=== PATIENT | male | born 1945 | race Caucasian/White ===

== ENCOUNTER 2021-02-07 11:26 | Outpatient (REF) | payer MEDICARE, OTHER, SELFPAY ==
--- NOTE | ~2021-02-07 | XR_ITS ---
EXAMINATION: XR HUMERUS, RIGHT CLINICAL INFORMATION: Pain COMPARISON: None TECHNIQUE: AP and lateral views of the right humerus. FINDINGS: No fracture or dislocation is seen. There is mild arthritis at the acromioclavicular joint. The glenohumeral joint is normal. There is arthritis at the elbow joint. Soft tissues are unremarkable. 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
== END 2021-02-07 11:27 | disposition home or self-care (01) ==
LOC: HO.HMGCX 11:26
PROVIDERS: Visit Provider Nurse Practitioner Family
DX: Z13.89 Encounter for screening for other disorder (principal)
CPT/HCPCS: 73060

== ENCOUNTER 2021-02-07 16:07 | Outpatient (REF) | payer MEDICARE, OTHER, SELFPAY ==
--- NOTE | ~2021-02-07 | US_ITS ---
EXAMINATION: US VENOUS WITH DOPPLER UPPER EXTREMITY, RIGHT CLINICAL INFORMATION: Pain localized tenderness over biceps COMPARISON: None TECHNIQUE: Ultrasound of the upper extremity is performed using compression sonography and color and pulse Doppler flow with assessment of augmentation of flow. There is also imaging and Doppler assessment of the jugular and subclavian veins. Spectral analysis with color-flow imaging is performed. FINDINGS: Respiratory variation, normal compression, and augmented flow are noted throughout the upper extremity including the axillary, brachial, cubital, and radial and ulnar veins. There is normal flow in the internal jugular and subclavian veins. There is no visible deep or superficial thrombophlebitis. If the patient's symptoms progress, a followup ultrasound in 5 -7 days might be of value to exclude proximal propagation from a nonvisualized distal arm vein. In the area of concern there does appear to be a small fluid collection possibly representing fluid within the bicipital groove. I cannot exclude a proximal tear the biceps tendon on this study but this is not well assessed on ultrasound. Consider MRI of the shoulder to more completely evaluate this area. US/US venous duplex UE RT IMPRESSION: No DVT demonstrated in the right upper extremity. In the area of concern along the region of the biceps tendon there is a elongated fluid collection possibly representing fluid-filled bicipital groove. It does appear to be possible discontinuity of the biceps tendon in this location but the examination is suboptimal for evaluating this. Consider dedicated targeted MRI if further evaluation is needed.
== END 2021-02-07 16:08 | disposition home or self-care (01) ==
LOC: HO.US 16:07
PROVIDERS: PCP Internal Medicine; Visit Provider Nurse Practitioner Family
DX: M79.621 Pain in right upper arm (principal)
CPT/HCPCS: 93971

== ENCOUNTER → 2021-02-17 10:46 | Outpatient (BNVA) | payer MEDICARE, OTHER, SELFPAY | PROVIDERS: PCP Internal Medicine; Visit Provider Physician Assistant | DX: M75.101 Unspecified rotator cuff tear or rupture of right shoulder, not specified as traumatic (principal) | CPT/HCPCS: 99202 ==

== ENCOUNTER 2021-03-17 09:00 | Outpatient (RCR) | payer MEDICARE, OTHER, SELFPAY ==
--- NOTE | 2021-03-02 11:58 | MHC.PT.EP ---
[facility] [place] [facility] [place] Office [place] Office [address] Mik Chang [address] [phone] F: [phone] F: [phone] F: [phone] F: [phone] Physical Therapy Plan of Care Date of Evaluation: Date of Surgery: N/A Diagnosis: rotator cuff tear or rupture of right shoulder Assessment: pt's signs and symptoms consistent w/ overuse of deltoid muscle. He has pain and tenderness localized to distal lateral portion of deltoid. pt also weak w/ long-lever abduction and has some atrophy localized to the supraspinatus. pt presents to physical therapy with pain, decreased range of motion, decreased strength, impaired functional mobility, and impaired postural awareness. pt is a good candidate for skilled PT due to age, potential remediation of impairments, typical disease/condition progression and prognosis, comorbidities, and motivation. pt would benefit from tailored strengthening and stretching exercise program, functional training, postural re-training, neuromuscular re-education, modalities as needed for pain, equipment safety demonstration. Frequency and Duration: The patient will be seen 2x/wk for 4 wks Short Term Goals: pt will be I w/ HEP to promote self-management of condition. 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 pt will report a statistically significant improvement in self-reported outcome measure, SPADI, to promote return to PLOF. Treatment Plan: Modalities to reduce pain, spasms and effusion. Manual therapy to restore motion and function. Therapeutic exercise to improve strength and flexibility. Neuromuscular re-education for posture and balance. Therapeutic activities to return to functional activities of daily living. Electronically signed by: Mariaa Deras PT, DPT Please sign and return to therapist. Thank you for your referral.
--- NOTE | 2021-03-17 17:44 | MHC.PT.DC ---
[facility] [place] Office [place] Office [place] Office [address] 140 [facility] [phone] F: [phone] F: [phone] F: [phone] F: [phone] Physical Therapy Discharge Report Diagnosis: rotator cuff tear or rupture of right shoulder Date of Surgery: N/A Date of Evaluation: 03/02/21 Date of Discharge: 03/17/21 Treatments to Date: 6 Cancellations to Date: 0 No Shows to Date: 0 Discharge Status: Improved Function Independent with HEP Patient Elected to Stop Discharge Summary: The patient has been consistently reporting little to no pain of the right shoulder. He is independent with his home exercise program and pain management techniques including using moist heat in the morning to manage stiffness. He requested to be discharged today as his pain has reduced and he is independent with pain management. He is discharged from this physical therapy plan of care per his request. Electronically signed by: Mariaa Deras PT, DPT Please sign and return to therapist. Thank you for your referral.
== END 2021-03-17 17:44 | disposition home or self-care (01) ==
LOC: HO.PT 09:00
PROVIDERS: PCP Internal Medicine; Visit Provider Physician Assistant
DX: M75.101 Unspecified rotator cuff tear or rupture of right shoulder, not specified as traumatic (principal)
CPT/HCPCS: 97110; 97161; 97530

== ENCOUNTER 2021-11-10 06:02 | Outpatient (REF) | payer MEDICARE, OTHER, SELFPAY ==
[2021-11-10 06:17] LABS: MANUAL DIFF FLAG NO
[2021-11-10 07:23] LABS: Basophils Percent Auto 0.6 % (0-2); Eosinophils Absolute Auto 0.1 X10*3/uL (0.0-0.4); Eosinophils Percent Auto 2.8 % (0-4); Hematocrit 42.6 % (42.0-52.0); Hemoglobin 14.4 g/dl (14.0-18.0); Imm Gran Abs Auto 0.02 X10*3/uL (0.00-0.03); Imm Gran Pct Auto 0.4 % (0.0-0.4); Lymphocytes Absolute Auto 1.4 X10*3/uL (1.2-4.9); Lymphocytes Percent Auto 27.5 % (20-40); Mean Corpuscular HGB Conc 33.8 g/dl (31.0-36.0); Mean Corpuscular Hemoglobin 31.6 pg (27.0-33.0); Mean Corpuscular Volume 93.4 fL (80.0-98.0); Mean Platelet Volume 9.4 fL (9.4-12.4); Monocytes Absolute Auto 0.5 X10*3/uL (0.1-1.2); Monocytes Percent Auto 9.6 % (2-11); Neutrophils Percent Auto 59.1 % (45-73); Platelet Count 198 X10*3/uL (160-400); Red Blood Count 4.56 X10*6/uL (4.60-5.80); Red Cell Distribution Width 12.4 % (11.0-16.0)
[2021-11-10 07:46] LABS: Alanine Aminotransferase 14 U/L (0-40); Albumin Level 4.6 g/dL (3.5-5.0); Alkaline Phosphatase 113 U/L (39-117); Anion Gap 12 (12-20); Aspartate Amino Transferase 21 U/L (5-37); Bilirubin Total 0.9 mg/dL (0.0-1.0); Blood Urea Nitrogen 12 mg/dL (9-16); Calcium 9.4 mg/dL (8.4-10.2); Carbon Dioxide 26 mmol/L (22-29); Chloride 106 mmol/L (96-108); Cholesterol 132 mg/dL; Estimated Glomerular Filt Rate > 60; Glucose Random 97 mg/dL (60-115); HDL Cholesterol 52 mg/dL; LDL Cholesterol Calculated 63 mg/dl; Sodium 140 mmol/L (135-145); Total Protein 7.5 g/dL (6.5-8.0); Triglycerides 88 mg/dL
[2021-11-10 08:10] LABS: Free T4 (Free Thyroxine) 0.92 ng/dL (0.71-1.85); Prostate Specific Antigen Scr < 0.05 ng/mL (<0.05-4.0); Thyroid Stimulating Hormone 2.91 uIU/mL (0.32-4.0)
[2021-11-10 08:23] LABS: Folate 16.4 ng/mL (> or = 4.0); Vitamin B12 356 pg/mL (200-900)
== END 2021-11-10 06:03 | disposition home or self-care (01) ==
LOC: HO.LAB 06:02
PROVIDERS: PCP Internal Medicine; Visit Provider Internal Medicine
DX: Z12.5 Encounter for screening for malignant neoplasm of prostate (principal); K21.9 Gastro-esophageal reflux disease without esophagitis; E78.00 Pure hypercholesterolemia, unspecified
CPT/HCPCS: 36415; 80053; 80061; 82607; 82746; 84153; 84439; 84443; 85025

== ENCOUNTER 2022-01-25 08:19 | Outpatient (REF) | payer MEDICARE, OTHER, SELFPAY ==
[2022-01-25 08:46] LABS: Hematocrit 40.9 % (42.0-52.0); Mean Corpuscular HGB Conc 34.2 g/dl (31.0-36.0); Mean Corpuscular Hemoglobin 31.5 pg (27.0-33.0); Mean Corpuscular Volume 91.9 fL (80.0-98.0); Mean Platelet Volume 8.9 fL (9.4-12.4); Platelet Count 184 X10*3/uL (160-400); Red Blood Count 4.45 X10*6/uL (4.60-5.80); Red Cell Distribution Width 12.5 % (11.0-16.0); White Blood Count 5.2 X10*3/uL (4.8-10.8)
[2022-01-25 09:07] LABS: Anion Gap 14 (12-20); Blood Urea Nitrogen 15 mg/dL (9-16); Calcium 9.2 mg/dL (8.4-10.2); Carbon Dioxide 26 mmol/L (22-29); Chloride 106 mmol/L (96-108); Estimated Glomerular Filt Rate > 60; Glucose Random 167 mg/dL (60-115); Potassium 4.5 mmol/L (3.3-5.1); Sodium 141 mmol/L (135-145)
[2022-01-25 09:39] LABS: Appearance Urine CLEAR; Color Urine YELLOW; Glucose Urine UA NEG (NEG); Leukocyte Esterase Urine NEG (NEG); Nitrite Urine NEG (NEG); PH 5.5 (5.0-8.0); Specific Gravity - Urine >= 1.030 (1.005-1.025); Urine Blood TRACE (NEG); Urine Ketones 5 MG/DL (NEG); Urine Protein NEG (NEG-TRACE)
[2022-01-25 09:52] LABS: Squamous Epithelial Cell Urine TRACE /LPF
[2022-01-25 09:53] LABS: RBC Urine 0-2 /HPF (0); WBC Urine 0-2 /HPF (0-4)
== END 2022-01-25 08:20 | disposition home or self-care (01) ==
LOC: HO.LAB 08:19
PROVIDERS: PCP Internal Medicine; Visit Provider Urology
DX: N39.0 Urinary tract infection, site not specified (principal)
CPT/HCPCS: 36415; 80048; 81001; 85027; 87086

== ENCOUNTER → 2022-09-08 13:55 | Outpatient (REF) | payer MEDICARE, OTHER, SELFPAY ==
--- NOTE | 2022-09-08 13:59 | ECG_ITS ---
Test Reason : CARD. ARRHYTHMIA Blood Pressure : / mmHG Vent. Rate : 088 BPM Atrial Rate : 088 BPM P-R Int : 162 ms QRS Dur : 076 ms QT Int : 360 ms P-R-T Axes : 061 -11 064 degrees QTc Int : 435 ms Normal sinus rhythm Normal ECG When compared with ECG of 24-APR-2010 13:04, No significant change was found Referred By: Oscar Arias Electronically Signed By:REINALDO WHITAKER
== END ==
LOC: HO.CARD 13:55
PROVIDERS: PCP Internal Medicine; Visit Provider Internal Medicine
DX: I49.9 Cardiac arrhythmia, unspecified (principal)
CPT/HCPCS: 93005

== ENCOUNTER 2022-11-27 07:04 | Day surgery (SDC) | payer MEDICARE, OTHER, SELFPAY ==
[2022-11-27 07:31] VITALS: BMI 25.1
[2022-11-27 07:42] VITALS: BP 168/84; PULSE 83; RESP 16; TEMP 36.3; O2SAT 98
--- NOTE | 2022-11-27 07:56 | HO.ANESPROP2 ---
FORMERLY [facility], [facility] Active Problems Active Problems: All Active Problems (Updated 10/12/22 @ 10:59 by Paula Johnson MD) Bloating (Acute) Burping (Acute) Postnasal drip (Acute) Sinus congestion (Acute) Hypertension (Acute) Arrhythmia (Acute) Excessive tearing (Acute) Dermatosis of scalp (Acute) BPH (benign prostatic hyperplasia) (Acute) History of prostate cancer (Acute) Adult general medical exam (Acute) Colon cancer screening (Acute) Visual changes (Acute) Generalized anxiety disorder (Acute) Constipation (Acute) GERD (gastroesophageal reflux disease) (Acute) Painful arc syndrome of right shoulder (Acute) Past Medical History Medical History Blood pressure elevated without history of HTN BPH (benign prostatic hyperplasia) GERD (gastroesophageal reflux disease) History of prostate cancer History of renal calculi Family History Family history of problems with anesthesia: No Surgical History Surgical History H/O prostatectomy History of adenoidectomy History of colonoscopy History of suburethral sling procedure S/P left inguinal herniorrhaphy History of Problems with Anesthesia: No Social History Social History Housing: House Alcohol intake: current Alcohol intake frequency: a few times a week Patient Tobacco Use Status: Former Tobacco user Tobacco use type: Cigarette Years Smoked: quit 30 years old e-Cigarette/Vaping Use: Never Used Second Hand Smoke Exposure: No Use of substances other than those prescribed or required for medical reasons: No Are you DNR?: No Advance Directives: No Advance Directives Information Provided: Yes Nutrition Risks: No Nutritional Risk Current occupational status: unemployed and retired Current occupation: left hand Cognitive needs: No Hearing needs: No Vision needs: Yes Meds Allergies Allergy/AdvReac Type Severity Reaction Status Date / Time Iodinated Contrast Media Allergy Unknown NAUSEA & Verified 10/27/22 09:23 [IV DYE, IODINE CONTAINING] VOMITING Penicillins [PENICILLINS] Allergy Unknown UNKNOWN Verified 10/27/22 09:23 losartan AdvReac Intermediate Nausea Verified 11/22/22 20:04 Metoprolol AdvReac Nausea and Uncoded 10/27/22 09:23 Vomiting Active Medications: Current Medications Sodium Biphosphate/Sodium Phosphate (Sodium Phosphate,Lea-Dibasic 133 Ml Enema) 133 ml LA ONCE PRN PRN Reason: Poor Colonoscopy Prep Results Home Medications Medication Instructions Recorded Confirmed Last Taken Type lisinopril 5 mg tablet 5 mg PO DAILY 11/24/22 11/24/22 Unknown History Exam Exam Date and Time: November 27, 2022 0756 Height,Weight and Vital Signs: Height 5 ft 10 in Weight 79.379 kg Airway Mallampati Class: II TM Dist: >3cm Neck ROM: Full Loose/Missing/Broken Teeth: Yes (few missing lower left) Heart: rr Lungs: cta Assessment and Plan Assessment Anesthesia Assessment: Anesthesia Plan Discussed and Chart Reviewed Final Anesthetic Review Family History of Problems with Anesthesia: No History of Problems with Anesthesia: No NPO: Yes ASA Class: II Final Preanesthetic Review: No Changes in Pt Med Stat, Meds/Allgs Chart Reviewed, Consent Obtained/Reviewed and Anes Risks/Benef Reviewed Patient Risk: Low Procedure Risk: Low Anesthetic Plan Anesthetic Plan: MAC: Disposition: Standard PACU
[2022-11-27] MEDS: Lactated Ringers 500 ML 20 ML IVCONT (08:05)
[2022-11-27 08:59] VITALS: BP 88/43; PULSE 69; RESP 16; TEMP 36.6; O2SAT 96
--- NOTE | 2022-11-27 09:00 | PM.OP ---
Brief Operative Note Date of Service: 11/27/22 Pre-op diagnosis: Screening Post-op diagnosis: other (Diverticulosis) Procedure: Colonoscopy to the cecum and TI Surgeon: Jayesh Sweet Anesthesia: MAC Was an Component Assembler used for this Procedure?: No Estimated blood loss (mL): 0 Pathology: none sent Condition: stable Disposition: PACU
[2022-11-27 09:17] VITALS: BP 102/57; PULSE 56; RESP 16; TEMP 36.6; O2SAT 97
[2022-11-27 09:32] VITALS: BP 129/68; PULSE 67; RESP 18; TEMP 36.6; O2SAT 100
--- NOTE | 2022-11-27 09:49 | OP_ITS ---
DATE OF SERVICE: 11/27/2022 SURGEON: Jayesh Sweet MD INDICATIONS: The patient presents for evaluation of colorectal cancer screening and personal history of tubular adenoma of the colon. Full consent has been obtained from him for this, including risks of bleeding and perforation. PREOPERATIVE DIAGNOSIS: POSTOPERATIVE DIAGNOSIS: PROCEDURE PERFORMED: Colonoscopy to cecum and terminal ileum. ESTIMATED BLOOD LOSS: COMPLICATIONS: ANESTHESIA: Monitored anesthesia care. ASSISTANTS: SPECIMENS: PREOPERATIVE DIAGNOSES: Colorectal cancer screening and personal history of tubular adenoma of the colon. POSTOPERATIVE DIAGNOSES: Colorectal cancer screening and personal history of tubular adenoma of the colon, diverticulosis and internal hemorrhoids. DESCRIPTION OF PROCEDURE: The patient was placed in the left lateral decubitus position. The digital rectal exam revealed no abnormalities. The Olympus video pediatric colonoscope was entered into the rectum and advanced easily to the cecum. Once in the cecum, I did identify normal-appearing cecal pouch with appendiceal orifice and a normal-appearing ileocecal valve. The terminal ileum was cannulated and appeared normal. The scope was withdrawn back in the colon. The entire cecum and ileocecal valve appeared normal. The scope was slowly withdrawn assessing all mucosal surfaces carefully. Preparation was excellent. I did not visualize any sign of polyps, colitis, nor angiodysplasia. There was a mild amount of sigmoid diverticulosis. In the rectum, scope was retroflexed visualizing internal hemorrhoids, but no other pathology. The rectal mucosa appeared normal. The scope was straightened and withdrawn from the patient. He tolerated the procedure well and was returned to the recovery area in stable condition. IMPRESSION: 1. Diverticulosis. 2. Internal hemorrhoids. PLAN: Given today's negative exam and his age, I do not think he would need any further screening colonoscopies in the future. He will otherwise see me on a p.r.n. basis. MD MENDEZ Mantilla/STEPHEN / [id number] ROBERTO CARLOS
== END 2022-11-27 10:05 | disposition home or self-care (01) ==
PROVIDERS: PCP Internal Medicine; Visit Provider Internal Medicine
PROC: 0DJD8ZZ Inspection of Lower Intestinal Tract, Via Natural or Artificial Opening Endoscopic (ICD-10-PCS; CPT 45378; principal; 2022-11-27 08:20)
DX: Z12.11 Encounter for screening for malignant neoplasm of colon (principal); Z86.010 Personal history of colon polyps; Z80.0 Family history of malignant neoplasm of digestive organs; K57.30 Diverticulosis of large intestine without perforation or abscess without bleeding; K64.8 Other hemorrhoids; I10 Essential (primary) hypertension; Z79.899 Other long term (current) drug therapy; Z88.0 Allergy status to penicillin; Z91.041 Radiographic dye allergy status; Z85.46 Personal history of malignant neoplasm of prostate; Z90.79 Acquired absence of other genital organ(s); Z87.891 Personal history of nicotine dependence
CPT/HCPCS: G0105

== ENCOUNTER 2023-02-02 08:05 | Outpatient (AMB) | payer MEDICARE, OTHER, SELFPAY ==
--- NOTE | 2023-02-02 08:13 | MHC.OFFWIV ---
Intake Vital Signs 02/02/23 08:15 BP 120/70 Blood Pressure Location Rt brachial Position Sitting Pulse 86 Pulse Source Pulse Oximeter Pulse Oximetry (%) 98 Oxygen Delivery Method Room Air Intake Visit Reasons: EP cyst on lt shoulder (lobby) Intake Note: Patient here for cyst on left shoulder that has been present for some time now, he states it came to a head and most of the discharge came out but now he is concerned it could be infected. Patient Tobacco Use Status: Former Tobacco user Allergies Iodinated Contrast Media [IV DYE, IODINE CONTAINING] Allergy (Unknown, Verified 02/02/23 08:15) NAUSEA & VOMITING Penicillins [PENICILLINS] Allergy (Unknown, Verified 02/02/23 08:15) UNKNOWN losartan Adverse Reaction (Intermediate, Verified 02/02/23 08:15) Nausea Metoprolol Adverse Reaction (Uncoded 02/02/23 08:15) Nausea and Vomiting Do you need a note to return to daycare/school/sports/work: No HPI HPI Comments History of Present Illness Details This is a 77-year-old male presented to the office today for a sick visit. Patient states he noticed an abscess on his left chest wall. Patient states the abscess ?came to a head? and had some white thick drainage. Patient states he started to develop erythema around the area, which has persisted and slightly worsened. He denies any fevers or chills. He otherwise feels well. FORMERLY [facility] Medical History Blood pressure elevated without history of HTN BPH (benign prostatic hyperplasia) Colon cancer screening GERD (gastroesophageal reflux disease) History of prostate cancer History of renal calculi Surgical History H/O prostatectomy History of adenoidectomy History of colonoscopy History of suburethral sling procedure S/P left inguinal herniorrhaphy Social History Housing: House Alcohol intake: current Alcohol intake frequency: a few times a week Patient Tobacco Use Status: Former Tobacco user Tobacco use type: Cigarette Years Smoked: quit 30 years old e-Cigarette/Vaping Use: Never Used Second Hand Smoke Exposure: No Current occupational status: unemployed and retired Current occupation: left hand Cognitive needs: No Hearing needs: No Vision needs: Yes Physical Exam Vital Signs: Last Vital Signs Pulse 86 02/02/23 08:15 BP 120/70 02/02/23 08:15 Pulse Ox 98 02/02/23 08:15 Oxygen Delivery Method Room Air 02/02/23 08:15 Const General: cooperative, healthy appearing and no acute distress Orientation/consciousness: patient oriented x3 HEENT Head: Yes normal to inspection Ears: hearing grossly normal bilaterally General nose exam: Normal external nose present Face and sinus: Yes normal facial exam Resp Effort & Inspection: normal respiratory effort Auscultation: clear to auscultation bilaterally Cardio Rate: regular rate Heart sounds: no gallops, no murmurs and no rubs Skin Other: Abscess noted to the left chest wall with an opening, thick white drainage noted. There is surrounding erythema. Lesions: lesion noted cyst left anterior chest Neuro General: patient oriented x3 Cranial nerves: Yes CN's II-XII intact bilaterally Office Procedures Incision and Drainage Incision and drainage performed by: Sunita Seymour Informed consent given: Yes Time out checklist: patient, procedure, site marked/identified, positioning of patient, supplies available, allergies confirmed and team agrees on procedure Anesthesia: none Incision with: other (cyst already had opening, no incision needed) Drainage quality: purulent (thick white drainage) Probed cavity: Yes Culture taken: No Lesion: erythema Cavity management: packing Dressing: other (bandage) Patient tolerated procedure: well Complications: No Assessment & Plan Assessment & Plan (1) Abscess: Code(s): L02.91 - Cutaneous abscess, unspecified Plan Patient is presenting with signs and symptoms consistent with an infected sebaceous cyst/abscess to the left anterior chest wall. The abscess already had an opening, so incision was not necessary but the abscess was drained with thick/white drainage. Packing was placed. Patient instructed to remove the packing in 48 hours or to follow-up here in 72 hours for packing removal and wound check. The patient started on p.o. doxycycline 100 mg twice daily x 10 days. Patient was instructed to follow-up here or to the emergency room if he develops worsening erythema, discharge, or fever/chills. Medications: New doxycycline hyclate 100 mg PO BID 20 caps 0RF Coding Level of Care Code Est Pt Level 3 (31974) Diagnoses Abscess L02.91
[2023-02-02 08:15] VITALS: BP 120/70; PULSE 86; O2SAT 98
== END 2023-02-02 09:00 | disposition home or self-care (01) ==
PROVIDERS: PCP Internal Medicine; Visit Provider Physician Assistant Medical
DX: L02.91 Cutaneous abscess, unspecified (principal)
CPT/HCPCS: 99213

== ENCOUNTER 2023-03-08 09:35 | Outpatient (AMB) | payer MEDICARE, OTHER, SELFPAY ==
--- NOTE | 2023-03-08 11:02 | MHC.OFFWIV ---
Intake Vital Signs 03/08/23 12:10 Height 5 ft 10 in Weight 171 lb 4 oz BMI 24.6 BP 130/64 Blood Pressure Location Rt brachial Position Sitting Pulse 98 Pulse Source Pulse Oximeter Temp 97.4 F Temp Source Oral Pulse Oximetry (%) 99 Oxygen Delivery Method Room Air Intake Visit Reasons: EP ?Indigestion/bloating Intake Note: Pt is here c/o having bloating in his stomach since yesterday. Pt states yesterday on 03/07/23 he had chest pain but no SOB. Patient Tobacco Use Status: Former Tobacco user Allergies Iodinated Contrast Media [IV DYE, IODINE CONTAINING] Allergy (Unknown, Verified 03/08/23 11:02) NAUSEA & VOMITING Penicillins [PENICILLINS] Allergy (Unknown, Verified 03/08/23 11:02) UNKNOWN losartan Adverse Reaction (Intermediate, Verified 03/08/23 11:02) Nausea Metoprolol Adverse Reaction (Uncoded 03/08/23 11:02) Nausea and Vomiting Medication List - Last Reconciled 03/08/23 by Mariaa Toussaint PA-C cetirizine 10 mg PO DAILY PRN flaxseed oil 1,000 mg PO DAILY Do you need a note to return to daycare/school/sports/work: No HPI HPI Comments History of Present Illness Details This is a 77-year-old male with a past medical history of hypertension, prostatectomy with subsequent bladder sling presenting from home for evaluation of abdominal bloating and upper abdominal pain that started yesterday at approximately 11:00 a.m.. Patient denies any associated chest pain, shortness of breath, cough, fevers or chills however he reports increased burping throughout the day yesterday. At this time the patient reports mild abdominal bloating only. Patient states his symptoms do not worsen with the intake of food. He denies any diarrhea, constipation, dark or bloody stools. Patient called his primary care physician who encouraged him to come to the walk-in to rule out any cardiac etiology of his discomfort. Patient's last meal was at approximately 8:00 a.m. today. Patient reports having episodes of heartburn for which he will occasionally take a Tums [id number]. [facility] Medical History (Updated 03/08/23 @ 12:41 by Mariaa Toussaint PA-C) Blood pressure elevated without history of HTN BPH (benign prostatic hyperplasia) Burping Colon cancer screening GERD (gastroesophageal reflux disease) History of prostate cancer History of renal calculi Surgical History H/O prostatectomy History of adenoidectomy History of colonoscopy History of suburethral sling procedure S/P left inguinal herniorrhaphy Social History Housing: House Alcohol intake: current Alcohol intake frequency: a few times a week Patient Tobacco Use Status: Former Tobacco user Tobacco use type: Cigarette Years Smoked: quit 30 years old e-Cigarette/Vaping Use: Never Used Second Hand Smoke Exposure: No Current occupational status: unemployed and retired Current occupation: left hand Cognitive needs: No Hearing needs: No Vision needs: Yes Review of Systems Const All systems reviewed & are unremarkable except as noted in HPI and below Denies anorexia, Denies body aches, Denies chills and Denies fever(s) Card Denies chest pain, Denies chest pain at rest, Denies chest pain with activity, Denies diaphoresis, Denies rapid heart rate, Denies irregular heart rhythm, Denies dyspnea and Denies dyspnea on exertion Resp Reports no additional complaints, Denies dyspnea and Denies dyspnea on exertion GI Reports abdominal pain, Reports belching, Denies melena, Reports bloating, Denies hematochezia, Denies change in bowel habits, Denies change in stool character, Denies constipation, Denies GI cramping, Denies excessive flatus, Denies dyspepsia, Reports heartburn, Denies nausea and Denies vomiting Reports no additional complaints Neuro Reports no additional complaints Psych Reports no additional complaints Physical Exam Vital Signs: Vital signs reviewed. Const General: cooperative, healthy appearing, no acute distress and well developed; No diaphoretic, ill appearing or lethargic Nutritional Appearance: average body habitus Orientation/consciousness: patient oriented x3 and No lethargic Limitations: no limitations Chest Chest palpation & inspection: normal palpation of entire chest wall Resp Effort & Inspection: normal respiratory effort Auscultation: clear to auscultation bilaterally Cardio Rate: regular rate Rhythm: regular rhythm Heart sounds: no murmurs GI Inspection: Yes normal to inspection Palpation (GI): Tenderness to palpation present (GI) in the epigastrum, no guarding, not rigid, no hepatosplenomegaly, no pulsatile masses and No Rebound tenderness present Auscultation: normal bowel sounds Neuro General: patient oriented x3 Psych Appearance: grossly normal Mental Status: mental status grossly normal Speech and movement: Normal speech and movement present Thought process: Normal thought process present Insight: Good insight present (Psych) Judgement: Good judgement present (Psych) Office Procedures EKG Details: 56 bpm; NSR [id number], Complete Results Reviewed Results Reviewed: EKG reviewed; 56bpm with sinus rhythm, bradycardic Assessment & Plan Assessment & Plan (1) Epigastric pain determined by examination: Code(s): R10.13 - Epigastric pain Plan Patient seen and evaluated. His medical surgical history is reviewed. EKG reveals bradycardia at a rate of 56 beats per minute. Patient is in no acute distress and has minimal epigastric pain on examination without rebound tenderness or guarding. Patient will be discharged and instructed to take omeprazole 20 mg daily for the next 2 weeks and follow up with his primary care provider within 7-10 days. Orders: Orders AMB EKG-In Office Today R07.9 - Chest pain, unspecified Coding Level of Care Code Established Pt Est Pt Level 4 (81016) Patient Type Established History Problem Focused Exam Expanded Problem Focused Medical Decision Making Moderate Complexity Diagnoses Epigastric pain determined by examination R10.13 CPT Codes EKG - CPT: [id number], Complete ([id number]) Time Spent (min) 30
[2023-03-08 12:10] VITALS: BP 130/64; PULSE 98; TEMP 36.3; O2SAT 99; BMI 24.6
== END 2023-03-08 12:44 | disposition home or self-care (01) ==
PROVIDERS: PCP Internal Medicine; Visit Provider Physician Assistant
DX: R00.1 Bradycardia, unspecified (principal)
CPT/HCPCS: 93000; 99214

== ENCOUNTER 2023-03-22 12:46 | Outpatient (AMB) | payer MEDICARE, OTHER, SELFPAY ==
--- NOTE | 2023-03-22 13:03 | AM.OFFWIN_ITS ---
Intake Vital Signs 03/22/23 13:07 Weight 172 lb BP 120/80 Blood Pressure Location Rt brachial Position Sitting Pulse 74 Pulse Source Pulse Oximeter Pulse Oximetry (%) 97 Oxygen Delivery Method Room Air Intake Visit Reasons: EST/digestive problems Intake Note: Patient here for ongoing indegestion problems, bloating, stomach cramps, GERD and nausea. when he burbs he states its one right after the other more then usual. Patient Tobacco Use Status: Former Tobacco user Allergies Iodinated Contrast Media [IV DYE, IODINE CONTAINING] Allergy (Unknown, Verified 03/22/23 13:07) NAUSEA & VOMITING Penicillins [PENICILLINS] Allergy (Unknown, Verified 03/22/23 13:07) UNKNOWN losartan Adverse Reaction (Intermediate, Verified 03/22/23 13:07) Nausea Metoprolol Adverse Reaction (Uncoded 03/22/23 13:07) Nausea and Vomiting Do you need a note to return to daycare/school/sports/work: No HPI HPI Comments History of Present Illness Details 77-year-old male with history of GERD that presents for epigastric bloating and discomfort. Patient has been dealing with a excessive bloating and discomfort as well as excessive belching and gas for some time now. He he was seen in the walk-in clinic per month ago and started on omeprazole once a day. Since then he had some minor relief foot is still been experiencing symptoms. He denies chest pain or shortness of breath fevers or chills. He does still endorse eating not the best diet to include fast food in some greasy food. Endorses some nausea but denies any vomiting. [facility] Medical History (Updated 03/08/23 @ 12:41 by Mariaa Toussaint PA-C) [place] Blood pressure elevated without history of HTN Colon cancer screening History of renal calculi History of prostate cancer GERD (gastroesophageal reflux disease) BPH (benign prostatic hyperplasia) Surgical History History of suburethral sling procedure History of colonoscopy History of adenoidectomy S/P left inguinal herniorrhaphy H/O prostatectomy Social History Housing: House Alcohol intake: current Alcohol intake frequency: a few times a week Patient Tobacco Use Status: Former Tobacco user Tobacco use type: Cigarette Years Smoked: quit 30 years old e-Cigarette/Vaping Use: Never Used Second Hand Smoke Exposure: No Current occupational status: unemployed and retired Current occupation: left hand Cognitive needs: No Hearing needs: No Vision needs: Yes Review of Systems Const All systems reviewed & are unremarkable except as noted in HPI and below GI Reports abdominal pain, Reports belching and Reports excessive flatus Physical Exam Vital Signs: Last Vital Signs Pulse 74 03/22/23 13:07 BP 120/80 03/22/23 13:07 Pulse Ox 97 03/22/23 13:07 Oxygen Delivery Method Room Air 03/22/23 13:07 Const General: cooperative, no acute distress and alert Orientation/consciousness: patient oriented x3 Limitations: no limitations HEENT Head: Yes normal to inspection Ears: hearing grossly normal bilaterally and external ears normal General nose exam: Normal external nose present Eyes General: appearance normal, both eyes and all related structures Neck Neck: Yes normal visual inspection Chest Chest palpation & inspection: normal inspection of the chest Resp Effort & Inspection: normal respiratory effort, able to speak in complete sentences and no audible wheezes Auscultation: clear to auscultation bilaterally Cardio Rate: regular rate Rhythm: regular rhythm GI Inspection: Yes normal to inspection Palpation (GI): Soft to palpation and nontender Skin General skin exam: no rashes or lesions noted Neuro General: patient oriented x3 Psych Appearance: grossly normal Mental Status: mental status grossly normal Speech and movement: Normal speech and movement present Affect: normal affect Attitude: cooperative Thought process: Normal thought process present Thought content: Normal thought content present Assessment & Plan Assessment & Plan (1) Epigastric pain determined by examination: Code(s): R10.13 - Epigastric pain Plan VSS on exam patient presents alert oriented no acute distress. Exam was largely unremarkable. No epigastric tenderness to palpation was minor bloating on exam bili otherwise benign. Still with component of reflux is at play. Also considerations hiatal hernia. given no significant improvement on omeprazole do believe the patient could benefit from GI evaluation. Will increase omeprazole 20 mg b.i.d. recommend dietary changes and sent message to patient's PCP regarding GI consultation. Discharge instructions, follow up and treatment are discussed with patient in my usual fashion. Alternatives in treatment are also discussed. The patient will return for worsening symptoms or as needed. Advised that any labs/imaging ordered will be followed up on and contact made if further treatment needed. Counseled that patient's condition may require further evaluation and/or treatment. Symptoms of concern for worsening disorder discussed in detail in my customary manner. Patient does verbalize understanding of the plan, there are no apparent barriers to communication. The patient is given the opportunity to ask questions and have them answered to his/her satisfaction Coding Level of Care Code Est Pt Level 3 (97257) Diagnoses Epigastric pain determined by examination R10.13
[2023-03-22 13:07] VITALS: BP 120/80; PULSE 74; O2SAT 97
== END 2023-03-22 13:49 | disposition home or self-care (01) ==
PROVIDERS: PCP Internal Medicine; Visit Provider Physician Assistant
DX: R10.13 Epigastric pain (principal)
CPT/HCPCS: 99213

== ENCOUNTER 2023-04-09 09:57 | Outpatient (AMB) | payer MEDICARE, OTHER, SELFPAY ==
[2023-04-09 09:58] VITALS: BP 142/78; PULSE 73; O2SAT 98; BMI 24.8
--- NOTE | 2023-04-09 09:58 | A.OFFPC_ITS ---
Vital Signs 04/09/23 09:58 Height 5 ft 10 in Weight 173 lb BMI 24.8 BP 142/78 H Blood Pressure Location Lt brachial Position Sitting Pulse 73 Pulse Source Pulse Oximeter Temp Source Skin Pulse Oximetry (%) 98 Oxygen Delivery Method Room Air Intake Visit Reasons: Hypertension Caregivers Non Medical Required: No Allergies Iodinated Contrast Media [IV DYE, IODINE CONTAINING] Allergy (Unknown, Verified 04/09/23 09:59) NAUSEA & VOMITING Penicillins [PENICILLINS] Allergy (Unknown, Verified 04/09/23 09:59) UNKNOWN amlodipine Adverse Reaction (Intermediate, Unverified 04/09/23 10:35) Nausea losartan Adverse Reaction (Intermediate, Verified 04/09/23 09:59) Nausea Metoprolol Adverse Reaction (Uncoded 04/09/23 09:59) Nausea and Vomiting Tobacco use date assessed: 04/09/23 Fall risk assessment: No Falls in past year Last assessed Fall Risk: 04/09/23 Dental Screening Dental Screen Date: 04/09/23 Did you have a dental visit in the last 12 months?: Yes Did you have a dental problem in the last 6 months where you did not have access to dental care?: No Was dental information given to patient?: Patient has dentist HPI Hypertension HPI Details 78-year-old male with GERD generalized a nxiety disorder history of prostate cancer and hypertension last seen in December 2022. Patient is here for follow-up. Patient was seen in the Urgent Center 2 weeks ago epigastric with bloating started on omeprazole. Patient was seen in the Urgent Center also for a cyst on the left shoulder and diagnosis of abscess treated with doxycycline. Patient follows up with Nephrology diagnosis of hypertension patient was advised to get the ambulatory blood pressure monitor. ABPM done negative. problem of snoring- will be seeing nephrology in 04/2023 = placed on amlodipine but did not feels well and so stopped . [facility] Medical History (Updated 03/08/23 @ 12:41 by Mariaa Toussaint PA-C) [place] Blood pressure elevated without history of HTN Colon cancer screening History of renal calculi History of prostate cancer GERD (gastroesophageal reflux disease) BPH (benign prostatic hyperplasia) Surgical History History of suburethral sling procedure History of colonoscopy History of adenoidectomy S/P left inguinal herniorrhaphy H/O prostatectomy Social History Housing: House Alcohol intake: current Alcohol intake frequency: a few times a week Patient Tobacco Use Status: Former Tobacco user Tobacco use type: Cigarette Years Smoked: quit 30 years old e-Cigarette/Vaping Use: Never Used Second Hand Smoke Exposure: No Current occupational status: unemployed and retired Current occupation: left hand Cognitive needs: No Hearing needs: No Vision needs: Yes Questionnaire Thrive Questionnaire Date Thrive assessed: 09/08/22 AUDIT C Alcohol Use Questionnaire (AUDIT-C) 1. How often do you have a drink containing alcohol?: Never 3. How often do you have six or more drinks on one occasion?: Never Total Score: 0 PATIENCE-7 AMB Questionnaire PATIENCE-7 Date PATIENCE - 7 assessed: 04/09/23 Feeling nervous, anxious, or on edge: 0 = Not at all Not being able to stop or control worryin = Not at all Worrying too much about different things: 0 = Not at all Trouble relaxin = Not at all Being so restless that it is hard to sit still: 0 = Not at all Becoming easily annoyed or irritable: 0 = Not at all Feeling afraid as if something awful might happen: 0 = Not at all Total PATIENCE-7 score (0-4 normal; 5-9 mild; 10-14 moderate; 15-21 severe): 0 Source: Developed by Drs. Jayesh Mcginnis, Petra Campos, Miguel Zarate and colleagues, with an educational agustin from [employer]. Physical exam (Primary Care) Vital Signs: Last Vital Signs Pulse 73 04/09/23 09:58 BP 142/78 H 04/09/23 09:58 Pulse Ox 98 04/09/23 09:58 Oxygen Delivery Method Room Air 04/09/23 09:58 BMI result Body Mass Index 24.8 Tobacco/Smoking Status: Tobacco use Status Tobacco use date assessed 04/09/23 04/09/23 09:59 Patient Tobacco Use Status Former Tobacco user 04/09/23 09:59 Tobacco use type Cigarette 04/09/23 09:59 e-Cigarette/Vaping Use Never Used 04/09/23 09:59 Thrive Assessment: Date of Thrive Assessment Date Thrive assessed 09/08/22 04/09/23 09:59 Const General: alert; No acute distress Eyes Conjunctivae: conjunctivae normal Resp Auscultation: clear to auscultation bilaterally Cardio Rate: regular rate Rhythm: regular rhythm GI Inspection: Yes normal to inspection Extrem General: Yes normal to inspection and No edema Assessment and Plan Assessment & Plan (1) GERD (gastroesophageal reflux disease): Code(s): K21.9 - Gastro-esophageal reflux disease without esophagitis Plan: Avoid the foods that causes that usually spicy foods, tomato products, juices, coffee, soda and foods that your sensitive to. After eating do not lie down, allow 3-4 hours before in lie down. And keep the head of bed above 30 degrees to avoid the acid from going up. (2) History of prostate cancer: Comment: 2017 Code(s): Z85.46 - Personal history of malignant neoplasm of prostate (3) BPH (benign prostatic hyperplasia): Code(s): N40.0 - Benign prostatic hyperplasia without lower urinary tract symptoms Plan: Continue to monitor (4) Hypertension: Code(s): I10 - Essential (primary) hypertension Plan: Continue with blood pressure medication. Decrease salt intake and exercise patient was sent to nephrology and planned ambulatory blood pressure monitor. this was done and ff up with nephrology 04/2023 Orders: Orders Complete Blood Count Auto Diff Today I10 - Essential (primary) hypertension [place] upper GI series Today K21.9 - Gastro-esophageal reflux disease without esophagitis, R13.10 - Dysphagia, unspecified Comprehensive Met. Panel Today I10 - Essential (primary) hypertension Free T4 (Free Thyroxine) Today I10 - Essential (primary) hypertension Thyroid Stimulating Hormone Today I10 - Essential (primary) hypertension Vitamin B12 and Folate Today I10 - Essential (primary) hypertension Lipid Panel Today E78.00 - Pure hypercholesterolemia, unspecified, I10 - Essential (primary) hypertension Prostate Specific Antigen Scr Today Z85.46 - Personal history of malignant neoplasm of prostate Coding Level of Care Code Est Pt Level 4 (87142) Diagnoses GERD (gastroesophageal reflux disease) K21.9 History of prostate cancer Z85.46 BPH (benign prostatic hyperplasia) N40.0 Hypertension I10
== END 2023-04-09 10:41 | disposition home or self-care (01) ==
PROVIDERS: PCP Internal Medicine; Visit Provider Internal Medicine
DX: K21.9 Gastro-esophageal reflux disease without esophagitis (principal); Z85.46 Personal history of malignant neoplasm of prostate; N40.0 Benign prostatic hyperplasia without lower urinary tract symptoms; I10 Essential (primary) hypertension
CPT/HCPCS: 99214

== ENCOUNTER 2023-04-10 06:48 | Outpatient (REF) | payer MEDICARE, OTHER, SELFPAY ==
[2023-04-10 07:08] LABS: MANUAL DIFF FLAG NO
[2023-04-10 07:39] LABS: Basophils Absolute Auto 0.1 X10*3/uL (0.0-0.2); Basophils Percent Auto 0.8 % (0-2); Eosinophils Absolute Auto 0.2 X10*3/uL (0.0-0.4); Eosinophils Percent Auto 2.9 % (0-4); Hematocrit 41.5 % (42.0-52.0); Hemoglobin 14.1 g/dl (14.0-18.0); Imm Gran Abs Auto 0.03 X10*3/uL (0.00-0.03); Imm Gran Pct Auto 0.5 % (0.0-0.4); Lymphocytes Absolute Auto 1.6 X10*3/uL (1.2-4.9); Lymphocytes Percent Auto 26.2 % (20-40); Mean Corpuscular Hemoglobin 31.2 pg (27.0-33.0); Mean Corpuscular Volume 91.8 fL (80.0-98.0); Mean Platelet Volume 9.3 fL (9.4-12.4); Monocytes Absolute Auto 0.5 X10*3/uL (0.1-1.2); Monocytes Percent Auto 8.2 % (2-11); Neutrophils Absolute Auto 3.7 x10*3/uL (2.0-8.3); Neutrophils Percent Auto 61.4 % (45-73); Platelet Count 190 X10*3/uL (160-400); Red Blood Count 4.52 X10*6/uL (4.60-5.80); Red Cell Distribution Width 12.7 % (11.0-16.0)
[2023-04-10 08:10] LABS: Alanine Aminotransferase 20 U/L (0-40); Albumin Level 4.6 g/dL (3.5-5.0); Alkaline Phosphatase 105 U/L (39-117); Anion Gap 13 (12-20); Aspartate Amino Transferase 22 U/L (5-37); Bilirubin Total 0.7 mg/dL (0.0-1.0); Blood Urea Nitrogen 11 mg/dL (9-16); Calcium 9.6 mg/dL (8.4-10.2); Carbon Dioxide 24 mmol/L (22-29); Chloride 108 mmol/L (96-108); Cholesterol 131 mg/dL (<200); Estimated Glomerular Filt Rate > 60; Glucose Random 98 mg/dL (60-115); HDL Cholesterol 46 mg/dL (>40); LDL Cholesterol Calculated 65 mg/dL (<100); Sodium 141 mmol/L (135-145); Total Protein 7.6 g/dL (6.5-8.0); Triglycerides 103 mg/dL (<150)
[2023-04-10 08:29] LABS: Free T4 (Free Thyroxine) 0.79 ng/dL (0.71-1.85); Thyroid Stimulating Hormone 2.53 uIU/mL (0.32-4.0)
[2023-04-10 08:35] LABS: Folate 14.7 ng/mL (> or = 4.0); Prostate Specific Antigen Scr < 0.10 ng/mL (<0.05-4.0); Vitamin B12 518 pg/mL (200-900)
== END 2023-04-10 06:49 | disposition home or self-care (01) ==
LOC: HO.LAB 06:48
PROVIDERS: PCP Internal Medicine; Visit Provider Internal Medicine
DX: Z12.5 Encounter for screening for malignant neoplasm of prostate (principal); I10 Essential (primary) hypertension; E78.00 Pure hypercholesterolemia, unspecified; Z85.46 Personal history of malignant neoplasm of prostate
CPT/HCPCS: 36415; 80053; 80061; 82607; 82746; 84153; 84439; 84443; 85025

== ENCOUNTER 2023-05-17 13:51 | Outpatient (AMB) | payer MEDICARE, OTHER, SELFPAY ==
--- NOTE | 2023-05-17 13:58 | AM.OFFWIN_ITS ---
Intake Vital Signs 05/17/23 14:05 Height 5 ft 10 in Weight 79.379 kg BMI 25.1 BP 152/90 H Blood Pressure Location Rt brachial Position Sitting Pulse 93 Pulse Source Pulse Oximeter Temp 97.4 F Temp Source Temporal Artery Scan Pulse Oximetry (%) 98 Oxygen Delivery Method Room Air Intake Visit Reasons: EP, High BP 179/90, nausea Intake Note: Pt is here c/o high bp reading since yesterday. Pt states he has also developed redness in his right eye since then. Patient Tobacco Use Status: Former Tobacco user Allergies Iodinated Contrast Media [IV DYE, IODINE CONTAINING] Allergy (Unknown, Verified 05/17/23 13:59) NAUSEA & VOMITING Penicillins [PENICILLINS] Allergy (Unknown, Verified 05/17/23 13:59) UNKNOWN amlodipine Adverse Reaction (Intermediate, Unverified 05/17/23 13:59) Nausea losartan Adverse Reaction (Intermediate, Verified 05/17/23 13:59) Nausea Metoprolol Adverse Reaction (Uncoded 05/17/23 13:59) Nausea and Vomiting Do you need a note to return to daycare/school/sports/work: No HPI HPI Comments History of Present Illness Details 1412 78-year-old male presents for multiple c omplaints complaining of symptomatic hypertension, reports systolic pressure at home 170 diastolic nearly 100, patient also reports that his eye appeared bloody this morning, he is feeling lightheaded and out of it, also reporting a large amount of bright red blood per rectum since this morning. No chest pain or shortness of breath at this time Physical exam w/ R sided subconjuntival hemorrhage to the right eye. This is likely hypertensive urgency versus emergency. Also concern for lower GI bleed. This would be inappropriate to care for out of an urgent care, patient should be seen in the emergency department. Expect called in to [facility] YUMIKO Mathew [facility] Medical History [place] Blood pressure elevated without history of HTN Colon cancer screening History of renal calculi History of prostate cancer GERD (gastroesophageal reflux disease) BPH (benign prostatic hyperplasia) Surgical History History of suburethral sling procedure History of colonoscopy History of adenoidectomy S/P left inguinal herniorrhaphy H/O prostatectomy Social History Housing: House Alcohol intake: current Alcohol intake frequency: a few times a week Patient Tobacco Use Status: Former Tobacco user Tobacco use type: Cigarette Years Smoked: quit 30 years old e-Cigarette/Vaping Use: Never Used Second Hand Smoke Exposure: No Current occupational status: unemployed and retired Current occupation: left hand Cognitive needs: No Hearing needs: No Vision needs: Yes Review of Systems Const Details: Constitutional : No Weight loss, No Fever, No Chills, No Fatigue, No Malaise ENT/Mouth : No sore throat, No Rhinorrhea, + R sided subconjuntival hemorrhage to the right eye. Eyes: No Eye Pain, No Swelling, No Redness Cardiovascular : No Chest Pain, No SOB, No Dyspnea on Exertion, No Orthopnea, No Edema, No Palpitations Respiratory : No Cough, No Sputum, No Wheezing Gastrointestinal : No Nausea, No Vomiting, No Diarrhea, No Constipation, No abdominal Pain, No Hematochezia, No Melena Genitourinary : No Dysuria, No Urinary Frequency, No Hematuria, Musculoskeletal : No joint pain, No Myalgias, No Joint Swelling Skin : No Skin Lesions, No rash Neuro : No Weakness, No Numbness, No Dizziness, No Headache Psych : No Anxiety/Panic, No Depression All other systems reviewed and are negative All systems reviewed & are unremarkable except as noted in HPI and below Physical Exam Vital Signs: Last Vital Signs Temp 97.4 F 05/17/23 14:05 Pulse 93 05/17/23 14:05 BP 152/90 H 05/17/23 14:05 Pulse Ox 98 05/17/23 14:05 Oxygen Delivery Method Room Air 05/17/23 14:05 BMI result Body Mass Index 25.1 vss Appearance: Alert.? Oriented X3.? No acute distress.? Head: Normocephalic, atraumatic, no step-offs or deformities Eyes: Pupils equal, round and reactive to light.? R sided subconjuntival hemorrhage to the right eye. Neck: Normal inspection.? Neck supple.? CVS: Normal heart rate and rhythm.? Pulses normal.? Respiratory: No respiratory distress.? Breath sounds normal.? Abdomen: Soft and nontender.? Skin: Skin warm and dry.? Normal skin color.? Normal skin turgor.? Extremities: No lower extremity edema.? No calf ttp. 5/5 strength to bilateral upper and lower extremities Back: No midline tenderness, no C-spine tenderness, full range of motion, no CVA tenderness bilaterally Neuro: Oriented X 3.? No motor deficit.? No sensory deficit. CN 2-12 intact Assessment & Plan Assessment & Plan (1) Hypertension: Code(s): I10 - Essential (primary) hypertension (2) Lightheaded: Code(s): R42 - Dizziness and giddiness (3) Rectal bleeding: Code(s): K62.5 - Hemorrhage of anus and rectum Plan Patient to go to the emergency department for further evaluation treatment. Orders: Orders AMB EKG-In Office Today I10 - Essential (primary) hypertension Coding Level of Care Code Est Pt Level 3 (96796) Diagnoses Hypertension I10 Lightheaded R42 Rectal bleeding K62.5
[2023-05-17 14:05] VITALS: BP 152/90; PULSE 93; TEMP 36.3; O2SAT 98; BMI 25.1
== END 2023-05-17 15:22 | disposition home or self-care (01) ==
PROVIDERS: PCP Internal Medicine; Visit Provider Physician Assistant
DX: I10 Essential (primary) hypertension (principal); R42 Dizziness and giddiness; K62.5 Hemorrhage of anus and rectum
CPT/HCPCS: 99213

== ENCOUNTER 2023-05-17 14:34 | Inpatient (IN) | payer MEDICARE, OTHER, SELFPAY ==
--- NOTE | ~2023-05-17 | XR_ITS ---
EXAMINATION: XR CHEST CLINICAL INFORMATION: A. Fib COMPARISON: 04/24/2010 TECHNIQUE: 2 views of the chest were obtained. FINDINGS: There is no failure. The cardiac silhouette is felt to be comparable to previous. The hilar structures do not appear pathologically enlarged. There are some densities in the right mid to upper lung zone and also in the left lateral lung zone of uncertain etiology. These could possibly be pleural. Lung nodules cannot be excluded. There is no effusion. Degenerative change in the thoracic spine but no compression injury. The hilar regions do not appear pathologically enlarged. Mildly tortuous versus ectatic arch and descending aorta. XR/XR chest 2V IMPRESSION: No evidence of failure. The cardiac silhouette is within normal limits. No effusion. Upper lung densities as described. CT would be recommended to fully evaluate This may be done on an outpatient basis.
[2023-05-17 14:55] VITALS: BP 177/100; PULSE 150; RESP 20; TEMP 37.2; O2SAT 99; BMI 25.2
--- NOTE | 2023-05-17 14:57 | ED.GENADULT ---
HPI - General Adult General Chief complaint: General Medical Stated complaint: high Bp Time Seen by Provider: 05/17/23 15:09 Source: patient Mode of arrival: ambulatory Limitations: no limitations History of Present Illness HPI narrative: 78 year old male PMH: HTN, Arrythmia, BPH, prostate cancer, anxietyGerd, shoulder pain, presents to the ER concerned about his blood pressure. Had been to urgent care and sent here. Found to be in atrial fibrillation on arrival Related Data Home Medications Medication Instructions Recorded Confirmed flaxseed oil 1,000 mg capsule 1,000 mg PO DAILY 12/29/22 12/29/22 omeprazole 20 mg capsule,delayed 20 mg PO BID 04/09/23 release Previous Rx's Medication Instructions Recorded cetirizine 10 mg tablet 10 mg PO DAILY PRN allergy 01/11/23 symptoms #30 tabs Allergies Allergy/AdvReac Type Severity Reaction Status Date / Time Iodinated Contrast Media Allergy Unknown NAUSEA & Verified 05/17/23 13:59 [IV DYE, IODINE CONTAINING] VOMITING Penicillins [PENICILLINS] Allergy Unknown UNKNOWN Verified 05/17/23 13:59 amlodipine AdvReac Intermediate Nausea Unverified 05/17/23 13:59 losartan AdvReac Intermediate Nausea Verified 05/17/23 13:59 Metoprolol AdvReac Nausea and Uncoded 05/17/23 13:59 Vomiting PMFSH Past Medical History Medical History Burping Blood pressure elevated without history of HTN Colon cancer screening History of renal calculi History of prostate cancer GERD (gastroesophageal reflux disease) BPH (benign prostatic hyperplasia) Surgical History History of suburethral sling procedure History of colonoscopy History of adenoidectomy S/P left inguinal herniorrhaphy H/O prostatectomy Social History Social History Housing: House Alcohol intake: current Alcohol intake frequency: a few times a week Patient Tobacco Use Status: Former Tobacco user Tobacco use type: Cigarette Years Smoked: quit 30 years old e-Cigarette/Vaping Use: Never Used Second Hand Smoke Exposure: No Current occupational status: unemployed and retired Current occupation: left hand Cognitive needs: No Hearing needs: No Vision needs: Yes Physical Exam ED Vital Signs: Vital Signs - 24 hr 05/17/23 14:55 05/17/23 15:16 05/17/23 15:42 Temperature 99.0 F Pulse Rate 150 H 145 H 98 Respiratory Rate 20 18 18 Blood Pressure 177/100 H 167/93 H 135/61 Pulse Oximetry 99 97 98 Oxygen Delivery Method Room Air Room Air Room Air BMI result Body Mass Index 25.2 Course Course Course Narrative: Patient complains of head pressure and nausea, he was seen in urgent care worse blood pressure was noted to be high and was advised to go to the ER for further evaluation In ER his pulse was 155, systolic blood pressure 179/100 EKG is ordered for his tachycardia of 155 In triage patient was comfortable alert ambulates easily This is rapid medical exam in triage is pending full evaluation by ER provider with review of all results, any further evaluation and disposition Medications Administered Generic Name Dose Route Start Last Admin Trade Name Freq PRN Reason Stop Dose Admin Sodium Chloride 1,000 mls @ 999 mls/hr 05/17/23 15:30 05/17/23 15:36 Ns IV 05/17/23 16:30 999 mls/hr .Q1H1M CECY Administration Discontinued Medications Generic Name Dose Route Start Last Admin Trade Name Freq PRN Reason Stop Dose Admin Apixaban 5 mg 05/17/23 15:26 05/17/23 15:37 Apixaban 5 Mg Tablet PO 05/17/23 15:27 Not Given ONCE ONE Diltiazem HCl 19.95 mg 05/17/23 15:26 05/17/23 15:36 Diltiazem Hcl 50 Mg/10 Ml Vial 0.25 mg/kg (19.95 mg) 05/17/23 15:27 19.95 mg IVPUSH Administration ONCE ONE Diltiazem HCl 90 mg 05/17/23 15:26 05/17/23 15:42 Diltiazem Hcl Sr 90 Mg Cap.Er.12h PO 05/17/23 15:27 90 mg ONCE ONE Administration Protocol Medical Decision Making Medical Decision Making MDM Narrative: I will check the patient's compatibility with and and control his rate. His HASBLED score is 1-2 His CHADVASC score is 3 for age, HTN I think the patient would benefit from anticoagulation but I am concerned about the rectal bleeding I will consult cardiology. Patient did undergo a colonoscopy in November of this year which was normal. I did spend 15 minutes going over with atrial fibrillation is with the patient his risk of bleeding as well as his sensitivities other medications I do think the patient benefit from going on this Differential Diagnosis Differential Diagnoses: The differential diagnosis associated with the presentation includes New onset atrial fibrillation ACS weakness dehydration electrolyte abnormality anemia resume other issues with the heart. Admission/Observation Consideration of admission/observation: Escalation of care including admission/observation considered Consult Healthcare Provider Management of the patient was discussed with: Hospitalist and Group Therapist Dr. Dozier Lab Data MDM Lab Attestation statement: I reviewed the patient's lab results. 05/17/23 15:15 05/17/23 15:15 Labs: Lab Results 05/17/23 05/17/23 05/17/23 Range/Units 15:15 15:32 Unknown WBC 7.7 (4.8-10.8) X10*3/uL RBC 4.51 L (4.60-5.80) X10*6/uL Hgb 14.4 (14.0-18.0) g/dl Hct 41.5 L (42.0-52.0) % MCV 92.0 (80.0-98.0) fL MCH 31.9 (27.0-33.0) pg MCHC 34.7 (31.0-36.0) g/dl RDW 12.8 (11.0-16.0) % Plt Count 205 (160-400) X10*3/uL MPV 9.4 (9.4-12.4) fL Immature Gran % (Auto) 0.3 (0.0-0.4) % Neut % (Auto) 73.0 (45-73) % Lymph % (Auto) 17.6 L (20-40) % [place] % (Auto) 8.1 (2-11) % Eos % (Auto) 0.5 (0-4) % Baso % (Auto) 0.5 (0-2) % Lymph # (Auto) 1.4 (1.2-4.9) X10*3/uL [place] # (Auto) 0.6 (0.1-1.2) X10*3/uL Eos # (Auto) 0.0 (0.0-0.4) X10*3/uL Baso # (Auto) 0.0 (0.0-0.2) X10*3/uL Abs Immat Gran (auto) 0.02 (0.00-0.03) X10*3/uL Absolute Neuts (auto) 5.6 (2.0-8.3) x10*3/uL Absolute Nucleated RBC 0.000 (0.0-0.012) X10*3/uL Nucleated RBC % (auto) 0.0 (0.0-0.2) /100WBC Hold Purple Top SEE NOTE PT 11.9 (11.1-13.3) SEC INR 1.0 (0.9-1.1) APTT 26.3 (26.0-36.4) SEC Hold Blue Top SEE NOTE Sodium 143 (135-145) mmol/L Potassium 3.5 (3.3-5.1) mmol/L Chloride 109 H (96-108) mmol/L Carbon Dioxide 24 (22-29) mmol/L Anion Gap 14 (12-20) BUN 12 (9-16) mg/dL Creatinine 0.96 (0.5-1.4) mg/dL Estim Creat Clear Calc 66.5 Estimated GFR > 60 Random Glucose 129 H (60-115) mg/dL Calcium 10.1 (8.4-10.2) mg/dL Total Bilirubin 0.5 (0.0-1.0) mg/dL Direct Bilirubin 0.2 (0.0-0.5) mg/dL AST 24 (5-37) U/L ALT 18 (0-40) U/L Alkaline Phosphatase 116 (39-117) U/L Troponin I High Sens 3.3 (<3.5-35.0) ng/L Total Protein 8.1 H (6.5-8.0) g/dL Albumin 4.9 (3.5-5.0) g/dL Independent Interpretation I performed an independent interpretation of an: EKG Interpretation: Rate 134 atrial fibrillation with rapid ventricular response no previous for comparison he was in normal sinus back in August of this year. Critical Care Time Critical Care Time Total Critical Care Time: 37 Attestation: He 37 minutes critical care time patient had to be in AFib with RVR required rate control I did have discussed case with catalyst recovery operator the patient has had some rectal bleeding we agreed to hold off anticoagulation admit the patient to monitor for continued bleeding. Discharge Plan Discharge Clinical Impression: Generalized anxiety disorder, Atrial fibrillation, new onset, Atrial fibrillation with rapid ventricular response Patient Disposition: Admitted As Inpatient Prescriptions: No Action omeprazole 20 mg capsule,delayed release(DR/EC) 20 mg PO BID flaxseed oil 1,000 mg capsule 1,000 mg PO DAILY Rx Instructions: administer with a meal cetirizine 10 mg tablet 10 mg PO DAILY PRN (Reason: allergy symptoms) Qty: 30 3RF
--- NOTE | 2023-05-17 14:59 | ECG_ITS ---
Test Reason : tacardya Blood Pressure : / mmHG Vent. Rate : 134 BPM Atrial Rate : 000 BPM P-R Int : 000 ms QRS Dur : 084 ms QT Int : 322 ms P-R-T Axes : 000 -18 070 degrees QTc Int : 480 ms Atrial fibrillation with rapid ventricular response Nonspecific ST and T wave abnormality Abnormal ECG When compared with ECG of 08-SEP-2022 14:02, Atrial fibrillation has replaced Sinus rhythm Vent. rate has increased BY [address] more depressed Anterior leads Referred By: Clarence Walker Electronically Signed By:YOVANNY DEE MD
[2023-05-17 15:16] VITALS: BP 167/93; PULSE 145; RESP 18; O2SAT 97
[2023-05-17 15:21] LABS: MANUAL DIFF FLAG NO
[2023-05-17 15:34] LABS: Basophils Percent Auto 0.5 % (0-2); Eosinophils Percent Auto 0.5 % (0-4); Hematocrit 41.5 % (42.0-52.0); Hemoglobin 14.4 g/dl (14.0-18.0); Imm Gran Abs Auto 0.02 X10*3/uL (0.00-0.03); Imm Gran Pct Auto 0.3 % (0.0-0.4); Lymphocytes Absolute Auto 1.4 X10*3/uL (1.2-4.9); Lymphocytes Percent Auto 17.6 % (20-40); Mean Corpuscular HGB Conc 34.7 g/dl (31.0-36.0); Mean Corpuscular Hemoglobin 31.9 pg (27.0-33.0); Mean Platelet Volume 9.4 fL (9.4-12.4); Monocytes Absolute Auto 0.6 X10*3/uL (0.1-1.2); Monocytes Percent Auto 8.1 % (2-11); Neutrophils Absolute Auto 5.6 x10*3/uL (2.0-8.3); Platelet Count 205 X10*3/uL (160-400); Red Blood Count 4.51 X10*6/uL (4.60-5.80); Red Cell Distribution Width 12.8 % (11.0-16.0); White Blood Count 7.7 X10*3/uL (4.8-10.8)
[2023-05-17] MEDS: 0.9 % Sodium Chloride 1,000 ML 999 ML IV (15:36)
[2023-05-17] MEDS: dilTIAZem HCL 50 MG/10 ML VIAL 19.95 MG IVPUSH (15:36)
[2023-05-17 15:37] LABS: Alanine Aminotransferase 18 U/L (0-40); Albumin Level 4.9 g/dL (3.5-5.0); Alkaline Phosphatase 116 U/L (39-117); Anion Gap 14 (12-20); Aspartate Amino Transferase 24 U/L (5-37); Bilirubin Direct 0.2 mg/dL (0.0-0.5); Bilirubin Total 0.5 mg/dL (0.0-1.0); Blood Urea Nitrogen 12 mg/dL (9-16); Calcium 10.1 mg/dL (8.4-10.2); Carbon Dioxide 24 mmol/L (22-29); Chloride 109 mmol/L (96-108); Creatinine Clr Calc Pharmacy 66.5; Estimated Glomerular Filt Rate > 60; Glucose Random 129 mg/dL (60-115); Potassium 3.5 mmol/L (3.3-5.1); Sodium 143 mmol/L (135-145); Total Protein 8.1 g/dL (6.5-8.0)
[2023-05-17 15:42] VITALS: BP 135/61; PULSE 98; RESP 18; O2SAT 98
[2023-05-17 15:42] LABS: Prothrombin Time 11.9 SEC (11.1-13.3)
[2023-05-17] MEDS: dilTIAZem HCL SR 90 MG CAP.ER.12H PO (15:42)
[2023-05-17 15:44] LABS: Troponin-I High Sensitivity 3.3 ng/L (<3.5-35.0)
[2023-05-17 15:44] LABS: Partial Thromboplastin Time 26.3 SEC (26.0-36.4)
--- NOTE | 2023-05-17 15:52 | PC.NURSE ---
PT arrived from Urgent care, HR 150-160, denies CP/sob/n/v/d. He is a/ox4. Denies hx of afib, thinners not given per MD per cardiology d/t concerns of GI bleed? IVP Dilt given with good effect. Awaiting chest xray at this time
--- NOTE | 2023-05-17 16:40 | P.HPHOSP_ITS ---
History of Present Illness Date of Service: 05/17/23 Chief Complaint: NEw onset Afib A 78 years old male with PMH of GERD, HTN, hemorroids among others who presents with weakness and multiple readings of elevated Blood pressure. The patient reports that he hasnt been feeling well for the last 2 dayts with overall weakness and losing interest. he noticed elevated BP readings at home on multiple pccasions and blood in his right eye so he went for evaluation at [facility] who asked him to go to ED as he was found in Afib w RvR. Upon arrival the patient denies any chest pain, palpitations, SOB, nausea, vomiting, diarrhea or urinary symptoms. Admitted for further evaluation and treatment Review of Systems 2 Review of Systems: No fever, chills or weakness No chest pain, palpitation No shortness of breath or coughing No abdominal pain, nausea or vomiting No urinary symptoms No any rash or wounds PMFSH Medical History Burping Blood pressure elevated without history of HTN Colon cancer screening History of renal calculi History of prostate cancer GERD (gastroesophageal reflux disease) BPH (benign prostatic hyperplasia) Surgical History History of suburethral sling procedure History of colonoscopy History of adenoidectomy S/P left inguinal herniorrhaphy H/O prostatectomy Social History Housing: House Alcohol intake: current Alcohol intake frequency: a few times a week Patient Tobacco Use Status: Former Tobacco user Tobacco use type: Cigarette Years Smoked: quit 30 years old e-Cigarette/Vaping Use: Never Used Second Hand Smoke Exposure: No Advance Directives: No Advance Directives Information Provided: No Current occupational status: unemployed and retired Current occupation: left hand Cognitive needs: No Hearing needs: No Vision needs: Yes Meds Allergies Allergy/AdvReac Type Severity Reaction Status Date / Time Iodinated Contrast Media Allergy Unknown NAUSEA & Verified 05/17/23 13:59 [IV DYE, IODINE CONTAINING] VOMITING Penicillins [PENICILLINS] Allergy Unknown UNKNOWN Verified 05/17/23 13:59 amlodipine AdvReac Intermediate Nausea Unverified 05/17/23 13:59 losartan AdvReac Intermediate Nausea Verified 05/17/23 13:59 Metoprolol AdvReac Nausea and Uncoded 05/17/23 13:59 Vomiting Active Medications: Current Medications Diltiazem HCl (Diltiazem Hcl 30 Mg Tablet) 30 mg PO QID CECY; Protocol Home Medications Medication Instructions Recorded Confirmed Last Taken Type omeprazole 20 mg capsule,delayed 20 mg PO BID 04/09/23 05/17/23 Unknown History release clonidine 0.1 mg/24 hr weekly 1 patch topical MO 05/17/23 05/17/23 05/14/23 History transdermal patch Physical Exam 2 Vital Signs and Narrative: Vital Signs: Last Vital Signs Temp 99.0 F 05/17/23 14:55 Pulse 98 05/17/23 15:42 Resp 18 05/17/23 15:42 BP 135/61 05/17/23 15:42 Pulse Ox 98 05/17/23 15:42 O2 Del Method Room Air 05/17/23 15:42 BMI result Body Mass Index 25.2 Const: Other: Constitutional : Awake, interactive, not in distress Neck : Normal inspection, Supple Cardiovascular : irregular irregular, no JVP, no lower extremity edema, tachycardia Respiratory : good bilateral air entry, no crackles, wheezes or rhonchi Gastrointestinal: soft, lax, Normal bowel sounds, Non tender Skin : Warm, Dry Neurological : Alert & oriented x3, No focal deficit Results Labs 05/17/23 15:15 05/17/23 15:15 Labs: Laboratory Results - last 24 hr 05/17/23 05/17/23 05/17/23 15:15 15:32 Unknown MCV 92.0 MCH 31.9 MCHC 34.7 RDW 12.8 Plt Count 205 MPV 9.4 Immature Gran % (Auto) 0.3 Neut % (Auto) 73.0 Lymph % (Auto) 17.6 L [place] % (Auto) 8.1 Eos % (Auto) 0.5 Baso % (Auto) 0.5 Lymph # (Auto) 1.4 [place] # (Auto) 0.6 Eos # (Auto) 0.0 Baso # (Auto) 0.0 Abs Immat Gran (auto) 0.02 Absolute Neuts (auto) 5.6 Absolute Nucleated RBC 0.000 Nucleated RBC % (auto) 0.0 Hold Purple Top SEE NOTE PT 11.9 INR 1.0 APTT 26.3 Hold Blue Top SEE NOTE Anion Gap 14 Estim Creat Clear Calc 66.5 Estimated GFR > 60 Random Glucose 129 H Calcium 10.1 Total Bilirubin 0.5 Direct Bilirubin 0.2 AST 24 ALT 18 Alkaline Phosphatase 116 Total Protein 8.1 H Albumin 4.9 Imaging Radiologist's Impressions: Impressions Chest X-Ray 05/17/23 15:57 IMPRESSION: No evidence of failure. The cardiac silhouette is within normal limits. No effusion. Upper lung densities as described. CT would be recommended to fully evaluate This may be done on an outpatient basis. Assessment and Plan (1) Atrial fibrillation with rapid ventricular response: Status: Acute Plan A 78 years old male with PMH of GERD, HTN, hemorroids among others who presents with weakness and multiple readings of elevated Blood pressure. New onset atrial fibrillation w RvR IV cardizem start PO Cardizem TSh normal Cardiology consult Echo Telemetry Hold on blood thinners as the patient has actively bleeding hemorroids. HTN Hold home meds GERD Omeprazole DVT PPx SCDs The patient will likely need 2 overnight hospital stay for heart rate control pending cardiology eval. Quality Stroke Does the patient have a stroke diagnosis?: No VTE Prior VTE?: No VTE Risk Level:: Medical - moderate - high VTE Device Contraindication: N/A - Device Ordered VTE Drug Contraindication: Treatment Not Indicated
--- NOTE | 2023-05-17 16:52 | PHA.MEDREC ---
Pharmacy Consult ? Medication Reconciliation Pharmacy has completed the medication reconciliation. Patient reported medications. Radha Bryan, MakaylaD
[2023-05-17 16:54] LABS: Thyroid Stimulating Hormone 3.01 uIU/mL (0.32-4.0)
[2023-05-17 17:52] VITALS: BP 146/74; PULSE 112; RESP 20; O2SAT 98
[2023-05-17] MEDS: dilTIAZem HCL 30 MG TABLET PO ×2 (17:52→21:29)
[2023-05-17 18:24] VITALS: BMI 24.6
[2023-05-17 20:00] VITALS: BP 146/67; PULSE 78; RESP 18; TEMP 36.4; O2SAT 98
[2023-05-17] MEDS: Calcium Carbonate 750 MG TAB.CHEW PO (21:29)
[2023-05-17] MEDS: 0.9 % Sodium Chloride Flush 3 ML SYRINGE IVFLUSH (21:29)
[2023-05-17 23:24] VITALS: BP 117/56; PULSE 67; RESP 18; TEMP 36.4; O2SAT 97
--- NOTE | 2023-05-17 23:37 | PM.EVENT ---
Event Note Date of Service: 05/17/23 Event Note: 3 sec pause and heart rate in 40s, will hold cardizem Time Spent With Patient Time: Total time managing care of this patient today ____ minutes.
[2023-05-18 03:36] VITALS: BP 112/63; PULSE 75; RESP 18; TEMP 36.3; O2SAT 97
[2023-05-18] MEDS: Omeprazole 20 MG CAPSULE.DR PO ×2 (05:00→17:33)
[2023-05-18] MEDS: ondansetron HCL 4 MG/2 ML VIAL IVPUSH (05:03)
--- NOTE | 2023-05-18 07:00 | CA_ITS ---
Transthoracic Echocardiogram Patient (Last, First, Middle): Maximino Bellamy E Gender: Male Date of : 1945 Age: 78 Procedure Date: 05/18/2023 Procedure Type: Transthoracic Echocardiogram Location: [facility] [place] Height: 177.8 cm Weight: 79.38 kg BSA: 1.97 m2 Heart Rate: 91 bpm BP: 135 / 61 mmHg Welder Plasma Arc: JIMBO Dave MD: Gaurav Villatoro MD Symptoms: new onset Afib Study Quality: Fair ECG Rhythm: Atrial Fibrillation Conclusions: - Normal left ventricular size and systolic function. There is mildly increased left ventricular wall thickness. The visually estimated ejection fraction is between 60-65%. - Normal right ventricular cavity size and systolic function. - There is trace (trivial) aortic valve regurgitation. - There is mild dilatation of the ascending aorta measuring 3.80 cm. Findings Left Ventricle Normal left ventricular size and systolic function. There is mildly increased left ventricular wall thickness. The visually estimated ejection fraction is between 60-65%. There is no evidence of regional wall motion abnormalities. Diastolic function is indeterminate on the basis of available data. Right Ventricle Normal right ventricular cavity size and systolic function. Atria The left atrium is normal in size. The right atrium is normal in size. Aortic Valve There is a normal trileaflet aortic valve. There is mild thickening of the aortic valve. There is no aortic valve stenosis. There is trace (trivial) aortic valve regurgitation. Mitral Valve Normal mitral valve structure and function. There is no mitral valve regurgitation. There is no mitral valve stenosis. Pulmonic Valve The pulmonic valve is likely normal. Tricuspid Valve Normal tricuspid valve structure. There is no tricuspid valve regurgitation. Tricuspid regurgitation envelope is inadequate for calculation of right ventricular systolic pressure. Normal right atrial pressure. Great Vessels There is mild dilatation of the ascending aorta measuring 3.80 cm. The visualized portions of the pulmonary artery and branches are normal. Venous The inferior vena cava is normal in size and collapses greater than 50% with inspiration. Pericardium/Pleural There is no evidence of pericardial effusion. Prior Study Comparison No prior study available for comparison. Measurements 2D Linear Measurements IVSd: 1.20 0.6-0.9/0.6-1.0 cm LVIDd: 3.60 3.9-5.3/4.2-5.9 cm LVIDd Index: 1.83 2.4-3.2/2.2-3.1 cm/m2 LVIDs: 1.90 2.0-3.6 cm LVPWd: 1.00 0.7-1.1 cm LA Diam: 3.80 2.7-3.8/3.0-4.0 cm LAIDs Index: 1.93 1.5-2.3 cm/m2 LV Mass: 154.39 67-162/88-224 g LV Mass Index: 78.37 43-95/49-115 g/m2 LVOT Diam: 2.10 3.0+(-)1.3 cm 2D Systolic Function EF 4C: 64.90 >55% EF 2C: 53.40 >55% EF BiP: 60.10 >55% Mitral Valve MV Pk E: 1.00 MV Decel Time: 210.00 E'Lateral: 12.30 E'Medial: 9.90 E/E' Med: 10.10 E/E' Lat: 8.10 PHT: 61.00 MVA PHT: 3.61 Decel [place]: 4.79 Aortic Valve AoV Pk Trino: 1.10 AoV Mn Trino: 0.86 AoV VTI: 0.20 AoV Pk Grad: 5.00 Aov Mn Grad: 3.00 VÍCTOR Cont.VTI: 2.82 LVOT LVOT Pk Trino: 0.96 LVOT Mn Trino: 0.69 LVOT VTI: 0.17 LVOT Pk Grad: 4.00 LVOT Mn Grad: 2.00 LVOT Diam: 2.10 LVOT Area: 3.46 Diastolic Function MV Pk E: 1.00 E'Medial: 9.90 E/E' Med: 10.10 E' Laterial: 12.30 E/E' Lat: 8.10 Right Ventricle TAPSE (mm): 17.90 TVS' Trino: 13.30 Tricuspid Valve RA Press: 3.00 Great Vessels Aorta Sinus of Valsalva: 3.70 2.0-3.5 cm Ao Asc: 3.80 2.1-3.4 cm Pulmonary Valve DC Pk Trino: 1.57 Updated in Other Vendor System with Status of Final Jeramy Dozier MD electronically signed on 05/18/2023 11:42:50 AM with status of Final
[2023-05-18 07:07] LABS: Anion Gap 15 (12-20); Blood Urea Nitrogen 12 mg/dL (9-16); Calcium 9.8 mg/dL (8.4-10.2); Carbon Dioxide 22 mmol/L (22-29); Chloride 110 mmol/L (96-108); Creatinine Clr Calc Pharmacy 73.4; Estimated Glomerular Filt Rate > 60; Glucose Random 120 mg/dL (60-115); Potassium 3.6 mmol/L (3.3-5.1); Sodium 143 mmol/L (135-145)
[2023-05-18 07:43] VITALS: BP 143/77; PULSE 83; RESP 20; TEMP 36.4; O2SAT 99
--- NOTE | 2023-05-18 08:30 | MHC.CM.PN ---
CM met with Patient at bedside and addressed IMM with him, providing Patient with the original and placing a copy on the chart. Patient lives alone in a house and he required no services nor DME .NET ARCHITECT. Home/self care is the goal and CM has initiated and will follow for dc planning. Patient's 2 Daughters (Saranya & Adriana) are the HCP; Patient explains that his copy is on his Frig. PCP is Dr. Oscar Arias.
[2023-05-18] MEDS: 0.9 % Sodium Chloride Flush 3 ML SYRINGE IVFLUSH ×3 (08:45→20:31)
--- NOTE | 2023-05-18 10:48 | P.CONCA_ITS ---
History of Present Illness History of Present Illness Date of Service: 05/18/23 Requesting physician: Gaurav Villatoro Chief complaint: New onset atrial fibrillation Narrative: 78-year-old gentleman who presented to emergency department because he notices blood pressure to be elevated at home. He was noticed to be in new onset atrial fibrillation. He is not complaining of significant symptoms and rarely feels any palpitations. He is currently denying any palpitations. He has background of hypertension and uses clonidine patch. He has chronic indigestion for many years and could not tolerate medications previously including amlodipine and losartan. He is currently using clonidine patch. Heart rates are well controlled in 80s to 90s at this point. He is complaining of some bright red blood per rectum he has known history of hemorrhoids. He is known to GI Dr. Sweet. [facility] Past Medical History Medical History Burping Blood pressure elevated without history of HTN Colon cancer screening History of renal calculi History of prostate cancer GERD (gastroesophageal reflux disease) BPH (benign prostatic hyperplasia) Surgical History Surgical History History of suburethral sling procedure History of colonoscopy History of adenoidectomy S/P left inguinal herniorrhaphy H/O prostatectomy Social History Social History (Updated 05/17/23 @ 22:38 by Ann Bryant RN) Household Members: None Caregiver staying overnight: No Housing: House Are you a primary professional healthcare representative 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 other at home: Yes Do you presently have visiting nurse or other home services: No 75 years or older and lives alone: Yes Alcohol intake: current Alcohol intake frequency: a few times a week Patient Tobacco Use Status: Former Tobacco user Tobacco use type: Cigarette Years Smoked: quit 30 years old e-Cigarette/Vaping Use: Never Used Second Hand Smoke Exposure: No service: Yes Current occupational status: unemployed and retired Current occupation: left hand Cognitive needs: No Hearing needs: No Vision needs: Yes Meds Allergies Allergy/AdvReac Type Severity Reaction Status Date / Time Iodinated Contrast Media Allergy Unknown NAUSEA & Verified 05/17/23 13:59 [IV DYE, IODINE CONTAINING] VOMITING Penicillins [PENICILLINS] Allergy Unknown UNKNOWN Verified 05/17/23 22:28 amlodipine AdvReac Intermediate Nausea Verified 05/17/23 22:30 losartan AdvReac Intermediate Nausea Verified 05/17/23 13:59 Metoprolol AdvReac Unknown Nausea and Uncoded 05/17/23 22:30 Vomiting Active Medications: Current Medications Acetaminophen (Acetaminophen 325 Mg Tablet) 650 mg PO Q6H PRN PRN Reason: Pain, Mild (Pain Scale 1-3) Calcium Carbonate (Calcium Carbonate 750 Mg Tab.Chew) 750 mg PO Q6H PRN PRN Reason: heartburn Last Admin: 05/17/23 21:29 Dose: 750 mg Diltiazem HCl (Diltiazem Hcl 30 Mg Tablet) 30 mg PO QID [facility]; Protocol Last Admin: 05/17/23 21:29 Dose: 30 mg Omeprazole (Omeprazole 20 Mg Capsule.Dr) 20 mg PO BID@0630,1630 [facility] Last Admin: 05/18/23 05:00 Dose: 20 mg Ondansetron HCl (Ondansetron Hcl 4 Mg/2 Ml Vial) 4 mg IVPUSH Q8H PRN PRN Reason: Nausea and Vomiting Last Admin: 05/18/23 05:03 Dose: 4 mg Sodium Chloride (0.9 % Sodium Chloride Flush 3 Ml Syringe) 3 ml IVFLUSH QSHIFT [facility] Last Admin: 05/18/23 08:45 Dose: 3 ml Home Medications Medication Instructions Recorded Confirmed Last Taken Type omeprazole 20 mg capsule,delayed 20 mg PO BID 04/09/23 05/17/23 Unknown History release clonidine 0.1 mg/24 hr weekly 1 patch topical MO 05/17/23 05/17/23 05/14/23 History transdermal patch Physical Exam 2 Vital Signs: Vital Signs: Last Vital Signs Temp 97.5 F 05/18/23 07:43 Pulse 83 05/18/23 07:43 Resp 20 05/18/23 07:43 BP 143/77 H 05/18/23 07:43 Pulse Ox 99 05/18/23 07:43 O2 Del Method Room Air 05/18/23 07:43 BMI result Body Mass Index 24.6 GENERAL APPEARANCE: in no acute distress, pleasant. NECK: no carotid bruit, no jugular venous distention. SKIN: no suspicious lesions, warm and dry. HEART: no murmurs, irregular rate and rhythm. LUNGS: clear to auscultation bilaterally. ABDOMEN: soft, nontender. EXTREMITIES: no edema. PERIPHERAL PULSES: equal. NEUROLOGIC: No gross deficits, AAO X 3 Objective Labs and Meds 05/17/23 15:15 05/18/23 06:12 Lab results: Laboratory Results - last 24 hr 05/17/23 05/17/23 05/17/23 15:15 15:32 Unknown WBC 7.7 RBC 4.51 L Hgb 14.4 Hct 41.5 L MCV 92.0 MCH 31.9 MCHC 34.7 RDW 12.8 Plt Count 205 MPV 9.4 Immature Gran % (Auto) 0.3 Neut % (Auto) 73.0 Lymph % (Auto) 17.6 L Beckham % (Auto) 8.1 Eos % (Auto) 0.5 Baso % (Auto) 0.5 Lymph # (Auto) 1.4 Beckham # (Auto) 0.6 Eos # (Auto) 0.0 Baso # (Auto) 0.0 Abs Immat Gran (auto) 0.02 Absolute Neuts (auto) 5.6 Absolute Nucleated RBC 0.000 Nucleated RBC % (auto) 0.0 Hold Purple Top SEE NOTE PT 11.9 INR 1.0 APTT 26.3 Hold Blue Top SEE NOTE Sodium 143 Potassium 3.5 Chloride 109 H Carbon Dioxide 24 Anion Gap 14 BUN 12 Creatinine 0.96 Estim Creat Clear Calc 66.5 Estimated GFR > 60 Random Glucose 129 H Calcium 10.1 Total Bilirubin 0.5 Direct Bilirubin 0.2 AST 24 ALT 18 Alkaline Phosphatase 116 Troponin I High Sens 3.3 Total Protein 8.1 H Albumin 4.9 TSH 3.01 05/18/23 05/18/23 06:12 06:45 WBC RBC Hgb Hct MCV MCH MCHC RDW Plt Count MPV Immature Gran % (Auto) Neut % (Auto) Lymph % (Auto) Beckham % (Auto) Eos % (Auto) Baso % (Auto) Lymph # (Auto) Beckham # (Auto) Eos # (Auto) Baso # (Auto) Abs Immat Gran (auto) Absolute Neuts (auto) Absolute Nucleated RBC Nucleated RBC % (auto) Hold Purple Top SEE NOTE PT INR APTT Hold Blue Top Sodium 143 Potassium 3.6 Chloride 110 H Carbon Dioxide 22 Anion Gap 15 BUN 12 Creatinine 0.87 Estim Creat Clear Calc 73.4 Estimated GFR > 60 Random Glucose 120 H Calcium 9.8 Total Bilirubin Direct Bilirubin AST ALT Alkaline Phosphatase Troponin I High Sens Total Protein Albumin TSH Imaging Radiologist's impression: Impressions Chest X-Ray 05/17/23 15:57 IMPRESSION: No evidence of failure. The cardiac silhouette is within normal limits. No effusion. Upper lung densities as described. CT would be recommended to fully evaluate This may be done on an outpatient basis. Assessment and Plan (1) Atrial fibrillation with rapid ventricular response: Status: Acute Plan 78-year-old gentleman presented to ER with elevated blood pressures and AFib with RVR. Heart rates are well controlled currently. He is on clonidine patch. Adding carvedilol 3.125 mg twice a day. We will titrated based on blood pressure and heart rate. Given his age and history of hypertension he should be anticoagulated but he had some bright red blood per rectum. He has known history of hemorrhoids. Please discuss with GI about starting Eliquis. Currently plan will be rate control strategy and discharged back home. Thank you for allowing me to participate in the care of your patient. Please feel free to contact me if you have any questions. Procedures Date of Service Date of Service: 05/18/23
[2023-05-18 11:03] VITALS: BP 133/74; PULSE 98; RESP 20; TEMP 36.5; O2SAT 98
[2023-05-18] MEDS: Metoclopramide HCl 10 MG/2 ML VIAL 5 MG IVPUSH (11:07)
[2023-05-18] MEDS: carvediloL 6.25 MG TABLET PO ×2 (11:55→20:31)
--- NOTE | 2023-05-18 13:50 | P.CONGS_ITS ---
History of Present Illness Consult details Consult date: 05/18/23 Requesting physician: Gaurav Villatoro Narrative: 78-year-old male patient recently admitted with new onset atrial fibrillation found to have hemorrhoidal bleeding. He has a long history of hemorrhoids and occasionally will have bleeding or clear discharge especially after bowel movement. He underwent a colonoscopy on 11/27/[address] Sweet which did identify internal hemorrhoids. He is now being anticoagulated and developed a large bleed yesterday after a bowel movement. He denies a previous history of bleeding to this degree. He denies difficulty passing his bowels and denies pain with a bowel movement. He denies a previous history of hemorrhoidal surgery and is not currently using any [id number] or prescription medications for his hemorrhoids. Review of Systems 2 Review of Systems: Yes all other systems are reviewed and are negative PMFSH Past Medical History Medical History Burping Blood pressure elevated without history of HTN Colon cancer screening History of renal calculi History of prostate cancer GERD (gastroesophageal reflux disease) BPH (benign prostatic hyperplasia) Surgical History Surgical History History of suburethral sling procedure History of colonoscopy History of adenoidectomy S/P left inguinal herniorrhaphy H/O prostatectomy Social History Social History Household Members: None Caregiver staying overnight: No Housing: House Are you a primary wound care specialist 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 other at home: Yes Do you presently have visiting nurse or other home services: No 75 years or older and lives alone: Yes Alcohol intake: current Alcohol intake frequency: a few times a week Patient Tobacco Use Status: Former Tobacco user Tobacco use type: Cigarette Years Smoked: quit 30 years old e-Cigarette/Vaping Use: Never Used Second Hand Smoke Exposure: No service: Yes Current occupational status: unemployed and retired Current occupation: left hand Cognitive needs: No Hearing needs: No Vision needs: Yes Meds Allergies Allergy/AdvReac Type Severity Reaction Status Date / Time Iodinated Contrast Media Allergy Unknown NAUSEA & Verified 05/17/23 13:59 [IV DYE, IODINE CONTAINING] VOMITING Penicillins [PENICILLINS] Allergy Unknown UNKNOWN Verified 05/17/23 22:28 amlodipine AdvReac Intermediate Nausea Verified 05/17/23 22:30 losartan AdvReac Intermediate Nausea Verified 05/17/23 13:59 Metoprolol AdvReac Unknown Nausea and Uncoded 05/17/23 22:30 Vomiting Active Medications: Current Medications Acetaminophen (Acetaminophen 325 Mg Tablet) 650 mg PO Q6H PRN PRN Reason: Pain, Mild (Pain Scale 1-3) Calcium Carbonate (Calcium Carbonate 750 Mg Tab.Chew) 750 mg PO Q6H PRN PRN Reason: heartburn Last Admin: 05/17/23 21:29 Dose: 750 mg Carvedilol (Carvedilol 6.25 Mg Tablet) 6.25 mg PO BID [facility]; Protocol Last Admin: 05/18/23 11:55 Dose: 6.25 mg Diltiazem HCl (Diltiazem Hcl 30 Mg Tablet) 30 mg PO QID [facility]; Protocol Last Admin: 05/17/23 21:29 Dose: 30 mg Omeprazole (Omeprazole 20 Mg Capsule.Dr) 20 mg PO BID@0630,1630 [facility] Last Admin: 05/18/23 05:00 Dose: 20 mg Ondansetron HCl (Ondansetron Hcl 4 Mg/2 Ml Vial) 4 mg IVPUSH Q8H PRN PRN Reason: Nausea and Vomiting Last Admin: 05/18/23 05:03 Dose: 4 mg Sodium Chloride (0.9 % Sodium Chloride Flush 3 Ml Syringe) 3 ml IVFLUSH QSHIFT [facility] Last Admin: 05/18/23 08:45 Dose: 3 ml Home Medications Medication Instructions Recorded Confirmed Last Taken Type omeprazole 20 mg capsule,delayed 20 mg PO BID 04/09/23 05/17/23 Unknown History release clonidine 0.1 mg/24 hr weekly 1 patch topical MO 05/17/23 05/17/23 05/14/23 History transdermal patch Physical Exam 2 Vital Signs: Vital Signs: Last Vital Signs Temp 97.7 F 05/18/23 11:03 Pulse 98 05/18/23 11:03 Resp 20 05/18/23 11:03 BP 133/74 05/18/23 11:03 Pulse Ox 98 05/18/23 11:03 O2 Del Method Room Air 05/18/23 11:03 BMI result Body Mass Index 24.6 Const: General: comfortable and no acute distress Nutritional Appearance: w ell nourished Orientation/consciousness: patient oriented x3 Limitations: no limitations HEENT: Head: Yes normocephalic and Yes atraumatic Eyes: Sclerae: scleral abnormal ( Right scleral hemorrhage) GI: Other: rectal examination: External examination no tenderness, abscess, or fistula identified. Digital examination no tenderness in the anal canal. Normal anal sphincter tone. No active bleeding appreciated. Internal hemorrhoids palpable but not prolapsing. Inspection: Yes normal to inspection Palpation (GI): Soft to palpation, nontender, no guarding and not rigid Skin: Other: Warm, dry, no rash Neuro: General: patient oriented x3 Extrem: General: Yes no clubbing, cyanosis or edema Results Labs 05/17/23 15:15 05/18/23 06:12 Labs: Abnormal lab results 05/17/23 05/18/23 Range/Units 15:15 06:12 RBC 4.51 L (4.60-5.80) X10*6/uL Hct 41.5 L (42.0-52.0) % Lymph % (Auto) 17.6 L (20-40) % Chloride 109 H 110 H (96-108) mmol/L Random Glucose 129 H 120 H (60-115) mg/dL Total Protein 8.1 H (6.5-8.0) g/dL Short CBC 05/17/23 Range/Units 15:15 WBC 7.7 (4.8-10.8) X10*3/uL Hgb 14.4 (14.0-18.0) g/dl Hct 41.5 L (42.0-52.0) % Plt Count 205 (160-400) X10*3/uL [facility] 05/17/23 05/18/23 15:15 06:12 Sodium 143 143 Potassium 3.5 3.6 Chloride 109 H 110 H Carbon Dioxide 24 22 BUN 12 12 Creatinine 0.96 0.87 Calcium 10.1 9.8 Liver Function 05/17/23 Range/Units 15:15 Total Bilirubin 0.5 (0.0-1.0) mg/dL Direct Bilirubin 0.2 (0.0-0.5) mg/dL AST 24 (5-37) U/L ALT 18 (0-40) U/L Alkaline Phosphatase 116 (39-117) U/L Albumin 4.9 (3.5-5.0) g/dL All other labs normal. Assessment and Plan (1) Bleeding grade II hemorrhoids: Status: Acute Plan 78-year-old male patient presenting with new onset AFib found to have bleeding hemorrhoids. Patient will require anticoagulation for the atrial fibrillation. Examination does reveal grade 2 internal hemorrhoids with no active bleeding at this time. I recommended applying a hydrocortisone cream for the next 2 weeks. Warm soaks with the Sitz bath after each bowel movement is also recommended. I will monitor him during his hospitalization. Procedures Date of Service Date of Service: 05/18/23
--- NOTE | 2023-05-18 14:39 | HO.PM.IMPN ---
Subjective Subjective Date of Service: 05/18/23 Interval History: Feels comfortable Denies fever or chills or chest pain had episodes of bradycardia overnight and pauses Review of Systems No fever, chills or weakness No chest pain, palpitation No shortness of breath or coughing No abdominal pain, nausea or vomiting No urinary symptoms No any rash or wounds Physical Exam Vital Signs: Vital Signs: Last Vital Signs Temp 97.7 F 05/18/23 11:03 Pulse 98 05/18/23 11:03 Resp 20 05/18/23 11:03 BP 133/74 05/18/23 11:03 Pulse Ox 98 05/18/23 11:03 O2 Del Method Room Air 05/18/23 11:03 BMI result Body Mass Index 24.6 Const: Other: Constitutional : Awake, interactive, not in distress Neck : Normal inspection, Supple Cardiovascular : irregular irregular, no JVP, no lower extremity edema Respiratory : good bilateral air entry, no crackles, wheezes or rhonchi Gastrointestinal: soft, lax, Normal bowel sounds, Non tender Skin : Warm, Dry Neurological : Alert & oriented x3, No focal deficit Objective Data Active Medications Acetaminophen (Acetaminophen 325 Mg Tablet) 650 mg PO Q6H PRN PRN Reason: Pain, Mild (Pain Scale 1-3) Calcium Carbonate (Calcium Carbonate 750 Mg Tab.Chew) 750 mg PO Q6H PRN PRN Reason: heartburn Last Admin: 05/17/23 21:29 Dose: 750 mg Documented By: HA Carvedilol (Carvedilol 6.25 Mg Tablet) 6.25 mg PO BID [facility]; Protocol Last Admin: 05/18/23 11:55 Dose: 6.25 mg Documented By: MALIK Diltiazem HCl (Diltiazem Hcl 30 Mg Tablet) 30 mg PO QID [facility]; Protocol Last Admin: 05/17/23 21:29 Dose: 30 mg Documented By: HA Hydrocortisone (Hydrocortisone 2.5 % Rectal Cr 30 Gm Tube) 1 appl [place] BID [facility] Omeprazole (Omeprazole 20 Mg Capsule.) 20 mg PO BID@0630,1630 [facility] Last Admin: 05/18/23 05:00 Dose: 20 mg Documented By: HA Ondansetron HCl (Ondansetron Hcl 4 Mg/2 Ml Vial) 4 mg IVPUSH Q8H PRN PRN Reason: Nausea and Vomiting Last Admin: 05/18/23 05:03 Dose: 4 mg Documented By: HA Sodium Chloride (0.9 % Sodium Chloride Flush 3 Ml Syringe) 3 ml IVFLUSH QSHIFT [facility] Last Admin: 05/18/23 08:45 Dose: 3 ml Documented By: MALIK Labs 05/17/23 15:15 05/18/23 06:12 Labs: Laboratory Results - last 24 hr 05/17/23 05/17/23 05/17/23 15:15 15:32 Unknown MCV 92.0 MCH 31.9 MCHC 34.7 RDW 12.8 Plt Count 205 MPV 9.4 Immature Gran % (Auto) 0.3 Neut % (Auto) 73.0 Lymph % (Auto) 17.6 L Lipscomb % (Auto) 8.1 Eos % (Auto) 0.5 Baso % (Auto) 0.5 Lymph # (Auto) 1.4 Lipscomb # (Auto) 0.6 Eos # (Auto) 0.0 Baso # (Auto) 0.0 Abs Immat Gran (auto) 0.02 Absolute Neuts (auto) 5.6 Absolute Nucleated RBC 0.000 Nucleated RBC % (auto) 0.0 Hold Purple Top SEE NOTE PT 11.9 INR 1.0 APTT 26.3 Hold Blue Top SEE NOTE Anion Gap 14 Estim Creat Clear Calc 66.5 Estimated GFR > 60 Random Glucose 129 H Calcium 10.1 Total Bilirubin 0.5 Direct Bilirubin 0.2 AST 24 ALT 18 Alkaline Phosphatase 116 Total Protein 8.1 H Albumin 4.9 TSH 3.01 05/18/23 05/18/23 06:12 06:45 MCV MCH MCHC RDW Plt Count MPV Immature Gran % (Auto) Neut % (Auto) Lymph % (Auto) Lipscomb % (Auto) Eos % (Auto) Baso % (Auto) Lymph # (Auto) Lipscomb # (Auto) Eos # (Auto) Baso # (Auto) Abs Immat Gran (auto) Absolute Neuts (auto) Absolute Nucleated RBC Nucleated RBC % (auto) Hold Purple Top SEE NOTE PT INR APTT Hold Blue Top Anion Gap 15 Estim Creat Clear Calc 73.4 Estimated GFR > 60 Random Glucose 120 H Calcium 9.8 Total Bilirubin Direct Bilirubin AST ALT Alkaline Phosphatase Total Protein Albumin TSH Assessment and Plan (1) Bleeding grade II hemorrhoids: Status: Acute (2) Atrial fibrillation with rapid ventricular response: Status: Acute (3) Atrial fibrillation, new onset: Status: Acute Plan A 78 years old male with PMH of GERD, HTN, hemorroids among others who presents with weakness and multiple readings of elevated Blood pressure. New onset atrial fibrillation w RvR rate better controlled DC PO Cardizem start Carvedilol Cardiology input appreciated, pending Echo Telemetry He should be on blood thinners but has actively bleeding hemorroids. surgical consult to apply hydrocortisone cream and Sitz bath. HTN Hold home meds GERD Omeprazole DVT PPx SCDs The patient will likely need overnight hospital stay for heart rate control pending cardiology eval. Quality Stroke Does the patient have a stroke diagnosis?: No VTE Prior VTE?: No VTE Risk Level:: Medical - moderate - high VTE Device Contraindication: N/A - Device Ordered VTE Drug Contraindication: Treatment Not Indicated
--- NOTE | 2023-05-18 15:11 | ECG_ITS ---
Test Reason : converted to nsr Blood Pressure : / mmHG Vent. Rate : 059 BPM Atrial Rate : 059 BPM P-R Int : 176 ms QRS Dur : 084 ms QT Int : 444 ms P-R-T Axes : 063 -18 045 degrees QTc Int : 439 ms Sinus bradycardia Otherwise normal ECG When compared with ECG of 17-MAY-2023 15:02, Sinus rhythm has replaced Atrial fibrillation Vent. rate has decreased BY [address] no longer depressed in Anterior leads Nonspecific T wave abnormality no longer evident in Inferior leads Referred By: Gaurav Villatoro Electronically Signed By:YOVANNY DEE MD
[2023-05-18 15:26] VITALS: BP 108/61; PULSE 60; RESP 18; TEMP 36.8; O2SAT 96
[2023-05-18] MEDS: Hydrocortisone 2.5 % Rectal Cr 30 GM TUBE 1 APPL PR ×2 (15:55→20:34)
[2023-05-18 18:57] VITALS: BP 125/65; PULSE 91; RESP 18; TEMP 37.1; O2SAT 96
[2023-05-18] MEDS: Apixaban 5 MG TABLET PO (20:31)
[2023-05-18 23:16] VITALS: BP 117/58; PULSE 78; RESP 20; TEMP 36.3; O2SAT 97
[2023-05-19 03:07] VITALS: BP 133/66; PULSE 68; RESP 18; TEMP 36.9; O2SAT 95
[2023-05-19] MEDS: Omeprazole 20 MG CAPSULE.DR PO (05:26)
[2023-05-19 06:41] LABS: Hematocrit 34.5 % (42.0-52.0); Hemoglobin 12.2 g/dl (14.0-18.0); Mean Corpuscular HGB Conc 35.4 g/dl (31.0-36.0); Mean Corpuscular Hemoglobin 32.4 pg (27.0-33.0); Mean Corpuscular Volume 91.8 fL (80.0-98.0); Mean Platelet Volume 9.3 fL (9.4-12.4); Platelet Count 178 X10*3/uL (160-400); Red Blood Count 3.76 X10*6/uL (4.60-5.80); White Blood Count 7.4 X10*3/uL (4.8-10.8)
[2023-05-19 06:59] LABS: Anion Gap 12 (12-20); Blood Urea Nitrogen 14 mg/dL (9-16); Calcium 9.1 mg/dL (8.4-10.2); Carbon Dioxide 24 mmol/L (22-29); Chloride 107 mmol/L (96-108); Creatinine Clr Calc Pharmacy 63.8; Estimated Glomerular Filt Rate > 60; Glucose Random 103 mg/dL (60-115); Potassium 3.8 mmol/L (3.3-5.1); Sodium 139 mmol/L (135-145)
[2023-05-19 07:27] VITALS: BP 129/64; PULSE 70; RESP 18; TEMP 36.7; O2SAT 97
[2023-05-19] MEDS: polyethylene glycoL 3350 17 GM POWD.PACK PO (07:58)
[2023-05-19] MEDS: Hydrocortisone 2.5 % Rectal Cr 30 GM TUBE 1 APPL PR (07:58)
[2023-05-19] MEDS: Apixaban 5 MG TABLET PO (07:59)
[2023-05-19] MEDS: carvediloL 6.25 MG TABLET PO (07:59)
[2023-05-19] MEDS: 0.9 % Sodium Chloride Flush 3 ML SYRINGE IVFLUSH (07:59)
--- NOTE | 2023-05-19 10:52 | PM.PNCARD ---
Subjective Subjective Date of Service: 05/19/23 Interval history: Seen examined at bedside. He is in sinus rhythm at this point. He has been seen by surgery for hemorrhoids. Physical Exam Vital Signs: Last Vital Signs Temp 98.0 F 05/19/23 07:27 Pulse 70 05/19/23 07:27 Resp 18 05/19/23 07:27 BP 129/64 05/19/23 07:27 Pulse Ox 97 05/19/23 07:27 O2 Del Method Room Air 05/19/23 07:27 BMI result Body Mass Index 24.6 GENERAL APPEARANCE: in no acute distress, pleasant. NECK: no carotid bruit, no jugular venous distention. SKIN: no suspicious lesions, warm and dry. HEART: no murmurs, regular rate and rhythm. LUNGS: clear to auscultation bilaterally. ABDOMEN: soft, nontender. EXTREMITIES: no edema. PERIPHERAL PULSES: equal. NEUROLOGIC: No gross deficits, AAO X 3 Objective Labs and Meds 05/19/23 06:04 05/19/23 06:04 Lab results: Laboratory Results - last 24 hr 05/19/23 06:04 WBC 7.4 RBC 3.76 L Hgb 12.2 L Hct 34.5 L MCV 91.8 MCH 32.4 MCHC 35.4 RDW 13.0 Plt Count 178 MPV 9.3 L Absolute Nucleated RBC 0.000 Nucleated RBC % (auto) 0.0 Sodium 139 Potassium 3.8 Chloride 107 Carbon Dioxide 24 Anion Gap 12 BUN 14 Creatinine 1.00 Estim Creat Clear Calc 63.8 Estimated GFR > 60 Random Glucose 103 Calcium 9.1 D Progress Note: A&P Assessment and plan (1) PAF (paroxysmal atrial fibrillation): Status: Acute Plan 78-year-old gentleman who is presenting with elevated blood pressures and was noticed to be in atrial fibrillation. He was complaining of bright red blood per rectum and anticoagulation initially was not started. He has been seen by General surgery for hemorrhoids and has been started on anticoagulation at this stage. He was taking clonidine before and is currently taking carvedilol 6.25 mg twice a day. Blood pressure looks good his heart rates are well controlled. He is back in sinus rhythm. Can be discharged home. He can see us as outpatient for further management. Thank you for allowing me to participate in the care of your patient. Please feel free to contact me if you have any questions. Time Spent With Patient Time: Total time managing care of this patient today ____ minutes. Progress Note: Quality Stroke Does the patient have a stroke diagnosis?: No Procedures Date of Service Date of Service: 05/19/23
[2023-05-19 11:10] VITALS: BP 132/64; PULSE 71; RESP 18; TEMP 37.1; O2SAT 97
--- NOTE | 2023-05-19 11:10 | P.PNGS_ITS ---
Subjective Subjective Date of Service: 05/19/23 Interval history: No BM or bleeding since yesterday. Physical Exam 2 Vital Signs: Vital Signs: Last Vital Signs Temp 98.0 F 05/19/23 07:27 Pulse 70 05/19/23 07:27 Resp 18 05/19/23 07:27 BP 129/64 05/19/23 07:27 Pulse Ox 97 05/19/23 07:27 O2 Del Method Room Air 05/19/23 07:27 BMI result Body Mass Index 24.6 Const: General: comfortable and no acute distress Nutritional Appearance: w ell nourished Orientation/consciousness: patient oriented x3 Resp: Effort & Inspection: normal respiratory effort GI: Inspection: Yes normal to inspection Palpation (GI): Soft to palpation and Tenderness to palpation present (GI) Neuro: General: patient oriented x3 Objective Data Active Medications Acetaminophen (Acetaminophen 325 Mg Tablet) 650 mg PO Q6H PRN PRN Reason: Pain, Mild (Pain Scale 1-3) Apixaban (Apixaban 5 Mg Tablet) 5 mg PO BID [facility] Last Admin: 05/19/23 07:59 Dose: 5 mg Documented By: JENSEN Calcium Carbonate (Calcium Carbonate 750 Mg Tab.Chew) 750 mg PO Q6H PRN PRN Reason: heartburn Last Admin: 05/17/23 21:29 Dose: 750 mg Documented By: HA Carvedilol (Carvedilol 6.25 Mg Tablet) 6.25 mg PO BID [facility]; Protocol Last Admin: 05/19/23 07:59 Dose: 6.25 mg Documented By: MAYDAMORP Hydrocortisone (Hydrocortisone 2.5 % Rectal Cr 30 Gm Tube) 1 appl [place] BID [facility] Last Admin: 05/19/23 07:58 Dose: 1 appl Documented By: JENSEN Omeprazole (Omeprazole 20 Mg Capsule.) 20 mg PO BID@0630,1630 [facility] Last Admin: 05/19/23 05:26 Dose: 20 mg Documented By: HA Ondansetron HCl (Ondansetron Hcl 4 Mg/2 Ml Vial) 4 mg IVPUSH Q8H PRN PRN Reason: Nausea and Vomiting Last Admin: 05/18/23 05:03 Dose: 4 mg Documented By: HA Polyethylene Glycol (Polyethylene Glycol 3350 17 Gm Powd.Pack) 17 gm PO DAILY [facility] Last Admin: 05/19/23 07:58 Dose: 17 gm Documented By: PODMORP Sodium Chloride (0.9 % Sodium Chloride Flush 3 Ml Syringe) 3 ml IVFLUSH QSHIFT [facility] Last Admin: 05/19/23 07:59 Dose: 3 ml Documented By: PODMORP Labs 05/19/23 06:04 05/19/23 06:04 Labs: Laboratory Results - last 24 hr 05/19/23 06:04 MCV 91.8 MCH 32.4 MCHC 35.4 RDW 13.0 Plt Count 178 MPV 9.3 L Absolute Nucleated RBC 0.000 Nucleated RBC % (auto) 0.0 Anion Gap 12 Estim Creat Clear Calc 63.8 Estimated GFR > 60 Random Glucose 103 Calcium 9.1 D Procedures Date of Service Date of Service: 05/19/23 Progress Note: A&P Assessment and plan (1) Bleeding grade II hemorrhoids: Status: Acute Plan Continue hydrocortisone hemorrhoid cream. Eliquis started, monitor for bleeding. Surgicel at bedside should bleeding occur. Time Spent With Patient Time: Total time managing care of this patient today ____ minutes. Quality Stroke Does the patient have a stroke diagnosis?: No VTE Prior VTE?: No VTE Risk Level:: Medical - moderate - high VTE Device Contraindication: N/A - Device Ordered VTE Drug Contraindication: Treatment Not Indicated
--- NOTE | 2023-05-19 12:23 | PM.DS ---
DS: Providers Provider Date of Service: 05/19/23 Date of admission: 05/17/23 16:36 Primary care physician: Oscar Arias MD Consults: 05/17/23 16:36 Consult to Cardiology Routine Consulting Provider: [facility] [place] [facility] Reason for consultation: new onset Afib w RvR 05/18/23 12:48 Consult to General Surgery Routine Consulting Provider: [facility] [place] [facility] Reason for consultation: New Afib needs Anticoagulation, ongoing hemorroidal bleeding. DS: Diagnosis Discharge Diagnosis (1) Bleeding grade II hemorrhoids: Status: Acute (2) Atrial fibrillation, new onset: Status: Acute (3) Atrial fibrillation with rapid ventricular response: Status: Acute DS: Summary Hospital Course Hospital Course: Admission note HPI A 78 years old male with PMH of GERD, HTN, hemorroids among others who presents with weakness and multiple readings of elevated Blood pressure. The patient reports that he hasnt been feeling well for the last 2 dayts with overall weakness and losing interest. he noticed elevated BP readings at home on multiple pccasions and blood in his right eye so [facility] who asked him to go to ED as he was found in Afib w RvR. Upon arrival the patient denies any chest pain, palpitations, SOB, nausea, vomiting, diarrhea or urinary symptoms. Admitted for further evaluation and treatment. Hospital course Treated for New onset atrial fibrillation w RvR. Started on Cardizem PO which caused bradycardia and pauses so was discontined. evaluated by metal fabrication supervisor as Echo showed 60-65% EF. started on Carvedilol with good response as he converted back to sinus rhythm. Started on blood thinner of Eliquis with no reported bleeding overnight as he has history of grade II hemorroids evaluated by surgical team who recommended to apply hydrocortisone cream and Sitz bath while on Eliquis and to follow as outpatient. Start Carvedilol as prescribed Eliquis as blood thinner Use Hemorroidal cream twice daily. Sitz bath after each bowel movement Take Miralax to keep soft bowel movement Follow with cardiology and surgery as outpatient Time Attestation Discharge coordination time: Greater than 30 minutes Quality: Safe Use of Opioids Does Pt have an Active Cancer Diagnosis on the Problem List?: No Quality: Stroke Does the patient have a stroke diagnosis?: No Physical Exam Vital Signs: Vital Signs: Last Vital Signs Temp 98.7 F 05/19/23 11:10 Pulse 71 05/19/23 11:10 Resp 18 05/19/23 11:10 BP 132/64 05/19/23 11:10 Pulse Ox 97 05/19/23 11:10 O2 Del Method Room Air 05/19/23 11:10 BMI result Body Mass Index 24.6 Const: Other: Constitutional : Awake, interactive, not in distress Neck : Normal inspection, Supple Cardiovascular : irregular irregular, no JVP, no lower extremity edema Respiratory : good bilateral air entry, no crackles, wheezes or rhonchi Gastrointestinal: soft, lax, Normal bowel sounds, Non tender Skin : Warm, Dry Neurological : Alert & oriented x3, No focal deficit DS: Data Data Completed and Pending Labs on day of discharge: Laboratory Results - last 24 hr 05/19/23 06:04 WBC 7.4 RBC 3.76 L Hgb 12.2 L Hct 34.5 L MCV 91.8 MCH 32.4 MCHC 35.4 RDW 13.0 Plt Count 178 MPV 9.3 L Absolute Nucleated RBC 0.000 Nucleated RBC % (auto) 0.0 Sodium 139 Potassium 3.8 Chloride 107 Carbon Dioxide 24 Anion Gap 12 BUN 14 Creatinine 1.00 Estim Creat Clear Calc 63.8 Estimated GFR > 60 Random Glucose 103 Calcium 9.1 D Imaging Chest x-ray: Radiologist's impression: ITS Impressions Chest X-Ray 05/17/23 15:57 IMPRESSION: No evidence of failure. The cardiac silhouette is within normal limits. No effusion. Upper lung densities as described. CT would be recommended to fully evaluate This may be done on an outpatient basis. Discharge Plan Discharge Anticipated Discharge Date/Time: 05/19/23 12:01 Patient Disposition: Home, Self-Care Discharge Diagnosis: New onset atrial fibrillation Hemorroids Referrals: Po,Oscar Bradley MD [Primary Care Provider] - 1 Week Discharge Medications: New Eliquis 5 mg Tablet 5 mg PO BID Qty: 60 0RF carvedilol 6.25 mg Tablet 6.25 mg PO BID Qty: 60 0RF Protocol: Hold for SBP/HR < HOLD for SBP < : 90 HOLD for HR < : 60 polyethylene glycol 3350 17 gram Powder In Packet 17 g PO DAILY Qty: 100 0RF hydrocortisone [Proctozone-HC] 2.5 % Cream With Perineal Applicator 1 appl OR BID Qty: 30 2RF Continued clonidine 0.1 mg/24 hr patch weekly 1 patch topical MO omeprazole 20 mg capsule,delayed release(DR/EC) 20 mg PO BID Discharge Orders: Discharge Order (Routine); Ordered 05/19/23 Ordered By: Gaurav Villatoro Diet: Advance to usual diet Activity on Discharge: As tolerated Stand Alone Forms: Patient Portal Discharge page Care Plan Goals: Read below Health Concerns: Read below Plan of Treatment: Read below Assessment: You were diagnosed with irregular heart rhythm called atrial fibrillation. evaluated by metal fabrication supervisor and controlled with Carvedilol. reported history of hemorroidal bleed. seen by surgeon who recommended medical management for now. Start Carvedilol as prescribed Eliquis as blood thinner Use Hemorroidal cream twice daily. Sitz bath after each bowel movement Take Miralax to keep soft bowel movement Follow with cardiology and surgery as outpatient
--- NOTE | 2023-05-19 13:05 | MHC.CM.PN ---
PT MEDICALLY CLEARED HOME SELF CARE AND PT WILL SELF TRNASPORT HIS CAR IS IN [facility].
== END 2023-05-19 13:29 | disposition home or self-care (01) | DRG 309 ==
LOC: HO.ED 16:19 → HO.EDOVER 16:53 → HO.IMC 17:22
PROVIDERS: Physician Assistant Medical; Admitting Provider Student in an Organized Health Care Education/Training Program; Emergency Provider Student in an Organized Health Care Education/Training Program; PCP Internal Medicine; Visit Provider Student in an Organized Health Care Education/Training Program
DX: I48.0 Paroxysmal atrial fibrillation (principal); K62.5 Hemorrhage of anus and rectum; R00.1 Bradycardia, unspecified; K64.1 Second degree hemorrhoids; K21.9 Gastro-esophageal reflux disease without esophagitis; T46.1X5A Adverse effect of calcium-channel blockers, initial encounter; I10 Essential (primary) hypertension; Z91.041 Radiographic dye allergy status; Z87.891 Personal history of nicotine dependence; Z79.899 Other long term (current) drug therapy
CPT/HCPCS: 36415; 71046; 80048; 80076; 84443; 84484; 85025; 85027; 85610; 85730; 93005; 93306; 99285; J2405; J2765; Q9957

== ENCOUNTER 2023-05-17 16:36 | Outpatient (BNV) | payer MEDICARE, OTHER, SELFPAY | END 2023-05-18 07:00 | PROVIDERS: Admitting Provider Student in an Organized Health Care Education/Training Program; Emergency Provider Student in an Organized Health Care Education/Training Program; PCP Internal Medicine; Visit Provider Internal Medicine Cardiovascular Disease | DX: I48.91 Unspecified atrial fibrillation (principal) | CPT/HCPCS: 93306 ==

== ENCOUNTER → 2023-05-17 16:36 | Outpatient (BNV) | payer MEDICARE, OTHER, SELFPAY | PROVIDERS: Admitting Provider Student in an Organized Health Care Education/Training Program; Emergency Provider Student in an Organized Health Care Education/Training Program; PCP Internal Medicine; Visit Provider Internal Medicine Cardiovascular Disease | DX: I48.0 Paroxysmal atrial fibrillation (principal) | CPT/HCPCS: 99222; 99232 ==

== ENCOUNTER → 2023-05-17 16:36 | Outpatient (BNV) | payer MEDICARE, OTHER, SELFPAY | PROVIDERS: Admitting Provider Student in an Organized Health Care Education/Training Program; Emergency Provider Student in an Organized Health Care Education/Training Program; PCP Internal Medicine; Visit Provider Student in an Organized Health Care Education/Training Program | DX: K64.1 Second degree hemorrhoids (principal); I48.91 Unspecified atrial fibrillation | CPT/HCPCS: 99222; 99232; 99239; 99499 ==

== ENCOUNTER → 2023-05-17 16:36 | Outpatient (BNV) | payer MEDICARE, OTHER, SELFPAY | PROVIDERS: Admitting Provider Student in an Organized Health Care Education/Training Program; Emergency Provider Student in an Organized Health Care Education/Training Program; PCP Internal Medicine; Visit Provider Surgery | DX: K64.1 Second degree hemorrhoids (principal) | CPT/HCPCS: 99222; 99232 ==

== ENCOUNTER 2023-05-24 16:35 | Outpatient (AMB) | payer MEDICARE, OTHER, SELFPAY ==
--- NOTE | 2023-05-24 16:39 | A.OFFPC_ITS ---
Vital Signs 05/24/23 16:40 Height 5 ft 10 in Weight 172 lb BMI 24.7 BP 152/98 H Blood Pressure Location Lt brachial Position Sitting Pulse 67 Pulse Source Pulse Oximeter Pulse Oximetry (%) 98 Oxygen Delivery Method Room Air Intake Visit Re[place] [facility] [place] Condemnation Engineer Required: No Back End Web Developer: Not Required per policy Accompanied by: Self / Same As Patient Allergies Iodinated Contrast Media [IV DYE, IODINE CONTAINING] Allergy (Unknown, Verified 05/24/23 16:40) NAUSEA & VOMITING Penicillins [PENICILLINS] Allergy (Unknown, Verified 05/24/23 16:40) UNKNOWN amlodipine Adverse Reaction (Intermediate, Verified 05/24/23 16:40) Nausea losartan Adverse Reaction (Intermediate, Verified 05/24/23 16:40) Nausea Metoprolol Adverse Reaction (Unknown, Uncoded 05/24/23 16:40) Nausea and Vomiting Medication List - Last Reconciled 05/24/23 by Oscar Arias MD apixaban (Eliquis) 5 mg PO BID carvedilol 6.25 mg See Protocol PO BID clonidine 1 patch topical MO hydrocortisone 2.5% (Proctozone-HC) 1 appl NE BID omeprazole 20 mg PO BID polyethylene glycol 3350 17 grams PO DAILY Tobacco use date assessed: 04/09/23 Fall risk assessment: No Falls in past year Last assessed Fall Risk: 05/24/23 Dental Screening Dental Screen Date: 05/24/23 Did you have a dental visit in the last 12 months?: Yes Did you have a dental problem in the last 6 months where you did not have access to dental care?: No Was dental information given to patient?: Patient has dentist H[place] [facility] [place] HPI Details 78-year-old male with GERD history of pr ostate cancer hypertension last seen in March 2023. Patient is here for follow-up. Review of the notes was in the hospital in 11/02/2022 presented with weakness and was found to have atrial fibrillation with rapid ventricular rate patient was started on carvedilol and this has converted back to sinus rhythm started on Eliquis before that patient has gone to the Urgent Center noted to have an elevated blood pressure and right eye redness. Patient also was seen by the Nephrology in 04/26/2023 for the hypertension 24 our ambulatory blood pressure med monitor showed stage I hypertension with white coat effect patient was placed on clonidine patch every 7 days advised to limit alcohol intake echocardiogram done May 2023Normal left ventricular size and systolic function. There is mildly increased left ventricular wall thickness. The visually estimated ejection fraction is between 60-65%. - Normal right ventricular cavity size a nd systolic function. - There is trace (trivial) aortic valve regurgitation. - There is mild dilatation of the ascend ing aorta measuring 3.80 cm. [facility] Medical History (Updated 05/24/23 @ 17:27 by Oscar Arias MD) Atrial fibrillation with rapid ventricular response Atrial fibrillation, new onset Epigastric pain determined by examination Chest pain Acute sinusitis Bloating Postnasal drip Sinus congestion Arrhythmia Burping Blood pressure elevated without history of HTN Colon cancer screening History of renal calculi History of prostate cancer GERD (gastroesophageal reflux disease) BPH (benign prostatic hyperplasia) Surgical History History of suburethral sling procedure History of colonoscopy History of adenoidectomy S/P left inguinal herniorrhaphy H/O prostatectomy Social History Household Members: None Caregiver staying overnight: No Housing: House Are you a primary respite care provider 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 other at home: Yes Do you presently have visiting nurse or other home services: No 75 years or older and lives alone: Yes Alcohol intake: current Alcohol intake frequency: a few times a week Patient Tobacco Use Status: Former Tobacco user Tobacco use type: Cigarette Years Smoked: quit 30 years old e-Cigarette/Vaping Use: Never Used Second Hand Smoke Exposure: No service: Yes Current occupational status: unemployed and retired Current occupation: left hand Cognitive needs: No Hearing needs: No Vision needs: Yes Questionnaire PHQ-9 Over the last 2 weeks, how often have you been bothered by any of the following problems? 1. Little interest or pleasure in doing things: several days 2. Feeling down, depressed, or hopeless: several days 3. Trouble falling or staying asleep, or sleeping too much: not at all 4. Feeling tired or having little energy: not at all 5. Poor appetite or overeating: not at all 6. Feeling bad about yourself - or that you are a failure or have let yourself or your family down: not at all 7. Trouble concentrating on things, such as reading the newspaper or watching television: not at all 8. Moving or speaking so slowly that other people could have noticed. Or the opposite - being so fidgety or restless that you have been moving around a lot more than usual: not at all 9. Thoughts that you would be better off or of hurting yourself in some way: not at all Total score: 2 Depression Screening Interpretation: Positive Depression Screening Done: Yes Source: Developed by Drs. Jayesh Mcginnis, Miguel Ortega and colleagues, with an educational agustin from [employer]. Thrive Questionnaire Date Thrive assessed: 05/18/23 AUDIT C Alcohol Use Questionnaire (AUDIT-C) 1. How often do you have a drink containing alcohol?: Never 3. How often do you have six or more drinks on one occasion?: Never Total Score: 0 PATIENCE-7 AMB Questionnaire PATIENCE-7 Date PATIENCE - 7 assessed: 04/09/23 Source: Developed by Drs. Jayesh Mcginnis, Petra Campos, Miguel Zarate and colleagues, with an educational agustin from [employer]. Physical exam (Primary Care) Vital Signs: Last Vital Signs Pulse 67 05/24/23 16:40 BP 152/98 H 05/24/23 16:40 Pulse Ox 98 05/24/23 16:40 Oxygen Delivery Method Room Air 05/24/23 16:40 BMI result Body Mass Index 24.7 Tobacco/Smoking Status: Tobacco use Status Tobacco use date assessed 04/09/23 05/24/23 16:45 Patient Tobacco Use Status Former Tobacco user 05/24/23 16:45 Tobacco use type Cigarette 05/24/23 16:45 e-Cigarette/Vaping Use Never Used 05/24/23 16:45 PHQ-9: PHQ-9 Score PHQ-9: Total score 2 05/24/23 16:45 Depression Screening Interpretation: Positive Thrive Assessment: Date of Thrive Assessment Date Thrive assessed 05/18/23 05/24/23 16:45 Const General: alert; No acute distress Eyes Conjunctivae: conjunctivae normal Resp Auscultation: clear to auscultation bilaterally Cardio Rate: regular rate Rhythm: regular rhythm GI Inspection: Yes normal to inspection Extrem General: Yes normal to inspection and No edema Assessment and Plan Assessment & Plan (1) PAF (paroxysmal atrial fibrillation): Comment: May 2023 new onset Code(s): I48.0 - Paroxysmal atrial fibrillation Plan: Patient has been started on anticoagulation with Eliquis continue with Coreg. (2) Bleeding grade II hemorrhoids: Code(s): K64.1 - Second degree hemorrhoids Plan: Continue to monitor on Proctozone avoiding constipation, hot sitz bath (3) Hypertension: Code(s): I10 - Essential (primary) hypertension Plan: Continue with blood pressure medication. Decrease salt intake and exercise patient has been started on carvedilol 6.25 mg twice a day and clonidine patch (4) History of prostate cancer: Comment: 2017 Code(s): Z85.46 - Personal history of malignant neoplasm of prostate Plan: Stable continue to monitor (5) Generalized anxiety disorder: Code(s): F41.1 - Generalized anxiety disorder Plan: Stable (6) GERD (gastroesophageal reflux disease): Code(s): K21.9 - Gastro-esophageal reflux disease without esophagitis Plan: Avoid the foods that causes that usually spicy foods, tomato products, juices, coffee, soda and foods that your sensitive to. After eating do not lie down, allow 3-4 hours before in lie down. And keep the head of bed above 30 degrees to avoid the acid from going up. (7) Ascending aorta dilatation: Comment: 05/2023 3.8 cm Code(s): I77.810 - Thoracic aortic ectasia Plan: will continue with monitoring Orders: Orders Reticulocyte Count Today K64.1 - Second degree hemorrhoids Vitamin B12 and Folate Today K64.1 - Second degree hemorrhoids Complete Blood Count Auto Diff Today K64.1 - Second degree hemorrhoids IRON PROFILE Today K64.1 - Second degree hemorrhoids Ferritin Today K64.1 - Second degree hemorrhoids Comprehensive Met. Panel Today K64.1 - Second degree hemorrhoids Referrals Cardiology Referral I48.0 - Paroxysmal atrial fibrillation Coding Level of Care Code Est Pt Level 4 (16727) Diagnoses PAF (paroxysmal atrial fibrillation) I48.0 Bleeding grade II hemorrhoids K64.1 Hypertension I10 History of prostate cancer Z85.46 Generalized anxiety disorder F41.1 GERD (gastroesophageal reflux disease) K21.9 Ascending aorta dilatation I77.810 Additional Codes PHQ-9 - 44752 - PHQ-9 Billing: ([id number])
[2023-05-24 16:40] VITALS: BP 152/98; PULSE 67; O2SAT 98; BMI 24.7
== END 2023-05-24 17:42 | disposition home or self-care (01) ==
PROVIDERS: PCP Internal Medicine; Visit Provider Internal Medicine
DX: I48.0 Paroxysmal atrial fibrillation (principal); I77.810 Thoracic aortic ectasia; K64.1 Second degree hemorrhoids; I10 Essential (primary) hypertension; Z85.46 Personal history of malignant neoplasm of prostate; F41.1 Generalized anxiety disorder; K21.9 Gastro-esophageal reflux disease without esophagitis
CPT/HCPCS: 99214

== ENCOUNTER 2023-05-28 13:16 | Outpatient (AMB) | payer MEDICARE, OTHER, SELFPAY ==
[2023-05-28 13:50] VITALS: BP 142/76; PULSE 71; O2SAT 97; BMI 24.7
--- NOTE | 2023-05-28 13:50 | MHC.OFFVIS ---
Intake Vital Signs 05/28/23 13:50 Height 5 ft 10 in Weight 171 lb 15.369 oz BMI 24.7 BP 142/76 H Blood Pressure Location Lt brachial Position Sitting Pulse 71 Pulse Source Pulse Oximeter Pulse Oximetry (%) 97 Oxygen Delivery Method Room Air Intake Visit Reasons: [facility] afib Intake Note: Pt presents to the office today for a discharge follow up for Afib. Pt states he has a lot of indigestion daily but denies any SOB, chest pains or nay other cardiac concerns at this time. Allergies Iodinated Contrast Media [IV DYE, IODINE CONTAINING] Allergy (Unknown, Verified 05/28/23 13:50) NAUSEA & VOMITING Penicillins [PENICILLINS] Allergy (Unknown, Verified 05/28/23 13:50) UNKNOWN amlodipine Adverse Reaction (Intermediate, Verified 05/28/23 13:50) Nausea losartan Adverse Reaction (Intermediate, Verified 05/28/23 13:50) Nausea Metoprolol Adverse Reaction (Unknown, Uncoded 05/28/23 13:50) Nausea and Vomiting Medication List - Last Reconciled 05/28/23 by Jeramy Dozier MD apixaban (Eliquis) 5 mg PO BID carvedilol 6.25 mg See Protocol PO BID clonidine 1 patch topical MO hydrocortisone 2.5% (Proctozone-HC) 1 appl IA BID omeprazole 20 mg PO BID polyethylene glycol 3350 17 grams PO DAILY HPI HPI Comments History of Present Illness Details Pleasant 78-year-old gentleman who is here for follow-up. He was seen in the hospital recently when he presented with paroxysmal atrial fibrillation. He complained of bright blood per rectum and was seen by surgery and was given started on steroid cream as well as Sitz baths for hemorrhoids. He has done well since then. He was started on anticoagulation at discharge and has been tolerating anticoagulation well. 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 He reverted to sinus rhythm before discharge and it appears he continues to be in sinus rhythm. Denying any chest discomfort or significant shortness of breath. He does have chronic reflux ongoing for years. He said he was due to get endoscopy before he got admitted to the hospital and is asking whether he can go ahead with that. [facility] Medical History (Updated 05/28/23 @ 14:19 by Jeramy Dozier MD) PAF (paroxysmal atrial fibrillation) Bleeding grade II hemorrhoids Generalized anxiety disorder Atrial fibrillation with rapid ventricular response Atrial fibrillation, new onset Epigastric pain determined by examination Chest pain Acute sinusitis Bloating Postnasal drip Sinus congestion Arrhythmia Burping Blood pressure elevated without history of HTN Colon cancer screening History of renal calculi History of prostate cancer GERD (gastroesophageal reflux disease) BPH (benign prostatic hyperplasia) Surgical History History of suburethral sling procedure History of colonoscopy History of adenoidectomy S/P left inguinal herniorrhaphy H/O prostatectomy Social History Household Members: None Caregiver staying overnight: No Housing: House Are you a primary small animal caretaker 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 other at home: Yes Do you presently have visiting nurse or other home services: No 75 years or older and lives alone: Yes Alcohol intake: current Alcohol intake frequency: a few times a week Patient Tobacco Use Status: Former Tobacco user Tobacco use type: Cigarette Years Smoked: quit 30 years old e-Cigarette/Vaping Use: Never Used Second Hand Smoke Exposure: No service: Yes Current occupational status: unemployed and retired Current occupation: left hand Cognitive needs: No Hearing needs: No Vision needs: Yes Physical Exam Vital Signs: Last Vital Signs Pulse 71 05/28/23 13:50 BP 142/76 H 05/28/23 13:50 Pulse Ox 97 05/28/23 13:50 Oxygen Delivery Method Room Air 05/28/23 13:50 BMI result Body Mass Index 24.7 GENERAL APPEARANCE: in no acute distress, pleasant. NECK: no carotid bruit, no jugular venous distention. SKIN: no suspicious lesions, warm and dry. HEART: no murmurs, regular rate and rhythm. LUNGS: clear to auscultation bilaterally. ABDOMEN: soft, nontender. EXTREMITIES: no edema. PERIPHERAL PULSES: equal. NEUROLOGIC: No gross deficits, AAO X 3 Assessment & Plan Assessment & Plan (1) PAF (paroxysmal atrial fibrillation): Comment: May 2023 new onset Code(s): I48.0 - Paroxysmal atrial fibrillation (2) Hypertension: Code(s): I10 - Essential (primary) hypertension Plan Pleasant 78-year-old gentleman who is here for follow-up. He has history of paroxysmal atrial fibrillation. He was recently diagnosed with atrial fibrillation when he presented to hospital with elevated blood pressure. He was fairly asymptomatic from AFib point of view and reverted to sinus rhythm on his own. He is taking carvedilol and clonidine currently. Blood pressure control is reasonable. He is on apixaban 5 mg twice a day. He is asking about Watchman. His chads Vasc score is 3. We discussed about Watchman device and he is very interested in that. I am referring him to Dr. Goldman at [facility] for further assessment. He is intermediate risk for perioperative cardiovascular complications. He should proceed with EGD given that he has significant reflux symptoms. He can hold is apixaban for 2-3 days before the procedure as required. Thank you for allowing me to participate in the care of your patient. Please feel free to contact me if you have any questions. Orders: Referrals Cardiology Referral I48.0 - Paroxysmal atrial fibrillation Coding Level of Care Code Est Pt Level 4 (55489) Diagnoses PAF (paroxysmal atrial fibrillation) I48.0 Hypertension I10
== END 2023-05-28 14:22 | disposition home or self-care (01) ==
PROVIDERS: PCP Internal Medicine; Visit Provider Internal Medicine Cardiovascular Disease
DX: I48.0 Paroxysmal atrial fibrillation (principal); I10 Essential (primary) hypertension
CPT/HCPCS: 99214

== ENCOUNTER → 2023-05-28 13:16 | Outpatient (BNVA) | payer MEDICARE, OTHER, SELFPAY | PROVIDERS: PCP Internal Medicine; Visit Provider Internal Medicine Cardiovascular Disease | DX: I48.0 Paroxysmal atrial fibrillation (principal); I10 Essential (primary) hypertension | CPT/HCPCS: 99212 ==

== ENCOUNTER 2023-05-29 09:26 | Outpatient (AMB) | payer MEDICARE, OTHER, SELFPAY ==
[2023-05-29 10:12] VITALS: BP 124/62; PULSE 69; TEMP 36.3; O2SAT 98; BMI 24.4
--- NOTE | 2023-05-29 10:12 | AM.OFFWIN_ITS ---
Intake Vital Signs 05/29/23 10:12 Height 5 ft 10 in Weight 170 lb BMI 24.4 BP 124/62 Blood Pressure Location Rt brachial Pulse 69 Pulse Source Pulse Oximeter Temp 97.3 F Temp Source Temporal Artery Scan Pulse Oximetry (%) 98 Oxygen Delivery Method Room Air Intake Visit Reasons: EP allergic reaction to RSV shot Intake Note: Pt is here c/o allergic reaction to RSV immunization. Pt states he has a rash on his chest, neck and left arm. Patient Tobacco Use Status: Former Tobacco user Allergies Iodinated Contrast Media [IV DYE, IODINE CONTAINING] Allergy (Unknown, Verified 06/07/23 12:32) NAUSEA & VOMITING Penicillins [PENICILLINS] Allergy (Unknown, Verified 06/07/23 12:32) UNKNOWN amlodipine Adverse Reaction (Intermediate, Verified 06/07/23 12:32) Nausea losartan Adverse Reaction (Intermediate, Verified 06/07/23 12:32) Nausea Metoprolol Adverse Reaction (Unknown, Uncoded 06/07/23 12:32) Nausea and Vomiting Do you need a note to return to daycare/school/sports/work: No HPI EP allergic reaction to RSV shot HPI Details Pt had an RSV shot and has now gotten a rash in the arm, PFSH Medical History PAF (paroxysmal atrial fibrillation) Bleeding grade II hemorrhoids Generalized anxiety disorder Atrial fibrillation with rapid ventricular response Atrial fibrillation, new onset Epigastric pain determined by examination Chest pain Acute sinusitis Bloating Postnasal drip Sinus congestion Arrhythmia Burping Blood pressure elevated without history of HTN Colon cancer screening History of renal calculi History of prostate cancer GERD (gastroesophageal reflux disease) BPH (benign prostatic hyperplasia) Surgical History History of suburethral sling procedure History of colonoscopy History of adenoidectomy S/P left inguinal herniorrhaphy H/O prostatectomy Social History Household Members: None Housing: House Are you a primary point of care specialist 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 other at home: Yes Do you presently have visiting nurse or other home services: No Alcohol intake: current Alcohol intake frequency: holidays/special occasions only Patient Tobacco Use Status: Former Tobacco user Tobacco use type: Cigarette Years Smoked: quit 30 years old e-Cigarette/Vaping Use: Never Used Second Hand Smoke Exposure: No Advance Directives Date on File: 06/02/22 service: Yes Current occupational status: unemployed and retired Current occupation: left hand Cognitive needs: No Hearing needs: No Vision needs: Yes Physical Exam Vital Signs: Last Vital Signs Temp 97.3 F 05/29/23 10:12 Pulse 69 05/29/23 10:12 BP 124/62 05/29/23 10:12 Pulse Ox 98 05/29/23 10:12 Oxygen Delivery Method Room Air 05/29/23 10:12 BMI result Body Mass Index 24.4 Skin Other: Erythematous rash at the site of the injection, Indurated area Assessment & Plan Assessment & Plan (1) Rash: Code(s): R21 - Rash and other nonspecific skin eruption Plan: Prednisone prescribed. If sx do not improve to follow up here. Medications: New prednisone 20 mg PO DAILY 3 tabs 0RF Coding Level of Care Code Est Pt Level 3 (43329) Diagnoses Rash R21
== END 2023-05-29 10:56 | disposition home or self-care (01) ==
PROVIDERS: PCP Internal Medicine; Visit Provider Internal Medicine
DX: R21 Rash and other nonspecific skin eruption (principal)
CPT/HCPCS: 99213

== ENCOUNTER 2023-06-07 12:16 | Emergency (ER) | payer MEDICARE, OTHER, SELFPAY ==
--- NOTE | ~2023-06-07 | XR_ITS ---
EXAMINATION: XR CHEST CLINICAL INFORMATION: Chest pain COMPARISON: Chest exam 05/17/2023. TECHNIQUE: 2 views of the chest were obtained. FINDINGS: No significant abnormality is noted involving the heart, lungs, mediastinum, bony thorax or soft tissues. XR/XR chest 2V IMPRESSION: Unremarkable chest examination.
--- NOTE | 2023-06-07 12:17 | ECG_ITS ---
Test Reason : AFIB Blood Pressure : / mmHG Vent. Rate : 078 BPM Atrial Rate : 078 BPM P-R Int : 168 ms QRS Dur : 080 ms QT Int : 380 ms P-R-T Axes : 053 -15 068 degrees QTc Int : 433 ms Normal sinus rhythm Left axis deviation RSR' or QR pattern in V1 suggests right ventricular conduction delay Abnormal ECG When compared with ECG of 18-MAY-2023 15:17, No significant change was found Referred By: Generic ED Physician Electronically Signed By:YOVANNY DEE MD
[2023-06-07 12:27] VITALS: BP 150/87; PULSE 83; RESP 16; TEMP 37.1; O2SAT 99; BMI 24.6
--- NOTE | 2023-06-07 12:27 | ED_ITS ---
HPI - General Adult General Chief complaint: Arrhythmia/Palpitations Stated complaint: HBP/Indigestion hx of afib Time Seen by Provider: 06/07/23 13:02 Source: patient Mode of arrival: ambulatory Limitations: no limitations History of Present Illness HPI narrative: Is room complaining of palpitations since last night. Patient states that he woke up every hour to check his blood pressure throughout the night, it was between 22091 systolic. No chest pain or shortness of breath. Patient states that he also has a little bit of burning sensation in the epigastric area. Patient known to have GERD, takes Protonix and is scheduled with a escalator installer in the near future. Of note, patient was discharged recently from the hospital on May 19 for new onset atrial fibrillation with RVR. Patient complaining of nausea and burning sensation in the epigastric area, no chest pain, no palpitations at this time. Related Data Home Medications Medication Instructions Recorded Confirmed omeprazole 20 mg capsule,delayed 20 mg PO BID 04/09/23 05/28/23 release clonidine 0.1 mg/24 hr weekly 1 patch topical MO 05/17/23 05/28/23 transdermal patch Previous Rx's Medication Instructions Recorded apixaban 5 mg tablet (Eliquis) 5 mg PO BID #60 tabs 05/19/23 carvedilol 6.25 mg tablet 6.25 mg PO BID #60 tabs 05/19/23 hydrocortisone 2.5 % topical cream 1 appl W[place] BID #30 grams 05/19/23 with perineal applicator (Proctozone-HC) polyethylene glycol 3350 17 gram 17 g PO DAILY #100 ea 05/19/23 oral powder packet prednisone 20 mg tablet 20 mg PO DAILY #3 tabs 05/29/23 Allergies Allergy/AdvReac Type Severity Reaction Status Date / Time Iodinated Contrast Media Allergy Unknown NAUSEA & Verified 06/07/23 12:32 [IV DYE, IODINE CONTAINING] VOMITING Penicillins [PENICILLINS] Allergy Unknown UNKNOWN Verified 06/07/23 12:32 amlodipine AdvReac Intermediate Nausea Verified 06/07/23 12:32 losartan AdvReac Intermediate Nausea Verified 06/07/23 12:32 Metoprolol AdvReac Unknown Nausea and Uncoded 06/07/23 12:32 Vomiting Review of Systems 2 Review of Systems: Constitutional : No Weight loss, No Fever, No Chills, No Night Sweats, No Fatigue, No Malaise ENT/Mouth : No Hearing loss, No Ear Pain, No Nasal Congestion, No Sinus Pain, No Hoarseness, No sore throat, No Rhinorrhea, No Swallowing Difficulty Eyes: No Eye Pain, No Swelling, No Redness, No Foreign Body, No Discharge, No Vision Changes Cardiovascular : No Chest Pain, No SOB, No Dyspnea on Exertion, No Orthopnea, No Edema, complaining of Palpitations high blood pressure Respiratory : No Cough, No Sputum, No Wheezing, No Smoke Exposure, No Dyspnea Gastrointestinal : Complaining of epigastric burning sensation, No Nausea, No Vomiting, No Diarrhea, No Constipation, No abdominal Pain, No Hematochezia, No Melena Genitourinary : no irregular bleeding, No Dysuria, No Urinary Frequency, No Hematuria, No Urinary Incontinence, No Urgency, No Flank Pain, No Urinary Flow Changes, No Hesitancy Musculoskeletal : No joint pain, No Myalgias, No Joint Swelling Skin : No Skin Lesions, No rash Neuro : No Weakness, No Numbness, No Paresthesias, No Loss of Consciousness, No Dizziness, No Headache Psych : No Anxiety/Panic, No Depression, No SI/HI/AH/VH, No Social Issues, Heme/Lymph: No Bruising, No Bleeding,No Lymphadenopathy Endocrine : No Polyuria, No Polydipsia, No Temperature Intolerance [facility] Past Medical History Medical History PAF (paroxysmal atrial fibrillation) Bleeding grade II hemorrhoids Generalized anxiety disorder Atrial fibrillation with rapid ventricular response Atrial fibrillation, new onset Epigastric pain determined by examination Chest pain Acute sinusitis Bloating Postnasal drip Sinus congestion Arrhythmia Burping Blood pressure elevated without history of HTN Colon cancer screening History of renal calculi History of prostate cancer GERD (gastroesophageal reflux disease) BPH (benign prostatic hyperplasia) Surgical History History of suburethral sling procedure History of colonoscopy History of adenoidectomy S/P left inguinal herniorrhaphy H/O prostatectomy Social History Household Members: None Housing: House Are you a primary medical care manager 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 other at home: Yes Do you presently have visiting nurse or other home services: No Alcohol intake: current Alcohol intake frequency: holidays/special occasions only Patient Tobacco Use Status: Former Tobacco user Tobacco use type: Cigarette Years Smoked: quit 30 years old Smoked in Last 30 Days: Yes e-Cigarette/Vaping Use: Never Used Second Hand Smoke Exposure: No Use of substances other than those prescribed or required for medical reasons: No Advance Directives: Yes Advance Directives on File: Yes Advance Directives Date on File: 06/02/22 service: Yes Current occupational status: unemployed and retired Current occupation: left hand Cognitive needs: No Hearing needs: No Vision needs: Yes Physical Exam ED Vital Signs: Vital Signs - 24 hr 06/07/23 12:27 06/07/23 13:33 Temperature 98.7 F Pulse Rate 83 76 Respiratory Rate 16 15 Blood Pressure 150/87 H 139/81 Pulse Oximetry 99 99 Oxygen Delivery Method Room Air Room Air BMI result Body Mass Index 24.6 Const Other: Appearance: Alert. Oriented X3. No acute distress. Eyes: Pupils equal, round and reactive to light. ENT: Pharynx normal. Neck: Normal inspection. Neck supple. No lymph nodes noted. No crepitus CVS: Normal heart rate and rhythm. Pulses normal. Normal S1 and S2 Respiratory: No respiratory distress. Breath sounds normal. No Wheezing. No rales Abdomen: Soft and nontender. No rigidity. No distention. Skin: Skin warm and dry. Normal skin color. Normal skin turgor. Extremities: No lower extremity edema. No Lacerations. No Rash Neuro: Oriented X 3. No motor deficit. No sensory deficit. Moving all extremities. No slurred speech. CN 2 through 12 grossly intact Psych: calm, cooperative, normal affect Course Course Course Narrative: This is a rapid medical exam: Additional HPI, ROS, PE not included below will be deferred to primary provider. Patient is a 78-year-old male presenting to the emergency department with complaint of palpitations last night which interfered with his sleep. He got up every hour to check his BP, states some were elevated. Also reports nausea and heartburn as well as left arm discomfort. Denies any shortness of breath. Highest reading at home was around 150/90. Reports dry mouth, frequent urination, bloating and frequent belching. Plan: EKG, labs Medications Administered Discontinued Medications Generic Name Dose Route Start Last Admin Trade Name Freq PRN Reason Stop Dose Admin Al Hydroxide/Mg Hydroxide 30 ml 06/07/23 13:13 06/07/23 13:30 Magnesium Hydrox/Alum Hydrox 30 Ml Oral.Susp PO 06/07/23 13:14 30 ml ONCE ONE Administration Lidocaine HCl 15 ml 06/07/23 13:13 06/07/23 13:30 Lidocaine Hcl Viscous 2 % 15 Ml Solution MUCOUS MEM 06/07/23 13:14 15 ml ONCE ONE Administration Ondansetron HCl 4 mg 06/07/23 13:28 06/07/23 13:32 Ondansetron Hcl 4 Mg/2 Ml Vial IVPUSH 06/07/23 13:29 Not Given ONCE ONE Ondansetron HCl 4 mg 06/07/23 13:33 06/07/23 13:34 Ondansetron Odt 4 Mg Tab.Rapdis TRANSLINGU 06/07/23 13:34 4 mg ONCE ONE Administration Medical Decision Making Medical Decision Making [facility] Narrative: -my interpretation of EKG: Normal sinus rhythm, 178, no seizing depression elevation, no T-wave inversion, QTC 433 -all of patient's labs are at baseline including hematology and chemistry, troponin. BNP is a bit bumped at 246. No previous BNPs for comparison. Patient has no lower extremity edema, no pulmonary edema, no signs of CHF. -I discussed with the patient that his current blood pressure is 139/81, no further management at this time. Also, discussed with the patient that the palpitations that he was feeling at night, it was likely because he went into atrial fibrillation and then self resolved. Discussed with the patient's signs and symptoms of when to return to the emergency room. Differential Diagnosis Differential Diagnoses: The differential diagnosis associated with the presentation includes (Atrial fibrillation with RVR, anxiety, hypertension) Admission/Observation Consideration of admission/observation: Escalation of care including admission/observation considered (Given patient's initial set of complaints and history, patient was considered) Lab Data [facility] Lab Attestation statement: I reviewed the patient's lab results. 06/07/23 12:50 06/07/23 12:50 Labs: Lab Results 06/07/23 06/07/23 Range/Units 12:50 13:37 WBC 9.6 (4.8-10.8) X10*3/uL RBC 4.61 D (4.60-5.80) X10*6/uL Hgb 14.6 (14.0-18.0) g/dl Hct 41.7 L D (42.0-52.0) % MCV 90.5 (80.0-98.0) fL MCH 31.7 (27.0-33.0) pg MCHC 35.0 (31.0-36.0) g/dl RDW 12.5 (11.0-16.0) % Plt Count 196 (160-400) X10*3/uL MPV 9.3 L (9.4-12.4) fL Immature Gran % (Auto) 0.5 H (0.0-0.4) % Neut % (Auto) 75.1 H (45-73) % Lymph % (Auto) 14.1 L (20-40) % [place] % (Auto) 8.6 (2-11) % Eos % (Auto) 1.4 (0-4) % Baso % (Auto) 0.3 (0-2) % Lymph # (Auto) 1.4 (1.2-4.9) X10*3/uL [place] # (Auto) 0.8 (0.1-1.2) X10*3/uL Eos # (Auto) 0.1 (0.0-0.4) X10*3/uL Baso # (Auto) 0.0 (0.0-0.2) X10*3/uL Abs Immat Gran (auto) 0.05 H (0.00-0.03) X10*3/uL Absolute Neuts (auto) 7.2 (2.0-8.3) x10*3/uL Absolute Nucleated RBC 0.000 (0.0-0.012) X10*3/uL Nucleated RBC % (auto) 0.0 (0.0-0.2) /100WBC PT 16.5 H D (11.1-13.3) SEC INR 1.4 H (0.9-1.1) Sodium 140 (135-145) mmol/L Potassium 4.1 (3.3-5.1) mmol/L Chloride 107 (96-108) mmol/L Carbon Dioxide 22 (22-29) mmol/L Anion Gap 15 (12-20) BUN 12 (9-16) mg/dL Creatinine 0.97 (0.5-1.4) mg/dL Estim Creat Clear Calc 65.8 Estimated GFR > 60 Random Glucose 145 H (60-115) mg/dL Calcium 9.4 (8.4-10.2) mg/dL Total Bilirubin 0.8 (0.0-1.0) mg/dL AST 18 (5-37) U/L ALT 15 (0-40) U/L Alkaline Phosphatase 101 (39-117) U/L Troponin I High Sens 7.2 D (<3.5-35.0) ng/L B-Natriuretic Peptide 246 H (<100) pg/mL Total Protein 7.4 (6.5-8.0) g/dL Albumin 4.4 (3.5-5.0) g/dL Urine Color Yellow Urine Appearance Clear Urine pH 5.5 (5.0-9.0) Ur Specific [place] <= 1.005 (1.005-1.025) Urine Protein Negative (Neg-Trace) mg/dL Urine Glucose (UA) Negative (Negative) mg/dL Urine Ketones Negative (Negative) mg/dL Urine Blood Large (3+) H (Negative) Urine Nitrite Negative (Negative) Ur Leukocyte Esterase Negative (Negative) Independent Interpretation I performed an independent interpretation of an: Plain X-Ray Radiology Impression Discussion of test interpretation with radiology: I have reviewed the radiologist's reading. Radiologist Impression: No significant abnormality is noted involving the heart, lungs, mediastinum, bony thorax or soft tissues. XR/XR chest 2V IMPRESSION: Unremarkable chest examination. Critical Care Time Critical Care Time Critical Care Time: Yes Total Critical Care Time: 45 Attestation: I have personally provided critical care time. Time includes review of lab data, radiology results, discussion with consultants, and monitoring for potential decompensation. Intervention performed as documented. Discharge Plan Discharge Clinical Impression: Palpitations Patient Disposition: Home, Self-Care Instructions: Heart Palpitations (ED) Additional Instructions: Please follow-up with your primary care physician tomorrow. If you have any worsening or new symptoms, please return to the emergency room or call 911 Prescriptions: No Action clonidine 0.1 mg/24 hr patch weekly 1 patch topical MO Eliquis 5 mg Tablet 5 mg PO BID Qty: 60 0RF carvedilol 6.25 mg Tablet 6.25 mg PO BID Qty: 60 0RF Protocol: Hold for SBP/HR < HOLD for SBP < : 90 HOLD for HR < : 60 polyethylene glycol 3350 17 gram Powder In Packet 17 g PO DAILY Qty: 100 0RF hydrocortisone [Proctozone-HC] 2.5 % Cream With Perineal Applicator 1 appl WV BID Qty: 30 2RF omeprazole 20 mg capsule,delayed release(DR/EC) 20 mg PO BID prednisone 20 mg tablet 20 mg PO DAILY Qty: 3 0RF
[2023-06-07 12:56] LABS: MANUAL DIFF FLAG NO
[2023-06-07 12:57] LABS: Basophils Percent Auto 0.3 % (0-2); Eosinophils Absolute Auto 0.1 X10*3/uL (0.0-0.4); Eosinophils Percent Auto 1.4 % (0-4); Hematocrit 41.7 % (42.0-52.0); Hemoglobin 14.6 g/dl (14.0-18.0); Imm Gran Abs Auto 0.05 X10*3/uL (0.00-0.03); Imm Gran Pct Auto 0.5 % (0.0-0.4); Lymphocytes Absolute Auto 1.4 X10*3/uL (1.2-4.9); Lymphocytes Percent Auto 14.1 % (20-40); Mean Corpuscular Hemoglobin 31.7 pg (27.0-33.0); Mean Corpuscular Volume 90.5 fL (80.0-98.0); Mean Platelet Volume 9.3 fL (9.4-12.4); Monocytes Absolute Auto 0.8 X10*3/uL (0.1-1.2); Monocytes Percent Auto 8.6 % (2-11); Neutrophils Absolute Auto 7.2 x10*3/uL (2.0-8.3); Neutrophils Percent Auto 75.1 % (45-73); Platelet Count 196 X10*3/uL (160-400); Red Blood Count 4.61 X10*6/uL (4.60-5.80); Red Cell Distribution Width 12.5 % (11.0-16.0); White Blood Count 9.6 X10*3/uL (4.8-10.8)
[2023-06-07 13:13] LABS: INTERNATIONAL NORM RATIO 1.4 (0.9-1.1); Prothrombin Time 16.5 SEC (11.1-13.3)
[2023-06-07 13:15] LABS: Alanine Aminotransferase 15 U/L (0-40); Albumin Level 4.4 g/dL (3.5-5.0); Alkaline Phosphatase 101 U/L (39-117); Anion Gap 15 (12-20); Aspartate Amino Transferase 18 U/L (5-37); Bilirubin Total 0.8 mg/dL (0.0-1.0); Blood Urea Nitrogen 12 mg/dL (9-16); Calcium 9.4 mg/dL (8.4-10.2); Carbon Dioxide 22 mmol/L (22-29); Chloride 107 mmol/L (96-108); Creatinine Clr Calc Pharmacy 65.8; Estimated Glomerular Filt Rate > 60; Glucose Random 145 mg/dL (60-115); Potassium 4.1 mmol/L (3.3-5.1); Sodium 140 mmol/L (135-145); Total Protein 7.4 g/dL (6.5-8.0)
[2023-06-07 13:22] LABS: Troponin-I High Sensitivity 7.2 ng/L (<3.5-35.0)
[2023-06-07] MEDS: Magnesium Hydrox/Alum Hydrox 30 ML ORAL.SUSP PO (13:30)
[2023-06-07] MEDS: Lidocaine HCl Viscous 2 % 15 ML SOLUTION MUCOUS MEM (13:30)
[2023-06-07 13:33] VITALS: BP 139/81; PULSE 76; RESP 15; O2SAT 99
[2023-06-07] MEDS: Ondansetron ODT 4 MG TAB.RAPDIS TRANSLINGU (13:34)
[2023-06-07 13:43] LABS: B Type Natriuretic Peptide 246 pg/mL (<100)
[2023-06-07 13:45] LABS: Appearance Urine Clear; Color Urine Yellow; Glucose Urine UA Negative (Negative); Leukocyte Esterase Urine Negative (Negative); Nitrite Urine Negative (Negative); PH 5.5 (5.0-9.0); Specific Gravity - Urine <= 1.005 (1.005-1.025); UMIC TRIGGER UACC YES; Urine Blood Large (3+) (Negative); Urine Ketones Negative (Negative); Urine Protein Negative (Neg-Trace)
[2023-06-07 13:50] LABS: Bacteria Urine None Seen (None Seen); Hyaline Casts Urine 0-2 /LPF (0-2); Squamous Epithelial Cell Urine 0-2 /HPF (0-2); WBC Urine 0-5 /HPF (0-5)
--- NOTE | 2023-06-07 13:51 | PC.NURSE ---
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
== END 2023-06-07 14:06 | disposition home or self-care (01) ==
PROVIDERS: Registered Nurse Emergency; Emergency Provider Emergency Medicine; PCP Internal Medicine
DX: R00.2 Palpitations (principal); I10 Essential (primary) hypertension; I48.0 Paroxysmal atrial fibrillation; K21.9 Gastro-esophageal reflux disease without esophagitis; I77.810 Thoracic aortic ectasia; Z85.46 Personal history of malignant neoplasm of prostate; Z87.891 Personal history of nicotine dependence; Z79.899 Other long term (current) drug therapy
CPT/HCPCS: 36415; 71046; 80053; 81001; 83880; 84484; 85025; 85610; 93005; 99283; 99285

== ENCOUNTER 2023-06-19 08:52 | Outpatient (REF) | payer MEDICARE, OTHER, SELFPAY ==
[2023-06-19 09:22] LABS: MANUAL DIFF FLAG NO
[2023-06-19 09:36] LABS: Basophils Percent Auto 0.6 % (0-2); Eosinophils Absolute Auto 0.2 X10*3/uL (0.0-0.4); Eosinophils Percent Auto 2.8 % (0-4); Hematocrit 36.8 % (42.0-52.0); Hemoglobin 12.4 g/dl (14.0-18.0); Imm Gran Abs Auto 0.01 X10*3/uL (0.00-0.03); Imm Gran Pct Auto 0.2 % (0.0-0.4); Immature Retic Fraction 8.1 % (2.3-13.4); Lymphocytes Absolute Auto 1.1 X10*3/uL (1.2-4.9); Lymphocytes Percent Auto 20.6 % (20-40); Mean Corpuscular HGB Conc 33.7 g/dl (31.0-36.0); Mean Corpuscular Hemoglobin 31.4 pg (27.0-33.0); Mean Corpuscular Volume 93.2 fL (80.0-98.0); Mean Platelet Volume 9.3 fL (9.4-12.4); Monocytes Absolute Auto 0.4 X10*3/uL (0.1-1.2); Monocytes Percent Auto 8.1 % (2-11); Neutrophils Absolute Auto 3.6 x10*3/uL (2.0-8.3); Neutrophils Percent Auto 67.7 % (45-73); Platelet Count 155 X10*3/uL (160-400); Red Blood Count 3.95 X10*6/uL (4.60-5.80); Red Cell Distribution Width 12.3 % (11.0-16.0); Retic HGB Equivalent 36.6 pg (30.0-35.0); Reticulocyte Percent 1.6 % (0.5-1.8); Reticulocytes Absolute 0.064 X10*6/uL (0.026-0.095); White Blood Count 5.3 X10*3/uL (4.8-10.8)
[2023-06-19 10:19] LABS: Alanine Aminotransferase 11 U/L (0-40); Albumin Level 4.2 g/dL (3.5-5.0); Alkaline Phosphatase 93 U/L (39-117); Anion Gap 13 (12-20); Aspartate Amino Transferase 16 U/L (5-37); Bilirubin Total 0.8 mg/dL (0.0-1.0); Blood Urea Nitrogen 14 mg/dL (9-16); Calcium 9.4 mg/dL (8.4-10.2); Carbon Dioxide 24 mmol/L (22-29); Chloride 106 mmol/L (96-108); Estimated Glomerular Filt Rate > 60; Glucose Random 153 mg/dL (60-115); Iron 89 mcg/dL (45-160); Percent Iron Saturation 36 % (15-50); Potassium 4.1 mmol/L (3.3-5.1); Sodium 139 mmol/L (135-145); Total Iron Binding Capacity 249 mcg/dL (228-428); Unsaturated Iron Binding 160 ug/dL
[2023-06-19 10:40] LABS: Ferritin 99 ng/mL (20-250)
[2023-06-19 10:46] LABS: Folate 12.8 ng/mL (> or = 4.0); Vitamin B12 413 pg/mL (200-900)
== END 2023-06-19 08:53 | disposition home or self-care (01) ==
LOC: HO.LAB 08:52
PROVIDERS: PCP Internal Medicine; Visit Provider Internal Medicine
DX: K64.1 Second degree hemorrhoids (principal); D64.9 Anemia, unspecified
CPT/HCPCS: 36415; 80053; 82607; 82728; 82746; 83540; 85025; 85045

== ENCOUNTER 2023-08-07 09:12 | Outpatient (AMB) | payer MEDICARE, OTHER, SELFPAY ==
[2023-08-07 09:13] VITALS: BP 142/78; PULSE 61; O2SAT 98; BMI 24.7
--- NOTE | 2023-08-07 09:14 | MHC.PC.OV ---
Vital Signs 08/07/23 09:13 08/07/23 09:45 Height 5 ft 10 in Weight 172 lb BMI 24.7 BP 142/78 H 140/70 H Blood Pressure Location Lt brachial Lt brachial Position Sitting Sitting Pulse 61 Pulse Source Pulse Oximeter Pulse Oximetry (%) 98 Oxygen Delivery Method Room Air Intake Visit Reasons: Hypertension Dry Dip Worker Required: No Allergies Iodinated Contrast Media [IV DYE, IODINE CONTAINING] Allergy (Unknown, Verified 08/07/23 09:13) NAUSEA & VOMITING Penicillins [PENICILLINS] Allergy (Unknown, Verified 08/07/23 09:13) UNKNOWN amlodipine Adverse Reaction (Intermediate, Verified 08/07/23 09:13) Nausea losartan Adverse Reaction (Intermediate, Verified 08/07/23 09:13) Nausea Respiratory syncytial virus vaccine Adverse Reaction (Intermediate, Uncoded 08/07/23 09:22) Rash Metoprolol Adverse Reaction (Unknown, Uncoded 08/07/23 09:13) Nausea and Vomiting Medication List - Last Reconciled 08/07/23 by Oscar Arias MD apixaban (Eliquis) 5 mg PO BID carvedilol 6.25 mg See Protocol PO BID clonidine 1 patch topical QWEEK hydrocortisone 2.5% (Proctozone-HC) 1 appl RI BID omeprazole 20 mg PO BID polyethylene glycol 3350 17 grams PO DAILY Tobacco use date assessed: 08/07/23 Fall risk assessment: No Falls in past year Last assessed Fall Risk: 08/07/23 Dental Screening Dental Screen Date: 08/07/23 HPI Hypertension HPI Details 78-year-old male with atrial fibrillation hypertension history of prostate cancer generalized anxiety disorder GERD and history of ascending aorta dilatation coming in for follow-up. Last seen May 2023. Review of the notes ER visit May with palpitations. EKG was normal sinus rhythm of note urgent care visit due to a rash question of RSV shot. For the atrial fibrillation patient follows up with Cardiology. Patient continues to be on anticoagulation patient did ask Cardiology about the watchman's device and was referred to Dr. Mcnulty- scheduled to see 08/23/2023. - advsied elimiated caffeine. Seen Dr. Trevino and did not recommend EGD but - an US. abdomen. tomorrow PFSH Medical History PAF (paroxysmal atrial fibrillation) Bleeding grade II hemorrhoids Generalized anxiety disorder Atrial fibrillation with rapid ventricular response Atrial fibrillation, new onset Epigastric pain determined by examination Chest pain Acute sinusitis Bloating Postnasal drip Sinus congestion Arrhythmia Burping Blood pressure elevated without history of HTN Colon cancer screening History of renal calculi History of prostate cancer GERD (gastroesophageal reflux disease) BPH (benign prostatic hyperplasia) Surgical History History of suburethral sling procedure History of colonoscopy History of adenoidectomy S/P left inguinal herniorrhaphy H/O prostatectomy Social History Household Members: None Caregiver staying overnight: No Housing: House Are you a primary rn intensive care unit 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 other at home: Yes Do you presently have visiting nurse or other home services: No 75 years or older and lives alone: Yes Alcohol intake: current Alcohol intake frequency: holidays/special occasions only Patient Tobacco Use Status: Former Tobacco user Tobacco use type: Cigarette Years Smoked: quit 30 years old e-Cigarette/Vaping Use: Never Used Second Hand Smoke Exposure: No Advance Directives Date on File: 06/02/22 service: Yes Current occupational status: unemployed and retired Current occupation: left hand Cognitive needs: No Hearing needs: No Vision needs: Yes Questionnaire PHQ-9 Over the last 2 weeks, how often have you been bothered by any of the following problems? 1. Little interest or pleasure in doing things: several days 2. Feeling down, depressed, or hopeless: several days 3. Trouble falling or staying asleep, or sleeping too much: not at all 4. Feeling tired or having little energy: not at all 5. Poor appetite or overeating: not at all 6. Feeling bad about yourself - or that you are a failure or have let yourself or your family down: not at all 7. Trouble concentrating on things, such as reading the newspaper or watching television: not at all 8. Moving or speaking so slowly that other people could have noticed. Or the opposite - being so fidgety or restless that you have been moving around a lot more than usual: not at all 9. Thoughts that you would be better off or of hurting yourself in some way: not at all Total score: 2 Depression Screening Interpretation: Positive Depression Screening Done: Yes Source: Developed by Drs. Jayesh Mcginnis, Petra Campos, Miguel Zarate and colleagues, with an educational agustin from [employer]. Thrive Questionnaire Date Thrive assessed: 08/07/23 AUDIT C Alcohol Use Questionnaire (AUDIT-C) 1. How often do you have a drink containing alcohol?: Never 3. How often do you have six or more drinks on one occasion?: Never Total Score: 0 PATIENCE-7 AMB Questionnaire PATIENCE-7 Date PATIENCE - 7 assessed: 08/07/23 Source: Developed by Drs. Jayesh Mcginnis, Petra Campos, Miguel Zarate and colleagues, with an educational agustin from [employer]. Physical exam (Primary Care) Vital Signs: Last Vital Signs Pulse 61 08/07/23 09:13 BP 142/78 H 08/07/23 09:13 Pulse Ox 98 08/07/23 09:13 Oxygen Delivery Method Room Air 08/07/23 09:13 BMI result Body Mass Index 24.7 Tobacco/Smoking Status: Tobacco use Status Tobacco use date assessed 08/07/23 08/07/23 09:14 Patient Tobacco Use Status Former Tobacco user 08/07/23 09:14 Tobacco use type Cigarette 08/07/23 09:14 e-Cigarette/Vaping Use Never Used 08/07/23 09:14 PHQ-9: PHQ-9 Score PHQ-9: Total score 2 08/07/23 09:22 Depression Screening Interpretation: Positive Thrive Assessment: Date of Thrive Assessment Date Thrive assessed 08/07/23 08/07/23 09:14 Const General: alert; No acute distress Eyes Conjunctivae: conjunctivae normal Resp Auscultation: clear to auscultation bilaterally Cardio Rate: regular rate Rhythm: regular rhythm GI Inspection: Yes normal to inspection Extrem General: Yes normal to inspection and No edema Assessment and Plan Assessment & Plan (1) PAF (paroxysmal atrial fibrillation): Comment: May 2023 new onset Code(s): I48.0 - Paroxysmal atrial fibrillation Plan: Could you with anticoagulation. Patient has been referred to a different Cardiology for possible watchman's device (2) Ascending aorta dilatation: Comment: 05/2023 3.8 cm Code(s): I77.810 - Thoracic aortic ectasia Plan: Continue monitoring blood pressure and control. (3) Hypertension: Code(s): I10 - Essential (primary) hypertension Plan: Continue with blood pressure medication. Decrease salt intake and exercise patient on carvedilol 6.25 mg twice a day clonidine patch (4) History of prostate cancer: Comment: 2017 Code(s): Z85.46 - Personal history of malignant neoplasm of prostate Plan: Continue to be monitored by Urology. (5) GERD (gastroesophageal reflux disease): Code(s): K21.9 - Gastro-esophageal reflux disease without esophagitis Plan: Avoid the foods that causes that usually spicy foods, tomato products, juices, coffee, soda and foods that your sensitive to. After eating do not lie down, allow 3-4 hours before in lie down. And keep the head of bed above 30 degrees to avoid the acid from going up. Presently on omeprazole 20 mg twice a day (6) Lipoma: Comment: l knee Code(s): D17.9 - Benign lipomatous neoplasm, unspecified (7) Impacted cerumen of both ears: Code(s): H61.23 - Impacted cerumen, bilateral Plan: will schedule for ear irrigation Orders: Referrals General Surgery Referral D17.9 - Benign lipomatous neoplasm, unspecified Medications: New clonidine 1 patch topical QWEEK 4 ea 2RF I10 - Essential (primary) hypertension Refilled apixaban (Eliquis) 5 mg PO BID 60 tabs 2RF I48.0 - Paroxysmal atrial fibrillation Coding Level of Care Code Est Pt Level 4 (52282) Diagnoses PAF (paroxysmal atrial fibrillation) I48.0 Ascending aorta dilatation I77.810 Hypertension I10 History of prostate cancer Z85.46 GERD (gastroesophageal reflux disease) K21.9 Lipoma D17.9 Impacted cerumen of both ears H61.23 Additional Codes PHQ-9 - 70708 - PHQ-9 Billing: ([id number])
[2023-08-07 09:45] VITALS: BP 140/70
== END 2023-08-07 09:54 | disposition home or self-care (01) ==
PROVIDERS: PCP Internal Medicine; Visit Provider Internal Medicine
DX: I48.0 Paroxysmal atrial fibrillation (principal); I77.810 Thoracic aortic ectasia; I10 Essential (primary) hypertension; Z85.46 Personal history of malignant neoplasm of prostate; K21.9 Gastro-esophageal reflux disease without esophagitis; D17.9 Benign lipomatous neoplasm, unspecified; H61.23 Impacted cerumen, bilateral
CPT/HCPCS: 99214

== ENCOUNTER 2023-08-08 07:58 | Outpatient (REF) | payer MEDICARE, OTHER, SELFPAY ==
--- NOTE | ~2023-08-08 | US_ITS ---
EXAMINATION: US ABDOMEN COMPLETE CLINICAL INFORMATION: Abdominal pain. COMPARISON: None available. TECHNIQUE: Real-time imaging of the abdominal viscera. FINDINGS: PANCREAS: Normal. ABDOMINAL AORTA: The proximal, mid, and distal segments are normal in caliber. INFERIOR VENA CAVA: Visualized portions are normal. LIVER: Normal. The liver is normal in size. The liver contour is normal. Increased parenchymal echogenicity. No focal hepatic lesion. There is no intrahepatic biliary duct dilatation seen. GALLBLADDER: Normal. The gallbladder is physiologically distended without evidence of stones, sludge, polyps, wall thickening or pericholecystic fluid. COMMON BILE DUCT: Normal in caliber measuring 0.5 cm in diameter. RIGHT KIDNEY: Nonobstructive 1.3 cm calculus in the interpolar region. No hydronephrosis or focal parenchymal lesions. The kidney measures 12 cm in maximum dimension. LEFT KIDNEY: Simple appearing parapelvic cyst in the lower pole measuring 1.6 cm for which no imaging follow-up is recommended. No hydronephrosis or renal calculi. The kidney measures 13 cm in maximum dimension. SPLEEN: Normal. The spleen measures 12.7 cm in maximum dimension. FREE FLUID: None. US/US abdomen complete IMPRESSION: 1. Nonobstructive 1.3 cm calculus in the interpolar region of the right kidney. 2. Increased hepatic parenchymal echogenicity is nonspecific but most commonly on the basis of diffuse hepatocellular disease such as hepatic steatosis. 3. The spleen is within the upper limits of normal measuring 12.7 cm in length.
== END 2023-08-08 07:59 | disposition home or self-care (01) ==
LOC: HO.US 07:58
PROVIDERS: PCP Internal Medicine; Visit Provider Internal Medicine
DX: R10.84 Generalized abdominal pain (principal)
CPT/HCPCS: 76700

== ENCOUNTER 2023-08-09 08:33 | Outpatient (AMB) | payer MEDICARE, OTHER, SELFPAY ==
--- NOTE | 2023-08-09 08:33 | MHC.OFFWIV ---
Intake Vital Signs 08/09/23 08:34 Height 5 ft 10 in Weight 174 lb BMI 25.0 BP 126/70 Blood Pressure Location Lt brachial Position Sitting Pulse 66 Pulse Source Pulse Oximeter Temp 97.1 F Temp Source Temporal Artery Scan Pulse Oximetry (%) 95 Oxygen Delivery Method Room Air Intake Visit Reasons: EP wax Removal Intake Note: pt is here today for wax removal Patient Tobacco Use Status: Former Tobacco user Allergies Iodinated Contrast Media [IV DYE, IODINE CONTAINING] Allergy (Unknown, Verified 08/09/23 08:34) NAUSEA & VOMITING Penicillins [PENICILLINS] Allergy (Unknown, Verified 08/09/23 08:34) UNKNOWN amlodipine Adverse Reaction (Intermediate, Verified 08/09/23 08:34) Nausea losartan Adverse Reaction (Intermediate, Verified 08/09/23 08:34) Nausea Respiratory syncytial virus vaccine Adverse Reaction (Intermediate, Uncoded 08/07/23 09:22) Rash Metoprolol Adverse Reaction (Unknown, Uncoded 08/07/23 09:13) Nausea and Vomiting Do you need a note to return to daycare/school/sports/work: No HPI EP wax Removal HPI Details This is a 78 year old male patient who presents today with earwax buildup. He states he saw his PCP earlier this week and was told her has a large amount of wax in both ears, however they were not able to perform an ear irrigation at that time. He denies any ear pain. Reports hearing has worsened. [facility] Medical History PAF (paroxysmal atrial fibrillation) Bleeding grade II hemorrhoids Generalized anxiety disorder Atrial fibrillation with rapid ventricular response Atrial fibrillation, new onset Epigastric pain determined by examination Chest pain Acute sinusitis Bloating Postnasal drip Sinus congestion Arrhythmia Burping Blood pressure elevated without history of HTN Colon cancer screening History of renal calculi History of prostate cancer GERD (gastroesophageal reflux disease) BPH (benign prostatic hyperplasia) Surgical History History of suburethral sling procedure History of colonoscopy History of adenoidectomy S/P left inguinal herniorrhaphy H/O prostatectomy Social History Household Members: None Caregiver staying overnight: No Housing: House Are you a primary respiratory care assistant 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 other at home: Yes Do you presently have visiting nurse or other home services: No 75 years or older and lives alone: Yes Alcohol intake: current Alcohol intake frequency: holidays/special occasions only Patient Tobacco Use Status: Former Tobacco user Tobacco use type: Cigarette Years Smoked: quit 30 years old e-Cigarette/Vaping Use: Never Used Second Hand Smoke Exposure: No Advance Directives Date on File: 06/02/22 service: Yes Current occupational status: unemployed and retired Current occupation: left hand Cognitive needs: No Hearing needs: No Vision needs: Yes Review of Systems Const All systems reviewed & are unremarkable except as noted in HPI and below Physical Exam Vital Signs: Last Vital Signs Temp 97.1 F 08/09/23 08:34 Pulse 66 08/09/23 08:34 BP 126/70 08/09/23 08:34 Pulse Ox 95 08/09/23 08:34 Oxygen Delivery Method Room Air 08/09/23 08:34 BMI result Body Mass Index 25.0 Const General: cooperative and no acute distress HEENT Head: Yes normal to inspection Ears: external ears normal, Abnormal EAC present excessive cerumen bilateral and unable to visualize TM (cerumen b/l) General nose exam: Normal external nose present Resp Effort & Inspection: normal respiratory effort Skin General skin exam: no rashes or lesions noted Extrem General: Yes no clubbing, cyanosis or edema Psych Appearance: grossly normal Mental Status: mental status grossly normal Speech and movement: Normal speech and movement present Office Procedures Cerumen Removal From which ear canal was the cerumen removed: bilateral Removal: irrigation and cerumen loop/spoon Notes: patient tolerated procedure well, no complications and ear canal clear [id number] Irrigation/Lavage Assessment & Plan Assessment & Plan (1) Impacted cerumen of both ears: Code(s): H61.23 - Impacted cerumen, bilateral Plan: Irrigation of bilateral ears done in the office with good effect. Large amount of cerumen removed and patient tolerated this well. TMs normal. Advised he continue to utilize Debrox drops as needed, and return to the clinic as needed for any recurrence of cerumen impaction. He is still having some hearing deficits of the left. I advised he f/u with PCP and audiology for evaluation. He verbalizes understanding and agrees to plan. Coding Level of Care Code Est Pt Level 3 (84485) Diagnoses Impacted cerumen of both ears H61.23 CPT Codes Office Procedure - CPT: 00024-Sbi Irrigation/Lavage ([id number])
[2023-08-09 08:34] VITALS: BP 126/70; PULSE 66; TEMP 36.2; O2SAT 95; BMI 25.0
== END 2023-08-09 09:07 | disposition home or self-care (01) ==
PROVIDERS: PCP Internal Medicine; Visit Provider Nurse Practitioner Family
DX: H61.23 Impacted cerumen, bilateral (principal)
CPT/HCPCS: 69210; 99213

== ENCOUNTER 2023-08-27 13:21 | Outpatient (AMB) | payer MEDICARE, OTHER, SELFPAY ==
[2023-08-27 13:37] VITALS: BP 162/80; PULSE 64; BMI 25.0
--- NOTE | 2023-08-27 13:37 | MHC.OFFVIS ---
Intake Vital Signs 08/27/23 13:37 Height 5 ft 10 in Weight 174 lb BMI 25.0 BP 162/80 H Blood Pressure Location Rt brachial Position Sitting Pulse 64 Intake Visit Reasons: Lipoma~ Lt ant knee Intake Note: Patient referred by PCP Dr. 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 Present for decades. Patient c/o: enlarging, uncomfortable with pressure. Slice Plug Cutter Operator Required: No Accompanied by: Self / Same As Patient Allergies Iodinated Contrast Media [IV DYE, IODINE CONTAINING] Allergy (Unknown, Verified 08/27/23 13:42) NAUSEA & VOMITING Penicillins [PENICILLINS] Allergy (Unknown, Verified 08/27/23 13:42) UNKNOWN amlodipine Adverse Reaction (Intermediate, Verified 08/27/23 13:42) Nausea losartan Adverse Reaction (Intermediate, Verified 08/27/23 13:42) Nausea Respiratory syncytial virus vaccine Adverse Reaction (Intermediate, Uncoded 08/27/23 13:42) Rash Metoprolol Adverse Reaction (Unknown, Uncoded 08/27/23 13:42) Nausea and Vomiting HPI HPI Comments History of Present Illness Details Patient presents with A longstanding history of a soft tissue mass involving left lower extremity just lateral to the knee. He has had this as noted above for many years time but it is increasing in size and becoming more symptomatic. He wished to have removed. He has no such lesions elsewhere. Chart was reviewed and patient evaluated. He is among other medications on Eliquis. Allergy to penicillin. [facility] Medical History PAF (paroxysmal atrial fibrillation) Bleeding grade II hemorrhoids Generalized anxiety disorder Atrial fibrillation with rapid ventricular response Atrial fibrillation, new onset Epigastric pain determined by examination Chest pain Acute sinusitis Bloating Postnasal drip Sinus congestion Arrhythmia Burping Blood pressure elevated without history of HTN Colon cancer screening History of renal calculi History of prostate cancer GERD (gastroesophageal reflux disease) BPH (benign prostatic hyperplasia) Surgical History History of suburethral sling procedure History of colonoscopy History of adenoidectomy S/P left inguinal herniorrhaphy H/O prostatectomy Social History (Updated 08/27/23 @ 13:44 by PAULETTE Wilson) Household Members: None Caregiver staying overnight: No Housing: House Are you a primary medical care administrator 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 other at home: Yes Do you presently have visiting nurse or other home services: No 75 years or older and lives alone: Yes Alcohol intake: current Alcohol intake frequency: holidays/special occasions only Patient Tobacco Use Status: Former Tobacco user Tobacco use type: Cigarette Years Smoked: quit 30 years old e-Cigarette/Vaping Use: Never Used Second Hand Smoke Exposure: No Advance Directives Date on File: 06/02/22 service: Yes Current occupational status: unemployed and retired Current occupation: left hand Cognitive needs: No Hearing needs: No Vision needs: Yes Physical Exam Vital Signs: Last Vital Signs Pulse 64 08/27/23 13:37 BP 162/80 H 08/27/23 13:37 BMI result Body Mass Index 25.0 Chest Other: Chest breath sounds bilaterally, HS 1 in 2, AFib GI Other: Abdomen soft, benign Extrem Other: Patient has approximately 5 x 4 cm lateral to left knee soft tissue mass consistent with either large lipoma or sebaceous cyst Assessment & Plan Assessment & Plan (1) Lipoma: Comment: l knee Code(s): D17.9 - Benign lipomatous neoplasm, unspecified Plan Risks, benefits, alternatives of excision of this lower left extremity soft tissue mass were reviewed with the patient and included but not limited to bleeding, infection, recurrence, numbness, pain, scarring and the patient wishes to proceed. All questions answered. Arrangements were made for this. Patient is on Eliquis and his postdoctoral research associate of medical doctor will be contacted regarding holding this and or bridging if necessary per their recommendation. Coding Level of Care Code New Pt Level 5 (20687) Diagnoses Lipoma D17.9
== END 2023-08-27 14:12 | disposition home or self-care (01) ==
PROVIDERS: PCP Internal Medicine; Referring Provider Internal Medicine; Visit Provider Surgery
DX: D17.9 Benign lipomatous neoplasm, unspecified (principal)
CPT/HCPCS: 99204

== ENCOUNTER → 2023-08-27 13:21 | Outpatient (BNVA) | payer MEDICARE, OTHER, SELFPAY | PROVIDERS: PCP Internal Medicine; Referring Provider Internal Medicine; Visit Provider Surgery | DX: D17.9 Benign lipomatous neoplasm, unspecified (principal) | CPT/HCPCS: 99202 ==

== ENCOUNTER 2023-09-07 08:26 | Outpatient (AMB) | payer MEDICARE, OTHER, SELFPAY ==
--- NOTE | 2023-09-07 08:32 | MHC.OFFWIV ---
Intake Vital Signs 09/07/23 08:33 Height 5 ft 10 in Weight 172 lb BMI 24.7 BP 130/80 Blood Pressure Location Lt brachial Position Sitting Pulse 72 Pulse Source Pulse Oximeter Temp 97.8 F Temp Source Temporal Artery Scan Pulse Oximetry (%) 97 Oxygen Delivery Method Room Air Intake Visit Reasons: EP LFT ear pain Intake Note: pt is here today for lft ear pain started 2 days ago Patient Tobacco Use Status: Former Tobacco user Allergies Iodinated Contrast Media [IV DYE, IODINE CONTAINING] Allergy (Unknown, Verified 09/07/23 08:33) NAUSEA & VOMITING Penicillins [PENICILLINS] Allergy (Unknown, Verified 09/07/23 08:33) UNKNOWN amlodipine Adverse Reaction (Intermediate, Verified 09/07/23 08:33) Nausea losartan Adverse Reaction (Intermediate, Verified 09/07/23 08:33) Nausea Respiratory syncytial virus vaccine Adverse Reaction (Intermediate, Uncoded 08/27/23 13:42) Rash Metoprolol Adverse Reaction (Unknown, Uncoded 08/27/23 13:42) Nausea and Vomiting Do you need a note to return to daycare/school/sports/work: No HPI EP LFT ear pain HPI Details Patient is a 78-year-old male with history of recent bilateral cerumen impaction removal, and he stated that since then his ears have not felt right . He started to develop left-sided ear pressure that radiates down below his ear. He does not complain of hearing loss, discharge from the ears, and denies fever or chills, nausea vomiting or diarrhea, sore throat or cough, myalgias or malaise, or other significant associated symptoms. [facility] Medical History PAF (paroxysmal atrial fibrillation) Bleeding grade II hemorrhoids Generalized anxiety disorder Atrial fibrillation with rapid ventricular response Atrial fibrillation, new onset Epigastric pain determined by examination Chest pain Acute sinusitis Bloating Postnasal drip Sinus congestion Arrhythmia Burping Blood pressure elevated without history of HTN Colon cancer screening History of renal calculi History of prostate cancer GERD (gastroesophageal reflux disease) BPH (benign prostatic hyperplasia) Surgical History History of suburethral sling procedure History of colonoscopy History of adenoidectomy S/P left inguinal herniorrhaphy H/O prostatectomy Social History Household Members: None Caregiver staying overnight: No Housing: House Are you a primary hospice home care coordinator 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 other at home: Yes Do you presently have visiting nurse or other home services: No 75 years or older and lives alone: Yes Alcohol intake: current Alcohol intake frequency: holidays/special occasions only Patient Tobacco Use Status: Former Tobacco user Tobacco use type: Cigarette Years Smoked: quit 30 years old e-Cigarette/Vaping Use: Never Used Second Hand Smoke Exposure: No Advance Directives Date on File: 06/02/22 service: Yes Current occupational status: unemployed and retired Current occupation: left hand Cognitive needs: No Hearing needs: No Vision needs: Yes Review of Systems Const All systems reviewed & are unremarkable except as noted in HPI and below Physical Exam Vital Signs: Last Vital Signs Temp 97.8 F 09/07/23 08:33 Pulse 72 09/07/23 08:33 BP 130/80 09/07/23 08:33 Pulse Ox 97 09/07/23 08:33 Oxygen Delivery Method Room Air 09/07/23 08:33 BMI result Body Mass Index 24.7 Const General: cooperative, healthy appearing, comfortable, no acute distress, alert, awake, Physically active and well groomed; No anxious, diaphoretic, ill appearing, intoxicated appearing, poor hygiene or tired appearing Nutritional Appearance: average body habitus Limitations: no limitations HEENT Head: Yes normal to inspection, Yes normocephalic and Yes atraumatic Ears: hearing grossly normal bilaterally, external ears normal, EAC's normal and TM abnormal bulging, wth effusion and with fluid behind the TM; not erythematous General nose exam: Normal external nose present, Normal nares present, Normal septum present and No nasal discharge present Face and sinus: Yes normal facial exam, Yes sinuses nontender and Yes face symmetric Mouth: Normal oral and palatal mucosa present, lip normal and tongue normal Throat: Yes posterior oropharynx normal, No peritonsillar mass, No postnasal drainage, No uvular edema and No cobblestoning Eyes General: appearance normal, both eyes and all related structures Resp Effort & Inspection: normal respiratory effort Psych Appearance: grossly normal Mental Status: mental status grossly normal Speech and movement: Normal speech and movement present Affect: normal affect Attitude: cooperative Thought process: Normal thought process present Insight: Good insight present (Psych) Judgement: Good judgement present (Psych) Assessment & Plan Assessment & Plan (1) Serous otitis media: Code(s): H65.90 - Unspecified nonsuppurative otitis media, unspecified ear Qualifiers: Chronicity: acute Laterality: bilateral Recurrence: non-recurrent Qualified Code(s): H65.03 - Acute serous otitis media, bilateral Plan: 8-year-old male with apparent serous otitis media bilaterally, which is causing him discomfort mostly on the left side as of the last few days. He declines viral testing. We discussed pain management with OTC medication, heating. He states he does have a history of sinusitis due to allergies, which cleared with azithromycin, and requests this. I started him on a course, and he will follow up if symptoms persist or worsen. Medications: New azithromycin take 500 mg today (day 1), then 250 mg for 4 days (days 2-5) PO 6 tabs 0RF Coding Level of Care Code Est Pt Level 4 (02865) Diagnoses Non-recurrent acute serous otitis media of both ears H65.03 Chronicity: acute Laterality: bilateral Recurrence: non-recurrent
[2023-09-07 08:33] VITALS: BP 130/80; PULSE 72; TEMP 36.6; O2SAT 97; BMI 24.7
== END 2023-09-07 09:12 | disposition home or self-care (01) ==
PROVIDERS: PCP Internal Medicine; Visit Provider Physician Assistant Medical
DX: H65.03 Acute serous otitis media, bilateral (principal)
CPT/HCPCS: 99214

== ENCOUNTER 2023-09-10 09:22 | Outpatient (AMB) | payer MEDICARE, OTHER, SELFPAY ==
[2023-09-10 10:06] VITALS: BP 110/62; PULSE 61; BMI 24.5
--- NOTE | 2023-09-10 10:06 | MHC.OFFVIS ---
Intake Vital Signs 09/10/23 10:06 Height 5 ft 10 in Weight 171 lb 1.259 oz BMI 24.5 BP 110/62 Blood Pressure Location Lt brachial Position Sitting Pulse 61 Pulse Source Pulse Oximeter Intake Visit Reasons: 3 mth f/up watchman ref lotfi Intake Note: pt its here for a 3 mnth f/up pt states that he its feeling fine. Commercial Lending Assistant Required: No Accompanied by: Self / Same As Patient Allergies Iodinated Contrast Media [IV DYE, IODINE CONTAINING] Allergy (Unknown, Verified 09/07/23 08:33) NAUSEA & VOMITING Penicillins [PENICILLINS] Allergy (Unknown, Verified 09/07/23 08:33) UNKNOWN amlodipine Adverse Reaction (Intermediate, Verified 09/07/23 08:33) Nausea losartan Adverse Reaction (Intermediate, Verified 09/07/23 08:33) Nausea Respiratory syncytial virus vaccine Adverse Reaction (Intermediate, Uncoded 08/27/23 13:42) Rash Metoprolol Adverse Reaction (Unknown, Uncoded 08/27/23 13:42) Nausea and Vomiting Medication List - Last Reconciled 09/10/23 by Jeramy Dozier MD apixaban (Eliquis) 5 mg PO BID azithromycin take 500 mg today (day 1), then 250 mg for 4 days (days 2-5) PO carvedilol 6.25 mg See Protocol PO BID clonidine 1 patch topical QWEEK fluticasone propionate 50 mcg/actuation (Flonase Allergy Relief) 1 spray intranasal DAILY hydrocortisone 2.5% (Proctozone-HC) 1 appl [place] BID omeprazole 20 mg PO BID HPI HPI Comments History of Present Illness Details Pleasant 78-year-old gentleman who is here for follow-up. He was seen in the hospital recently when he presented with paroxysmal atrial fibrillation. He complained of bright blood per rectum and was seen by surgery and was given started on steroid cream as well as Sitz baths for hemorrhoids. He has done well since then. He was started on anticoagulation at discharge and has been tolerating anticoagulation well. 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 He reverted to sinus rhythm before discharge and it appears he continues to be in sinus rhythm. Denying any chest discomfort or significant shortness of breath. He does have chronic reflux ongoing for years. He said he was due to get endoscopy before he got admitted to the hospital and is asking whether he can go ahead with that. 09/10/23: Returns for follow-up. He is saying he has not had any further palpitations. He was referred to [facility] for Watchman device and after discussion he has decided to go ahead with this. He is scheduled for September 2023 to undergo Watchman. He is taking anticoagulation regularly. He has hemorrhoids and off and on he has noticed some bleeding but nothing significant. Taking medications regularly otherwise. Blood pressure is well controlled. [facility] Medical History PAF (paroxysmal atrial fibrillation) Bleeding grade II hemorrhoids Generalized anxiety disorder Atrial fibrillation with rapid ventricular response Atrial fibrillation, new onset Epigastric pain determined by examination Chest pain Acute sinusitis Bloating Postnasal drip Sinus congestion Arrhythmia Burping Blood pressure elevated without history of HTN Colon cancer screening History of renal calculi History of prostate cancer GERD (gastroesophageal reflux disease) BPH (benign prostatic hyperplasia) Surgical History History of suburethral sling procedure History of colonoscopy History of adenoidectomy S/P left inguinal herniorrhaphy H/O prostatectomy Social History Household Members: None Caregiver staying overnight: No Housing: House Are you a primary care transition manager 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 other at home: Yes Do you presently have visiting nurse or other home services: No 75 years or older and lives alone: Yes Alcohol intake: current Alcohol intake frequency: holidays/special occasions only Patient Tobacco Use Status: Former Tobacco user Tobacco use type: Cigarette Years Smoked: quit 30 years old e-Cigarette/Vaping Use: Never Used Second Hand Smoke Exposure: No Advance Directives Date on File: 06/02/22 service: Yes Current occupational status: unemployed and retired Current occupation: left hand Cognitive needs: No Hearing needs: No Vision needs: Yes Review of Systems Const Denies chills, Denies fatigue, Denies fever(s), Denies frequent falls, Denies weakness, Denies weight gain and Denies weight loss ENT Denies dizziness Card Denies chest pain, Denies leg edema, Denies lightheadedness, Denies palpitations, Denies dyspnea and Denies dyspnea on exertion Resp Denies cough, Denies dyspnea and Denies dyspnea on exertion GI Denies hematochezia Musc Denies abnormal gait, Denies muscle weakness, Denies numbness, Denies radiating pain into limb and Denies tingling Neuro Denies abnormal gait, Denies dizziness, Denies frequent falls, Denies numbness, Denies tingling and Denies weakness Endo Denies fatigue and Denies palpitations Physical Exam Vital Signs: Last Vital Signs Pulse 61 09/10/23 10:06 BP 110/62 09/10/23 10:06 BMI result Body Mass Index 24.5 GENERAL APPEARANCE: in no acute distress, pleasant. NECK: no carotid bruit, no jugular venous distention. SKIN: no suspicious lesions, warm and dry. HEART: no murmurs, regular rate and rhythm. LUNGS: clear to auscultation bilaterally. ABDOMEN: soft, nontender. EXTREMITIES: no edema. PERIPHERAL PULSES: equal. NEUROLOGIC: No gross deficits, AAO X 3 Assessment & Plan Assessment & Plan (1) PAF (paroxysmal atrial fibrillation): Comment: May 2023 new onset Code(s): I48.0 - Paroxysmal atrial fibrillation (2) Ascending aorta dilatation: Comment: 05/2023 3.8 cm Code(s): I77.810 - Thoracic aortic ectasia (3) Hypertension: Code(s): I10 - Essential (primary) hypertension Plan Pleasant 78-year-old gentleman who is here for follow-up. He has history of paroxysmal atrial fibrillation. He is currently on Eliquis. He was referred for Watchman device because he did not wish to take anticoagulation long-term and had some hemorrhoid related bleeding too. He was seen by Dr. Goldman and will be undergoing Watchman next month. Blood pressure is well controlled. He has mild dilation of ascending aorta which will be monitored closely. I have explained to him that he will stay on anticoagulation for at least 45 days post procedure daily gets the transesophageal echocardiogram to look for Ankit device leak. After that apixaban will be substituted for Plavix for at least 6 months. He will see us back in 4 months. Thank you for allowing me to participate in the care of your patient. Please feel free to contact me if you have any questions. Coding Level of Care Code Est Pt Level 4 (53519) Diagnoses PAF (paroxysmal atrial fibrillation) I48.0 Ascending aorta dilatation I77.810 Hypertension I10
== END 2023-09-10 10:32 | disposition home or self-care (01) ==
PROVIDERS: PCP Internal Medicine; Visit Provider Internal Medicine Cardiovascular Disease
DX: I48.0 Paroxysmal atrial fibrillation (principal); I77.810 Thoracic aortic ectasia; I10 Essential (primary) hypertension
CPT/HCPCS: 99214

== ENCOUNTER → 2023-09-10 09:22 | Outpatient (BNVA) | payer MEDICARE, OTHER, SELFPAY | PROVIDERS: PCP Internal Medicine; Visit Provider Internal Medicine Cardiovascular Disease | DX: I48.0 Paroxysmal atrial fibrillation (principal); I77.810 Thoracic aortic ectasia; I10 Essential (primary) hypertension | CPT/HCPCS: 99212 ==

== ENCOUNTER 2023-09-28 09:32 | Day surgery (SDC) | payer MEDICARE, OTHER, SELFPAY ==
--- NOTE | 2023-09-27 13:35 | MHC.SHP ---
Pre-Procedural Eval Section A - 24 Hr Update-Section A only Date of Service: 09/27/23 The patient is an INPATIENT: No Changes since office visit: No Cold of Flu in the past 2 weeks, No New Medical Problems, No Changes in Medication and No Patient answered all questions Section B - Complete if H&P > 30 days Chief Complaint: Benign lipomatous neoplasm, unspecified Allergies: Allergies Allergy/AdvReac Type Severity Reaction Status Date / Time Iodinated Contrast Media Allergy Unknown NAUSEA & Verified 09/07/23 08:33 [IV DYE, IODINE CONTAINING] VOMITING Penicillins [PENICILLINS] Allergy Unknown UNKNOWN Verified 09/07/23 08:33 amlodipine AdvReac Intermediate Nausea Verified 09/07/23 08:33 losartan AdvReac Intermediate Nausea Verified 09/07/23 08:33 Respiratory syncytial virus AdvReac Intermediate Rash Uncoded 08/27/23 13:42 vaccine Metoprolol AdvReac Unknown Nausea and Uncoded 08/27/23 13:42 Vomiting Plan I have reviewed the history and physical and performed a pertinent physical examination on my patient. No changes have occurred unless specified. Time Spent With Patient Time: Total time managing care of this patient today ____ minutes.
[2023-09-28 09:57] VITALS: BP 145/93; PULSE 63; RESP 16; TEMP 36.3; O2SAT 98; BMI 24.9
--- NOTE | 2023-09-28 10:02 | P.CONAN_ITS ---
HPI - Anesthesia Eval Consult details Narrative: 78 yo M presenting for left lower extremity mass excision. Hx of afib - will get LAAO device next week with Dr. Goldman at [facility]. [facility] Active Problems Active Problems: All Active Problems (Updated 08/07/23 @ 09:51 by Oscar Arias MD) Impacted cerumen of both ears (Acute) Lipoma (Acute) PAF (paroxysmal atrial fibrillation) (Acute) Ascending aorta dilatation (Acute) Hypertension (Acute) Excessive tearing (Acute) Dermatosis of scalp (Acute) BPH (benign prostatic hyperplasia) (Acute) History of prostate cancer (Acute) Adult general medical exam (Acute) Visual changes (Acute) Constipation (Acute) GERD (gastroesophageal reflux disease) (Acute) Painful arc syndrome of right shoulder (Acute) Past Medical History Medical History PAF (paroxysmal atrial fibrillation) Bleeding grade II hemorrhoids Generalized anxiety disorder Atrial fibrillation with rapid ventricular response Atrial fibrillation, new onset Epigastric pain determined by examination Chest pain Acute sinusitis Bloating Postnasal drip Sinus congestion Arrhythmia Burping Blood pressure elevated without history of HTN Colon cancer screening History of renal calculi History of prostate cancer GERD (gastroesophageal reflux disease) BPH (benign prostatic hyperplasia) Family History Family history of problems with anesthesia: No Surgical History Surgical History History of suburethral sling procedure History of colonoscopy History of adenoidectomy S/P left inguinal herniorrhaphy H/O prostatectomy History of Problems with Anesthesia: No Social History Social History Household Members: None Housing: House Are you a primary intensive care unit registered nurse 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 other at home: Yes Do you presently have visiting nurse or other home services: No Alcohol intake: current Alcohol intake frequency: holidays/special occasions only Patient Tobacco Use Status: Former Tobacco user Tobacco use type: Cigarette Years Smoked: quit 30 years old e-Cigarette/Vaping Use: Never Used Second Hand Smoke Exposure: No Advance Directives: No Advance Directives Information Provided: Yes Advance Directives Date on File: 06/02/22 service: Yes Current occupational status: unemployed and retired Current occupation: left hand Cognitive needs: No Hearing needs: No Vision needs: Yes Meds Allergies Allergy/AdvReac Type Severity Reaction Status Date / Time Iodinated Contrast Media Allergy Intermediate NAUSEA & Verified 09/28/23 09:39 [IV DYE, IODINE CONTAINING] VOMITING Penicillins [PENICILLINS] Allergy Unknown cramping Verified 09/28/23 09:39 amlodipine AdvReac Intermediate Nausea Verified 09/28/23 09:39 losartan AdvReac Intermediate Nausea Verified 09/28/23 09:39 Metoprolol AdvReac Intermediate Nausea and Uncoded 09/28/23 09:39 Vomiting Respiratory syncytial virus AdvReac Intermediate Rash Uncoded 09/28/23 09:39 vaccine Home Medications Medication Instructions Recorded Confirmed Last Taken Type omeprazole 20 mg capsule,delayed 20 mg PO BID 04/09/23 09/28/23 Unknown History release fluticasone propionate 50 1 spray intranasal DAILY 08/27/23 09/28/23 Unknown History mcg/actuation nasal spray,suspension (Flonase Allergy Relief) Exam Exam Date and Time: September 28, 2023 1000 Height,Weight and Vital Signs: Height 5 ft 10 in Weight 78.744 kg Vital Signs Temperature 97.4 F 09/28/23 09:57 Pulse Rate 63 09/28/23 09:57 Respiratory Rate 16 09/28/23 09:57 Blood Pressure 145/93 H 09/28/23 09:57 Pulse Oximetry 98 09/28/23 09:57 Oxygen Delivery Method Room Air 09/28/23 09:57 Temperature 97.4 F 09/28/23 09:57 Pulse Rate 63 09/28/23 09:57 Respiratory Rate 16 09/28/23 09:57 Blood Pressure 145/93 H 09/28/23 09:57 Pulse Oximetry 98 09/28/23 09:57 Oxygen Delivery Method Room Air 09/28/23 09:57 Airway Mallampati Class: III TM Dist: >3cm Neck ROM: Full Loose/Missing/Broken Teeth: No (patient denies any loose or chipped teeth) Heart: S1S2 Lungs: CTAB Assessment and Plan Assessment Anesthesia Assessment: Anesthesia Plan Discussed and Chart Reviewed Final Anesthetic Review Family History of Problems with Anesthesia: No History of Problems with Anesthesia: No NPO: Yes ASA Class: III Final Preanesthetic Review: No Changes in Pt Med Stat, Meds/Allgs Chart Reviewed, Consent Obtained/Reviewed and Anes Risks/Benef Reviewed Patient Risk: Intermediate Procedure Risk: Low Anesthetic Plan Anesthetic Plan: MAC: and Agree w/ Assess. and Plan Disposition: Standard PACU
[2023-09-28] MEDS: Lactated Ringers 1,000 ML 50 ML IVCONT (10:22)
[2023-09-28 11:40] VITALS: BP 107/57; PULSE 62; RESP 12; TEMP 36.6; O2SAT 97
--- NOTE | 2023-09-28 11:43 | W.PM.OPN ---
Operative Note Operative Note Date of Service: 09/28/23 Narrative: Preoperative diagnosis: [] Infragenicular soft tissue mass left lower extremity Postop diagnosis: [] Same Procedure [] wide local excision mass left lower extremity Surgeon: [] Serg Linux Unix System Administrator: [] Nandini Type of Anesthesia: [] MAC Indication for surgery: [] Approximately 5 x 3 cm mass which was excised was entered and was consistent with the large sebaceous cyst. Findings: [] Patient brought to the operating room, placed on operative table in supine position, after adequate level of MAC anesthesia was induced, the left lower extremity was prepped and draped in usual sterile fashion. Using a transverse incision in orientation of the long axis of this mass and the infrageniculate area, this carried down through skin, subcutaneous tissue, were superior and inferior skin flaps were developed and uneventful excision in total of a large sebaceous cyst was performed. As noted, during session cyst was entered and serum retrieved. Wound was irrigated, secured hemostasis, and closed using interrupted inverted dermal 3-0 Vicryl sutures followed by Steri-Strips and sterile dressings. Sponge, needle, and instrument counts were reported correct. Patient tolerated procedure well and emerged from anesthesia in stable condition. EBL minimal
[2023-09-28 12:00] VITALS: BP 156/85; PULSE 64; RESP 16; TEMP 36.3; O2SAT 98
== END 2023-09-28 13:00 | disposition home or self-care (01) ==
PROVIDERS: PCP Internal Medicine; Visit Provider Surgery
PROC: (CPT 11406; principal; 2023-09-28 12:10)
DX: L72.0 Epidermal cyst (principal); I48.0 Paroxysmal atrial fibrillation; R03.0 Elevated blood-pressure reading, without diagnosis of hypertension; Z79.01 Long term (current) use of anticoagulants; Z91.041 Radiographic dye allergy status; Z88.0 Allergy status to penicillin; Z88.8 Allergy status to other drugs, medicaments and biological substances; F41.0 Panic disorder [episodic paroxysmal anxiety]; Z85.46 Personal history of malignant neoplasm of prostate; Z87.891 Personal history of nicotine dependence; Z98.890 Other specified postprocedural states
CPT/HCPCS: 11406; 88304; J0736; J2704; J2795; J3010

== ENCOUNTER → 2023-09-28 09:32 | Outpatient (BNV) | payer MEDICARE, OTHER, SELFPAY | PROVIDERS: PCP Internal Medicine; Visit Provider Surgery | DX: L72.0 Epidermal cyst (principal) | CPT/HCPCS: 11402 ==

== ENCOUNTER 2023-10-09 08:38 | Outpatient (AMB) | payer MEDICARE, OTHER, SELFPAY ==
[2023-10-09 08:41] VITALS: BMI 24.8
--- NOTE | 2023-10-09 08:41 | A.OFFVIS_ITS ---
Intake Vital Signs 10/09/23 08:41 Height 5 ft 10 in Weight 173 lb BMI 24.8 Intake Visit Reasons: S/p WLE left lower extremity mass Intake Note: Patient here s/p WLE on lt lower leg. Reports incision healing well. Patient c/o:reports no complaints at this time pertaining to procedure. SX: 09-28-23 Plant Equipment Engineer Required: No Accompanied by: Self / Same As Patient Allergies Iodinated Contrast Media [IV DYE, IODINE CONTAINING] Allergy (Intermediate, Verified 10/09/23 08:42) NAUSEA & VOMITING Penicillins [PENICILLINS] Allergy (Unknown, Verified 10/09/23 08:42) cramping amlodipine Adverse Reaction (Intermediate, Verified 10/09/23 08:42) Nausea losartan Adverse Reaction (Intermediate, Verified 10/09/23 08:42) Nausea Metoprolol Adverse Reaction (Intermediate, Uncoded 10/09/23 08:42) Nausea and Vomiting Respiratory syncytial virus vaccine Adverse Reaction (Intermediate, Uncoded 10/09/23 08:42) Rash HPI HPI Comments History of Present Illness Details Patient presents for follow-up. He has no [facility] Medical History PAF (paroxysmal atrial fibrillation) Bleeding grade II hemorrhoids Generalized anxiety disorder Atrial fibrillation with rapid ventricular response Atrial fibrillation, new onset Epigastric pain determined by examination Chest pain Acute sinusitis Bloating Postnasal drip Sinus congestion Arrhythmia Burping Blood pressure elevated without history of HTN Colon cancer screening History of renal calculi History of prostate cancer GERD (gastroesophageal reflux disease) BPH (benign prostatic hyperplasia) Surgical History Hx of surgical procedure (09/28/23) History of suburethral sling procedure History of colonoscopy History of adenoidectomy S/P left inguinal herniorrhaphy H/O prostatectomy Social History Household Members: None Caregiver staying overnight: No Housing: House Are you a primary director of career resources 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 other at home: Yes Do you presently have visiting nurse or other home services: No 75 years or older and lives alone: Yes Alcohol intake: current Alcohol intake frequency: does not drink Patient Tobacco Use Status: Former Tobacco user Quit Date: 1975 Tobacco use type: Cigarette Years Smoked: 13 e-Cigarette/Vaping Use: Never Used Second Hand Smoke Exposure: No Advance Directives Date on File: 06/02/22 service: Yes Current occupational status: unemployed and retired Current occupation: left hand Cognitive needs: No Hearing needs: No Vision needs: Yes Physical Exam Vital Signs: BMI result Body Mass Index 24.8 Extrem Other: Left infraclavicular incision is clean dry and intact healing well Assessment & Plan Assessment & Plan (1) Postop check: Code(s): Z09 - Encounter for follow-up examination after completed treatment for conditions other than malignant neoplasm Plan Patient has been given local instructions, avoiding strenuous activities for next few weeks time, and will otherwise follow-up p.r.n.. All questions answered. Coding Level of Care Code Global (70593) Diagnoses Postop check Z09
== END 2023-10-09 09:10 | disposition home or self-care (01) ==
PROVIDERS: PCP Internal Medicine; Visit Provider Surgery
DX: Z09 Encounter for follow-up examination after completed treatment for conditions other than malignant neoplasm (principal)
CPT/HCPCS: 99024

== ENCOUNTER → 2023-10-09 08:38 | Outpatient (BNVA) | payer MEDICARE, OTHER, SELFPAY | PROVIDERS: PCP Internal Medicine; Visit Provider Surgery | DX: Z09 Encounter for follow-up examination after completed treatment for conditions other than malignant neoplasm (principal); Z87.2 Personal history of diseases of the skin and subcutaneous tissue; Z98.890 Other specified postprocedural states | CPT/HCPCS: 99212 ==

== ENCOUNTER 2023-12-18 14:22 | Outpatient (AMB) | payer MEDICARE, OTHER, SELFPAY ==
[2023-12-18 14:27] VITALS: BP 156/85; PULSE 80; BMI 24.5
--- NOTE | 2023-12-18 14:27 | MHC.OFFVIS ---
Vital Signs 12/18/23 14:27 Height 5 ft 10 in Weight 171 lb BMI 24.5 BP 156/85 H Blood Pressure Location Rt brachial Position Sitting Pulse 80 Intake Visit Reasons: Fluid build up Lt knee Intake Note: Patient here c/o fluid build up on Lt knee. Of note: Hx of cyst exc on Lt lower extremity on 09-28-23. Entry Level Account Executive Required: No Accompanied by: Self / Same As Patient Allergies Iodinated Contrast Media [IV DYE, IODINE CONTAINING] Allergy (Intermediate, Verified 12/18/23 14:29) NAUSEA & VOMITING Penicillins [PENICILLINS] Allergy (Unknown, Verified 12/18/23 14:29) cramping amlodipine Adverse Reaction (Intermediate, Verified 12/18/23 14:29) Nausea losartan Adverse Reaction (Intermediate, Verified 12/18/23 14:29) Nausea Metoprolol Adverse Reaction (Intermediate, Uncoded 12/18/23 14:29) Nausea and Vomiting Respiratory syncytial virus vaccine Adverse Reaction (Intermediate, Uncoded 12/18/23 14:29) Rash HPI Comments Details: Patient presents for evaluation of a left calf swelling. He incidentally is on anticoagulation in the form of Plavix and aspirin for a recent cardiac procedure. He has never had any history of DVTs in the past. He has no respiratory issues or complaints. Patient has sebaceous cyst taken off the left prepatellar area but I think his current symptoms are unrelated to this. [facility]END[facility] S[facility] TO [facility] Medical History PAF (paroxysmal atrial fibrillation) Bleeding grade II hemorrhoids Generalized anxiety disorder Atrial fibrillation with rapid ventricular response Atrial fibrillation, new onset Epigastric pain determined by examination Chest pain Acute sinusitis Bloating Postnasal drip Sinus congestion Arrhythmia Burping Blood pressure elevated without history of HTN Colon cancer screening History of renal calculi History of prostate cancer GERD (gastroesophageal reflux disease) BPH (benign prostatic hyperplasia) Surgical History Hx of surgical procedure (09/28/23) History of suburethral sling procedure History of colonoscopy History of adenoidectomy S/P left inguinal herniorrhaphy H/O prostatectomy Social History Household Members: None Caregiver staying overnight: No Housing: House Are you a primary memory care director 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 other at home: Yes Do you presently have visiting nurse or other home services: No 75 years or older and lives alone: Yes Alcohol intake: current Alcohol intake frequency: does not drink Patient Tobacco Use Status: Former Tobacco user Tobacco use type: Cigarette Years Smoked: 13 e-Cigarette/Vaping Use: Never Used Second Hand Smoke Exposure: No Advance Directives Date on File: 06/02/22 service: Yes Current occupational status: unemployed and retired Current occupation: left hand Cognitive needs: No Hearing needs: No Vision needs: Yes Physical Exam Vital Signs: Last Vital Signs Pulse 80 12/18/23 14:27 BP 156/85 H 12/18/23 14:27 BMI result Body Mass Index 24.5 Extrem Other: Left prepatellar incision clean dry and intact. Patient has very modest left calf swelling. The extremities grossly neurovascularly intact. Assessment & Plan Assessment & Plan (1) Left leg swelling: Code(s): M79.89 - Other specified soft tissue disorders Category: Surgical Plan: Current plan is to arrange for a Doppler ultrasound of left lower extremity to rule out DVT. Further interventions and studies will be directed by the results of the above-mentioned procedure. This is all explained to the patient and all questions answered. Orders: Orders US venous duplex LE LT Today M79.89 - Other specified soft tissue disorders Coding Level of Care Code Est Pt Level 3 (05260) Global (17178) Diagnoses Left leg swelling M79.89
== END 2023-12-18 14:54 | disposition home or self-care (01) ==
PROVIDERS: PCP Internal Medicine; Visit Provider Surgery
DX: M79.89 Other specified soft tissue disorders (principal)
CPT/HCPCS: 99213

== ENCOUNTER → 2023-12-18 14:22 | Outpatient (BNVA) | payer MEDICARE, OTHER, SELFPAY | PROVIDERS: PCP Internal Medicine; Visit Provider Surgery ==

== ENCOUNTER 2023-12-18 14:51 | Outpatient (REF) | payer MEDICARE, OTHER, SELFPAY ==
--- NOTE | ~2023-12-18 | US_ITS ---
EXAMINATION: US VENOUS ULTRASOUND WITH DOPPLER LOWER EXTREMITY, LEFT CLINICAL INFORMATION: Other specified soft tissue disorders Left lower extremity/calf swelling COMPARISON: None available. TECHNIQUE: Ultrasound of the deep veins is performed from the hip to the calf with compression sonography and color and pulse Doppler assessment. Spectral analysis with color-flow imaging is performed. FINDINGS: There is normal venous compression and respiratory variation and augmented flow. The visualized common femoral vein, superficial femoral vein, profunda femoral vein, popliteal vein, and the posterior tibial and peroneal veins show no evidence of deep venous thrombosis. The contralateral common femoral vein demonstrates normal respiratory variation. 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 US/US venous duplex LE IMPRESSION: No DVT demonstrated in the left lower extremity.
== END 2023-12-18 14:52 | disposition home or self-care (01) ==
LOC: HO.US 14:51
PROVIDERS: PCP Internal Medicine; Visit Provider Surgery
DX: M79.89 Other specified soft tissue disorders (principal); Z79.01 Long term (current) use of anticoagulants; Z79.82 Long term (current) use of aspirin
CPT/HCPCS: 93971; 99212

== ENCOUNTER 2024-01-09 08:37 | Outpatient (AMB) | payer MEDICARE, OTHER, SELFPAY ==
[2024-01-09 09:15] VITALS: BP 140/72; PULSE 64; BMI 24.6
--- NOTE | 2024-01-09 09:15 | A.OFFVIS_ITS ---
Vital Signs 01/09/24 09:15 Height 5 ft 10 in Weight 171 lb 8.314 oz BMI 24.6 BP 140/72 H Blood Pressure Location Lt brachial Position Sitting Pulse 64 Pulse Source Pulse Oximeter Intake Visit Reasons: 4 mth f/up Operations Expert Required: No Accompanied by: Self / Same As Patient Allergies Iodinated Contrast Media [IV DYE, IODINE CONTAINING] Allergy (Intermediate, Verified 12/18/23 14:29) NAUSEA & VOMITING Penicillins [PENICILLINS] Allergy (Unknown, Verified 12/18/23 14:29) cramping amlodipine Adverse Reaction (Intermediate, Verified 12/18/23 14:29) Nausea losartan Adverse Reaction (Intermediate, Verified 12/18/23 14:29) Nausea Metoprolol Adverse Reaction (Intermediate, Uncoded 12/18/23 14:29) Nausea and Vomiting Respiratory syncytial virus vaccine Adverse Reaction (Intermediate, Uncoded 12/18/23 14:29) Rash Medication List - Last Reconciled 01/09/24 by Jeramy Dozier MD carvedilol 6.25 mg See Protocol PO BID clonidine 1 patch topical QWEEK clopidogrel 75 mg PO DAILY hydrocortisone 2.5% (Proctozone-HC) 1 appl MI BID omeprazole 20 mg PO BID HPI Comments Details: Pleasant 78-year-old gentleman who is here for follow-up. He was seen in the hospital recently when he presented with paroxysmal atrial fibrillation. He complained of bright blood per rectum and was seen by surgery and was given started on steroid cream as well as Sitz baths for hemorrhoids. He has done well since then. He was started on anticoagulation at discharge and has been tolerating anticoagulation well. 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 He reverted to sinus rhythm before discharge and it appears he continues to be in sinus rhythm. Denying any chest discomfort or significant shortness of breath. He does have chronic reflux ongoing for years. He said he was due to get endoscopy before he got admitted to the hospital and is asking whether he can go ahead with that. 09/10/23: Returns for follow-up. He is saying he has not had any further palpitations. He was referred to [facility] for Watchman device and after discussion he has decided to go ahead with this. He is scheduled for September 2023 to undergo Watchman. He is taking anticoagulation regularly. He has hemorrhoids and off and on he has noticed some bleeding but nothing significant. Taking medications regularly otherwise. Blood pressure is well controlled. 01/09/2024: He is here for follow-up. He underwent Watchman flex 24 mm in 10/03/2023. He is taking Plavix currently and has been off Eliquis. Blood pressure is elevated in his currently on carvedilol 6.25 mg twice a day and clonidine patch. Denying any symptoms. [facility] Medical History PAF (paroxysmal atrial fibrillation) Bleeding grade II hemorrhoids Generalized anxiety disorder Atrial fibrillation with rapid ventricular response Atrial fibrillation, new onset Epigastric pain determined by examination Chest pain Acute sinusitis Bloating Postnasal drip Sinus congestion Arrhythmia Burping Blood pressure elevated without history of HTN Colon cancer screening History of renal calculi History of prostate cancer GERD (gastroesophageal reflux disease) BPH (benign prostatic hyperplasia) Surgical History Hx of surgical procedure (09/28/23) History of suburethral sling procedure History of colonoscopy History of adenoidectomy S/P left inguinal herniorrhaphy H/O prostatectomy Social History Household Members: None Caregiver staying overnight: No Housing: House Are you a primary child care leader 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 other at home: Yes Do you presently have visiting nurse or other home services: No 75 years or older and lives alone: Yes Alcohol intake: current Alcohol intake frequency: does not drink Patient Tobacco Use Status: Former Tobacco user Tobacco use type: Cigarette Years Smoked: 13 e-Cigarette/Vaping Use: Never Used Second Hand Smoke Exposure: No Advance Directives Date on File: 06/02/22 service: Yes Current occupational status: unemployed and retired Current occupation: left hand Cognitive needs: No Hearing needs: No Vision needs: Yes Review of Systems Const Denies chills, Denies fatigue, Denies fever(s), Denies frequent falls, Denies weakness, Denies weight gain and Denies weight loss ENT Denies dizziness Card Denies chest pain, Denies leg edema, Denies lightheadedness, Denies palpitations, Denies dyspnea and Denies dyspnea on exertion Resp Denies cough, Denies dyspnea and Denies dyspnea on exertion GI Denies hematochezia Musc Denies abnormal gait, Denies muscle weakness, Denies numbness, Denies radiating pain into limb and Denies tingling Neuro Denies abnormal gait, Denies dizziness, Denies frequent falls, Denies numbness, Denies tingling and Denies weakness Endo Denies fatigue and Denies palpitations Physical Exam Vital Signs: BMI result Body Mass Index 24.6 GENERAL APPEARANCE: in no acute distress, pleasant. NECK: no carotid bruit, no jugular venous distention. SKIN: no suspicious lesions, warm and dry. HEART: no murmurs, regular rate and rhythm. LUNGS: clear to auscultation bilaterally. ABDOMEN: soft, nontender. EXTREMITIES: no edema. PERIPHERAL PULSES: equal. NEUROLOGIC: No gross deficits, AAO X 3 Assessment & Plan Assessment & Plan (1) PAF (paroxysmal atrial fibrillation): Comment: May 2023 new onset Code(s): I48.0 - Paroxysmal atrial fibrillation Category: Medical (2) Hypertension: Code(s): I10 - Essential (primary) hypertension Category: Medical Plan Pleasant 78 year gentleman who is here for follow-up. He has background history of paroxysmal atrial fibrillation. He had hemorrhoids and some bleeding concerns and after discussion he was referred for Watchman device which she underwent in 10/03/2023. He has since has been taken off the Eliquis and is currently taking Plavix 75 mg daily. Blood pressure is elevated. He is on a clonidine patch which he has been changing every Sunday. He is on carvedilol 6.25 mg twice a day. He has a lot of medication intolerance is before. I have advised him to increase the carvedilol to 12.5 mg twice a day. He will monitor his blood pressure at home and will call us if his blood pressure readings continue to be high. He will see us back in 3 months. Thank you for allowing me to participate in the care of your patient. Please feel free to contact me if you have any questions. Medications: New carvedilol must administer with a meal/food 12.5 mg PO BID 120 tabs 3RF Discontinued carvedilol Discontinued Reason: None 6.25 mg See Protocol PO BID 60 tabs 3RF Coding Level of Care Code Est Pt Level 4 (60667) Diagnoses PAF (paroxysmal atrial fibrillation) I48.0 Hypertension I10
== END 2024-01-09 09:39 | disposition home or self-care (01) ==
PROVIDERS: PCP Internal Medicine; Visit Provider Internal Medicine Cardiovascular Disease
DX: I48.0 Paroxysmal atrial fibrillation (principal); I10 Essential (primary) hypertension
CPT/HCPCS: 99214

== ENCOUNTER → 2024-01-09 08:37 | Outpatient (BNVA) | payer MEDICARE, OTHER, SELFPAY | PROVIDERS: PCP Internal Medicine; Visit Provider Internal Medicine Cardiovascular Disease | DX: I48.0 Paroxysmal atrial fibrillation (principal); I10 Essential (primary) hypertension | CPT/HCPCS: 99212 ==

== ENCOUNTER 2024-03-03 14:47 | Outpatient (AMB) | payer MEDICARE, OTHER, SELFPAY ==
--- NOTE | 2024-03-03 14:47 | MHC.PC.OV ---
Intake Visit Reasons: COVID Pos Allergies Iodinated Contrast Media [IV DYE, IODINE CONTAINING] Allergy (Intermediate, Verified 03/03/24 14:48) NAUSEA & VOMITING Penicillins [PENICILLINS] Allergy (Unknown, Verified 03/03/24 14:48) cramping amlodipine Adverse Reaction (Intermediate, Verified 03/03/24 14:48) Nausea losartan Adverse Reaction (Intermediate, Verified 03/03/24 14:48) Nausea Metoprolol Adverse Reaction (Intermediate, Uncoded 03/03/24 14:48) Nausea and Vomiting Respiratory syncytial virus vaccine Adverse Reaction (Intermediate, Uncoded 03/03/24 14:48) Rash Tobacco use date assessed: 08/07/23 Fall risk assessment: No Falls in past year Last assessed Fall Risk: 03/03/24 Dental Screening Dental Screen Date: 08/07/23 HPI COVID Pos HPI Details 78-year-old male with a history of atrial fibrillation, ascending aorta dilatation hypertension history of prostate cancer GERD coming in for follow-up. Last seen in 08/04/2023. Patient is following up through Telehealth. Review of the notes has seen Cardiology in referred to [facility] for watchman's device patient did undergo a watchman's device in 10/03/2023. On Plavix of Eliquis. Patient was advised to increase carvedilol 12.5 mg twice a day. Echocardiogram done 11/23/2023 showing normal left ventricular size ejection fraction 55-65% watchman left atrial occlusion device noted in the left atrial appendage. No thrombus. Receive note from urology 11/03/2023 for nephrolithiasis history of prostate cancer 2017 recent ultrasound with 4 x 7 mm right renal calculi kidney stone advised to have a CT scan and continuing to monitor PSA. Patient also follows up with Nephrology diagnosis of hypertension stage I hypertension status post AV p.m. with white coat effect on clonidine patch and Coreg 6.25 mg twice a day. Patient has a low-grade fever keep on sneezing but no sore throat in no shortness a breath. With the interaction with Plavix would hold off from antiviral as this will interact with this. If it does get worse let me know and may send to hospital for remdesivir. [facility], [facility] Medical History (Updated 03/03/24 @ 15:40 by Oscar Arias MD) COVID-19 virus infection PAF (paroxysmal atrial fibrillation) Bleeding grade II hemorrhoids Generalized anxiety disorder Atrial fibrillation with rapid ventricular response Atrial fibrillation, new onset Epigastric pain determined by examination Chest pain Acute sinusitis Bloating Postnasal drip Sinus congestion Arrhythmia Burping Blood pressure elevated without history of HTN Colon cancer screening History of renal calculi History of prostate cancer GERD (gastroesophageal reflux disease) BPH (benign prostatic hyperplasia) Surgical History Hx of surgical procedure (09/28/23) History of suburethral sling procedure History of colonoscopy History of adenoidectomy S/P left inguinal herniorrhaphy H/O prostatectomy Social History Household Members: None Caregiver staying overnight: No Housing: House Are you a primary laboratory animal caretaker 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 other at home: Yes Do you presently have visiting nurse or other home services: No 75 years or older and lives alone: Yes Alcohol intake: current Alcohol intake frequency: does not drink Patient Tobacco Use Status: Former Tobacco user Tobacco use type: Cigarette Years Smoked: 13 e-Cigarette/Vaping Use: Never Used Second Hand Smoke Exposure: No Advance Directives Date on File: 06/02/22 service: Yes Current occupational status: unemployed and retired Current occupation: left hand Cognitive needs: No Hearing needs: No Vision needs: Yes Questionnaire PHQ-9 Over the last 2 weeks, how often have you been bothered by any of the following problems? 1. Little interest or pleasure in doing things: several days 2. Feeling down, depressed, or hopeless: several days 3. Trouble falling or staying asleep, or sleeping too much: not at all 4. Feeling tired or having little energy: not at all 5. Poor appetite or overeating: not at all 6. Feeling bad about yourself - or that you are a failure or have let yourself or your family down: not at all 7. Trouble concentrating on things, such as reading the newspaper or watching television: not at all 8. Moving or speaking so slowly that other people could have noticed. Or the opposite - being so fidgety or restless that you have been moving around a lot more than usual: not at all 9. Thoughts that you would be better off or of hurting yourself in some way: not at all Total score: 2 Depression Screening Interpretation: Positive Depression Screening Done: Yes Source: Developed by Drs. Jayesh Mcginnis, Miguel Ortega and colleagues, with an educational agustin from [employer]. Thrive Questionnaire Date Thrive assessed: 08/07/23 AUDIT C Alcohol Use Questionnaire (AUDIT-C) 1. How often do you have a drink containing alcohol?: Never 3. How often do you have six or more drinks on one occasion?: Never Total Score: 0 PATIENCE-7 AMB Questionnaire PATIENCE-7 Date PATIENCE - 7 assessed: 08/07/23 Source: Developed by Petra Hernandez Kurt Kroenke and colleagues, with an educational agustin from [employer]. Physical exam (Primary Care) Tobacco/Smoking Status: Tobacco use Status Tobacco use date assessed 08/07/23 03/03/24 14:48 Patient Tobacco Use Status Former Tobacco user 03/03/24 14:48 Tobacco use type Cigarette 03/03/24 14:48 e-Cigarette/Vaping Use Never Used 03/03/24 14:48 PHQ-9: PHQ-9 Score PHQ-9: Total score 2 03/03/24 14:49 Depression Screening Interpretation: Positive Thrive Assessment: Date of Thrive Assessment Date Thrive assessed 08/07/23 03/03/24 14:48 Telehealth Telehealth Telehealth Platform: Telephone Location of provider rendering services: practice address Location of patient: address on file Patient Identification confirmed using: Name, : Yes Telehealth method: voice only Patient verbally consented to treatment: Yes Patient verbally consented to billing insurance company: Yes Patient informed of any privacy concerns related to visit: Yes Minutes spent on Phone/Video with Pt.: 25 Assessment and Plan Assessment & Plan (1) Right renal stone: Comment: 7 mm October 2023 Code(s): N20.0 - Calculus of kidney Plan: Increase oral fluids. Patient being followed up by Urology and CT scan requested. Caution as the patient is on blood thinners. Increase oral fluids. (2) Presence of Watchman left atrial appendage closure device: Comment: 10/10/2023 Dr. Mcnulty Code(s): Z95.818 - Presence of other cardiac implants and grafts Plan: Patient presently on clopidogrel follows up with Cardiology. On Plavix was told up to 03/2024 (3) PAF (paroxysmal atrial fibrillation): Comment: May 2023 new onset Code(s): I48.0 - Paroxysmal atrial fibrillation Plan: Watchman's device placed november 2023 (4) Ascending aorta dilatation: Comment: 05/2023 3.8 cm Code(s): I77.810 - Thoracic aortic ectasia Plan: Continuing to monitor (5) Hypertension: Code(s): I10 - Essential (primary) hypertension Plan: Continue with blood pressure medication. Decrease salt intake and exercise carvedilol 12.5 mg twice a day and clonidine patch (6) History of prostate cancer: Code(s): Z85.46 - Personal history of malignant neoplasm of prostate Plan: Continue to monitor and follows up with urology (7) GERD (gastroesophageal reflux disease): Code(s): K21.9 - Gastro-esophageal reflux disease without esophagitis Plan: Avoid the foods that causes that usually spicy foods, tomato products, juices, coffee, soda and foods that your sensitive to. After eating do not lie down, allow 3-4 hours before in lie down. And keep the head of bed above 30 degrees to avoid the acid from going up. (8) COVID-19 virus infection: Comment: February Code(s): U07.1 - COVID-19 Plan: For the sore throat can take Cepacol lozenges, discussed about Delsym to help with dry cough so she can rest and advised to increase oral fluids. Patient also can take Tylenol for chills and fever. due to interaction with plavix, would hold off paxlovid. stop the clopidogrel April 11, 2024 Coding Level of Care Code Tele Est Pt Level 4 (52558) Diagnoses Right renal stone N20.0 Presence of Watchman left atrial appendage closure device Z95.818 PAF (paroxysmal atrial fibrillation) I48.0 Ascending aorta dilatation I77.810 Hypertension I10 History of prostate cancer Z85.46 GERD (gastroesophageal reflux disease) K21.9 COVID-19 virus infection U07.1 Additional Codes PHQ-9 - 01651 - PHQ-9 Billing: ([id number])
== END 2024-03-03 17:05 | disposition home or self-care (01) ==
LOC: HO.HMGH 14:47
PROVIDERS: PCP Internal Medicine; Visit Provider Internal Medicine
DX: N20.0 Calculus of kidney (principal); I77.810 Thoracic aortic ectasia; I48.0 Paroxysmal atrial fibrillation; U07.1 COVID-19; Z95.818 Presence of other cardiac implants and grafts; I10 Essential (primary) hypertension; Z85.46 Personal history of malignant neoplasm of prostate; K21.9 Gastro-esophageal reflux disease without esophagitis
CPT/HCPCS: 99443

== ENCOUNTER 2024-03-25 13:14 | Outpatient (AMB) | payer MEDICARE, OTHER, SELFPAY ==
[2024-03-25 13:21] VITALS: BP 136/84; PULSE 57; O2SAT 97; BMI 24.0
--- NOTE | 2024-03-25 13:21 | MHC.PC.OV ---
Vital Signs 03/25/24 13:21 Height 5 ft 10 in Weight 167 lb BMI 24.0 BP 136/84 Blood Pressure Location Lt brachial Position Sitting Pulse 57 Pulse Source Pulse Oximeter Pulse Oximetry (%) 97 Oxygen Delivery Method Room Air Intake Visit Reasons: impacted cerumen, A fib Senior Asp Net Developer Required: No Allergies Iodinated Contrast Media [IV DYE, IODINE CONTAINING] Allergy (Intermediate, Verified 03/25/24 13:21) NAUSEA & VOMITING Penicillins [PENICILLINS] Allergy (Unknown, Verified 03/25/24 13:21) cramping amlodipine Adverse Reaction (Intermediate, Verified 03/25/24 13:21) Nausea losartan Adverse Reaction (Intermediate, Verified 03/25/24 13:21) Nausea Metoprolol Adverse Reaction (Intermediate, Uncoded 03/25/24 13:21) Nausea and Vomiting Respiratory syncytial virus vaccine Adverse Reaction (Intermediate, Uncoded 03/25/24 13:21) Rash Tobacco use date assessed: 08/07/23 Fall risk assessment: No Falls in past year Last assessed Fall Risk: 03/25/24 Dental Screening Dental Screen Date: 08/07/23 HPI impacted cerumen, A fib HPI Details 78-year-old male with right nephrolithiasis watchman's device atrial fibrillation ascending aorta dilatation hypertension history of prostate cancer GERD coming in for an acute problem. Last seen in February 2024. Echocardiogram done in November 2023 showing normal left ventricular size EF of 55-65% stable watchman's. No thrombus. for the renal stone ff up with [facility] urology and will be seeing 09/2024 US to be done. Dr. Li clonidine0.1 mg . L knee prolem better right now PFSH Medical History (Updated 03/25/24 @ 14:16 by Oscar Arias MD) COVID-19 virus infection PAF (paroxysmal atrial fibrillation) Bleeding grade II hemorrhoids Generalized anxiety disorder Atrial fibrillation with rapid ventricular response Atrial fibrillation, new onset Epigastric pain determined by examination Chest pain Acute sinusitis Bloating Postnasal drip Sinus congestion Arrhythmia Burping Blood pressure elevated without history of HTN Colon cancer screening History of renal calculi History of prostate cancer GERD (gastroesophageal reflux disease) BPH (benign prostatic hyperplasia) Surgical History Hx of surgical procedure (09/28/23) History of suburethral sling procedure History of colonoscopy History of adenoidectomy S/P left inguinal herniorrhaphy H/O prostatectomy Social History Household Members: None Caregiver staying overnight: No Housing: House Are you a primary acute care nurse practitioner 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 other at home: Yes Do you presently have visiting nurse or other home services: No 75 years or older and lives alone: Yes Alcohol intake: current Alcohol intake frequency: does not drink Patient Tobacco Use Status: Former Tobacco user Tobacco use type: Cigarette Years Smoked: 13 e-Cigarette/Vaping Use: Never Used Second Hand Smoke Exposure: No Advance Directives Date on File: 06/02/22 service: Yes Current occupational status: unemployed and retired Current occupation: left hand Cognitive needs: No Hearing needs: No Vision needs: Yes Questionnaire Thrive Questionnaire Date Thrive assessed: 08/07/23 AUDIT C Alcohol Use Questionnaire (AUDIT-C) 1. How often do you have a drink containing alcohol?: Never 3. How often do you have six or more drinks on one occasion?: Never Total Score: 0 PATIENCE-7 AMB Questionnaire PATIENCE-7 Date PATIENCE - 7 assessed: 08/07/23 Source: Developed by Drs. Jayesh Mcginnis, Petra Campos, Miguel Zarate and colleagues, with an educational agustin from [employer]. Physical exam (Primary Care) Vital Signs: Last Vital Signs Pulse 57 03/25/24 13:21 BP 136/84 03/25/24 13:21 Pulse Ox 97 03/25/24 13:21 Oxygen Delivery Method Room Air 03/25/24 13:21 BMI result Body Mass Index 24.0 Tobacco/Smoking Status: Tobacco use Status Tobacco use date assessed 08/07/23 03/25/24 13:22 Patient Tobacco Use Status Former Tobacco user 03/25/24 13:22 Tobacco use type Cigarette 03/25/24 13:22 e-Cigarette/Vaping Use Never Used 03/25/24 13:22 Thrive Assessment: Date of Thrive Assessment Date Thrive assessed 08/07/23 03/25/24 13:22 Const General: alert; No acute distress Eyes Conjunctivae: conjunctivae normal Resp Auscultation: clear to auscultation bilaterally Cardio Rate: regular rate Rhythm: regular rhythm GI Inspection: Yes normal to inspection Extrem General: Yes normal to inspection and No edema Assessment and Plan Assessment & Plan (1) Presence of Watchman left atrial appendage closure device: Comment: 10/10/2023 Dr. Mcnulty Code(s): Z95.818 - Presence of other cardiac implants and grafts Plan: Continue to follow up with Cardiology. Echocardiogram done in November (2) PAF (paroxysmal atrial fibrillation): Comment: May 2023 new onset Code(s): I48.0 - Paroxysmal atrial fibrillation Plan: Watchman's device in continue with clopidogrel and carvedilol. (3) Hypertension: Code(s): I10 - Essential (primary) hypertension Plan: Continue with blood pressure medication. Decrease salt intake and exercise on carvedilol 12.5 mg twice a day (4) History of prostate cancer: Code(s): Z85.46 - Personal history of malignant neoplasm of prostate Plan: Stable check PSA (5) GERD (gastroesophageal reflux disease): Code(s): K21.9 - Gastro-esophageal reflux disease without esophagitis Plan: Avoid the foods that causes that usually spicy foods, tomato products, juices, coffee, soda and foods that your sensitive to. After eating do not lie down, allow 3-4 hours before in lie down. And keep the head of bed above 30 degrees to avoid the acid from going up. (6) Facial dermatitis: Comment: L cheek papule Code(s): L30.9 - Dermatitis, unspecified Orders: Orders Complete Blood Count Auto Diff Today I10 - Essential (primary) hypertension Comprehensive Met. Panel Today I10 - Essential (primary) hypertension Vitamin B12 and Folate Today I10 - Essential (primary) hypertension Magnesium Today I10 - Essential (primary) hypertension PSA,Total (Free>4and<10) Today Z85.46 - Personal history of malignant neoplasm of prostate Free T4 (Free Thyroxine) Today I10 - Essential (primary) hypertension Thyroid Stimulating Hormone Today I10 - Essential (primary) hypertension Lipid Panel Today E78.00 - Pure hypercholesterolemia, unspecified, I10 - Essential (primary) hypertension Referrals Dermatology Referral L30.9 - Dermatitis, unspecified Medications: Refilled clonidine 1 patch topical QWEEK 12 ea 3RF I10 - Essential (primary) hypertension Coding Level of Care Code Est Pt Level 4 (23796) Diagnoses Presence of Watchman left atrial appendage closure device Z95.818 PAF (paroxysmal atrial fibrillation) I48.0 Hypertension I10 History of prostate cancer Z85.46 GERD (gastroesophageal reflux disease) K21.9 Facial dermatitis L30.9
== END 2024-03-25 14:22 | disposition home or self-care (01) ==
PROVIDERS: PCP Internal Medicine; Visit Provider Internal Medicine
DX: Z95.818 Presence of other cardiac implants and grafts (principal); I48.0 Paroxysmal atrial fibrillation; I10 Essential (primary) hypertension; Z85.46 Personal history of malignant neoplasm of prostate; K21.9 Gastro-esophageal reflux disease without esophagitis; L30.9 Dermatitis, unspecified
CPT/HCPCS: 99214

== ENCOUNTER 2024-03-26 06:24 | Outpatient (REF) | payer MEDICARE, OTHER, SELFPAY ==
[2024-03-26 06:39] LABS: MANUAL DIFF FLAG NO
[2024-03-26 07:14] LABS: Basophils Percent Auto 0.2 % (0-2); Eosinophils Absolute Auto 0.1 X10*3/uL (0.0-0.4); Eosinophils Percent Auto 2.3 % (0-4); Hematocrit 39.2 % (42.0-52.0); Hemoglobin 13.6 g/dl (14.0-18.0); Imm Gran Abs Auto 0.02 X10*3/uL (0.00-0.03); Imm Gran Pct Auto 0.4 % (0.0-0.4); Lymphocytes Absolute Auto 1.4 X10*3/uL (1.2-4.9); Mean Corpuscular HGB Conc 34.7 g/dl (31.0-36.0); Mean Corpuscular Hemoglobin 31.7 pg (27.0-33.0); Mean Corpuscular Volume 91.4 fL (80.0-98.0); Mean Platelet Volume 9.1 fL (9.4-12.4); Monocytes Absolute Auto 0.5 X10*3/uL (0.1-1.2); Monocytes Percent Auto 9.4 % (2-11); Neutrophils Absolute Auto 3.5 x10*3/uL (2.0-8.3); Neutrophils Percent Auto 62.7 % (45-73); Platelet Count 185 X10*3/uL (160-400); Red Blood Count 4.29 X10*6/uL (4.60-5.80); Red Cell Distribution Width 13.1 % (11.0-16.0); White Blood Count 5.6 X10*3/uL (4.8-10.8)
[2024-03-26 07:37] LABS: Alanine Aminotransferase 15 U/L (0-40); Albumin Level 4.4 g/dL (3.5-5.0); Alkaline Phosphatase 108 U/L (39-117); Anion Gap 14 (12-20); Aspartate Amino Transferase 21 U/L (5-37); Bilirubin Total 0.7 mg/dL (0.0-1.0); Blood Urea Nitrogen 13 mg/dL (9-16); Calcium 9.6 mg/dL (8.4-10.2); Carbon Dioxide 26 mmol/L (22-29); Chloride 107 mmol/L (96-108); Cholesterol 136 mg/dL (<200); Estimated Glomerular Filt Rate > 60; Glucose Random 98 mg/dL (60-115); HDL Cholesterol 47 mg/dL (>40); LDL Cholesterol Calculated 63 mg/dL (<100); Magnesium 2.2 mg/dL (1.6-2.6); Potassium 4.3 mmol/L (3.3-5.1); Sodium 143 mmol/L (135-145); Total Protein 7.4 g/dL (6.5-8.0); Triglycerides 131 mg/dL (<150)
[2024-03-26 07:49] LABS: PSA,Total (Free>4and<10) < 0.10 ng/mL (0.00-4.00)
[2024-03-26 07:53] LABS: Free T4 (Free Thyroxine) 0.81 ng/dL (0.71-1.85); Thyroid Stimulating Hormone 2.98 uIU/mL (0.32-4.0)
[2024-03-26 07:59] LABS: Folate 13.7 ng/mL (> or = 4.0); Vitamin B12 526 pg/mL (200-900)
== END 2024-03-26 06:25 | disposition home or self-care (01) ==
LOC: HO.LAB 06:24
PROVIDERS: PCP Internal Medicine; Visit Provider Internal Medicine
DX: I10 Essential (primary) hypertension (principal); E78.00 Pure hypercholesterolemia, unspecified; Z85.46 Personal history of malignant neoplasm of prostate; Z12.5 Encounter for screening for malignant neoplasm of prostate
CPT/HCPCS: 36415; 80053; 80061; 82607; 82746; 83735; 84153; 84439; 84443; 85025

== ENCOUNTER 2024-04-02 08:56 | Outpatient (AMB) | payer MEDICARE, OTHER, SELFPAY ==
--- NOTE | 2024-04-02 09:13 | A.OFFVIS_ITS ---
Vital Signs 04/02/24 09:14 Height 5 ft 10 in Weight 169 lb 12.095 oz BMI 24.4 BP 140/70 H Blood Pressure Location Lt brachial Position Sitting Pulse 60 Pulse Source Monitor Intake Visit Reasons: 3 mth f/up Intake Note: 3 mth f/up Named Account Executive Required: No Accompanied by: Self / Same As Patient Allergies Iodinated Contrast Media [IV DYE, IODINE CONTAINING] Allergy (Intermediate, Verified 03/25/24 13:21) NAUSEA & VOMITING Penicillins [PENICILLINS] Allergy (Unknown, Verified 03/25/24 13:21) cramping amlodipine Adverse Reaction (Intermediate, Verified 03/25/24 13:21) Nausea losartan Adverse Reaction (Intermediate, Verified 03/25/24 13:21) Nausea Metoprolol Adverse Reaction (Intermediate, Uncoded 03/25/24 13:21) Nausea and Vomiting Respiratory syncytial virus vaccine Adverse Reaction (Intermediate, Uncoded 03/25/24 13:21) Rash Medication List - Last Reconciled 04/02/24 by Jeramy Dozier MD aspirin (Adult Low Dose Aspirin) 81 mg PO DAILY carvedilol 12.5 mg PO BID clonidine 1 patch topical QWEEK clopidogrel 75 mg PO DAILY hydrocortisone 2.5% (Proctozone-HC) 1 appl IN BID omeprazole 20 mg PO BID HPI Comments Details: Pleasant 78-year-old gentleman who is here for follow-up. He was seen in the hospital recently when he presented with paroxysmal atrial fibrillation. He complained of bright blood per rectum and was seen by surgery and was given started on steroid cream as well as Sitz baths for hemorrhoids. He has done well since then. He was started on anticoagulation at discharge and has been tolerating anticoagulation well. 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 He reverted to sinus rhythm before discharge and it appears he continues to be in sinus rhythm. Denying any chest discomfort or significant shortness of breath. He does have chronic reflux ongoing for years. He said he was due to get endoscopy before he got admitted to the hospital and is asking whether he can go ahead with that. 09/10/23: Returns for follow-up. He is saying he has not had any further palpitations. He was referred to [facility] for Watchman device and after discussion he has decided to go ahead with this. He is scheduled for September 2023 to undergo Watchman. He is taking anticoagulation regularly. He has hemorrhoids and off and on he has noticed some bleeding but nothing significant. Taking medications regularly otherwise. Blood pressure is well controlled. 01/09/2024: He is here for follow-up. He underwent Watchman flex 24 mm in 10/03/2023. He is taking Plavix currently and has been off Eliquis. Blood pressure is elevated in his currently on carvedilol 6.25 mg twice a day and clonidine patch. Denying any symptoms. 04/02/2024: He is here for follow-up. He has been doing well. He is status post Watchman flex 24 mm in 10/03/2023. He is currently on aspirin and Plavix but we will be stopping the Plavix toward end of March because he will be completing 6 months post Watchman. No bleeding issues. Blood pressure control is reasonable currently. At home his readings have been in 130s. [facility] Medical History (Updated 03/25/24 @ 14:16 by Oscar Arias MD) COVID-19 virus infection PAF (paroxysmal atrial fibrillation) Bleeding grade II hemorrhoids Generalized anxiety disorder Atrial fibrillation with rapid ventricular response Atrial fibrillation, new onset Epigastric pain determined by examination Chest pain Acute sinusitis Bloating Postnasal drip Sinus congestion Arrhythmia Burping Blood pressure elevated without history of HTN Colon cancer screening History of renal calculi History of prostate cancer GERD (gastroesophageal reflux disease) BPH (benign prostatic hyperplasia) Surgical History Hx of surgical procedure (09/28/23) History of suburethral sling procedure History of colonoscopy History of adenoidectomy S/P left inguinal herniorrhaphy H/O prostatectomy Social History Household Members: None Caregiver staying overnight: No Housing: House Are you a primary patient care coordinator 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 other at home: Yes Do you presently have visiting nurse or other home services: No 75 years or older and lives alone: Yes Alcohol intake: current Alcohol intake frequency: does not drink Patient Tobacco Use Status: Former Tobacco user Tobacco use type: Cigarette Years Smoked: 13 e-Cigarette/Vaping Use: Never Used Second Hand Smoke Exposure: No Advance Directives Date on File: 06/02/22 service: Yes Current occupational status: unemployed and retired Current occupation: left hand Cognitive needs: No Hearing needs: No Vision needs: Yes Review of Systems Const Denies chills, Denies fatigue, Denies fever(s), Denies frequent falls, Denies weakness, Denies weight gain and Denies weight loss ENT Denies dizziness Card Denies chest pain, Denies leg edema, Denies lightheadedness, Denies palpitations, Denies dyspnea and Denies dyspnea on exertion Resp Denies cough, Denies dyspnea and Denies dyspnea on exertion GI Denies hematochezia Musc Denies abnormal gait, Denies muscle weakness, Denies numbness, Denies radiating pain into limb and Denies tingling Neuro Denies abnormal gait, Denies dizziness, Denies frequent falls, Denies numbness, Denies tingling and Denies weakness Endo Denies fatigue and Denies palpitations Physical Exam Vital Signs: Last Vital Signs Pulse 60 04/02/24 09:14 BP 140/70 H 04/02/24 09:14 BMI result Body Mass Index 24.4 GENERAL APPEARANCE: in no acute distress, pleasant. NECK: no carotid bruit, no jugular venous distention. SKIN: no suspicious lesions, warm and dry. HEART: no murmurs, regular rate and rhythm. LUNGS: clear to auscultation bilaterally. ABDOMEN: soft, nontender. EXTREMITIES: no edema. PERIPHERAL PULSES: equal. NEUROLOGIC: No gross deficits, AAO X 3 Office Procedures EKG Details: Sinus rhythm 60 beats per minute, normal axis, QTC 410 milliseconds. [id number], Complete Assessment & Plan Assessment & Plan (1) PAF (paroxysmal atrial fibrillation): Comment: May 2023 new onset Code(s): I48.0 - Paroxysmal atrial fibrillation Category: Medical (2) Hypertension: Code(s): I10 - Essential (primary) hypertension Category: Medical Plan Pleasant 78 year gentleman who is here for follow-up. He has background history of paroxysmal atrial fibrillation. He had hemorrhoids and some bleeding concerns and after discussion he was referred for Watchman device which he underwent in 10/03/2023. He has since has been taken off the Eliquis and is currently taking Plavix 75 mg daily along with aspirin. He is completing 6 months towards the end of March and will be stopping Plavix and will continue aspirin monotherapy.. Blood pressure control is reasonable. At home his readings are in 130s. Slightly elevated today. No changes in medications currently. He can monitor and if there is blood pressure is 140s to 150s then we can titrate medications further. He has been using a clonidine patch and changing it every Sunday. He will see us back in 1 year. Thank you for allowing me to participate in the care of your patient. Please feel free to contact me if you have any questions. Coding Level of Care Code Est Pt Level 4 (84602) Diagnoses PAF (paroxysmal atrial fibrillation) I48.0 Hypertension I10 CPT Codes EKG - CPT: 92990-[id number], Complete ([id number])
[2024-04-02 09:14] VITALS: BP 140/70; PULSE 60; BMI 24.4
== END 2024-04-02 09:38 | disposition home or self-care (01) ==
PROVIDERS: PCP Internal Medicine; Visit Provider Internal Medicine Cardiovascular Disease
DX: I48.0 Paroxysmal atrial fibrillation (principal); I10 Essential (primary) hypertension
CPT/HCPCS: 93010; 99214

== ENCOUNTER → 2024-04-02 08:56 | Outpatient (BNVA) | payer MEDICARE, OTHER, SELFPAY | PROVIDERS: PCP Internal Medicine; Visit Provider Internal Medicine Cardiovascular Disease | DX: I48.0 Paroxysmal atrial fibrillation (principal); I10 Essential (primary) hypertension | CPT/HCPCS: 93005; 99212 ==

== ENCOUNTER 2024-06-04 08:45 | Outpatient (AMB) | payer MEDICARE, OTHER, SELFPAY ==
--- NOTE | 2024-06-04 09:12 | AM.OFFWIN_ITS ---
Intake Vital Signs 06/04/24 09:13 Weight 172 lb BP 140/90 H Blood Pressure Location Rt brachial Position Sitting Pulse 68 Pulse Source Pulse Oximeter Pulse Oximetry (%) 98 Oxygen Delivery Method Room Air Intake Visit Reasons: EP splinter in finger Intake Note: Patient here for splinter on right hand by nail. Patient Tobacco Use Status: Former Tobacco user Allergies Iodinated Contrast Media [IV DYE, IODINE CONTAINING] Allergy (Intermediate, Verified 06/04/24 09:13) NAUSEA & VOMITING Penicillins [PENICILLINS] Allergy (Unknown, Verified 06/04/24 09:13) cramping amlodipine Adverse Reaction (Intermediate, Verified 06/04/24 09:13) Nausea losartan Adverse Reaction (Intermediate, Verified 06/04/24 09:13) Nausea Metoprolol Adverse Reaction (Intermediate, Uncoded 06/04/24 09:13) Nausea and Vomiting Respiratory syncytial virus vaccine Adverse Reaction (Intermediate, Uncoded 06/04/24 09:13) Rash Do you need a note to return to daycare/school/sports/work: No HPI HPI Comments History of Present Illness Details Patient is a 79-year-old male with a splinter in the some of his right hand. He states he was working with a wheal of would and as it was spinning, his hand got to close and a piece of the wood chip doff into his skin. He says he would consider the wheel dirty and he is not sure when his last tetanus was. [facility] Medical History (Updated 06/04/24 @ 09:29 by Suni Fitch PA-C) COVID-19 virus infection PAF (paroxysmal atrial fibrillation) Bleeding grade II hemorrhoids Generalized anxiety disorder Atrial fibrillation with rapid ventricular response Atrial fibrillation, new onset Epigastric pain determined by examination Chest pain Acute sinusitis Bloating Postnasal drip Sinus congestion Arrhythmia Burping Blood pressure elevated without history of HTN Colon cancer screening History of renal calculi History of prostate cancer GERD (gastroesophageal reflux disease) BPH (benign prostatic hyperplasia) Surgical History Hx of surgical procedure (09/28/23) History of suburethral sling procedure History of colonoscopy History of adenoidectomy S/P left inguinal herniorrhaphy H/O prostatectomy Social History Household Members: None Caregiver staying overnight: No Housing: House Are you a primary daycare manager 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 other at home: Yes Do you presently have visiting nurse or other home services: No 75 years or older and lives alone: Yes Alcohol intake: current Alcohol intake frequency: does not drink Patient Tobacco Use Status: Former Tobacco user Tobacco use type: Cigarette Years Smoked: 13 e-Cigarette/Vaping Use: Never Used Second Hand Smoke Exposure: No Advance Directives Date on File: 06/02/22 service: Yes Current occupational status: unemployed and retired Current occupation: left hand Cognitive needs: No Hearing needs: No Vision needs: Yes Review of Systems Const All systems reviewed & are unremarkable except as noted in HPI and below Physical Exam Vital Signs: Last Vital Signs Pulse 68 06/04/24 09:13 BP 140/90 H 06/04/24 09:13 Pulse Ox 98 06/04/24 09:13 Oxygen Delivery Method Room Air 06/04/24 09:13 Const General: cooperative, healthy appearing, comfortable, no acute distress and well developed Orientation/consciousness: patient oriented x3 Limitations: no limitations HEENT Head: Yes normal to inspection Neck Neck: Yes normal visual inspection and Yes supple Skin Other: Right hand, tip of thumb has a pinpoint splinter, no surrounding erythema, no drainage, no warmth or other signs of infection noted. Neuro General: patient oriented x3 Assessment & Plan Assessment & Plan (1) Splinter in skin: Code(s): T14.8XXA - Other injury of unspecified body region, initial encounter Plan: Had patient soak his thumb in sterile saline, cleaned with Betadine and then gently tried to remove the sliver using the tip of the scalpel and tweezers but was unable to. Cleaned the very pinpoint wound with iodine, applied bacitracin and Band-Aid and recommended he keep soaking in hydrogen peroxide and water several times daily for the next few days and the little piece of wood should work itself out. If it does not, recommended he follow-up with his PCP. Gave red flag warning signs on if it becomes infected, he can return to the walk-in clinic and waking start him on Keflex, but very low likelihood this will be necessary. Patient left prior to Tdap administration, we will call him to have him return to the clinic later today for Tdap as his is over 10 years old Orders: Orders TDaP Immunization Today T14.8XXA - Other injury of unspecified body region, in itial encounter Medications: New Boostrix Tdap (diphth,pertus(acell),tetanus) 0.5 mL IM ONCE 0.5 mL 0RF NS T14.8XXA - Other injury of unspecified body region, initial encounter Coding Level of Care Code Est Pt Level 3 (26142) Diagnoses Splinter in skin T14.8XXA
[2024-06-04 09:13] VITALS: BP 140/90; PULSE 68; O2SAT 98
== END 2024-06-04 12:20 | disposition home or self-care (01) ==
PROVIDERS: PCP Internal Medicine; Visit Provider Physician Assistant
DX: T14.8XXA Other injury of unspecified body region, initial encounter (principal)

== ENCOUNTER → 2024-06-04 08:45 | Outpatient (BNVA) | payer MEDICARE, OTHER, SELFPAY | PROVIDERS: PCP Internal Medicine; Visit Provider Physician Assistant | DX: S69.91XA Unspecified injury of right wrist, hand and finger(s), initial encounter (principal) | CPT/HCPCS: 99212 ==

== ENCOUNTER 2024-08-18 11:04 | Outpatient (REF) | payer MEDICARE, OTHER, SELFPAY ==
--- OUTSIDE RECORDS SUMMARY | 2024-08-18 15:43 | XMS_ITS | Encounter Summary ---
Author Organization [facility] Address [address] [place] [phone] Phone Care Team Providers Care Burning Supervisor Name Role Phone Oscar Arias MD Primary Care Provider [phone] Reason for Visit * Reason Comments Hypertension Encounter Details Date Type Department Care Team (Late st Contact Info) Description 08/14/2024 1:00 PM EST Office [facility] [address] [place] [address] [place] [phone] Shaggy Hernandez MD [address] [phone] Social History Tobacco Use Types [...] Visit [facility] [address] [phone] Celestina Quevedo ARNP [address] [phone] documented as of this encounter Visit Diagnoses Not on filedocumented in this encounter Care Teams Burning Supervisor Relationship Specialty Start Date End Date Oscar Arias MD [facility] INTERNAL [place] [address] [place], [place] PCP - General Internal Medicine 01/04/23 documented as of this encounter
--- OUTSIDE RECORDS SUMMARY | 2024-08-18 15:43 | XMS_ITS | Clinical Summary ---
Author Organization [facility] it Address [address] [place] [address] Care Team Providers Care Commodity Broker Name Role Phone Thomas Stiles MD Primary Care Provider [phone] Allergies Active Allergy Reactions Criticality Noted Date [...] Surgery Date Site/Laterality Comments COLONOSCOPY 04/18/2004 PROCEDURE: DE COLONOSCOPY FLX DX W/COLLJ SPEC WHEN PFRMD; COMMENT: Normal ESOPHAGOGASTRODUODENOSCOPY 04/18/2004 PROCEDURE: DE ESOPHAGOGASTRODUODENOSCOPY TRANSORAL DIAGNOSTIC; COMMENT: Normal, not on PPI. COLONOSCOPY 06/03/2010 PROCEDURE: DE COLONOSCOPY FLX DX W/COLLJ SPEC WHEN PFRMD; COMMENT: Normal ESOPHAGOGASTRODUODENOSCOPY 06/03/2010 PROCEDURE: DE ESOPHAGOGASTRODUODENOSCOPY TRANSORAL DIAGNOSTIC; COMMENT: Normal, not on PPI rx. Medical History Medical History Date Comments Esophageal reflux DX:Esophageal reflux Calculus of kidney DX:Calculus o f kidney Historical Medical DX 09/15/2008 DX:BPH Constipation 07/29/2010 DX:Constipation Prostate CA (CMS/HCC) 10/05/2015 DX:Prostat e CA ([facility]); COMMENT: Follows with urologist, Dr. Main Hyperglycemia [...] Montesinos * Hepatitis C Screening (08/23/2016) Pathologist [facility] Hepatitis C Screening Abstracted Historical Provider MD AIME BOSTON E * (ABNORMAL) Lipid panel (08/23/2016) [facility] LDL/HDL Ratio 3 0 - 4 Triglycerides 160(A) 0 - 150 mg/dL Cholesterol 136 0 - 200 mg/dL HDL 54 40 mg/dL LDL Cholesterol 50 0 - 100 mg/dL Blood Venous blood specimen / Unknown Historical Provider LAB BLOOD ORDERAB LES from Last 3 Months or Most Recently Relevant to Health Maintenance Advance Directives Documents on File Type Date Recorded Patient Banner Painter Expl anation Health Care Decision (hx) 02/20/2019 AD PORTER DIRECTIVE Health Care Decision (hx) 02/20/2019 AD PORTER DIRECTIVE Health Care Decision (hx) 08/07/2017 AD PORTER DIRECTIVE Health Care Decision (hx) 08/07/2017 AD PORTER DIRECTIVE Care Teams Commodity Broker Relationship Specialty Start Date End Date Thomas Stiles MD [address] [place] [address] PCP - General 05/30/04
--- OUTSIDE RECORDS SUMMARY | 2024-08-18 15:43 | XMS_ITS | Clinical Summary ---
Author Organization [facility] Address [address] [place] [address] Phone Care Team Providers Care Commercial Makeup Artist Name Role Phone Oscar Arias MD Primary Care Provider [phone] Allergies Active Allergy Reactions Criticality Noted Date [...] Visit [facility] [address] [place], [place] [phone] Shaggy Hernandez MD from Last 3 Months [...] Office Visit [facility] [address] [phone] Celestina Quevedo ARNP [address] [phone] Health Maintenance Due Date Last Done Comments Influenza Vaccine (#1) 2024 0, 04/14/2019, 03/07/2018, Additional history exists Pneumococcal Vaccine: 65+ Years Completed 01/17/2017, 04/06/2011 Hepatitis B Vaccine Aged Out No longe r eligible based on patient's age to complete this topic Insurance MEDICARE [employer] MEDICARE [facility] Care Teams Commercial Makeup Artist Relationship Specialty Start Date End Date Oscar Arias MD [facility] [place] [place] [address] [place] PCP - General Internal Medicine 01/04/23
[2024-08-18 16:28] LABS: Influenza A PCR NEGATIVE (Negative); Influenza B PCR NEGATIVE (Negative); Resp Syncy Virus RNA Qual PCR NEGATIVE (Negative); SARS COV2 PCR INHOUSE NEGATIVE (Negative)
== END 2024-08-18 11:05 | disposition home or self-care (01) ==
LOC: HO.LNP 11:04
PROVIDERS: Visit Provider Nurse Practitioner Family
DX: Z13.89 Encounter for screening for other disorder (principal)
CPT/HCPCS: 0241U

== ENCOUNTER 2024-08-18 11:04 | Outpatient (AMB) | payer MEDICARE, OTHER, SELFPAY ==
[2024-08-18 11:38] VITALS: BP 136/82; PULSE 65; TEMP 36.6; O2SAT 97
--- NOTE | 2024-08-18 11:38 | AM.OFFWIN_ITS ---
Intake Vital Signs 08/18/24 11:38 Weight 178 lb BP 136/82 Blood Pressure Location Rt brachial Position Sitting Pulse 65 Pulse Source Pulse Oximeter Temp 98 F Temp Source Oral Pulse Oximetry (%) 97 Oxygen Delivery Method Room Air Intake Visit Reasons: EP Sinus congestion Intake Note: Patient here for yellow mucus, sinus congestion that has been present for about 3 weeks now. Patient Tobacco Use Status: Former Tobacco user Allergies Iodinated Contrast Media [IV DYE, IODINE CONTAINING] Allergy (Intermediate, Verified 08/18/24 11:39) NAUSEA & VOMITING Penicillins [PENICILLINS] Allergy (Unknown, Verified 08/18/24 11:39) cramping amlodipine Adverse Reaction (Intermediate, Verified 08/18/24 11:39) Nausea losartan Adverse Reaction (Intermediate, Verified 08/18/24 11:39) Nausea Metoprolol Adverse Reaction (Intermediate, Uncoded 08/18/24 11:39) Nausea and Vomiting Respiratory syncytial virus vaccine Adverse Reaction (Intermediate, Uncoded 08/18/24 11:39) Rash Do you need a note to return to daycare/school/sports/work: No HPI HPI Comments History of Present Illness Details 79 y/o male patient who presents to the walk in clinic with c/o URI symptoms for 3 weeks. Reports nasal and chest congestion. [facility] Medical History (Updated 08/18/24 @ 11:51 by Meghna Angel NP) Acute respiratory disease COVID-19 virus infection PAF (paroxysmal atrial fibrillation) Bleeding grade II hemorrhoids Generalized anxiety disorder Atrial fibrillation with rapid ventricular response Atrial fibrillation, new onset Epigastric pain determined by examination Chest pain Acute sinusitis Bloating Postnasal drip Sinus congestion Arrhythmia Burping Blood pressure elevated without history of HTN Colon cancer screening History of renal calculi History of prostate cancer GERD (gastroesophageal reflux disease) BPH (benign prostatic hyperplasia) Surgical History Hx of surgical procedure (09/28/23) History of suburethral sling procedure History of colonoscopy History of adenoidectomy S/P left inguinal herniorrhaphy H/O prostatectomy Social History Household Members: None Caregiver staying overnight: No Housing: House Are you a primary hospice care consultant 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 other at home: Yes Do you presently have visiting nurse or other home services: No 75 years or older and lives alone: Yes Alcohol intake: current Alcohol intake frequency: does not drink Patient Tobacco Use Status: Former Tobacco user Tobacco use type: Cigarette Years Smoked: 13 e-Cigarette/Vaping Use: Never Used Second Hand Smoke Exposure: No Advance Directives Date on File: 06/02/22 service: Yes Current occupational status: unemployed and retired Current occupation: left hand Cognitive needs: No Hearing needs: No Vision needs: Yes Review of Systems Const All systems reviewed & are unremarkable except as noted in HPI and below Physical Exam Vital Signs: Last Vital Signs Temp 98 F 08/18/24 11:38 Pulse 65 08/18/24 11:38 BP 136/82 08/18/24 11:38 Pulse Ox 97 08/18/24 11:38 Oxygen Delivery Method Room Air 08/18/24 11:38 Const General: cooperative and no acute distress Orientation/consciousness: patient oriented x3 HEENT Head: Yes normocephalic Ears: external ears normal and TM abnormal with fluid behind the TM bilateral General nose exam: Abnormal mucous membranes and turbinates present boggy and erythematous Face and sinus: Yes sinuses nontender Mouth: moist mucous membranes Throat: Yes uvula midline Resp Effort & Inspection: normal respiratory effort and able to speak in complete sentences Auscultation: clear to auscultation bilaterally, no crackles, no rales, no rhonchi and no wheezes Cardio Heart sounds: S1 normal heart sound present and S2 normal heart sound present Neuro General: patient oriented x3 Assessment & Plan Assessment & Plan (1) Acute respiratory disease: Code(s): J06.9 - Acute upper respiratory infection, unspecified Plan: Ordered SARs OTC Sinus congestion relief. Orders: Orders SARS-CoV2/FLU/RSV Today J06.9 - Acute upper respiratory infection, unspecified Coding Level of Care Code Est Pt Level 3 (37382) Diagnoses Acute respiratory disease J06.9 Time Spent (min) 15
--- OUTSIDE RECORDS SUMMARY | 2024-08-18 12:14 | XMS_ITS | Clinical Summary ---
Author Organization [facility] it Address [address] [place] [address] Care Team Providers Care Narrow Gauge Operator Name Role Phone Thomas Stiles MD Primary Care Provider Allergies Active Allergy Reactions Criticality Noted Date Comments Digoxin 06/06/2005 Iodinated Contrast Media 06/06/2005 Penicillin V Potassium 06/06/2005 Sulfa (Sulfonamide Antibiotics) 05/17 Medications Medication Sig Dispensed Refills Start Date End Date Status ketotifen fumarate (ZADITOR) 0.035 % ophthalmic solution 1 drop in each eye once a day Active fluticasone propionate (FLONASE) 50 mcg/actuation nasal spray 2 Sprays by Nasal route daily. Active Active Problems Problem Noted Date Diagnosed Date Hyperglycemia 12/06/2018 Prostate CA 10/05/2015 Overview (07/07/2024): S/p prostectomy 07/2017, Follows with urologist, Dr. Main Seasonal allergies 10/05/2015 Constipation 07/29/2010 Overview (07/07/2024): Negative colonoscopy 2010in Benign prostatic hyperplasia 09/15/2008 Rectal bleeding 08/07/2005 Overview (07/07/2024): S/P (-) colonoscopy 2003, 04/2010 Calculus of kidney 06/06/2005 Esophageal reflux 06/06/2005 Overview (07/07/2024): EGD (-) 04/18, feels well without acid control/PPI Immunizations Name Administration Dates Next Due Influenza trivalent, 0.5mL ( Fluzone High-dose) 65yo and older 03/16/2020,03/07/2018 Influenza trivalent, with pr eservative (Fluzone; Afluria) 6mo and older 04/14/2013,04/06/2011,05/11/2008,06/03,08/07/2005 Influenza, Unspecified 04/14/2019,03/09/2017, Pneumococcal conjugate 13 va lent (Prevnar 13, PCV13) 2mo and older 01/17/2017 Pneumococcal polysaccharide 23 valent (Pneumovax 23) 2yo and older 04/06/2011 Td Tetanus diptheria (Tdvax) 7yo and older 01/12/2005 Tdap Tetanus diptheria acell ular pertussis (Boostrix; Adacel) 7yo and older 10/28/2010 Zoster Live 04/14/2013 Zoster recombinant (Shingrix ) 19yo and older 10/02/2017 Surgical History Surgery Date Site/Laterality Comments COLONOSCOPY 04/18/2004 PROCEDURE: SD COLONOSCOPY FLX DX W/COLLJ SPEC WHEN PFRMD; COMMENT: Normal ESOPHAGOGASTRODUODENOSCOPY 04/18/2004 PROCEDURE: SD ESOPHAGOGASTRODUODENOSCOPY TRANSORAL DIAGNOSTIC; COMMENT: Normal, not on PPI. COLONOSCOPY 06/03/2010 PROCEDURE: SD COLONOSCOPY FLX DX W/COLLJ SPEC WHEN PFRMD; COMMENT: Normal ESOPHAGOGASTRODUODENOSCOPY 06/03/2010 PROCEDURE: SD ESOPHAGOGASTRODUODENOSCOPY TRANSORAL DIAGNOSTIC; COMMENT: Normal, not on PPI rx. Medical History Medical History Date Comments Esophageal reflux DX:Esophageal reflux Calculus of kidney DX:Calculus o f kidney Historical Medical DX 09/15/2008 DX:BPH Constipation 07/29/2010 DX:Constipation Prostate CA (CMS/HCC) 10/05/2015 DX:Prostat e CA ([facility]); COMMENT: Follows with urologist, Dr. Main Hyperglycemia 12/06/2018 DX:Hyperglycemia Family History Medical History Relation Name Comments Other: Rare form of stomach Ca, at age 50 Brother 1 Stroke Mother age 77 Relation Name Status Comments Brother 1 Brother 2 Mother Social History Tobacco Use Types Packs/Day Years Used Date Smoking Tobacco: Former Smokeless Tobacco: Never Alcohol Use Standard Drinks/Week Comments Yes 0 (1 standard drink = 0.6 oz pur e alcohol) Sex and Gender Information Value Date Recorded Sex Assigned at Not on file Gender Identity Not on file Sexual Orientation Not on file Obstetrics History Plan of Treatment Health Maintenance Due Date Last Done Comments COVID-19 Vaccine (#1) 1950 Zoster Vaccines (2 of 2) 11/27/2017 10/02/2017, 03/18 DTaP,Tdap,and Td Vaccines (3 - Td or Tdap) 10/28/2020 10/28/2010, 01/12/2005 RSV Immunization Patients 60+ Years Old (1 - 1-dose 75+ series) 2021 Influenza Vaccine (#1) 2024 , 03/16/2020, 04/14/2019, Additional history exists Cholesterol Screening (Lipid Panel) 07/08/2024 08/23/2016 Depression Screening 07/08/2024 Falls Risk Assessment 07/08/2024 Hypertension/CHF/CAD Annual BMP Blood Test 07/08/2024 05/30/2019 Social Influencers of Health Screening 07/08/2024 Hepatitis C Screening Completed 08/23/2016 Pneumococcal Vaccine: 65+ Years Completed 01/17/2017, 04/06/2011 HIB Vaccines Aged Out No longer eligi ble based on patient's age to complete this topic HPV Vaccines Aged Out No longer eligi ble based on patient's age to complete this topic Hepatitis A Vaccines Aged Out No long er eligible based on patient's age to complete this topic Hepatitis B Vaccines Aged Out No long er eligible based on patient's age to complete this topic IPV Vaccines Aged Out No longer eligi ble based on patient's age to complete this topic MMR Vaccines Aged Out No longer eligi ble based on patient's age to complete this topic Meningococcal ACWY Vaccine Aged Out N o longer eligible based on patient's age to complete this topic RSV Immunization Patients Under 20 months Aged Out No longer eligible based on patient's age to complete this topic Varicella Vaccines Aged Out No longer eligible based on patient's age to complete this topic Procedures Procedure Name Priority Date/Time Associated Diagnosis Comments ANNUAL BMP BLOOD TEST Routine 05/30/2019 HEPATITIS C SCREENING Routine 08/23/2016 LIPID PANEL Routine 08/23/2016 from Last 3 Months or Most Recently Relevant to Health Maintenance Results * Annual BMP Blood Test (05/30/2019) Annual BMP Blood Test Abstracted Historical Provider MD AIME Montesinos * Hepatitis C Screening (08/23/2016) Pathologist [facility] Hepatitis C Screening Abstracted Historical Provider MD AIME BOSTON E * (ABNORMAL) Lipid panel (08/23/2016) [facility] LDL/HDL Ratio 3 0 - 4 Triglycerides 160(A) 0 - 150 mg/dL Cholesterol 136 0 - 200 mg/dL HDL 54 40 mg/dL LDL Cholesterol 50 0 - 100 mg/dL Blood Venous blood specimen / Unknown Historical Provider LAB BLOOD ORDERAB LES from Last 3 Months or Most Recently Relevant to Health Maintenance Advance Directives Documents on File Type Date Recorded Patient Account Services Associate Expl anation Health Care Decision (hx) 02/20/2019 AD PORTER DIRECTIVE Health Care Decision (hx) 02/20/2019 AD PORTER DIRECTIVE Health Care Decision (hx) 08/07/2017 AD PORTER DIRECTIVE Health Care Decision (hx) 08/07/2017 AD PORTER DIRECTIVE Care Teams Narrow Gauge Operator Relationship Specialty Start Date End Date Thomas Stiles MD [address] [place] [address] PCP - General 05/30/04
--- OUTSIDE RECORDS SUMMARY | 2024-08-18 12:14 | XMS_ITS | Clinical Summary ---
Author Organization [facility] Address [address] [place] [address] Phone Care Team Providers Care Oil Field Tester Name Role Phone Oscar Arias MD Primary Care Provider [phone] Allergies Active Allergy Reactions Criticality Noted Date Comments Digoxin 01/19/2023 Other reaction(s): unknown Iodinated Contrast Media 01/24/2023 Losartan 01/24/2023 Metoprolol 01/24/2023 Penicillins Other (see comments) 10/15/2022 Sulfa Antibiotics 06/06/2005 Medications fluticasone (FLONASE) 50 MCG/ACT nasal spray Administer 1 spray into each nostril 1 (one) time each day Active omeprazole (PriLOSEC) [address] capsule Take 20 mg by mouth 1 (one) time each day Do not crush or chew. Active carvedilol (COREG) 6.25 MG tablet Take 6.25 mg by mouth in the morning and 6.25 mg in the evening. Take with meals. Active cloNIDine 0.1 MG/24HR patch weekly APPLY 1 PATCH TOPICALLY TO THE SKIN EVERY WEEK 4 patch 6 4 Active Aspirin 81 MG capsule Take 81 mg by mouth 1 (one) time each day 4 Active apixaban (Eliquis) 5 MG tablet Take 5 mg by mouth in the morning and 5 mg in the evening. 08/14/19 25 Discontinu ed(Formula ry change) Active Problems Problem Noted Date Diagnosed Date Essential (primary) hypertension 01/19/2023 Hyperglycemia 12/06/2018 02/22/2023 Malignant neoplasm of prostate 10/05/2015 0 02/22/2023 Overview (02/22/2023): S/p prostectomy 07/2017, Follows with urologist, Dr. Main Seasonal allergy 10/05/2015 02/22/2023 Constipation 07/29/2010 02/22/2023 Overview (02/22/2023): Negative colonoscopy 2010in Benign prostatic hyperplasia 09/15/200804/2023 Calculus of kidney 06/06/2005 02/22/2023 Esophageal reflux 06/06/2005 02/22/2023 Overview (02/22/2023): EGD (-) 04/18, feels well without acid control/PPI Resolved Problems Problem Noted Date Diagnosed Date Resolved Date Diverticulosis of colon 01/19/2023 07/0 01/2023 Family history of malignant neoplasm of gastrointestinal tract 01/19/2023 01/19/2023 Hemorrhage of anus and rectum 01/19/2023 01/19/2023 History of adenomatous polyp of colon 01/19/2023 01/19/2023 Screening for malignant neoplasm of colon 01/19/2023 01/19/2023 Encounters Date Type Department Care Team Description 08/14/2024 1:00 PM EST Office [facility] [address] [place], [place] [address] Shaggy Hernandez MD from Last 3 Months Immunizations Name Administration Dates Next Due Influenza Split High Dose Preservative Free IM 0 03/16/2020,03/07/2018 Pneumococcal Conjugate 13-Valent 01/17/2017 Pneumococcal Polysaccharide 04/06/2011 Shingrix 10/02/2017 Tdap 10/28/2010 Family History Medical History Relation Comments Cancer Brother Heart disease Father Hypertension Mother Relation Status Comments Brother Father Mother Social History Tobacco Use Types Packs/Day Years Used Date Smoking Tobacco: Former Cigarettes Smokeless Tobacco: Never Tobacco Cessation:Counseling Given: No Alcohol Use Standard Drinks/Week Comments Yes 0 (1 standard drink = 0.6 oz pur e alcohol) Sex and Gender Information Value Date Recorded Sex Assigned at Not on file Legal Sex Male 1:59 PM EDT Gender Identity Not on file Sexual Orientation Not on file Last Filed Vital Signs Vital Sign Reading Time Taken Comments Blood Pressure 150/82 08/14/2024 1:05 PM EST Pulse 62 08/14/2024 1:05 PM EST Temperature - - Respiratory Rate - - Oxygen Saturation 96% 08/14/2024 1:05 PM EST Inhaled Oxygen Concentration - - Weight 80.2 kg (176 lb 12.8 oz) 08/14/2024 1:05 PM EST Height 177.8 cm (5' 10 ) 08/14/2024 1:05 PM EST Body Mass Index 25.37 08/14/2024 1:05 PM EST Plan of Treatment Upcoming Encounters Date Type Department Care Team (Late st Contact Info) Description 09/11/2024 8:00 AM EST [facility] [address] [address] Celestina Quevedo ARNP [address] [phone] Health Maintenance Due Date Last Done Comments Influenza Vaccine (#1) 2024 0, 04/14/2019, 03/07/2018, Additional history exists Pneumococcal Vaccine: 65+ Years Completed 01/17/2017, 04/06/2011 Hepatitis B Vaccine Aged Out No longe r eligible based on patient's age to complete this topic Insurance MEDICARE UN[employer] MEDICARE [facility] Care Teams Oil Field Tester Relationship Specialty Start Date End Date Oscar Arias MD [facility] [place] [address] [place] PCP - General Internal Medicine 01/04/23
--- OUTSIDE RECORDS SUMMARY | 2024-08-18 12:14 | XMS_ITS | Encounter Summary ---
Author Organization [facility] Address [address] [place] [phone] Phone Care Team Providers Care Group Sales Coordinator Name Role Phone Oscar Arias MD Primary Care Provider Reason for Visit * Reason Comments Hypertension Encounter Details Date Type Department Care Team (Late st Contact Info) Description 08/14/2024 1:00 PM EST [facility] [address] [place] [address] [place] [phone] Shaggy Hernandez MD [address] [phone] Social History Tobacco Use Types Packs/Day Years Used Date Smoking Tobacco: Former Cigarettes Smokeless Tobacco: Never Alcohol Use Standard Drinks/Week Comments Yes 0 (1 standard drink = 0.6 oz pur e alcohol) Sex and Gender Information Value Date Recorded Sex Assigned at Not on file Legal Sex Male 1:59 PM EDT Gender Identity Not on file Sexual Orientation Not on file documented as of this encounter Last Filed Vital Signs Vital Sign Reading [...] Mass Index 25.37 08/14/2024 1:05 PM EST documented in this encounter Plan of Treatment Upcoming Encounters Date Type Department Care Team (Late st Contact Info) Description 09/11/2024 8:00 AM EST [facility] [address] [phone] Celestina Quevedo ARNP [address] [phone] documented as of this encounter Visit Diagnoses Not on filedocumented in this encounter Care Teams Group Sales Coordinator Relationship Specialty Start Date End Date Oscar Arias MD [facility] [place] [address] [place], [place] PCP - General Internal Medicine 01/04/23 documented as of this encounter
== END 2024-08-18 12:05 | disposition home or self-care (01) ==
PROVIDERS: PCP Internal Medicine; Visit Provider Nurse Practitioner Family
DX: J06.9 Acute upper respiratory infection, unspecified (principal)

== ENCOUNTER 2024-08-18 11:04 | Outpatient (REF) | payer MEDICARE, OTHER, SELFPAY ==
--- OUTSIDE RECORDS SUMMARY | 2024-08-18 13:24 | XMS_ITS | Clinical Summary ---
Author Organization [facility] Address [address] [place] [address] Phone Care Team Providers Care Wholesale Manager Name Role Phone Oscar Arias MD Primary Care Provider [phone] Allergies Active Allergy Reactions Criticality Noted Date [...] Visit [facility] [address] [place], [place] [address] Shaggy Hernandez MD from Last 3 Months [...] Office Visit [facility] [address] [phone] Celestina Quevedo ARNP [address] [phone] Health Maintenance Due Date Last Done Comments Influenza Vaccine (#1) 2024 0, 04/14/2019, 03/07/2018, Additional history exists Pneumococcal Vaccine: 65+ Years Completed 01/17/2017, 04/06/2011 Hepatitis B Vaccine Aged Out No longe r eligible based on patient's age to complete this topic Insurance MEDICARE UNICARE MEDICARE [facility] Care Teams Wholesale Manager Relationship Specialty Start Date End Date Oscar Arias MD [facility] [place] [address] [place] PCP - General Internal Medicine 01/04/23
--- OUTSIDE RECORDS SUMMARY | 2024-08-18 13:24 | XMS_ITS | Clinical Summary ---
Author Organization [facility] it Address [address] [place] [address] Care Team Providers Care Informatics Application Analyst Name Role Phone Thomas Stiles MD Primary [...] Surgery Date Site/Laterality Comments COLONOSCOPY 04/18/2004 PROCEDURE: TX COLONOSCOPY FLX DX W/COLLJ SPEC WHEN PFRMD; COMMENT: Normal ESOPHAGOGASTRODUODENOSCOPY 04/18/2004 PROCEDURE: TX ESOPHAGOGASTRODUODENOSCOPY TRANSORAL DIAGNOSTIC; COMMENT: Normal, not on PPI. COLONOSCOPY 06/03/2010 PROCEDURE: TX COLONOSCOPY FLX DX W/COLLJ SPEC WHEN PFRMD; COMMENT: Normal ESOPHAGOGASTRODUODENOSCOPY 06/03/2010 PROCEDURE: TX ESOPHAGOGASTRODUODENOSCOPY TRANSORAL DIAGNOSTIC; COMMENT: Normal, not on PPI rx. Medical History Medical History Date Comments Esophageal reflux DX:Esophageal reflux Calculus of kidney DX:Calculus o f kidney Historical Medical DX 09/15/2008 DX:BPH Constipation 07/29/2010 DX:Constipation Prostate CA (CMS/HCC) 10/05/2015 DX:Prostat e CA ([facility]); COMMENT: Follows with urologist, Dr. Main [...] Montesinos * Hepatitis C Screening (08/23/2016) Pathologist [facility] Hepatitis C Screening Abstracted Historical Provider MD AIME BOSTON E * (ABNORMAL) Lipid panel (08/23/2016) [facility] LDL/HDL Ratio 3 0 - 4 Triglycerides 160(A) 0 - 150 mg/dL Cholesterol 136 0 - 200 mg/dL HDL 54 40 mg/dL LDL Cholesterol 50 0 - 100 mg/dL Blood Venous blood specimen / Unknown Historical Provider LAB BLOOD ORDERAB LES from Last 3 Months or Most Recently Relevant to Health Maintenance Advance Directives Documents on File Type Date Recorded Patient Cocktail Server Expl anation Health Care Decision (hx) 02/20/2019 AD PORTER DIRECTIVE Health Care Decision (hx) 02/20/2019 AD PORTER DIRECTIVE Health Care Decision (hx) 08/07/2017 AD PORTER DIRECTIVE Health Care Decision (hx) 08/07/2017 AD PORTER DIRECTIVE Care Teams Informatics Application Analyst Relationship Specialty Start Date End Date Thomas Stiles MD [address] [place] [address] PCP - General 05/30/04
--- OUTSIDE RECORDS SUMMARY | 2024-08-18 13:24 | XMS_ITS | Encounter Summary ---
Author Organization [facility] Address [address] [place] [phone] Phone Care Team Providers Care Apparel Sales Leader Name Role Phone Oscar Arias MD Primary Care Provider [phone] Reason for Visit * Reason Comments Hypertension Encounter Details Date Type Department Care Team (Late st Contact Info) Description 08/14/2024 1:00 PM EST Office Visit [facility] [address] [place] [address] [place] [phone] Shaggy Hernandez MD [address] [phone] Social History Tobacco Use Types [...] Visit [facility] [address] [phone] Celestina Quevedo ARNP [address] [phone] documented as of this encounter Visit Diagnoses Not on filedocumented in this encounter Care Teams Apparel Sales Leader Relationship Specialty Start Date End Date Oscar Arias MD [facility] INTERNAL [place] [address] [place], [place] PCP - General Internal Medicine 01/04/23 documented as of this encounter
== END 2024-08-18 11:05 | disposition home or self-care (01) ==
LOC: HO.LAB 11:04
PROVIDERS: PCP Internal Medicine; Visit Provider Nurse Practitioner Family
DX: J06.9 Acute upper respiratory infection, unspecified (principal)
CPT/HCPCS: 0241U; 99212

== ENCOUNTER 2024-08-26 10:01 | Outpatient (AMB) | payer MEDICARE, OTHER, SELFPAY ==
[2024-08-26 10:02] VITALS: BP 138/76; PULSE 74; O2SAT 96; BMI 25.1
--- NOTE | 2024-08-26 10:02 | AM.OFFVISMDC ---
Intake Vital Signs 08/26/24 10:02 Height 5 ft 10 in Weight 175 lb BMI 25.1 BP 138/76 Blood Pressure Location Lt brachial Position Sitting Pulse 74 Pulse Source Pulse Oximeter Pulse Oximetry (%) 96 Oxygen Delivery Method Room Air Intake Visit Reasons: SAWV Allergies Iodinated Contrast Media [IV DYE, IODINE CONTAINING] Allergy (Intermediate, Verified 08/26/24 10:03) NAUSEA & VOMITING Penicillins [PENICILLINS] Allergy (Unknown, Verified 08/26/24 10:03) cramping amlodipine Adverse Reaction (Intermediate, Verified 08/26/24 10:03) Nausea losartan Adverse Reaction (Intermediate, Verified 08/26/24 10:03) Nausea Metoprolol Adverse Reaction (Intermediate, Uncoded 08/26/24 10:03) Nausea and Vomiting Respiratory syncytial virus vaccine Adverse Reaction (Intermediate, Uncoded 08/26/24 10:03) Rash Medication List - Last Reconciled 08/26/24 by Oscar Arias MD aspirin (Adult Low Dose Aspirin) 81 mg PO DAILY carvedilol 12.5 mg PO BID clonidine 1 patch topical QWEEK hydrocortisone 2.5% (Proctozone-HC) 1 appl [place] BID omeprazole 20 mg PO BID PRN polyethylene glycol 3350 (Miralax) 17 grams PO DAILY HPI SAWV HPI Details The patient is a 79-year-old male presenting for an annual wellness visit. He has a history of Gastroesophageal Reflux Disease (GERD) but currently does not require regular omeprazole, opting for Tums for occasional symptoms. He was diagnosed with prostate cancer, which has been treated, leaving him with undetectable prostate-specific antigen levels. He has Benign Prostatic Hyperplasia (BPH) but reports stable symptoms and urinates once nightly. He suffers from essential hypertension, currently managed with carvedilol and a clonidine patch, which is stable except for occasional lightheadedness upon standing. Recent blood work showed mild anemia but was reportedly improving. In September 2023, a Watchman's device was placed due to paroxysmal atrial fibrillation. He is under management with aspirin after discontinuing Plavix. He has noted aortic dilatation at 3.8 cm as of May 2023, with planned follow-up in cardiology. He has a history of nephrolithiasis, currently under observation, with a pending urological follow-up. He also occasionally visits urgent care for acute conditions, such as a past respiratory tract infection negatively tested for COVID-19, flu, and RSV. An appointment with podiatry is scheduled for an ingrown toenail. He experiences tinnitus due to a service injury and occasional hemorrhoid symptoms managed with Miralax and topical ointment. - Received Td booster during a May urgent care visit. - Underwent colonoscopy in 2015. - Last complete blood work in March 2024, showing mild anemia improving, normal platelet and white blood cell count, electrolytes, renal, liver function, and liquid profile. - Continues Light Alchohal consumption of 1-2 beers weekly. - Engages in regular physical activity, including exercise biking and rowing daily. - Encouraged to avoid large gatherings and those with respiratory symptoms during the flu season. - The patient is a former smoker, having quit at 30 years old. - Consumes alcohol occasionally, approximately 1-2 beers weekly. - Exercises regularly, using an exercise bike for 30 minutes daily and occasional rowing. - General: Reports past lightheadedness upon standing. - HEENT: Denies sore throat, reports yellow nasal discharge. - Respiratory: Denies shortness of breath. - Cardiovascular: Denies chest pain and palpitations. - Gastrointestinal: Denies heartburn symptoms, notes hemorrhoids. - Genitourinary: Denies dysuria, reports nighttime urination. - Neurological: Reports tinnitus, no recent hearing test. - Musculoskeletal: Denies joint pain during exercise. - Dermatology: Reports ingrown toenail. - Labs: March 2024 showed mild anemia improving, normal platelet and white blood cell counts, normal renal, liver, lipid profile. [facility] Medical History (Updated 08/26/24 @ 10:29 by Oscar Arias MD) Acute respiratory disease COVID-19 virus infection PAF (paroxysmal atrial fibrillation) Bleeding grade II hemorrhoids Generalized anxiety disorder Atrial fibrillation with rapid ventricular response Atrial fibrillation, new onset Epigastric pain determined by examination Chest pain Acute sinusitis Bloating Postnasal drip Sinus congestion Arrhythmia Burping Blood pressure elevated without history of HTN Colon cancer screening History of renal calculi History of prostate cancer GERD (gastroesophageal reflux disease) BPH (benign prostatic hyperplasia) Surgical History Hx of surgical procedure (09/28/23) History of suburethral sling procedure History of colonoscopy History of adenoidectomy S/P left inguinal herniorrhaphy H/O prostatectomy Social History (Updated 08/26/24 @ 10:38 by Oscar Arias MD) Household Members: None Caregiver staying overnight: No Housing: House Are you a primary nurse behavioral health care 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 other at home: Yes Do you presently have visiting nurse or other home services: No 75 years or older and lives alone: Yes Alcohol intake: current Alcohol intake frequency: does not drink Comment: 1-2 beers on sunday Patient Tobacco Use Status: Former Tobacco user Tobacco use type: Cigarette Years Smoked: 13 stopped 30 years old e-Cigarette/Vaping Use: Never Used Second Hand Smoke Exposure: No Advance Directives Date on File: 06/02/22 service: Yes Current occupational status: unemployed and retired Current occupation: left hand Cognitive needs: No Hearing needs: No Vision needs: Yes Questionnaire Medicare Wellness Checkup What [age]?: [age] What gender do you identify with?: male During the past 4 weeks, how much have you been bothered by emotional problems such as feeling anxious, depressed, irritable, sad or downhearted, and blue?: not at all During the past 4 weeks, has your physical & emotional health limited your social activities with family, friends, neighbors, or groups?: not at all During the past 4 weeks, how much bodily pain have you generally had?: no pain During the past 4 weeks, was someone available to help you if you needed & wanted help?: yes, as much as I wanted During the past 4 weeks, what was the hardest physical activity you could do for at least 2 minutes?: moderate Can you get to places out of walking distance without help? (For eg., can you travel alone on buses, taxis or drive your car?): Yes Can you go shopping for groceries or clothes without someone's help?: Yes Can you prepare your own meals?: Yes Can you do your housework without help?: Yes Because of any health problems, do you need the help of another person with your personal care needs such as eating, bathing, dressing or getting around the house?: No Can you handle your own money without help?: Yes During the past 4 weeks, how would you rate your health in general?: very good During the past 4 weeks how have things been going for you?: very well; could hardly better Are you having difficulties driving your car?: no Do you always fasten your seat belt when you are in a car?: yes, usually During past 4 weeks, have you been bothered by the following: never: Falling or dizzy when standing up, Sexual problems?, Trouble eating well?, Teeth or denture problems?, Problems using the telephone? and Tiredness or fatigue? Have you fallen 2 or more times in the past year?: No Are you afraid of falling?: No Are you a smoker?: no During the past 4 weeks, how many drinks of wine, beer, or other alcoholic beverages did you have?: 2-5 drinks per week Do you exercise for about 20 minutes 3 or more times a week?: yes, most of the time Have you been given information to help with the following?: no: Hazards in your house that might hurt you? and no: Keeping track of your medications? How often do you have trouble taking medicines the way you have been told to take them?: I always take medicine as prescribed How confident are you that you can control & manage most of your health problems?: very confident What is your race?: White PHQ-9 Over the last 2 weeks, how often have you been bothered by any of the following problems? 1. Little interest or pleasure in doing things: not at all 2. Feeling down, depressed, or hopeless: not at all 3. Trouble falling or staying asleep, or sleeping too much: not at all 4. Feeling tired or having little energy: not at all 5. Poor appetite or overeating: not at all 6. Feeling bad about yourself - or that you are a failure or have let yourself or your family down: not at all 7. Trouble concentrating on things, such as reading the newspaper or watching television: not at all 8. Moving or speaking so slowly that other people could have noticed. Or the opposite - being so fidgety or restless that you have been moving around a lot more than usual: not at all 9. Thoughts that you would be better off or of hurting yourself in some way: not at all Total score: 0 Depression Screening Interpretation: Negative Depression Screening Done: Yes 77612 - PHQ-9 Billing: Yes Source: Developed by Drs. Jayesh LPetra Rock Kurt Kroenke and colleagues, with an educational agustin from [employer]. Thrive Questionnaire Date Thrive assessed: 08/26/24 I am a: Patient What is your living situation today?: I have a steady place to live Within the past 12 months, did the food you bought not last and you didn't have the money to get more?: Never true Within the past 12 months, did you worry whether your food would run out before you got money to buy more?: Never true Do you have trouble paying for medicines?: No Do you have trouble getting transportation to medical appointments?: No Do you have trouble paying your heating and electricity bill?: No Do you have trouble taking care of your child, family member or friend?: No Do you have trouble with day-to-day activities such as bathing, preparing meals, shopping, managing finances, etc.?: No Are you currently unemployed and looking for a job?: No Are you interested in more education?: No Currently or been in a relationship where the following occur: No concerns reported THRIVE Score: 0 PATIENCE-7 AMB Questionnaire PATIENCE-7 Date PATIENCE - 7 assessed: 08/26/24 Feeling nervous, anxious, or on edge: 0 = Not at all Not being able to stop or control worryin = Not at all Worrying too much about different things: 0 = Not at all Trouble relaxin = Not at all Being so restless that it is hard to sit still: 0 = Not at all Becoming easily annoyed or irritable: 0 = Not at all Feeling afraid as if something awful might happen: 0 = Not at all Total PATIENCE-7 score (0-4 normal; 5-9 mild; 10-14 moderate; 15-21 severe): 0 Source: Developed by Drs. Jayesh Mcginnis, Miguel Ortega and colleagues, with an educational agustin from [employer]. Review of Systems Const Denies poor appetite and Denies weakness Eyes Denies no additional complaints ENT Reports Normal hearing present, Denies dizziness, Denies nasal congestion, Denies tinnitus and Denies sore throat Card Denies chest pain, Denies syncope, Denies rapid heart rate and Denies dyspnea Resp Denies cough and Denies dyspnea GI Denies change in stool character, Reports constipation, Denies diarrhea, Denies nausea and Denies vomiting Denies dysuria and Denies urinary frequency Neuro Reports Normal hearing present, Denies confusion, Denies dizziness, Denies syncope and Denies weakness Psych Denies confusion Physical Exam Vital Signs: Last Vital Signs Pulse 74 08/26/24 10:02 BP 138/76 08/26/24 10:02 Pulse Ox 96 08/26/24 10:02 Oxygen Delivery Method Room Air 08/26/24 10:02 BMI result Body Mass Index 25.1 Const General: alert and awake; No confusion Orientation/consciousness: No confusion HEENT Other: impacted cerumen L, Right TM intact Head: Yes normocephalic Ears: external ears normal Face and sinus: Yes normal facial exam Mouth: moist mucous membranes Throat: Yes tonsils normal Eyes Conjunctivae: conjunctivae normal Pupils: Equal, round and reactive pupils present and Pupil accommodation reflex normal Direct Ophthalmoscopy: normal light reflex Neck Neck: No lymphadenopathy Thyroid: Thyroid normal Chest Chest palpation & inspection: normal inspection of the chest Resp Effort & Inspection: normal respiratory effort and no audible wheezes Auscultation: clear to auscultation bilaterally, no crackles, no wheezes and lung sounds not diminished Cardio Rate: regular rate Rhythm: regular rhythm Peripheral pulses: radial pulses present and dorsalis pedis present GI Other: guaiac negative, no prostate Palpation (GI): no masses Auscultation: normal bowel sounds and normoactive bowel sounds Skin General skin exam: no rashes or lesions noted Rashes: no rashes Neuro General: deep tendon reflexes 2+ bilaterally and No confusion Cranial nerves: Yes Equal, round and reactive pupils present, Yes Midline tongue present, Yes Normal hearing present and Yes Ability to bilaterally elevate shoulders present Cognition (Neuro): normal cognition Gait exam (Neuro): Normal gait present Motor exam (neuro): 5/5 motor strength present throughout Deep tendon reflexes (DTR's): Right brachioradialis reflex intensity grade: 2+, Left brachioradialis reflex intensity grade: 2+, Right patellar reflex intensity grade: 2+ and Left patellar reflex intensity grade: 2+ Extrem General: No edema Assessment & Plan Assessment & Plan (1) Medicare annual wellness visit, subsequent: Code(s): Z00.00 - Encounter for general adult medical examination without abnormal findings Plan: Patient is advised to eat healthy, keep well hydrated, keep active and have adequate sleep. (2) Presence of Watchman left atrial appendage closure device: Comment: 10/10/2023 Dr. Mcnulty Code(s): Z95.818 - Presence of other cardiac implants and grafts Plan: Continue to follow-up with cardiology only on aspirin presently (3) PAF (paroxysmal atrial fibrillation): Comment: May 2023 new onset, watchman's device September 2023 Code(s): I48.0 - Paroxysmal atrial fibrillation Plan: Continue to be on aspirin (4) Hypertension: Code(s): I10 - Essential (primary) hypertension Plan: Continue with blood pressure medication. Decrease salt intake and exercise on carvedilol 12.5 mg twice a day clonidine patch once a week (5) History of prostate cancer: Code(s): Z85.46 - Personal history of malignant neoplasm of prostate Plan: PSA undetectable in March (6) BPH (benign prostatic hyperplasia): Code(s): N40.0 - Benign prostatic hyperplasia without lower urinary tract symptoms Plan: Stable (7) GERD (gastroesophageal reflux disease): Code(s): K21.9 - Gastro-esophageal reflux disease without esophagitis Plan: Avoid the foods that causes that usually spicy foods, tomato products, juices, coffee, soda and foods that your sensitive to. After eating do not lie down, allow 3-4 hours before in lie down. And keep the head of bed above 30 degrees to avoid the acid from going up. Plan - Continue current management of GERD with omeprazole PRN. - Monitor BPH symptoms with current treatment. - Maintain hypertension regimen with carvedilol and clonidine; continue monitoring blood pressure. - Follow-up with cardiology for paroxysmal atrial fibrillation management with aspirin therapy. - Monitor aortic dilatation; no current intervention planned. - Continue urology follow-up for nephrolithiasis. - Address sinus congestion symptomatically; monitor for persistence. - Maintain hearing loss management; consider audiology if symptoms worsen. - Continue hemorrhoid management with Miralax and topical treatment. - Schedule podiatry follow-up for ingrown toenail. I discussed the current health status, including stable hypertension and the plan to discontinue Plavix, remaining only on aspirin for atrial fibrillation. I emphasized the importance of avoiding large gatherings during the flu season due to the persistence of COVID-19, influenza, and RSV. I encouraged continuing regular physical activities. We discussed monitoring the ingrown toenail with podiatry and maintaining current management strategies for hemorrhoid and hearing loss. Lastly, I advised a follow-up in six months unless issues arise, and I emphasized online messaging for interim communications. - Continue current medications as advised. - Maintain regular exercise routine. - Avoid contact with individuals showing respiratory symptoms. - Monitor ingrown toenail; follow up with podiatry as scheduled. - Use OTC treatments for hemorrhoids and GERD symptoms as needed. - Stay hydrated and maintain a balanced diet. - Contact the office with any significant changes in symptoms or new concerns. - Schedule the requested blood test in three months. Orders: Orders Reticulocyte Count Today K21.9 - Gastro-esophageal reflux disease without esophagitis IRON PROFILE Today K21.9 - Gastro-esophageal reflux disease without esophagitis Thyroid Stimulating Hormone Today K21.9 - Gastro-esophageal reflux disease without esophagitis Vitamin B12 and Folate Today K21.9 - Gastro-esophageal reflux disease without esophagitis Complete Blood Count Auto Diff Today K21.9 - Gastro-esophageal reflux disease without esophagitis Comprehensive Met. Panel Today K21.9 - Gastro-esophageal reflux disease without esophagitis Ferritin Today K21.9 - Gastro-esophageal reflux disease without esophagitis Free T4 (Free Thyroxine) Today K21.9 - Gastro-esophageal reflux disease without esophagitis Lipid Panel Today E78.00 - Pure hypercholesterolemia, unspecified, I48.0 - Paroxysmal atrial fibrillation UA CC w/rflx Micro + Cult Today I48.0 - Paroxysmal atrial fibrillation, R30.0 - Dysuria Prostate Specific Antigen Scr Today I48.0 - Paroxysmal atrial fibrillation B Type Natriuretic Peptide Today I48.0 - Paroxysmal atrial fibrillation Quality Reporting (2020) Depression/Bipolar (159/160/161/177) PHQ-9: Total score: 0 Coding Level of Care Code Medicare Subsequent (G0439) Diagnoses Medicare annual wellness visit, subsequent Z00.00 Presence of Watchman left atrial appendage closure device Z95.818 PAF (paroxysmal atrial fibrillation) I48.0 Hypertension I10 History of prostate cancer Z85.46 BPH (benign prostatic hyperplasia) N40.0 GERD (gastroesophageal reflux disease) K21.9 Additional Codes PHQ-9 - 05189 - PHQ-9 Billing: Yes ([id number])
--- OUTSIDE RECORDS SUMMARY | 2024-08-26 11:09 | XMS_ITS | Clinical Summary ---
Author Organization [facility] it Address [address] [place] [address] Care Team Providers Care Booth Manager Name Role Phone Thomas Stiles MD Primary Care Provider [phone] Allergies Active Allergy Reactions Criticality Noted Date Comments Digoxin 06/06/2005 Iodinated Contrast Media 06/06/2005 Penicillin V Potassium 06/06/2005 Sulfa (Sulfonamide Antibiotics) 05/17 Medications ketotifen fumarate (ZADITOR) 0.035 % ophthalmic solution 1 drop in each eye once a day Active fluticasone propionate (FLONASE) 50 mcg/actuation nasal spray 2 Sprays by Nasal route daily. Active Active Problems Problem Noted Date Diagnosed Date Hyperglycemia 12/06/2018 Prostate CA 10/05/2015 Overview (07/07/2024): S/p prostectomy 07/2017, Follows with urologist, Dr. Main Seasonal allergies 10/05/2015 Constipation 07/29/2010 Overview (07/07/2024): Negative colonoscopy 2009in Benign prostatic hyperplasia 09/15/2008 Rectal bleeding 08/07/2005 [...] Surgery Date Site/Laterality Comments COLONOSCOPY 04/18/2004 PROCEDURE: [place] COLONOSCOPY FLX DX W/COLLJ SPEC WHEN PFRMD; COMMENT: Normal ESOPHAGOGASTRODUODENOSCOPY 04/18/2004 PROCEDURE: IL ESOPHAGOGASTRODUODENOSCOPY TRANSORAL DIAGNOSTIC; COMMENT: Normal, not on PPI. COLONOSCOPY 06/03/2010 PROCEDURE: [place] COLONOSCOPY FLX DX W/COLLJ SPEC WHEN PFRMD; COMMENT: Normal ESOPHAGOGASTRODUODENOSCOPY 06/03/2010 PROCEDURE: IL ESOPHAGOGASTRODUODENOSCOPY TRANSORAL DIAGNOSTIC; COMMENT: Normal, not on PPI rx. Medical History Medical History Date Comments Esophageal reflux DX:Esophageal reflux Calculus of kidney DX:Calculus o f kidney Historical Medical DX 09/15/2008 DX:BPH Constipation 07/29/2010 DX:Constipation Prostate CA (CMS/HCC) 10/05/2015 DX:Prostat e CA ([facility]); COMMENT: Follows with urologist, Dr. Main Hyperglycemia [...] at Not on file Legal Sex Male 7:15 PM EST Gender Identity Not on file Sexual Orientation Not on file Obstetrics History Plan of Treatment Health Maintenance Due Date Last Done Comments COVID-19 Vaccine (#1) 1950 DTaP,Tdap,and Td Vaccines (3 - Td or Tdap) 04/29/2011 10/28/2010, 01/12/2005 Zoster Vaccines (2 of 2) 11/27/2017 10/02/2017, 03/18 RSV Immunization Patients 60+ Years Old (1 - 1-dose 75+ series) 2021 Influenza Vaccine (#1) 2024 , 03/16/2020, 04/14/2019, Additional history exists Cholesterol Screening (Lipid Panel) 07/08/2024 08/23/2016 Depression Screening 07/08/2024 Falls Risk Assessment 07/08/2024 Hypertension/CHF/CAD Annual BMP Blood Test 07/08/2024 05/30/2019 Social Influencers of Health Screening 07/08/2024 Hepatitis C Screening Completed 08/23/2016 Pneumococcal Vaccine: 50+ Years Completed 01/17/2017, 04/06/2011 HIB Vaccines Aged [...] patient's age to complete this topic Meningococcal B Vacine Aged Out No lo nger eligible based on patient's age to complete [...] Results * Annual BMP Blood Test (05/30/2019) Pathologist [facility] Annual BMP Blood Test Abstracted [facility] Provider HEALTH MAINTENANCE Final Result * Hepatitis C Screening (08/23/2016) [facility] Hepatitis C Screening Abstracted [facility] Provider HEALTH MAINTENANCE Final Result * (ABNORMAL) Lipid panel (08/23/2016) [facility] LDL/HDL Ratio 3 0 - 4 Triglycerides 160(A) 0 - 150 mg/dL Cholesterol 136 0 - 200 mg/dL HDL 54 >=40 mg/dL LDL Cholesterol 50 0 - 100 mg/dL Blood Venous blood specimen / Unknown [facility] Provider LAB BLOOD ORDERABLES Zulema l Result from Last 3 Months or Most Recently Relevant to Health Maintenance Advance Directives Documents on File Type Date Recorded Patient Rn Hemodialysis Expl anation Health Care Decision (hx) 02/20/2019 AD PORTER DIRECTIVE Health Care Decision (hx) 02/20/2019 AD PORTER DIRECTIVE Health Care Decision (hx) 08/07/2017 AD PORTER DIRECTIVE Health Care Decision (hx) 08/07/2017 AD PORTER DIRECTIVE Care Teams Booth Manager Relationship Specialty Start Date End Date Thomas Stiles MD [address] [place] [id number] PCP - General 05/30/04
--- OUTSIDE RECORDS SUMMARY | 2024-08-26 11:09 | XMS_ITS | Clinical Summary ---
Author Organization [facility] Address [address] [place] [address] Phone Care Team Providers Care Car Wash Manager Name Role Phone Oscar Arias MD Primary Care Provider Allergies Active Allergy [...] Visit [facility] [address] [place], [place] [address] Shaggy Hernandez MD from Last 3 Months [...] [facility] [address] [address] Celestina Quevedo ARNP [address] [address] Health Maintenance Due Date Last Done Comments Influenza Vaccine (#1) 2024 0, 04/14/2019, 03/07/2018, Additional history exists Pneumococcal Vaccine: 65+ Years Completed 01/17/2017, 04/06/2011 Hepatitis B Vaccine Aged Out No longe r eligible based on patient's age to complete this topic Insurance MEDICARE UN[employer]ARE MEDICARE [facility] Care Teams Car Wash Manager Relationship Specialty Start Date End Date Oscar Arias MD [facility] [place] [address] MICHELLEMARK YO PCP - General Internal Medicine 01/04/23
--- OUTSIDE RECORDS SUMMARY | 2024-08-26 11:09 | XMS_ITS ---
Author Organization [facility] Address [address] [place] [phone] Care Team Providers Care Computer Science Professor Name Role Phone Oscar Arias MD Primary Care Provider Jayesh De Santiago [phone] Encounters Encounter Location Date Provider Diagnosis [facility] [address] [place] [address] 08/09/2023 Jayesh Sweet PLAN OF TREATMENT No Information
--- OUTSIDE RECORDS SUMMARY | 2024-08-26 11:09 | XMS_ITS | Encounter Summary ---
Author Organization [facility] Address [address] [place] [phone] Phone Care Team Providers Care Manager Employee Benefits Name Role Phone Oscar Arias MD Primary Care Provider [phone] Reason for Visit * Reason Comments Hypertension Encounter Details Date Type Department Care Team (Late st Contact Info) Description 08/14/2024 1:00 PM EST Office Visit [facility] [address] [place] [address] [place] [phone] Shaggy Hernandez MD [address] [address] Social History Tobacco Use Types [...] [facility] [address] [phone] Celestina Quevedo ARNP [address] [phone] documented as of this encounter Visit Diagnoses Not on filedocumented in this encounter Care Teams Manager Employee Benefits Relationship Specialty Start Date End Date Oscar Arias MD [facility] [address] [place], [place] PCP - General Internal Medicine 01/04/23 documented as of this encounter
--- OUTSIDE RECORDS SUMMARY | 2024-08-26 11:09 | XMS_ITS | Patient Health Record ---
Author Organization [facility] Address [address] [place] [phone] Care Team Providers Care Digital Strategy Director Name Role Phone Oscar Arias MD Primary Care Provider Jayesh De Santiago Unavailable [phone] ALLERGIES Allergen (clinical drug ingredient) Drug/Non Drug Allergy documented on EMR Reaction Allergy Type Onset Date Status RSV Vaccine Recombinant, Adjuvanted Unknown Drug Allergy Active RSV Test Unknown Drug Allergy Active Penicillin Unknown Drug Allergy Active IVP dye (uncoded) Unknown Allergy Ac tive REASON FOR REFERRAL No Information MEDICATIONS Medication SIG (Take, Route, Frequency, Duration) Notes Start Date End Date Status Fluticasone Propionate 50 MCG/ACT SHAKE LIQUID AND USE 2 SPRAYS IN EACH NOSTRIL DAILY Diagnosis Unavailable Nasal for 90 Active Lisinopril 5 MG Oral for 30 Ac tive Eliquis 5 MG 1 tablet Orally Twic e a day for 30 day(s) Active cloNIDine 0.1 MG/24HR 1 patch to skin Transdermal for 30 day(s) Active Prilosec 20 MG 2 capsule Orally twi ce a day for 10 day(s) Not-Taking Flonase Allergy Relief 50 MCG/ACT 1 spray in each nostril Nasally Once a day for 30 day(s) Active Hydrocortisone 2.5 % 1 application Externally Once a day Active Carvedilol 6.25 MG 1 tablet with food Orally Twice a day for 30 day(s) Active MiraLax 17 GM/SCOOP 1 scoop mixed with 8 ounces of fluid Orally Once a day for 30 day(s) Active IMMUNIZATIONS Vaccine Route Administration Date Status Comme nts Flu vaccine no Preserv 3 and > Unknown 05/11/2015 Admin istered Influenza Unknown 03/16/2022 Administered Influenza Unknown 07/16/2023 Administered SOCIAL HISTORY Sex Assigned At : Social History Observation Description Sex Assigned At Unknown Alcohol Screen Question Answer Notes Did you have a drink containing alcohol in the p ast year? No Points 0 Interpretation Negative PROBLEMS Problem Type ICD Code Onset Dates Problem Status W/U Status Risk SNOMED Code Notes Problem Rectal bleed (K62.5) Active confirmed 04338714 Problem Hx of adenomatous colonic polyps (Z86.010) Active confirmed 705612010 Problem Colon cancer screening (Z12.11) Active confirmed 406609640 Problem Family history of GI malignancy (Z80.0) Active confirmed 191493327 Problem History of colon polyps (Z86.010) Active confirmed History of polyp of colon (767897875) Problem Diverticulosis of colon (K57.30) Active confirmed Diverticulosi s of colon (103349215) Problem Generalized abdominal pain (R10.84) Active confirmed 939992504 Problem Gastroesophageal reflux disease, unspecified whether esophagitis present (K21.9) Active confirmed 696980694 PLAN OF TREATMENT Future Test Test Name Order Date COLONOSCOPY 04/12/2016 COLONOSCOPY 09/28/2022 Insurance Providers Payer Name Payer Address Payer Phone Subscriber Number Group Number Insured Name Patient Relationship to Insured Coverage Start Date Coverage End Date MEDICARE OF [place] [address] [place] [address] [id number] DASIA GROVER Self - patient is the insured [facility] [employer] [address] [place] [address] [id number] DASIA GROVER Self - patient is the insured MEDICAL (GENERAL) HISTORY Medical History History ICD Code Prostate cancer as below Denies DC,DM,CVA,Lung disease,renal dise ase Has had 3 previous colonosco pies at [place]--last one was 05/2010--he reports that they've been negative Hypertension Colonoscopy 05/2016 with a small tubular adenoma removed Atril fibrillation 05/2023-Dr. Jacoby ferrer [facility] Negative screening colonoscopy in 11/2022 Surgical History Surgery Date(Month/Year) Hernia repair--left inguinal Prostatectomy - Dr. Main [address] Buckner --h elped greatly 2021
--- OUTSIDE RECORDS SUMMARY | 2024-08-26 11:09 | XMS_ITS ---
Author Organization [facility] Address [address] [place] [phone] Care Team Providers Care Insurance Office Supervisor Name Role Phone Oscar Arias MD Primary Care Provider Jayesh De Santiago Unavailable [phone] ALLERGIES Allergen (clinical drug ingredient) Drug/Non Drug Allergy documented on EMR Reaction Allergy Type Onset Date Status RSV Vaccine Recombinant, Adjuvanted Unknown Drug Allergy Active RSV Test Unknown Drug Allergy Active Penicillin Unknown Drug Allergy Active IVP dye (uncoded) Unknown Allergy Ac tive RESULTS Component Value Reference Range Notes US abdomen complete Reviewed date:08/09/2023 06:13:08 PM Interpretation: Performing Lab: Notes/Report: [address] [address] Ultrasound Report Signed Patient: Dasia Grover MR#: [id number] : 1945 Acct:[id number] Age/Sex: 78 / M ADM Date: 08/08/23 Loc: HO.US Attending Dr: Jayesh Sweet MD Ordering Physician: Jayesh Sweet Date of Service: 08/08/23 Procedure(s): US abdomen complete Accession Number(s): [id number] cc: Oscar Arias MD; Jayesh Sweet EXAMINATION: US ABDOMEN COMPLETE CLINICAL INFORMATION: Abdominal pain. COMPARISON: None available. TECHNIQUE: Real-time imaging of the abdominal viscera. FINDINGS: PANCREAS: Normal. ABDOMINAL AORTA: The proximal, mid, and distal segments are normal in caliber. INFERIOR VENA CAVA: Visualized portions are normal. LIVER: Normal. The liver is normal in size. The liver contour is normal. Increased parenchymal echogenicity. No focal hepatic lesion. There is no intrahepatic biliary duct dilatation seen. GALLBLADDER: Normal. The gallbladder is physiologically distended without evidence of stones, sludge, polyps, wall thickening or pericholecystic fluid. COMMON BILE DUCT: Normal in caliber measuring 0.5 cm in diameter. RIGHT KIDNEY: Nonobstructive 1.3 cm calculus in the interpolar region. No hydronephrosis or focal parenchymal lesions. The kidney measures 12 cm in maximum dimension. LEFT KIDNEY: Simple appearing parapelvic cyst in the lower pole measuring 1.6 cm for which no imaging follow-up is recommended. No hydronephrosis or renal calculi. The kidney measures 13 cm in maximum dimension. SPLEEN: Normal. The spleen measures 12.7 cm in maximum dimension. FREE FLUID: None. US/US abdomen complete IMPRESSION: 1. Nonobstructive 1.3 cm calculus in the interpolar region of the right kidney. 2. Increased hepatic parenchymal echogenicity is nonspecific but most commonly on the basis of diffuse hepatocellular disease such as hepatic steatosis. 3. The spleen is within the upper limits of normal measuring 12.7 cm in length. Dictated By: Catalina Flores Signed By: <Electronically signed by Catalina Flores in OV> 08/09/23 1706 DD/ 0837 TD/TT: Cylinder Honer: REASON FOR VISIT Patient presents today for gaseous MEDICATIONS Medication SIG (Take, Route, Frequency, Duration) Notes Start Date End Date Status Fluticasone Propionate 50 MCG/ACT SHAKE LIQUID AND USE 2 SPRAYS IN EACH NOSTRIL DAILY Diagnosis Unavailable Nasal for 90 Active Lisinopril 5 MG Oral for 30 Ac tive Eliquis 5 MG 1 tablet Orally Twic e a day for 30 day(s) Active Carvedilol 6.25 MG 1 tablet with food Orally Twice a day for 30 day(s) Active MiraLax 17 GM/SCOOP 1 scoop mixed with 8 ounces of fluid Orally Once a day for 30 day(s) Active cloNIDine 0.1 MG/24HR 1 patch to skin Transdermal for 30 day(s) Active Prilosec 20 MG 2 capsule Orally twi ce a day for 10 day(s) Not-Taking Flonase Allergy Relief 50 MCG/ACT 1 spray in each nostril Nasally Once a day for 30 day(s) Active Hydrocortisone 2.5 % 1 application Externally Once a day Active SOCIAL HISTORY Sex Assigned At : Social History Observation Description Sex Assigned At Unknown Alcohol Screen Question Answer Notes Did you have a drink containing alcohol in the p ast year? No Points 0 Interpretation Negative PROBLEMS Problem Type ICD Code Onset Dates Problem Status W/U Status Risk SNOMED Code Notes Problem Generalized abdominal pain (R10.84) Active confirmed 587285757 Problem Gastroesophageal reflux disease, unspecified whether esophagitis present (K21.9) Active confirmed 819437074 VITAL SIGNS BMI 26.46 kg/m2 08/01/2023 Blood pressure systolic 000 mm Hg 08/01/19 24 Blood pressure diastolic 00 mm Hg 024 Height 67.5 in 08/01/2023 Temperature 97.5 degrees Fahrenheit 08/01/19 24 Weight 171 lb 8 oz lbs 08/01/2023 Encounters Encounter Location Date Provider Diagnosis [facility] [address] [place] [address] 08/01/2023 Jayesh Sweet Generalized abdomina l pain R10.84 and Gastroesophageal reflux disease, unspecified whether esophagitis present K21.9 ASSESSMENTS Encounter Date Diagnosis Assessment Notes Treatment Notes Treatment Clinical Notes 08/01/2023 Generalized abdomina l pain (ICD-10 - R10.84) 08/01/2023 Gastroesophageal ref lux disease, unspecified whether esophagitis present (ICD-10 - K21.9) Use omeprazole daily or just as needed for heartburn symptoms. PLAN OF TREATMENT Treatment Notes Assessment Notes Gastroesophageal reflux dise ase, unspecified whether esophagitis present Use omeprazole daily or just as needed for heartburn symptoms. Next Appt Details Follow Up: prn, Reason: Progress Notes * Examination Category Sub-Category Detail Notes General Examination GENERAL APPEARANCE: pleasant , well nourished, well developed, in no acute distress HEAD: EYES: sclera non-icteric EARS: NOSE: THROAT: NECK/THYROID: no cervical lymphade nopathy, neck supple HEART: S1, S2 normal CHEST: LUNGS: clear to auscultatio n bilaterally ABDOMEN: normal bowel sounds, no guarding or rigidity, no guarding or rigidity, no masses palpable, soft, nontender, nondistended NEUROLOGIC: alert and oriented SKIN: nonjaundiced, no spi fran angiomata EXTREMITIES: no edema PERIPHERAL PULSES: BACK: BREASTS: MUSCULOSKELETAL: MALE GENITOURINARY: LYMPH NODES: RECTAL EXAM: FEMALE GENITOURINARY: ORAL CAVITY: mucosa moist
== END 2024-08-26 10:58 | disposition home or self-care (01) ==
PROVIDERS: PCP Internal Medicine; Visit Provider Internal Medicine
DX: Z00.00 Encounter for general adult medical examination without abnormal findings (principal); Z95.818 Presence of other cardiac implants and grafts; I48.0 Paroxysmal atrial fibrillation; I10 Essential (primary) hypertension; Z85.46 Personal history of malignant neoplasm of prostate; N40.0 Benign prostatic hyperplasia without lower urinary tract symptoms; K21.9 Gastro-esophageal reflux disease without esophagitis

== ENCOUNTER → 2024-08-26 10:01 | Outpatient (BNVA) | payer MEDICARE, OTHER, SELFPAY | PROVIDERS: PCP Internal Medicine; Visit Provider Internal Medicine | DX: Z00.00 Encounter for general adult medical examination without abnormal findings (principal); I48.0 Paroxysmal atrial fibrillation; I10 Essential (primary) hypertension; K21.9 Gastro-esophageal reflux disease without esophagitis; N40.0 Benign prostatic hyperplasia without lower urinary tract symptoms; Z95.818 Presence of other cardiac implants and grafts; Z85.46 Personal history of malignant neoplasm of prostate | CPT/HCPCS: 96127 ==

== ENCOUNTER 2024-10-15 10:15 | Outpatient (REF) | payer MEDICARE, OTHER, SELFPAY ==
--- OUTSIDE RECORDS SUMMARY | 2024-10-15 12:53 | XMS_ITS | Clinical Summary ---
Author Organization [facility] Address [address] [place] [address] [place] [address] Phone Care Team Providers Care Sprinkler Tender Name Role Phone Oscar Arias MD Primary Care Provider [phone] Allergies Active Allergy Reactions Criticality Noted Date [...] (one) time each day 4 Active cloNIDine (Yctgodcj-BNY-7) 0.2 MG/24HR patch weeklyIndications :Essential (primary) hypertension [...] Office Visit [facility] [address] [place] [address] Celestina Quevedo ARNP Essential (primary) hypertension (Primary Dx) 08/14/2024 1:00 PM EST Office Visit [facility] [address] [place] [address] Shaggy Hernandez MD Essential (primary) hypertension (Primary [...] Office Visit [facility] [address] [address] Ranjith Canseco MD [address] [address] Health Maintenance Due Date Last Done Comments Influenza Vaccine (Season Ended) 2025 03/16/2020, 04/14/2019, 03/07/2018, Additional history exists Pneumococcal Vaccine: 65+ Years Completed 01/17/2017, 04/06/2011 Hepatitis B Vaccine Aged Out No longe r eligible based on patient's [place] [address] MEDICARE UNICARE MEDICARE [facility] Care Teams Sprinkler Tender Relationship Specialty Start Date End Date Oscar Arias MD [facility] [place] [address] [place] PCP - General Internal Medicine 01/04/23
--- OUTSIDE RECORDS SUMMARY | 2024-10-15 12:53 | XMS_ITS | Clinical Summary ---
Author Organization [facility] it Address [address] [place] [address] Care Team Providers Care Thermometer Maker Name Role Phone Thomas Stiles MD Primary Care Provider [phone] Allergies Active Allergy Reactions Criticality Noted Date [...] Surgery Date Site/Laterality Comments COLONOSCOPY 04/18/2004 PROCEDURE: CT COLONOSCOPY FLX DX W/COLLJ SPEC WHEN PFRMD; COMMENT: Normal ESOPHAGOGASTRODUODENOSCOPY 04/18/2004 PROCEDURE: CT ESOPHAGOGASTRODUODENOSCOPY TRANSORAL DIAGNOSTIC; COMMENT: Normal, not on PPI. COLONOSCOPY 06/03/2010 PROCEDURE: CT COLONOSCOPY FLX DX W/COLLJ SPEC WHEN PFRMD; COMMENT: Normal ESOPHAGOGASTRODUODENOSCOPY 06/03/2010 PROCEDURE: CT ESOPHAGOGASTRODUODENOSCOPY TRANSORAL DIAGNOSTIC; COMMENT: Normal, not on PPI rx. Medical History Medical History Date Comments Esophageal reflux DX:Esophageal reflux Calculus of kidney DX:Calculus o f kidney Historical Medical DX 09/15/2008 DX:BPH Constipation 07/29/2010 DX:Constipation Prostate CA (CMS/HCC) 10/05/2015 DX:Prostat e [place] ([facility]); COMMENT: Follows with urologist, Dr. [...] Patients (1 - 1-dose 75+ series) 2021 Cholesterol Screening (Lipid Panel) 07/08/2024 08/23/2016 Depression Screening 07/08/2024 Falls Risk Assessment 07/08/2024 Social Influencers of Health Screening 07/08/2024 Hypertension/CHF/CAD Annual BMP Blood Test 08/28/2024 05/30/2019 Influenza Vaccine (Season Ended) 2025 2021, 03/16/2020, 04/14/2019, Additional history exists Hepatitis C Screening Completed 08/23/2016 Pneumococcal Vaccine: [...] * Annual BMP Blood Test (05/30/2019) Pathologist [facility] Annual BMP Blood Test Abstracted [facility] Provider HEALTH MAINTENANCE Final Result * Hepatitis C Screening (08/23/2016) [facility] Hepatitis C Screening Abstracted [facility] Provider HEALTH MAINTENANCE Final Result * (ABNORMAL) Lipid panel (08/23/2016) [facility] LDL/HDL Ratio 3 0 - 4 Triglycerides 160(A) 0 - 150 mg/dL Cholesterol 136 0 - 200 mg/dL HDL 54 >=40 mg/dL LDL Cholesterol 50 0 - 100 mg/dL Blood Venous blood specimen / Unknown [facility] Provider LAB BLOOD ORDERABLES Zulema l Result from Last 3 Months or Most Recently Relevant to Health Maintenance Advance Directives Documents on File Type Date Recorded Patient Gas Line Repairer Expl anation Health Care Decision (hx) 02/20/2019 AD PORTER DIRECTIVE Health Care Decision (hx) 02/20/2019 AD PORTER DIRECTIVE Health Care Decision (hx) 08/07/2017 AD PORTER DIRECTIVE Health Care Decision (hx) 08/07/2017 AD PORTER DIRECTIVE Care Teams Thermometer Maker Relationship Specialty Start Date End Date Thomas Stiles MD [address] [place] [address] PCP - General 05/30/04
[2024-10-15 14:48] LABS: Influenza A PCR NEGATIVE (Negative); Influenza B PCR NEGATIVE (Negative); Resp Syncy Virus RNA Qual PCR NEGATIVE (Negative); SARS COV2 PCR INHOUSE NEGATIVE (Negative)
== END 2024-10-15 10:16 | disposition home or self-care (01) ==
LOC: HO.LAB 10:15
PROVIDERS: Physician Assistant; PCP Internal Medicine
DX: J01.10 Acute frontal sinusitis, unspecified (principal); R09.89 Other specified symptoms and signs involving the circulatory and respiratory systems; R05.8 Other specified cough
CPT/HCPCS: 0241U; 99212

== ENCOUNTER 2024-10-15 10:15 | Outpatient (AMB) | payer MEDICARE, OTHER, SELFPAY ==
--- NOTE | 2024-10-15 10:31 | AM.OFFWIN_ITS ---
Intake Vital Signs 10/15/24 10:32 Weight 180 lb BP 130/80 Blood Pressure Location Rt brachial Position Sitting Pulse 60 Pulse Source Pulse Oximeter Temp 98.6 F Temp Source Oral Pulse Oximetry (%) 98 Intake Visit Reasons: EP-?sinus infection Intake Note: Patient here for nausea, sinus pressure and light headed which started a couple of days ago. Patient Tobacco Use Status: Former Tobacco user Allergies Iodinated Contrast Media [IV DYE, IODINE CONTAINING] Allergy (Intermediate, Verified 10/15/24 10:33) NAUSEA & VOMITING Penicillins [PENICILLINS] Allergy (Unknown, Verified 10/15/24 10:33) cramping amlodipine Adverse Reaction (Intermediate, Verified 10/15/24 10:33) Nausea losartan Adverse Reaction (Intermediate, Verified 10/15/24 10:33) Nausea Metoprolol Adverse Reaction (Intermediate, Uncoded 10/15/24 10:33) Nausea and Vomiting Respiratory syncytial virus vaccine Adverse Reaction (Intermediate, Uncoded 10/15/24 10:33) Rash Do you need a note to return to daycare/school/sports/work: No HPI HPI Comments History of Present Illness Details History - The patient is a 79-year-old male pres enting with symptoms indicative of sinusitis. - Home testing for COVID-19 was performe d today, with negative results. - Symptom duration has been approximatel y five days, featuring nausea, but without related vomiting or diarrhea. - Coughing accompanies the illness, prod ucing yellow, viscous phlegm, mostly noted during nose blowing. - Pressure within the sinus regions is r eported, alongside periodic lightheadedness. - No ear pain is present. No fever, resp iratory difficulty, or history of asthma or COPD is noted. - A past episode history involving multi ple sinusitis occurrences has been previously controlled via Azithromycin (Z-Justin). - Patient states the growth on the roof of his mouth has been there for many, many years and he was told it was benign. Physical Exam General: Cooperative, healthy appearing, comfortable and no acute distress Orientation/consciousness: Patient oriented x3 Limitations: No limitations Head: Normal to inspection Ears: Hearing grossly normal bilaterally, external ears normal and TM's normal bilaterally Nose: Normal external nose present, Normal nares present and No nasal discharge present Face and sinus: Normal facial exam and Yes sinuses tender Mouth: Normal oral and palatal mucosa present with a growth on the top of the mouth, moist mucous membranes Throat: Yes tonsils normal, Yes uvula midline. Posterior oropharynx erythema Eyes: Appearance normal, both eyes and all related structures Neck: Normal visual inspection Respiratory: Clear to auscultation bilaterally. Normal respiratory effort, able to speak in complete sentences, no respiratory distress, not tachypneic, no tripod positioning and no use of accessory muscles Cardiovascular: Regular rate and rhythm. Normal S1 and S2 Skin: No rashes or lesions noted Neuro: Patient oriented x3 Extremities: Normal to inspection and Yes no clubbing, cyanosis or edema PFSH Medical History (Updated 10/15/24 @ 10:51 by Suni Fitch PA-C) Acute respiratory disease COVID-19 virus infection PAF (paroxysmal atrial fibrillation) Bleeding grade II hemorrhoids Generalized anxiety disorder Atrial fibrillation with rapid ventricular response Atrial fibrillation, new onset Epigastric pain determined by examination Chest pain Acute sinusitis Bloating Postnasal drip Sinus congestion Arrhythmia Burping Blood pressure elevated without history of HTN Colon cancer screening History of renal calculi History of prostate cancer GERD (gastroesophageal reflux disease) BPH (benign prostatic hyperplasia) Surgical History Hx of surgical procedure (09/28/23) History of suburethral sling procedure History of colonoscopy History of adenoidectomy S/P left inguinal herniorrhaphy H/O prostatectomy Social History (Updated 08/26/24 @ 10:38 by Oscar Arias MD) Household Members: None Caregiver staying overnight: No Housing: House Are you a primary adult live in caregiver 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 other at home: Yes Do you presently have visiting nurse or other home services: No 75 years or older and lives alone: Yes Alcohol intake: current Alcohol intake frequency: does not drink Comment: 1-2 beers on sunday Patient Tobacco Use Status: Former Tobacco user Tobacco use type: Cigarette Years Smoked: 13 stopped 30 years old e-Cigarette/Vaping Use: Never Used Second Hand Smoke Exposure: No Advance Directives Date on File: 06/02/22 service: Yes Current occupational status: unemployed and retired Current occupation: left hand Cognitive needs: No Hearing needs: No Vision needs: Yes Review of Systems Const All systems reviewed & are unremarkable except as noted in HPI and below Physical Exam Vital Signs: Last Vital Signs Temp 98.6 F 04/02/25 10:32 Pulse 60 10/15/24 10:32 BP 130/80 10/15/24 10:32 Pulse Ox 98 10/15/24 10:32 Assessment & Plan Assessment & Plan (1) Sinusitis: Code(s): J32.9 - Chronic sinusitis, unspecified Qualifiers: Sinusitis location: frontal Chronicity: acute Recurrence: non- recurrent Qualified Code(s): J01.10 - Acute frontal sinusitis, unspecified Plan: VSS, pt well appearing and PE unremarkable. A comprehensive evaluation through a combined flu, COVID-19, and RSV test will ascertain the potential viral involvement. Given the recurrent nature of the patient's sinusitis, Azithromycin Z-Justin treatment is likely should viral panel be negative. Until laboratory confirmation is complete, symptomatic management including Flonase and antihistamines is advised. Final results are to be communicated within the day to facilitate immediate then action upon results. Patient was informed and verbally consented to the use of an ambient scribe for clinic note documentation during this visit Orders: Orders SARS-CoV2/FLU/RSV Today R09.89 - Other specified symptoms and signs involving the circulatory and respiratory systems Coding Level of Care Code Est Pt Level 3 (77129) Diagnoses Acute non-recurrent frontal sinusitis J01.10 Sinusitis location: frontal Chronicity: acute Recurrence: non-recurrent
[2024-10-15 10:32] VITALS: BP 130/80; PULSE 60; TEMP 37; O2SAT 98
--- OUTSIDE RECORDS SUMMARY | 2024-10-15 11:59 | XMS_ITS ---
Author Organization [facility] Address [address] [place] [address] Care Team Providers Care Director Of Fundraising Name Role Phone Oscar Arias Primary Care Provider Arden Saleh Rosalia Unavailable [phone] Allergies Allergen (clinical drug ingredient) Drug/Non Drug Allergy documented on EMR Reaction Allergy Type Onset Date Status IVP DYE (uncoded) nausea and vomiting Allergy Active RSV injection (uncoded) rash Allergy Active Penicillin stomach cramps Drug Allergy A ctive REASON FOR VISIT Pcp- 08/09, Ingrown Nail, Fungal Nails Medications Medication SIG (Take, Route, Fr equency, Duration) Notes Start Date End Date Status Ciclopirox 0.77 % 1 application Traffic Analyst ally Once a day for 30 days Active Aspirin 81 MG 1 tablet Orally Once a day Active Carvedilol 12.5 MG 1 tablet with food O rally Twice a day Active MiraLax Active cloNIDine 0.1 MG/24HR 1 patch to skin Transdermal Active Social History Tobacco Use: Social History Observation Description Date Details (start date - stop date) Never Smoker NA - NA Tobacco use other than smoking: Question Answer Notes Are you an other tobacco user? No Tobacco Control (Standard) Question Answer Notes Tobacco use: Nonsmoker Additional Findings: Tobacco non-user Current no nsmoker AUDIT-C (Standard) Question Answer Notes Did you have a drink contain ing alcohol in the past year? Yes How often did you have a dri nk containing alcohol in the past year? Monthly or less (1 point) How many drinks did you have on a typical day when you were drinking in the past year? 1 or 2 drinks (0 point) How often did you have six o r more drinks on one occasion in the past year? Never (0 point) Points 1 Interpretation Negative Vital Signs Height 5 ft 9 in in 09/18/2024 Weight 175 lbs 09/18/2024 BMI 25.84 kg/m2 09/18/2024 Blood pressure systolic 127 mm Hg 09/19/19 25 Blood pressure diastolic 75 mm Hg 025 Procedures Procedure Date Ordered Date Performed Result Body Sit e 37555-Ecbgwgwg Plate 09/18/2024 N/A Encounters Encounter Location Date Provider Diagnosis [facility] [address] [address] 09/18/2024 Rosalia Saleh Ingrown nail L60.0 ; Onychomycosis B35.1 ; Pain in right toe(s) M79.674 and Pain in left toe(s) M79.675 Assessments Encounter Date Diagnosis (ICD Code) Assessment Notes Treatment Notes Treatment Clinical Notes Section Notes 09/18/2024 Ingrown nail (ICD-10 - L60.0) 09/18/2024 Onychomycosis (ICD-10 - B35.1) 09/18/2024 Pain in right toe(s) (ICD-10 - M79.674) 09/18/2024 Pain in left toe(s) (ICD-10 - M79.675) Plan Of Treatment Medication Medication Name Sig Start Date Stop Date Notes Ciclopirox 0.77 % 1 application Traffic Analyst ally Once a day for 30 days Pending Test Test Name Order Date 18914-Yurwhsvj Plate 09/18/2024 Next Appt Details Follow Up: 2 Weeks, Reason: Provider Name:Rosalia Saleh , 02/02/2025 10:00:00 AM, [address] [place] [address], [phone], Procedure Notes * Category Sub-Category Detail Notes Nail Avulsion Procedure A fine sterile e levator was placed between the eponychium, nail fold, and nail plate to separate the the structures. A sterile nail splitter, and/or sterile 316 blade, was then used to longitudinally section the nail along its entire length through the eponychium to the area under the nail fold. The offending portion of nail was from the nail bed with a rolling action and then removed with a hemostat. No underlying bone was identified. There was minimal bleeding as hemostasis was achieved through the temporary use of either a digital tournaquet or the aforementioned local with epinephrine. A bacitracin sterile dressing was applied. Local wound aftercare instructions were discussed and dispensed. The patient was informed of both conservative and future surgical procedures to prevent recurrence. Tylenol or Motrin was recommended for pain or discomfort (72135) Anesthesia , 3cc of 1 percent L idocaine Plain local anesthesic utilizing aseptic technique Location , Bilateral nail bor fran, T5 Progress Notes * REILLYMaximino HOLT EDOB:1944 (79 yo M)Acc No.[id number]:09/18/2024 Progress Notes Patient:?Maximino GROVER E Provider:?Rosalia Saleh DPM :1945???Age:79 Y???Sex:Male Orestes e:09/18/2024 Address:[address] [place] [address] Pcp:Oscar Arias Subjective: * Chief Complaints: * ???Pcp- 08/09Ingrown NailFun gal Nails * HPI: ???Painful Nails:?Nature:?aching, tender, discolored, thick.?Location:?, Great toe, Left foot.?Duration:?, several years.?Course:?worse.?Aggravated by:?shoegear causing difficulty standing/walking.?Treatments:?none.? * ROS:?General/Constitutional:?Nausea?denies.?Vomiting?denies.?Hunger Thirst?denies.?Loss appetite?denies.?Chills?denies.?Fatigue?denies.?Fever?denies.?Night Sweats?denies.?Unexplained weight loss?denies.?Unexplained weight gain?denies.?HEENTM:?Dentures?denies.?Dizziness?denies.?Glasses/contacts?admits.?Retinopathy?de nies.?Blurred/double vision?denies.?TMJ?denies.?Discharge/drainage?denies.?Implants?denies.?Sore throat?denies.?Dental implants?denies.?Hard of hearing ?admits.?Difficulty chewing/swallowing/speaking?denies.?Nose bleeds?denies.?Sore mouth?denies.?Respiratory:?On Oxygen?denies.?Pneumonia/pleurisy?denies.?Bronchitis?denies.?Emphysema?denies.?C oughing?denies.?Cough blood?denies.?Shortness of breath?denies.?Wheezing?denies.?Cardiovascular:?Pacemaker?denies.?MVP?denies.?WPW?denies.?CHF?denies.?Heart attack?denies.?Septal defect?denies.?Rapid beat?denies.?Chest pain ?denies.?Atrial Fib.?admits.?Murmur/Palpitations?denies.?Gastrointestinal:?Hemorrhoids?admits.?Stomach/Abdominal pain?denies.?Dark blood stool?denies.?Irritable bowel ?denies.?Constipation?denies.?Diarrhea?denies.?Hematology:?Swelling?denies.?Clots?denies.?Varicose Veins?denies.?Bruising?denies.?Bleeding problem?denies.?Genitourinary:?Blood urine?denies.?Frequent/Painfu/urination/bladder control?denies.?Kidney stones?denies.?Infection (UTI)?denies.?Nephropathy?denies.?sex trans dis (STD)?denies.?Prostate?admits.?Musculoskeletal:?Hammertoes?denies.?Bunions?denies.?Back Pain?denies.?Muscle Cramps/ Resting?denies.?Muscle cramps / walking?denies.?Generalized aches and pains?denies.?Weakness?denies.?Integ.:?Dominguez?denies.?Scars?denies.?Corns/calluses?denies.?Ingrown nails?admits.?Painful nails?,admits.?Open Sores?denies.?Rashes?denies.?Neurologic:?Difficulty sleeping?denies.?Brain disorder?denies.?Numbness?denies.?Balance trouble?denies.?Confusion?denies.?Fainting/blackouts?denies.?Tingling?denies.?Tr emors?denies.? * Medical History:? * Surgical History:?prostate r emoved 2017watch-man 2022sling surgery 2021hernia * Hospitalization/Major Diagno stic Procedure:?Denies Past Hospitalization * Family History:?Mother: dece ased, diagnosed with Unspecified cerebral artery occlusion with cerebral infarction, Unspecified essential hypertension.?Father: .?Siblings: diagnosed with Other malignant neoplasm of unspecified site.? * Social History:?Tobacco Use:?Tobacco use other than smoking?Are you an other tobacco user??No ?Tobacco Control (Standard)?Tobacco use:?Nonsmoker ?Additional Findings: Tobacco non-user?Current nonsmoker ???Drugs/Alcohol:?Drugs?Have you used drugs other than those for medical reasons in the past 12 months??No ???Miscellaneous:?Caffeine: yes, 1 cup, decaf. ?Children: yes, 2. ?Exercise: yes, walking, bike riding. ?Marital status: . 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 ???Drug/Alcohol:?AUDIT-C (Standard)?Did you have a drink containing alcohol in the past year??Yes ?How often did you have a drink containing alcohol in the past year??Monthly or less (1 point) ?How many drinks did you have on a typical day when you were drinking in the past year??1 or 2 drinks (0 point) ?How often did you have six or more drinks on one occasion in the past year??Never (0 point) ?Points?1 ?Interpretation?Negative * Medications:?TakingcloNIDine 0.1 MG/24HR Patch Weekly 1 patch to skin Transdermal MiraLax Carvedilol 12.5 MG Tablet 1 tablet with food Orally Twice a day Aspirin 81 MG Tablet Chewable 1 tablet Orally Once a day Medication List reviewed and reconciled with the patientTaking cloNIDine 0.1 MG/24HR Patch Weekly 1 patch to skin Transdermal Taking MiraLax Taking Carvedilol 12.5 MG Tablet 1 tablet with food Orally Twice a day Taking Aspirin 81 MG Tablet Chewable 1 tablet Orally Once a day Medication List reviewed and reconciled with the patient * Allergies:?Penicillin: stoma ch crampsRSV injection: rashIVP DYE: nausea and vomitingyes[Allergies Verified] Objective: * Vitals:?Ht:5 ft 9 in, Wt:175 , BMI: 25.84, Shoe size: 9.5 Tripple E, BP: 127/75 mm Hg, Ht-cm: 175.26 cm, Wt-k.38 kg. * Examination: ???General Examination: ?GENERAL APPEARANCE:?Reveals a pleasant, alert, well nourished, well- developed, well hydrated individual, who demonstrates proper attention to hygiene/body habitus, and is in no acute distress, Pt serves as own historian for office visit today.?ORIENTED:?person, place, and time.?Orthopedic: ?MUSCLE STRENGTH:?5/5 all groups in a symmetrical fashion, B/L.?DIGITAL DEFORMITIES:?Digital contracture, PIPJ, 2-5 B/L, incompl-reducible with WB, or to push-up test, no over, nor underlapping.?Vascular: ?DP PULSES (B):?2/4, B/L.?PT PULSES (B):?2/4, B/L.?CAPILLARY FILL TIME:?immediate, all digits, B/L.?TROPHIC CONDITION-TEXTURE/ELASTICITY/TURGOR/HAIR GROWTH (B):?normal, B/L.?TEMPERTURE GRADIENT (C):?normal, warm to cool, proximal to distal, B/L, B/L.?PIGMENTATION:?normal, B/L.?EDEMA (C):?absent, B/L.?Neurological: ?SENSORY:?Neurological exam reveals intact sensorium, pain sensation normal, vibration sensation intact, pinprick sensation is normal in the lower extremities, Pt denies, anesthesia, burning, paresthesia, tingling, B/L.?Nails: ?NAILS are:?Elongated, overgrown, dystrophic, lytic, greater than 3mm thick, discolored and friable with crumbly malodorous subungual debris, with pain on palpation, TA.?Ingrown Nail: ?INSPECTION:?Reveals nail incurvation, pain on palpation, groove hypertrophy, groove ischemia, ,Bilateral nail borders, , T5.? Assessment: * Assessment: 1.?Ingrown nail - L60.0 ([facility])???2.?Onychomycosis - B35.1???Specify :Chronic problem, Worse Rx Management (4)???3.?Pain in right toe(s) - M79.674???4.?Pain in left toe(s) - M79.675??? Plan: * Treatment: 2.?Onychomycosis? Start Ciclopirox Gel, 0.77 %, 1 application, Externally, Once a day, 30 days, 60, Refills 6.?? * Procedures:?Nail Avulsion:?Location?, Bilateral nail border, T5.?Anesthesia?, 3cc of 1 percent Lidocaine Plain local anesthesic utilizing aseptic technique.?Procedure?A fine sterile elevator was placed between the eponychium, nail fold, and nail plate to separate the the structures. A sterile nail splitter, and/or sterile 316 blade, was then used to longitudinally section the nail along its entire length through the eponychium to the area under the nail fold. The offending portion of nail was from the nail bed with a rolling action and then removed with a hemostat. No underlying bone was identified. There was minimal bleeding as hemostasis was achieved through the temporary use of either a digital tournaquet or the aforementioned local with epinephrine. A bacitracin sterile dressing was applied. Local wound aftercare instructions were discussed and dispensed. The patient was informed of both conservative and future surgical procedures to prevent recurrence. Tylenol or Motrin was recommended for pain or discomfort (11537).? * Procedure Codes:?54259 Avuls ion Plate, Modifiers: T5 * Preventive Medicine:? ??Counseling:?Discussion:?-03: Office or other outpatient visit for the evaluation and management of a new patient, which required a medically appropriate history and/or examination and LOW level of DECISION MAKING for: 1 STABLE ACUTE UNCOMPLICATED PROBLEM, 2 OR MORE MINOR PROBLEMS, OR 1 STABLE CHRONIC PROBLEM, THAT POSE(S) A LOW RISK FOR MORBIDITY/MORTALITY. The visit on the day of the encounter encompassed interpreting the data and educating the patient as to the nature of their condition, treatment options available according to their individual PMH, meds, allergies, and overall health/living conditions, as well as any potential risks or complications that may occur from a failure to adhere to, and participate in, the recommended course of therapy. The discussion included a complete verbal, and/or written explanation of the examination results, any x-rays taken, the proposed diagnosis, and outline of the treatment plan. A schedule for future care needs was also explained. The patient verbalized an understanding of the instructions at this time and agreed to be an active participant in their treatment. If the patient should think of any questions or concerns after the visit, I have encouraged the patient to call the office.?Fungal Nail Counseling:?The patient was counseled on the diagnosis, potential etiologies (including, but not limited to, environmental factors, genetic, immune deficiency), and the multiple treatment options for Onychomycosis. We discussed the risks and benefits of each option from performing no treatment, to ultraviolet light shoe treatment, to laser nail treatment, to applying topical antifungals, to taking oral antifungal medication, to surgical removal of the involved nail(s) with or without performing a matricectomy, or any combination thereof. We discussed the advantages and disadvantages of each of possible treatment and importance for adherence to all the recommended therapies for optimum success. This includes the necessity for weekly emery board self nail home debridements, and control the nail and skin environment as much as possible by only using a fresh, dry pair of shoes/socks each day, as well as keeping the skin as dry as possible through the use of sprays/powders if necessary. The patient was instructed to discard the emery board after use to prevent reinfection of the involved nail(s). We discussed the mycological and visual clinical effectiveness of topical vs oral antifungal treatments as well as each ones potential side effects and/or any patient- specific medication interactions. We discussed the reasons behind the important requirement of regular liver function testing with oral antifungal therapy for safety. Patient questions regarding use, dosage, successful outcomes, blood tests, and possible pharmaceutical interactions were reviewed and the patient verbalized that all answers were clearly understood, The patient presently prefers topical treatment.? ??Screening/Special Tests:?Fall Risk?Screening:?No falls in the past year ?FALLS: Screening for Future Fall Risk?Have you had any falls with injury in the past year??No * Follow Up:?2 Weeks * Images: * Sign off status: Completed true * Provider:?Rosalia Saleh DPM Date:?2024 Generated for Brenden gonzales/Oscar/Zion on:?10/15/2024 11:59 AM EDT History and Physical Notes * HPI (History of Present Illness) Category Sub-Category Detail Notes Category Not es Painful Nails Aggravated by: shoegear causing difficulty standing/walking Course: worse Duration: , several years Location: , Great toe, Left fo ot Nature: aching, tender, disc olored, thick Treatments: none Examination Category Sub-Category Detail Notes Category Not es Ingrown Nail INSPECTION: Reveals nail inc urvation, pain on palpation, groove hypertrophy, groove ischemia, ,Bilateral nail borders, , T5 Neurological SENSORY: Neurological exa m reveals intact sensorium, pain sensation normal, vibration sensation intact, pinprick sensation is normal in the lower extremities, Pt denies, anesthesia, burning, paresthesia, tingling, B/L Orthopedic DIGITAL DEFORMITIES: Digital con tracture, PIPJ, 2-5 B/L, incompl-reducible with WB, or to push-up test, no over, nor underlapping MUSCLE STRENGTH: 5/5 all groups in a symmetrical fashion, B/L General Examination GENERAL APPEARANCE: Reveals a pleasant, alert, well nourished, well-developed, well hydrated individual, who demonstrates proper attention to hygiene/body habitus, and is in no acute distress, Pt serves as own historian for office visit today ORIENTED: person, place, and t [place] Vascular DP PULSES (B): 2/4, B/L PT PULSES (B): 2/4, B/L CAPILLARY FILL TIME: immediate, all digi ts, B/L TEMPERTURE GRADIENT (C): normal, warm to cool, proximal to distal, B/L, B/L TROPHIC CONDITION-TEXTURE/ELASTICITY/TURGOR/HAIR GROWTH (B): normal, B/L EDEMA (C): absent, B/L PIGMENTATION: normal, B/L Nails NAILS are: Elongated, overg rown, dystrophic, lytic, greater than 3mm thick, discolored and friable with crumbly malodorous subungual debris, with pain on palpation, TA
--- OUTSIDE RECORDS SUMMARY | 2024-10-15 11:59 | XMS_ITS | Clinical Summary ---
Author Organization [facility] it Address [address] [place] [address] Care Team Providers Care Hair Colorist Name Role Phone Thomas Stiles MD Primary Care Provider [phone] Allergies Active Allergy Reactions Criticality Noted Date [...] Surgery Date Site/Laterality Comments COLONOSCOPY 04/18/2004 PROCEDURE: AR COLONOSCOPY FLX DX W/COLLJ SPEC WHEN PFRMD; COMMENT: Normal ESOPHAGOGASTRODUODENOSCOPY 04/18/2004 PROCEDURE: AR ESOPHAGOGASTRODUODENOSCOPY TRANSORAL DIAGNOSTIC; COMMENT: Normal, not on PPI. COLONOSCOPY 06/03/2010 PROCEDURE: AR COLONOSCOPY FLX DX W/COLLJ SPEC WHEN PFRMD; COMMENT: Normal ESOPHAGOGASTRODUODENOSCOPY 06/03/2010 PROCEDURE: AR ESOPHAGOGASTRODUODENOSCOPY TRANSORAL DIAGNOSTIC; COMMENT: Normal, not on PPI rx. Medical History Medical History Date Comments Esophageal reflux DX:Esophageal reflux Calculus of kidney DX:Calculus o f kidney Historical Medical DX 09/15/2008 DX:BPH Constipation 07/29/2010 DX:Constipation Prostate CA (CMS/HCC) 10/05/2015 DX:Prostat e CA ([facility]); COMMENT: Follows with urologist, Dr. [...] or Tdap) 10/28/2020 10/28/2010, 01/12/2005 RSV Immunization Adult Patients (1 - 1-dose 75+ series) 2021 Influenza Vaccine (#1) 2024 , 03/16/2020, 04/14/2019, Additional history exists Cholesterol Screening (Lipid Panel) 07/08/2024 08/23/2016 Depression Screening 07/08/2024 Falls Risk Assessment 07/08/2024 Social Influencers of Health Screening 07/08/2024 Hypertension/CHF/CAD Annual BMP Blood Test 08/28/2024 05/30/2019 Hepatitis C Screening Completed 08/23/2016 Pneumococcal Vaccine: [...] * Annual BMP Blood Test (05/30/2019) Pathologist [facility] Annual BMP Blood Test Abstracted [facility] Provider HEALTH MAINTENANCE Final Result * Hepatitis C Screening (08/23/2016) [facility] Hepatitis C Screening Abstracted [facility] Provider HEALTH MAINTENANCE Final Result * (ABNORMAL) Lipid panel (08/23/2016) [facility] LDL/HDL Ratio 3 0 - 4 Triglycerides 160(A) 0 - 150 mg/dL Cholesterol 136 0 - 200 mg/dL HDL 54 >=40 mg/dL LDL Cholesterol 50 0 - 100 mg/dL Blood Venous blood specimen / Unknown [facility] Provider LAB BLOOD ORDERABLES Zulema l Result from Last 3 Months or Most Recently Relevant to Health Maintenance Advance Directives Documents on File Type Date Recorded Patient Business Administrator Expl anation Health Care Decision (hx) 02/20/2019 AD PORTER DIRECTIVE Health Care Decision (hx) 02/20/2019 AD PORTER DIRECTIVE Health Care Decision (hx) 08/07/2017 AD PORTER DIRECTIVE Health Care Decision (hx) 08/07/2017 AD PORTER DIRECTIVE Care Teams Hair Colorist Relationship Specialty Start Date End Date Thomas Stiles MD [address] [place] [address] PCP - General 05/30/04
--- OUTSIDE RECORDS SUMMARY | 2024-10-15 11:59 | XMS_ITS ---
Author Organization [facility] Address [address] [place] [phone] Care Team Providers Care Membership Assistant Name Role Phone Oscar Arias MD Primary Care Provider Jayesh De Santiago [phone] Encounters Encounter Location Date Provider Diagnosis [facility] [address] [place] [phone] 08/09/2023 Jayesh Sweet Plan Of Treatment No Information Progress Notes * DASIA GROVER EDOB:1944 (78 yo M)Acc No.[id number]:08/09/2023 Patient:?DASIA GROVER :1945???Age:78 Y???Sex:Male Address:[address] [place] [address], [address] * true * Date:? Generated for Nighati janet/Oscar/eTransmitting on:?10/15/2024 11:59 AM EDT
--- OUTSIDE RECORDS SUMMARY | 2024-10-15 12:00 | XMS_ITS ---
Author Organization [facility] Address [address] [place] [id number] Care Team Providers Care Batch Unloader Name Role Phone Oscar Arias MD Primary Care Provider Jayesh De Santiago Unavailable [phone] Allergies Allergen (clinical drug ingredient) Drug/Non Drug Allergy documented on EMR Reaction Allergy Type Onset Date Status RSV Vaccine Recombinant, Adjuvanted Unknown Drug Allergy Active RSV Test Unknown Drug Allergy Active Penicillin Unknown Drug Allergy Active IVP dye (uncoded) Unknown Allergy Ac tive Results Component Value Reference Range Notes US abdomen complete Reviewed date:08/09/2023 06:13:08 PM Interpretation: Performing Lab: Notes/Report: [address] [address] Ultrasound Report Signed Patient: Dasia Grover MR#: [id number] : 1945 Acct:[id number] Age/Sex: 78 / M ADM Date: 08/08/23 Loc: HO.US Attending Dr: Jayesh Sweet MD Ordering Physician: Jayesh Sweet Date of Service: 08/08/23 Procedure(s): US abdomen complete Accession Number(s): [id number] cc: Oscar Arias MD; Jayesh Sweet EXAMINATION: [...] in OV> 08/09/23 1706 DD/ 0837 TD/TT: Beverage Specialist: [place] [id number] Ultrasound Report Signed Patient: Do bita Grover MR#: [id number] : 1945 Acct:[id number] Age/Sex: 78 / M ADM Date: 08/08/23 Loc: HO.US Attending Dr: Jayesh Sweet MD Ordering Physician: Jayesh Sweet Date of Service: 08/08/23 Procedure(s): US abd omen complete Accession Number(s): [id number] cc: Oscar Arias MD ; Jayesh Sweet EXAMINATION: US ABDOMEN COMPLETE CLINICAL INFORMATION: Abdominal pain. COMPARISON: None available. TECHNIQUE: Real-time imaging of the abdominal viscera. FINDINGS: PANCREAS: Normal. ABDOMINAL AORTA: The proximal, mid, and distal segments are normal in caliber. INFERIOR VENA CAVA: Visualized portions are normal. LIVER: Normal. The l iver is normal in size. The liver contour is normal. Increased pa renchymal echogenicity. No focal hepatic lesion. There is no intrahep atic biliary duct dilatation seen. GALLBLADDER: Normal. The gallbladder is physiologically distended without evidence of stones, sludge, polyps, wall thickening or pericholecystic fluid. COMMON BILE DUCT: No rmal in caliber measuring 0.5 cm in diameter. RIGHT KIDNEY: Nonobs tructive 1.3 cm calculus in the interpolar region. No hydronephrosis or focal parenchymal lesions. The kidney measures 12 cm in maximum dimension. LEFT KIDNEY: Simple appearing parapelvic cyst in the lower pole measuring 1.6 cm for which no imaging follow-up is recommended. No hydronephrosis or re nal calculi. The kidney measures 13 cm in maximum dimension. SPLEEN: Normal. The spleen measures 12.7 cm in maximum dimension. FREE FLUID: None. U S/US abdomen complete IMPRESSION: 1. Nonobstructive 1. 3 cm calculus in the interpolar region of the right kidney. 2. Increased hepatic parenchymal echogenicity is nonspecific but most commonly on the basi s of diffuse hepatocellular disease such as hepatic steatosis. 3. The spleen is wit hin the upper limits of normal measuring 12.7 cm in length. Dictated By: Catalina Flores Signed By: <Marli gates signed by Catalina Flores in OV> 08/09/23 1706 DD/ 0837 TD/TT: Beverage Specialist: REASON FOR VISIT Patient presents today for gaseous Medications Medication SIG (Take, Route, Frequency, Duration) Notes [...] 1 application Externally Once a day Active Social History Alcohol Screen Question Answer Notes Did you have a drink containing alcohol in the p ast year? No Points 0 Interpretation Negative Section Notes: Nonsmoker; occ alcohol Problems Problem Type SNOMED Code ICD Code Onset Dates Problem Status W/U Status Risk Notes Problem 590477480 Generalized abdominal pain (R10.84) Active confirmed Problem 172990111 Gastroesophageal reflux disease, unspecified whether esophagitis present (K21.9) Active confirmed Vital Signs Temperature 97.5 degrees Fahrenheit 08/01/19 24 Blood pressure systolic 000 mm Hg 08/01/19 24 Blood pressure diastolic 00 mm Hg 024 Height 67.5 in 08/01/2023 Weight 171 lb 8 oz lbs 08/01/2023 BMI 26.46 kg/m2 08/01/2023 Encounters Encounter Location Date Provider Diagnosis [facility] [address] [place] [address] 08/01/2023 Jayesh Sweet Generalized abdomina l pain R10.84 and Gastroesophageal reflux disease, unspecified whether esophagitis present K21.9 Assessments Encounter Date Diagnosis (ICD Code) Assessment Notes Treatment Notes Treatment Clinical Notes Section Notes 08/01/2023 Generalized abdominal pain (ICD-10 - R10.84) Overall, Dasia appears well. We did review his negative colonoscopy from last November. I advised him that he would not need any further screening colonoscopies going forward. In regard to his upper abdominal complaints I did recommend an abdominal ultrasound to rule out symptomatic gallstones given some of the symptoms being on a postprandial basis. I also advised him that he could certainly resume his omeprazole either daily or just as needed for any symptomatic relief from acid reflux. Based on his good clinical appearance and no worrisome upper GI complaints such as dysphagia or anorexia, I advised him that I don't think an upper endoscopy is presently required. We did review that certainly if the upper GI complaints prove refractory to omeprazole and/or become associated with anything such as dysphagia or anorexia, he should let me know that and we could then reassess things as to whether or not he would need an upper endoscopy. If the abdominal ultrasound is nonrevealing and he is otherwise doing well he would see me on a p.r.n. basis. I did advise him to certainly contact me if he has any problems or questions that I can be of assistance with in the future. Dasia was comfortable with this plan. Thank you again for allowing me to participate in Dasia's care. I shall continue to keep you advised of his progress as needed. 08/01/2023 Gastroesophageal reflux disease, unspecified whether esophagitis present (ICD-10 - K21.9) Use omeprazole daily or just as needed for heartburn symptoms. Overall, Dasia appears well. We did review his negative colonoscopy from last November. I advised him that he would not need any further screening colonoscopies going forward. In regard to his upper abdominal complaints I did recommend an abdominal ultrasound to rule out symptomatic gallstones given some of the symptoms being on a postprandial basis. I also advised him that he could certainly resume his omeprazole either daily or just as needed for any symptomatic relief from acid reflux. Based on his good clinical appearance and no worrisome upper GI complaints such as dysphagia or anorexia, I advised him that I don't think an upper endoscopy is presently required. We did review that certainly if the upper GI complaints prove refractory to omeprazole and/or become associated with anything such as dysphagia or anorexia, he should let me know that and we could then reassess things as to whether or not he would need an upper endoscopy. If the abdominal ultrasound is nonrevealing and he is otherwise doing well he would see me on a p.r.n. basis. I did advise him to certainly contact me if he has any problems or questions that I can be of assistance with in the future. Dasia was comfortable with this plan. Thank you again for allowing me to participate in Dasia's care. I shall continue to keep you advised of his progress as needed. Plan Of Treatment Treatment Notes Assessment Notes Gastroesophageal reflux dise ase, unspecified whether esophagitis present Use omeprazole daily or just as needed for heartburn symptoms. Next Appt Details Follow Up: prn, Reason: Progress Notes * DASIA GROVER EDOB:1944 (78 yo M)Acc No.[id number]:08/01/2023 Progress Notes Patient:?DASIA GROVER Provider:?Jayesh Sweet MD :1945???Age:78 Y???Sex:Male Orestes e:08/01/2023 Address: [address] [place], [place] Pcp:Oscar Arias MD Subjective: * Chief Complaints: * ???Patient presents today fo r gaseous * HPI: ???incontinence:? I saw Dasia in followup today in regard to some abdominal discomfort and reflux. ?I last saw Dasia in November of 2022, at which time he underwent a negative followup screening colonoscopy. He describes a diagnosis of atrial fibrillation in May for which he has been on Eliquis. He describes that he has also been having intermittent symptoms of some mid-abdominal discomfort, particularly after his evening meal. He has also been having some associated reflux with heartburn and belching. He denies any dysphagia, anorexia, early satiety, nausea, nor vomiting. He denies any signs of jaundice nor weight loss. He describes that his bowel movements have been regular and without any hematochezia nor melena. He has been using Metamucil to help with his bowel movements and does find that has indeed helped to keep him more regular. ?He was started on some omeprazole after being seen at a [facility] and has found that has given him some relief of the previous upper GI complaints. He reports that he is no longer using that and has found that his upper GI complaints have returned to some degree without it. He has never had an upper endoscopy. * ROS:?General/Constitutional:?Change in appetite?denies.?Chills?denies.?Fatigue?denies.?Ophthalmologic:?Comments?all negative.?ENT:?Comments?all negative.?Respiratory:?hemoptysis?denies.?Cough?denies.?Cardiovascular:?Chest pain?denies.?Orthopnea?denies.?Gastrointestinal:?Comments?See HPI for details.?Genitourinary:?Hematuria?denies.?Dysuria?denies.?Musculoskeletal:?Painful joints?denies.?Weakness?denies.?Skin:?Itching?denies.?Rash?denies.?Neurologic:?Headache?denies.?Seizures?denies.?Psychiatric:?Comments?all negative.? * Medical History:? * Surgical History:?Hernia rep air--left inguinal Prostatectomy - Dr. Main [address] Buckner --helped greatly 2021 * Hospitalization/Major Diagno stic Procedure:?Denies Past Hospitalization * Family History:?Father: dece ased, diagnosed with Heart disease.?Mother: , diagnosed with HTN (hypertension).?Siblings: , at age 50 brother had a rare stomach cancer that spread to the colon..? No family history of liver cancer. No family history of colon cancer. Brother had a rare stomach cancer and at age 50. * Social History:?Tobacco Use:?Tobacco Use/Smoking?Patient is a: former smoker , How long has it been since you last smoked?: > 10 years.?Drugs/Alcohol:?Alcohol Screen?Did you have a drink containing alcohol in the past year??No,?Points?0,?Interpretation?Negative.?Miscellaneous:?Marital status: . Occupation: retired. ???Nonsmoker; occ alcohol. * Medications:?TakingFlonase A llergy Relief 50 MCG/ACT Suspension 1 spray in each nostril Nasally Once a daycloNIDine 0.1 MG/24HR Patch Weekly 1 patch to skin Transdermal Hydrocortisone 2.5 % Cream 1 application Externally Once a dayMiraLax 17 GM/SCOOP Powder 1 scoop mixed with 8 ounces of fluid Orally Once a dayCarvedilol 6.25 MG Tablet 1 tablet with food Orally Twice a dayEliquis 5 MG Tablet 1 tablet Orally Twice a dayLisinopril 5 MG Tablet Oral Fluticasone Propionate 50 MCG/ACT Suspension SHAKE LIQUID AND USE 2 SPRAYS IN EACH NOSTRIL DAILY Diagnosis Unavailable Nasal Taking Flonase Allergy Relief 50 MCG/ACT Suspension 1 spray in each nostril Nasally Once a dayTaking cloNIDine 0.1 MG/24HR Patch Weekly 1 patch to skin Transdermal Taking Hydrocortisone 2.5 % Cream 1 application Externally Once a dayTaking MiraLax 17 GM/SCOOP Powder 1 scoop mixed with 8 ounces of fluid Orally Once a dayTaking Carvedilol 6.25 MG Tablet 1 tablet with food Orally Twice a dayTaking Eliquis 5 MG Tablet 1 tablet Orally Twice a dayTaking Lisinopril 5 MG Tablet Oral Taking Fluticasone Propionate 50 MCG/ACT Suspension SHAKE LIQUID AND USE 2 SPRAYS IN EACH NOSTRIL DAILY Diagnosis Unavailable Nasal Not-Taking/PRNPrilosec 20 MG Capsule Delayed Release 2 capsule Orally twice a dayMedication List reviewed and reconciled with the patientNot-Taking/PRN Prilosec 20 MG Capsule Delayed Release 2 capsule Orally twice a dayMedication List reviewed and reconciled with the patient * Allergies:?PenicillinIVP dye RSV TestRSV Vaccine Recombinant, Adjuvantedyes[Allergies Verified] Objective: * Vitals:?Wt: 171 lb 8 oz, Ht: 67.5 in, BMI:26.46 Index, BP: 000/00 mm Hg, Temp: 97.5. * Examination: ???General Examination: ?GENERAL APPEARANCE:?pleasant, well nourished, well developed, in no acute distress.?EYES:?sclera non-icteric.?ORAL CAVITY:?mucosa moist.?NECK/THYROID:?no cervical lymphadenopathy, neck supple.?SKIN:?nonjaundiced, no spider angiomata.?HEART:?S1, S2 normal.?LUNGS:?clear to auscultation bilaterally.?ABDOMEN:?normal bowel sounds, no guarding or rigidity, no guarding or rigidity, no masses palpable, soft, nontender, nondistended.?EXTREMITIES:?no edema.?NEUROLOGIC:?alert and oriented.? Assessment: * Assessment: 1.?Generalized abdominal benny n - R10.84 (Primary)?2.?Gastroesophageal reflux disease, unspecified whether esophagitis present - K21.9? Overall, Dasia appears well . We did review his negative colonoscopy from last November. I advised him that he would not need any further screening colonoscopies going forward. In regard to his upper abdominal complaints I did recommend an abdominal ultrasound to rule out symptomatic gallstones given some of the symptoms being on a postprandial basis. I also advised him that he could certainly resume his omeprazole either daily or just as needed for any symptomatic relief from acid reflux. Based on his good clinical appearance and no worrisome upper GI complaints such as dysphagia or anorexia, I advised him that I don't think an upper endoscopy is presently required. We did review that certainly if the upper GI complaints prove refractory to omeprazole and/or become associated with anything such as dysphagia or anorexia, he should let me know that and we could then reassess things as to whether or not he would need an upper endoscopy. If the abdominal ultrasound is nonrevealing and he is otherwise doing well he would see me on a p.r.n. basis. I did advise him to certainly contact me if he has any problems or questions that I can be of assistance with in the future. Dasia was comfortable with this plan. Thank you again for allowing me to participate in Dasia's care. I shall continue to keep you advised of his progress as needed. Plan: * Treatment: * 2.?Gastroesophageal reflux disease, unspecified whether esophagitis present? Notes: Use omeprazole daily or just as needed for heartburn symptoms.?? * Procedure Codes:?1036F TOBAC CO NON-[id number] BP SCR NOT PRFRM REC REASON NOS * Preventive Medicine:? ??Counseling:?Care goal follow-up plan:?Above Normal BMI Follow-up?Giving encouragement to exercise,?BMI management provided?Yes.? * Follow Up:?prn * * Sign off status: Completed true * Provider:?Jayesh Sweet MD Date:? 024 Generated for Brenden gonzales/Oscar/Terrancesmitting on:?10/15/2024 11:59 AM EDT History and Physical Notes * HPI (History of Present Illness) Category Sub-Category Detail Notes Category Not es incontinence I saw Dasia in followup today in regard to some abdominal discomfort and reflux. I last saw Dasia in November of 2022, at which time he underwent a negative followup screening colonoscopy. He describes a diagnosis of atrial fibrillation in May for which he has been on Eliquis. He describes that he has also been having intermittent symptoms of some mid-abdominal discomfort, particularly after his evening meal. He has also been having some associated reflux with heartburn and belching. He denies any dysphagia, anorexia, early satiety, nausea, nor vomiting. He denies any signs of jaundice nor weight loss. He describes that his bowel movements have been regular and without any hematochezia nor melena. He has been using Metamucil to help with his bowel movements and does find that has indeed helped to keep him more regular. He was started on some omeprazole after being seen at a [facility] and has found that has given him some relief of the previous upper GI complaints. He reports that he is no longer using that and has found that his upper GI complaints have returned to some degree without it. He has never had an upper endoscopy. Examination Category Sub-Category Detail Notes Category Not es General Examination GENERAL APPEARANCE: pleasant , well [...]
--- OUTSIDE RECORDS SUMMARY | 2024-10-15 12:00 | XMS_ITS ---
Author Organization [facility] Address [address] [place] [address] Care Team Providers Care Aluminum Fabrication Supervisor Name Role Phone Oscar Arias Primary Care Provider Rosalia Chaudhary [phone] REASON FOR VISIT Seen Sooner Encounters Encounter Location Date Provider Diagnosis [address] [address] 09/25/2024 Rosalia Saleh Plan Of Treatment Next Appt Details Provider Name:Rosalia Saleh , 02/02/2025 10:00:00 AM, [address] [place], [address], Progress Notes * Maximino GROVER EDOB:1944 (79 yo M)Acc No.[id number]:09/25/2024 Progress Notes Patient:?Maximino GROVER Provider:?Rosalia Saleh DPM :1945???Age:79 Y???Sex:Male Orestes e:09/25/2024 Address:[address] [place] [address] Pcp:Oscar Arias Subjective: * Chief Complaints: * ???1. Seen Sooner. * Medical History:? Objective: * Vitals:? Assessment: Plan: * Treatment: * Images: * The named appointment provid er may or may not be the originator of this progress note, and it is not deemed complete until electronically signed by the appointment provider. Sign off status: Pending * Provider:?Rosalia Saleh DPM Date:?2024 Generated for Brenden gonzales/Oscar/Zion on:?10/15/2024 12:00 PM EDT
--- OUTSIDE RECORDS SUMMARY | 2024-10-15 12:00 | XMS_ITS | Continuity of Care Document ---
Author Organization [facility] [place] [address] [facility] [place] [address]- Care Team Providers Care Repairer Finished Metal Name Role Phone Oscar Arias MD Primary Care Physician [phone] Encounter 10/06/24 - 10/13/24 [facility] [address] [facility], [address] [place] [address]- Attending Physician: Clarence Main MD Admitting Physician: Clarence Main MD Referring Physician: Clarence Main MD Encounter Type: OutPatient One Time Allergies, Adverse Reactions, Alerts Substance Criticality Severity Reaction Reaction Severity Status digoxin Unable to assess criticality Unknown unknown Active penicillins Unable to assess criticality Unknown unknown Active sulfa drugs Unable to assess criticality Unknown unknown Active Contrast Dye 1 Unable to assess criticality Unknown Active 1CT scan dye and IVP dye Medications aspirin 81 mg oral capsule 1 capsule = 81 mg, By Mouth, Daily, do not exceed 48 capsules in 24 hours, # 30 capsule, 0 Refills,Maintenance, 10/11/23 12:29:00 PM EDT, Capsule, Partial fill upon patient request if the prescription is for a schedule II opioid drug. Start Date: 10/11/23 Status: Ordered Quantity: 30.0 Unit: capsule Repeat number: 1 carvedilol 6.25 mg oral tablet TAKE 1 TABLET BY MOUTH TWICE DAILY Start Date: 08/23/23 Status: Ordered Repeat number: 1 cloNIDine 0.1 mg/24 hr transdermal film, extended release APPLY 1 PATCH TOPICALLY TO THE SKIN EVERY WEEK Start Date: 08/23/23 Status: Ordered Repeat number: 1 clopidogrel 75 mg oral tablet 75 mg, By Mouth, Daily, # 90 tablet, Refills 3, Tot. Refills 3, Maintenance, 10/10/23 1:24:00 PM EDT, Route to Pharmacy Electronically, [id number], Partial fill upon patient request if the prescription is for a schedule II opioid drug., 177, cm, 10/10/23 9:13:00 EDT, Height, 78.7, kg, 10/10/23 9:13:00 EDT, Dry Weight Start Date: 10/10/23 Status: Ordered Quantity: 90.0 Unit: tablet Repeat number: 4 diphenhydrAMINE 25 mg oral tablet 1 tablet = 25 mg, By Mouth, Once, Take 1 tablet the morning of your procedure, # 1 tablet, 0 Refills, Soft Stop, 09/03/23 10:48:00 AM EST, [id number], Partial fill upon patient request if the prescription is for a schedule II opioid drug., 79.1, kg, 02/08/22 10:09:00 EDT, Dry Weight Start Date: 09/03/23 Status: Ordered Quantity: 1.0 Unit: tablet Repeat number: 1 Flonase = 50 mcg, Daily, 0 Refills, Maintenance, 08/23/23 11:21:00 AM EST, Partial fill upon patient request if the prescription is for a schedule II opioid drug. Start Date: 08/23/23 Status: Ordered Repeat number: 1 hydrocortisone 2.5% topical cream APPLY RECTALLY TO THE AFFECTED AREA TWICE DAILY Start Date: 08/23/23 Status: Ordered Repeat number: 1 PriLOSEC OTC 20 mg oral delayed release tablet 1 tablet = 20 mg, By Mouth, 2 times a day, # 30 tablet, 0 Refills, Maintenance, 08/23/23 11:21:00 AM EST, [facility] Tablet, Partial fill upon patient request if the prescription is for a schedule II opioid drug. Start Date: 08/23/23 Status: Ordered Quantity: 30.0 Unit: tablet Repeat number: 1 Problem List Condition Confirmation Course Effective Dates Status [facility] Informant AF (paroxysmal atrial fibrillation) Confirmed Active Results Radiology Reports * Exam Date Time Procedure Performing Provider Status 10/06/24 12:[address] Abd/Pelvis W/O Contrast Kaleigh Campos; Angel (Verified) Notes: (CT Abd/Pelvis W/O Contrast) Reason For Exam: Renal Stone RESULT: CT Abd/Pelvis W/O Contrast CT Abd/Pelvis W/O Contrast [facility] [address] [place] [address], [id number]. INDICATION: Follow-up urolithiasis. TECHNIQUE: Spiral CT through the abdomen and pelvis without IV contrast formatted in 3 planes. Weight-based protocol using automatic tube modulation was used to optimize exposure parameters. COMPARISON: 11/05/2023. FINDINGS: Visualized Chest: Lung bases are clear. No pleural effusion. The heart is normal in size. No pericardial effusion. Liver: Normal. Gallbladder: No CT evidence of gallbladder pathology. Bile ducts: No biliary ductal dilation. Spleen: Partially included, unremarkable. Pancreas: Diffusely atrophic. Adrenal glands: Normal. Kidneys and ureters: Single small right renal calculus measuring 7 to 8 mm with maximal Hounsfield unit measurements greater than 1,000. Bladder: Under distended. Reproductive organs: Probable prostatectomy. Stomach, small bowel, and large bowel: Scattered colonic diverticulosis. Appendix: Normal. Peritoneum and retroperitoneum: No ascites or pneumoperitoneum. No omental or mesenteric lesions. Lymph nodes: No enlarged lymph nodes. Blood vessels: Normal. No aneurysm. Abdominal and pelvic wall: Unremarkable. Bones: No acute abnormalities, no focal osseous lesions, there are moderate degenerative changes. IMPRESSION: Similar appearing exam with a single small right renal calculus is largely unchanged. WSN: [id number] Ordering Physician: Clarence Main Dictated By: Bari Leslie MD Dictated Date/Time: 10/06/24 3:04 pm Reviewed By: Bari Leslie MD Signed By: Bari Leslie MD Signed Date/Time: 10/06/24 3:04 pm Transcribed By: ISIDRO Transcribed Date/Time: 10/06/24 2:30 pm Social History Social History Type Response Smoking Status Former smoker, quit more than 30 days ago; Type: Cigarettes; Number of years: 15; Total pack years: 15; Started at age: 15; Stopped at age: 30; entered on: 08/23/23 Sex Sex Representation Male (finding) Patient Care team information Care Team Personnel Name: Oscar Arias MD Position: Reference Physician Member Role: PCP Address: [address] [place] [address] Telecom: Name: Jameson Benítez RN Position: [facility] RN Member Role: Primary Care Nurse Name: Clarence Main MD Position: [facility] Physician - Urology Med Service: Urology Member Role: Ordering Physician Address: [address] [place] [address] Telecom: Care Team Related Persons Name: MARIA DEL CARMEN PATTON Name: NANCY AMATO Insurance Providers Guarantor name: DASIA REILLY Health Plan Information #: 2 Payer: [facility] Member Number: [id number] Policy Number: NA Group Number: [id number] Health Plan Information #: 1 Payer: MEDICARE PART B OUTPT Member Number: [id number] Policy Number: NA Group Number: [id number]
--- OUTSIDE RECORDS SUMMARY | 2024-10-15 12:00 | XMS_ITS | Patient Health Record ---
Author Organization [facility] Address [address] [place] [address] Care Team Providers Care Clinic Office Assistant Name Role Phone Oscar Arias Primary Care Provider Rosalia Chaudhary Unavailable [phone] Allergies Allergen (clinical drug ingredient) Drug/Non Drug Allergy documented on EMR Reaction Allergy Type Onset Date Status IVP DYE (uncoded) nausea and vomiting Allergy Active RSV injection (uncoded) rash Allergy Active Penicillin stomach cramps Drug Allergy A ctive Reason For Referral No Information Medications Medication SIG (Take, Route, Fr equency, Duration) Notes Start Date End Date Status Aspirin 81 MG 1 tablet Orally Once a day Active Ciclopirox 0.77 % 1 application Department Administrator ally Once a day for 30 days Active Carvedilol 12.5 MG 1 tablet with food O rally Twice a day Active cloNIDine 0.1 MG/24HR 1 patch to skin Transdermal Active MiraLax Active Social History Tobacco Use: Social History [...] nk containing alcohol in the past year? Declined to specify (0 point) How many drinks did you have on a typical day when you were drinking in the past year? Declined to specify (0 point) How often did you have six o r more drinks on one occasion in the past year? Declined to specify (0 point) Points 0 Interpretation Negative Problems Problem Type SNOMED Code ICD Code Onset Dates Problem Status W/U Status Risk Notes Problem Ulcer of toe of right foot (disorder) (29560879727 862671) Skin ulcer of toe of right foot, limited to breakdown of skin (L97.511) Active confirmed Vital Signs Blood pressure diastolic 75 mm Hg 10/02/2024 Height 5 ft 9 in in 10/02/2024 Blood pressure systolic 126 mm Hg 10/02/2024 Weight 175 lbs 10/02/2024 BMI 25.84 kg/m2 10/02/2024 Procedures Procedure Date Ordered Date Performed Result Body Sit e 81807-Obxamgqe Plate 09/18/2024 N/A 85808- Debride <25 sq cm 10/02/2024 N/A Encounters Encounter Location Date Provider Diagnosis [facility] [address] [address] 09/18/2024 Rosalia Black Ingrown nail L60.0 ; Onychomycosis B35.1 ; Pain in right toe(s) M79.674 and Pain in left toe(s) M79.[address] [facility] [address] 10/02/2024 Rosalia Black Skin ulcer of toe of right foot, limited to breakdown of skin L97.511 Assessments Encounter Date Diagnosis (ICD Code) Assessment Notes Treatment Notes Treatment Clinical Notes Section Notes 09/18/2024 Ingrown nail (ICD-10 - L60.0) 09/18/2024 Onychomycosis (ICD-10 - B35.1) 10/02/2024 Skin ulcer of toe of right foot, limited to breakdown of skin (ICD-10 - L97.511) Patient Educated with: WOUND CARE INSTRUCTIONS.p df (WOUND CARE INSTRUCTIONS.p df) 09/18/2024 Pain in right toe(s) (ICD-10 - M79.674) 09/18/2024 Pain in left toe(s) (ICD-10 - M79.675) 10/02/2024 Other Plan Of Treatment Pending Test Test Name Order Date [id number]-Yywfjmae Plate 09/18/2024 23696- Debride <25 sq cm 10/02/2024 Next Appt Details Provider Name:Rosalia Saleh , 02/02/2025 10:00:00 AM, [address] [facility], [place], [address], Insurance Providers Payer Name Payer Address Payer Phone Subscriber Number Group Number Insured Name Patient Relationship to Insured Coverage Start Date Coverage End Date Medicare National [employer]t [employer] [address] [facility] [place] [address] [id number] Maximino Bellamy Self - patient is the insured [employer] [address] [place] [address] [phone] [id number] Maximino Bellamy Self - patient is the insured Medical (General) History Medical History History ICD Code Cancer Cataracts covid-19 High Blood Pressure Reflux ( GERD) Sciatica A fib Surgical History Surgery Date(Month/Year) prostate removed 2017 watch-man 2022 sling surgery 2021 hernia
--- OUTSIDE RECORDS SUMMARY | 2024-10-15 12:00 | XMS_ITS | Clinical Summary ---
Author Organization [facility] Address [address] [place] [address] [place] [address] Phone Care Team Providers Care Organ Pipe Maker Metal Name Role Phone Oscar Arias MD Primary Care Provider [phone] Allergies Active Allergy Reactions Criticality Noted Date Comments Digoxin 01/19/2023 Other reaction(s): unknown Iodinated Contrast Media 01/24/2023 Losartan 01/24/2023 Metoprolol 01/24/2023 Penicillins Other (see comments) 10/15/2022 Sulfa Antibiotics 06/06/2005 Medications fluticasone (FLONASE) 50 MCG/ACT nasal spray Administer 1 spray into each nostril 1 (one) time each day Active carvedilol (COREG) 6.25 MG tablet Take 6.25 mg by mouth in the morning and 6.25 mg in the evening. Take with meals. Active Aspirin 81 MG capsule Take 81 mg by mouth 1 (one) time each day 4 Active cloNIDine (Ycbeuzsv-RSC-1) 0.2 MG/24HR patch weeklyIndications :Essential (primary) hypertension Place 1 patch on the skin 1 (one) time per week 5 12/11/19 25 Active Active Problems Problem Noted Date Diagnosed [...] Date Resolved Date Diverticulosis of colon 01/19/2023 0701/2023 Family history of malignant neoplasm of gastrointestinal tract 01/19/2023 01/19/2023 Hemorrhage of anus and rectum 01/19/2023 01/19/2023 History of adenomatous polyp of colon 01/19/2023 01/19/2023 Screening for malignant neoplasm of colon 01/19/2023 01/19/2023 Encounters Date Type Department Care Team Description 09/11/2024 8:00 AM EST [facility] [address] [place] [address] Celestina Quevedo ARNP Essential (primary) hypertension (Primary Dx) 08/14/2024 1:00 PM EST [facility] Visit [facility] [address] [place] [address] Shaggy Hernandez MD Essential (primary) hypertension (Primary Dx) from Last 3 Months Immunizations Name Administration [...] Sign Reading Time Taken Comments Blood Pressure 140/80 09/11/2024 7:59 AM EST Pulse 69 09/11/2024 7:59 AM EST Temperature - - Respiratory Rate - - Oxygen Saturation 98% 09/11/2024 7:59 AM EST Inhaled Oxygen Concentration - - Weight 79.8 kg (176 lb) 09/11/2024 7:59 AM EST Height 177.8 cm (5' 10 ) 08/14/2024 1:05 PM EST Body Mass Index 25.25 08/14/2024 1:05 PM EST Plan of Treatment Upcoming Encounters Date Type Department Care Team (Late st Contact Info) Description 11/10/2024 2:45 PM EDT Office Visit [facility] [address] [address] Ranjith Canseco MD [address] [address] Health Maintenance Due Date Last Done Comments Influenza Vaccine (Season Ended) 2025 03/16/2020, 04/14/2019, 03/07/2018, Additional history exists Pneumococcal Vaccine: 65+ Years Completed 01/17/2017, 04/06/2011 Hepatitis B Vaccine Aged Out No longe r eligible based on patient's [place] [address] [address] [facility] Care Teams Organ Pipe Maker Metal Relationship Specialty Start Date End Date Oscar Arias MD [facility] [place] [address] [place] PCP - General Internal Medicine 01/04/23
--- OUTSIDE RECORDS SUMMARY | 2024-10-15 12:00 | XMS_ITS | Patient Health Record ---
Author Organization [facility] Address [address] [place] [address] Care Team Providers Care Comber Tender Name Role Phone Oscar Arias MD Primary Care Provider Jayesh De Santiago Unavailable [phone] Allergies Allergen (clinical drug ingredient) Drug/Non Drug Allergy documented on EMR Reaction Allergy Type Onset Date Status RSV Vaccine Recombinant, Adjuvanted Unknown Drug Allergy Active RSV Test Unknown Drug Allergy Active Penicillin Unknown Drug Allergy Active IVP dye (uncoded) Unknown Allergy Ac tive Reason For Referral No Information Medications Medication SIG (Take, Route, Frequency, Duration) [...] Once a day for 30 day(s) Active Immunizations Vaccine Route Administration Date Status Comme nts Flu vaccine no Preserv 3 and > Unknown 05/11/2015 Admin istered Influenza Unknown 03/16/2022 Administered Influenza Unknown 07/16/2023 Administered Social History Alcohol Screen Question Answer Notes Did you have a drink containing alcohol in the p ast year? No Points 0 Interpretation Negative Section Notes: Nonsmoker; occ alcohol Nonsmoker; occ alcohol Nonsmoker; occ alcohol Problems Problem Type SNOMED Code ICD Code Onset Dates Problem Status W/U Status Risk Notes Problem 620646247 Colon cancer screening (Z12.11) Active confirmed Problem 173699110 Generalized abdominal pain (R10.84) Active confirmed Problem History of polyp of colon (165087209) History of colon polyps (Z86.010) Active confirmed Problem 12243151 Rectal bleed (K62.5) Active confirmed Problem 951771667 Hx of adenomatou s colonic polyps (Z86.010) Active confirmed Problem 934955708 Family history o f GI malignancy (Z80.0) Active confirmed Problem Diverticulosis of colon (282851720) Diverticulosis of colon (K57.30) Active confirmed Problem 347841078 Gastroesophageal reflux disease, unspecified whether esophagitis present (K21.9) Active confirmed Plan Of Treatment Future Test Test Name Order Date COLONOSCOPY 04/12/2016 COLONOSCOPY 09/28/2022 Insurance Providers Payer Name Payer Address Payer Phone Subscriber Number Group Number Insured Name Patient Relationship to Insured Coverage Start Date Coverage End Date MEDICARE OF [place] [address] [place] [address] [id number] DASIA GROVER Self - patient is the insured [facility] [address] [place] [address] [id number] DASIA GROVER Self - patient is the insured Medical (General) History Medical History History ICD Code Prostate cancer as below Denies [place],DM,CVA,Lung disease,renal dise ase Has had 3 previous colonosco pies at [place]--last one was 05/2010--he reports that they've been negative Hypertension Colonoscopy 05/2016 with a small tubular adenoma removed Atril fibrillation 05/2023-Dr. Jacoby diaz [facility] Negative screening colonoscopy in 11/2022 Surgical History Surgery Date(Month/Year) Hernia repair--left inguinal Prostatectomy - Dr. Main [address] Buckner --h elped greatly 2021
--- OUTSIDE RECORDS SUMMARY | 2024-10-15 12:00 | XMS_ITS ---
Author Organization [facility] Address [address] [place] [address] Care Team Providers Care Aquatic Scientist Name Role Phone Oscar Arias Primary Care Provider Arden SalehNue Unavailable [phone] Allergies Allergen (clinical drug ingredient) Drug/Non Drug Allergy documented on EMR Reaction Allergy Type Onset Date Status IVP DYE (uncoded) nausea and vomiting Allergy Active RSV injection (uncoded) rash Allergy Active Penicillin stomach cramps Drug Allergy A ctive REASON FOR VISIT Open sore - Toe Medications Medication SIG (Take, Route, Fr equency, Duration) Notes Start Date End Date Status Aspirin 81 MG 1 tablet Orally Once a day Active Ciclopirox 0.77 % 1 application Compressed Gas Tester ally Once a day for 30 days [...] Additional Findings: Tobacco non-user Current no nsmoker Problems Problem Type SNOMED Code ICD Code Onset Dates Problem Status W/U Status Risk Notes Problem Ulcer of toe of right foot (disorder) (40171167915 [id number]) Skin ulcer of toe of right foot, limited to breakdown of skin (L97.511) Active confirmed Vital Signs Height 5 ft 9 in in 10/02/2024 Weight 175 lbs 10/02/2024 BMI 25.84 kg/m2 10/02/2024 Blood pressure systolic 126 mm Hg 10/03/19 25 Blood pressure diastolic 75 mm Hg 025 Procedures Procedure Date Ordered Date Performed Result [place] e 31960- Debride <25 sq cm 10/02/2024 N/A Encounters Encounter Location Date Provider Diagnosis [facility] [address] [place] [address] 10/02/2024 Rosalia Saleh Skin ulcer of toe of right foot, limited to breakdown of skin L97.511 Assessments Encounter Date Diagnosis (ICD Code) Assessment Notes Treatment Notes Treatment Clinical Notes Section Notes 10/02/2024 Skin ulcer of toe of right foot, limited to breakdown of skin (ICD-10 - L97.511) Patient Educated with: WOUND CARE INSTRUCTIONS.p df (WOUND CARE INSTRUCTIONS.p df) 10/02/2024 Other Plan Of Treatment Treatment Notes Assessment Notes Skin ulcer of toe of right f oot, limited to breakdown of skin Patient Educated with: WOUND CARE INSTRUCTIONS.pdf (WOUND CARE INSTRUCTIONS.pdf) Pending Test Test Name Order Date 19980- Debride <25 sq cm 10/02/2024 Next Appt Details Follow Up: prn, Reason: Provider Name:Rosalia Saleh , 02/02/2025 10:00:00 AM, [address] [place] [address], [address], Procedure Notes * Category Sub-Category Detail Notes Debride skin< 25 sq cm Open wound Physician of record performed open wound selective debridement of first 25 sq cm or less, of devitilized necrotic/nonviable soft tissue, fibrin, and exudate extending from the epidermis through the dermis, utilizing sharp dissection with sterile 15 blade, and/or tissue nippers. Sterile antibiotic dressing applied, ANESTHESIA- was accomplished TOPICALLY with Lidocaine Hydrochloride Jelly 2 percent. Hemostasis was achieved through direct pressure. Post debridement measurements: 10 mm x 6 mm x 2mm. Character of the wound post debridement is stable (65346) Progress Notes * Maximino GROVER EDOB:1944 (79 yo M)Acc No.[id number]:10/02/2024 Progress Notes Patient:?Maximino GROVER Provider:?Rosalia Saleh DPM :1945???Age:79 Y???Sex:Male Orestes e:10/02/2024 Address: [id number] Pcp:Oscar Arias Subjective: * Chief Complaints: * ???Open sore - Toe * HPI: ???Skin problems:?Nature:?Open sore.?Treatments:?Topical abx, soaks.? * ROS:?General/Constitutional:?Nausea?denies.?Vomiting?denies.?Hunger Thirst?denies.?Loss appetite?denies.?Chills?denies.?Fatigue?denies.?Fever?denies.?Night Sweats?denies.?Unexplained weight loss?denies.?Unexplained weight gain?denies.?HEENTM:?Dentures?denies.?Dizziness?denies.?Glasses/contacts?admits.?Retinopathy?de nies.?Blurred/double vision?denies.?TMJ?denies.?Discharge/drainage?denies.?Implants?denies.?Sore throat?denies.?Dental implants?denies.?Hard of hearing ?admits.?Difficulty chewing/swallowing/speaking?denies.?Nose bleeds?denies.?Sore mouth?denies.?Respiratory:?On Oxygen?denies.?Pneumonia/pleurisy?denies.?Bronchitis?denies.?Emphysema?denies.?C oughing?denies.?Cough blood?denies.?Shortness of breath?denies.?Wheezing?denies.?Cardiovascular:?Pacemaker?denies.?MVP?denies.?WPW?denies.?CHF?denies.?Heart attack?denies.?Septal defect?denies.?Rapid beat?denies.?Chest pain ?denies.?Atrial Fib.?admits.?Murmur/Palpitations?denies.?Gastrointestinal:?Hemorrhoids?admits.?Stomach/Abdominal pain?denies.?Dark blood stool?denies.?Irritable bowel ?denies.?Constipation?denies.?Diarrhea?denies.?Hematology:?Swelling?denies.?Clots?denies.?Varicose Veins?denies.?Bruising?denies.?Bleeding problem?denies.?Genitourinary:?Blood urine?denies.?Frequent/Painfu/urination/bladder control?denies.?Kidney stones?denies.?Infection (UTI)?denies.?Nephropathy?denies.?sex trans dis (STD)?denies.?Prostate?admits.?Musculoskeletal:?Hammertoes?denies.?Bunions?denies.?Back Pain?denies.?Muscle Cramps/ Resting?denies.?Muscle cramps / walking?denies.?Generalized aches and pains?denies.?Weakness?denies.?Integ.:?Dominguez?denies.?Scars?denies.?Corns/calluses?denies.?Ingrown nails?admits.?Painful nails?,admits.?Open Sores?, admits.?Rashes?denies.?Neurologic:?Difficulty sleeping?denies.?Brain disorder?denies.?Numbness?denies.?Balance trouble?denies.?Confusion?denies.?Fainting/blackouts?denies.?Tingling?denies.?Tr emors?denies.? * Medical History:? * Surgical History:?prostate r emoved 2018watch-man 2022sling surgery 2021hernia * Hospitalization/Major Diagno stic Procedure:?Denies Past Hospitalization * Family History:?Mother: dece ased, diagnosed with Unspecified essential hypertension, Unspecified cerebral artery occlusion with cerebral infarction.?Father: .?Siblings: diagnosed with Other malignant neoplasm of unspecified site.? * Social History:?Tobacco Use:?Tobacco use other than smoking?Are you an other tobacco user??No ?Tobacco Control (Standard)?Tobacco use:?Nonsmoker ?Additional Findings: Tobacco non-user?Current nonsmoker ???Miscellaneous:?Caffeine: yes, 1 cup. ?Children: yes. ?Exercise: no. ?Marital status: . 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 * Medications:?TakingcloNIDine 0.1 MG/24HR Patch Weekly 1 patch to skin Transdermal MiraLax Carvedilol 12.5 MG Tablet 1 tablet with food Orally Twice a day Aspirin 81 MG Tablet Chewable 1 tablet Orally Once a day Ciclopirox 0.77 % Gel 1 application Externally Once a day Medication List reviewed and reconciled with the patientTaking cloNIDine 0.1 MG/24HR Patch Weekly 1 patch to skin Transdermal Taking MiraLax Taking Carvedilol 12.5 MG Tablet 1 tablet with food Orally Twice a day Taking Aspirin 81 MG Tablet Chewable 1 tablet Orally Once a day Taking Ciclopirox 0.77 % Gel 1 application Externally Once a day Medication List reviewed and reconciled with the patient * Allergies:?Penicillin: stoma ch crampsRSV injection: rashIVP DYE: nausea and vomitingyes[Allergies Verified] Objective: * Vitals:?Ht: 5 ft 9 in, Wt: 1 75, BMI: 25.84, Shoe size: 9.5 triple E, BP: 126/75 mm Hg, Ht-cm: 175.26 cm, Wt-k.38 kg. * Examination: ???Dermatologic: ?ULCER:? LOCATION, Dorsal,T5, SIZE, 8mm X 4mm X 1-2mm, BASE, granular to epithelialized, RIM, hyperkeratotic, UNDERMINING, absent, TRACKING, Partial to, Full thickness breakdown of skin, DRAINAGE, serosanguineous, mild, NECROTIC TISSUE, loosely-adherent, yellow slough, MALODOR, absent, CALOR, absent, ERYTHEMA, absent, PAIN ON PALPATION, mild.? Assessment: * Assessment: 1.?Skin ulcer of toe of righ t foot, limited to breakdown of skin - L97.511 (Primary)??? Plan: * Treatment: * Procedures:?Debride skin< 25 sq cm:?Open wound?Physician of record performed open wound selective debridement of first 25 sq cm or less, of devitilized necrotic/nonviable soft tissue, fibrin, and exudate extending from the epidermis through the dermis, utilizing sharp dissection with sterile 15 blade, and/or tissue nippers. Sterile antibiotic dressing applied, ANESTHESIA- was accomplished TOPICALLY with Lidocaine Hydrochloride Jelly 2 percent. Hemostasis was achieved through direct pressure. Post debridement measurements: 10 mm x 6 mm x 2mm. Character of the wound post debridement is stable (87508).? * Procedure Codes:?60653 ACTIV E WOUND CARE/20 CM OR < * Follow Up:?prn * Images: * Sign off status: Completed true * Provider:?Rosalia Saleh DPM Date:?2024 Generated for Nighati janet/Oscar/eTrachelsmitting on:?10/15/2024 12:00 PM EDT History and Physical Notes * HPI (History of Present Illness) Category Sub-Category Detail Notes Category Not es Skin problems Nature: Open sore Treatments: Topical abx, soaks Examination Category Sub-Category Detail Notes Category Not es Dermatologic ULCER: LOCATION, Dorsal ,T5, SIZE, 8mm X 4mm X 1-2mm, BASE, granular to epithelialized, RIM, hyperkeratotic, UNDERMINING, absent, TRACKING, Partial to, Full thickness breakdown of skin, DRAINAGE, serosanguineous, mild, NECROTIC TISSUE, loosely-adherent, yellow slough, MALODOR, absent, CALOR, absent, ERYTHEMA, absent, PAIN ON PALPATION, mild
== END 2024-10-15 10:54 | disposition home or self-care (01) ==
PROVIDERS: PCP Internal Medicine; Visit Provider Physician Assistant
DX: J01.10 Acute frontal sinusitis, unspecified (principal)

== ENCOUNTER 2024-11-26 06:01 | Outpatient (REF) | payer MEDICARE, OTHER, SELFPAY ==
[2024-11-26 06:26] LABS: MANUAL DIFF FLAG NO
[2024-11-26 07:28] LABS: Basophils Percent Auto 0.6 % (0-2); Eosinophils Absolute Auto 0.2 X10*3/uL (0.0-0.4); Eosinophils Percent Auto 3.3 % (0-4); Hematocrit 40.1 % (42.0-52.0); Hemoglobin 14.1 g/dl (14.0-18.0); Imm Gran Abs Auto 0.03 X10*3/uL (0.00-0.03); Imm Gran Pct Auto 0.5 % (0.0-0.4); Lymphocytes Absolute Auto 1.6 X10*3/uL (1.2-4.9); Lymphocytes Percent Auto 25.4 % (20-40); Mean Corpuscular HGB Conc 35.2 g/dl (31.0-36.0); Mean Corpuscular Volume 91.1 fL (80.0-98.0); Monocytes Absolute Auto 0.6 X10*3/uL (0.1-1.2); Neutrophils Absolute Auto 3.9 x10*3/uL (2.0-8.3); Neutrophils Percent Auto 61.2 % (45-73); Platelet Count 181 X10*3/uL (160-400); Red Cell Distribution Width 12.7 % (11.0-16.0); Retic HGB Equivalent 35.2 pg (30.0-35.0); Reticulocyte Percent 2.1 % (0.5-1.8); Reticulocytes Absolute 0.094 X10*6/uL (0.026-0.095); White Blood Count 6.3 X10*3/uL (4.8-10.8)
[2024-11-26 07:41] LABS: Appearance Urine Clear; Color Urine Yellow; Glucose Urine UA Negative (Negative); Leukocyte Esterase Urine Negative (Negative); Nitrite Urine Negative (Negative); Urine Blood Negative (Negative); Urine Ketones Negative (Negative); Urine Protein Negative (Neg-Trace)
[2024-11-26 07:55] LABS: B Type Natriuretic Peptide 73 pg/mL (<100)
[2024-11-26 08:03] LABS: Alanine Aminotransferase 28 U/L (0-40); Albumin Level 4.5 g/dL (3.5-5.0); Alkaline Phosphatase 113 U/L (39-117); Anion Gap 14 (12-20); Aspartate Amino Transferase 29 U/L (5-37); Bilirubin Total 0.8 mg/dL (0.0-1.0); Blood Urea Nitrogen 15 mg/dL (9-16); Calcium 9.3 mg/dL (8.4-10.2); Carbon Dioxide 27 mmol/L (22-29); Chloride 106 mmol/L (96-108); Cholesterol 140 mg/dL (<200); Estimated Glomerular Filt Rate > 60; Glucose Random 98 mg/dL (60-115); HDL Cholesterol 52 mg/dL (>40); Iron 115 mcg/dL (45-160); LDL Cholesterol Calculated 61 mg/dL (<100); Percent Iron Saturation 42 % (15-50); Potassium 3.9 mmol/L (3.3-5.1); Sodium 143 mmol/L (135-145); Total Iron Binding Capacity 275 mcg/dL (228-428); Total Protein 7.3 g/dL (6.5-8.0); Triglycerides 136 mg/dL (<150); Unsaturated Iron Binding 160 ug/dL
[2024-11-26 08:20] LABS: Ferritin 129 ng/mL (20-250); Free T4 (Free Thyroxine) 0.79 ng/dL (0.71-1.85); Thyroid Stimulating Hormone 2.48 uIU/mL (0.32-4.0)
[2024-11-26 08:29] LABS: Folate 13.2 ng/mL (> or = 4.0); Prostate Specific Antigen Scr < 0.10 ng/mL (<0.05-4.0); Vitamin B12 481 pg/mL (200-900)
== END 2024-11-26 06:02 | disposition home or self-care (01) ==
LOC: HO.LAB 06:01
PROVIDERS: PCP Internal Medicine; Visit Provider Internal Medicine
DX: K21.9 Gastro-esophageal reflux disease without esophagitis (principal); R30.0 Dysuria; I48.0 Paroxysmal atrial fibrillation; E78.00 Pure hypercholesterolemia, unspecified; Z12.5 Encounter for screening for malignant neoplasm of prostate
CPT/HCPCS: 36415; 80053; 80061; 81003; 82607; 82728; 82746; 83540; 83880; 84153; 84439; 84443; 85025; 85045

== ENCOUNTER 2025-02-23 09:30 | Outpatient (AMB) | payer MEDICARE, OTHER, SELFPAY ==
--- NOTE | 2025-02-23 09:33 | A.OFFPC_ITS ---
Vital Signs 02/23/25 09:35 Height 5 ft 10 in Weight 175 lb 6 oz BMI 25.2 BP 120/68 Blood Pressure Location Lt brachial Position Sitting Pulse 71 Pulse Source Pulse Oximeter Temp 97.3 F Temp Source Temporal Artery Scan Pulse Oximetry (%) 98 Oxygen Delivery Method Room Air Intake Visit Reasons: HTN, PAF Intake Note: Patient is here to follow up on HTN, PAF. Dance Historian Required: No Process Line Operator: Not Required per policy Accompanied by: Self / Same As Patient Allergies Iodinated Contrast Media (IV DYE, IODINE CONTAINING) Allergy (Intermediate, Verified 02/23/25 09:34) NAUSEA & VOMITING Penicillins (PENICILLINS) Allergy (Unknown, Verified 02/23/25 09:34) cramping amlodipine Adverse Reaction (Intermediate, Verified 02/23/25 09:34) Nausea losartan Adverse Reaction (Intermediate, Verified 02/23/25 09:34) Nausea Metoprolol Adverse Reaction (Intermediate, Uncoded 02/23/25 09:34) Nausea and Vomiting Respiratory syncytial virus vaccine Adverse Reaction (Intermediate, Uncoded 02/23/25 09:34) Rash Tobacco use date assessed: 02/23/25 Fall risk assessment: No Falls in past year Last assessed Fall Risk: 02/23/25 Dental Screening Dental Screen Date: 02/23/25 Did you have a dental visit in the last 12 months?: No Did you have a dental problem in the last 6 months where you did not have access to dental care?: No Was dental information given to patient?: Patient has dentist HPI HTN, PAF HPI Details occ dysphagia, back pain to abd mid area, leg numbness PFSH Medical History (Updated 02/23/25 @ 10:04 by Oscar Arias MD) Dysphagia Acute respiratory disease COVID-19 virus infection PAF (paroxysmal atrial fibrillation) Bleeding grade II hemorrhoids Generalized anxiety disorder Atrial fibrillation with rapid ventricular response Atrial fibrillation, new onset Epigastric pain determined by examination Chest pain Acute sinusitis Bloating Postnasal drip Sinus congestion Arrhythmia Burping Blood pressure elevated without history of HTN Colon cancer screening History of renal calculi History of prostate cancer GERD (gastroesophageal reflux disease) BPH (benign prostatic hyperplasia) Surgical History Hx of surgical procedure (09/28/23) History of suburethral sling procedure History of colonoscopy History of adenoidectomy S/P left inguinal herniorrhaphy H/O prostatectomy Social History Household Members: None Caregiver staying overnight: No Housing: House Are you a primary urgent care physician assistant 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 other at home: Yes Do you presently have visiting nurse or other home services: No 75 years or older and lives alone: Yes Alcohol intake: current Alcohol intake frequency: does not drink Comment: 1-2 beers on sunday Patient Tobacco Use Status: Former Tobacco user Tobacco use type: Cigarette Years Smoked: 13 stopped 30 years old e-Cigarette/Vaping Use: Never Used Second Hand Smoke Exposure: Yes Advance Directives Date on File: 06/02/22 service: Yes Current occupational status: unemployed and retired Current occupation: left hand Cognitive needs: No Hearing needs: No Vision needs: Yes Questionnaire PHQ-9 Over the last 2 weeks, how often have you been bothered by any of the following problems? 1. Little interest or pleasure in doing things: not at all 2. Feeling down, depressed, or hopeless: not at all 3. Trouble falling or staying asleep, or sleeping too much: not at all 4. Feeling tired or having little energy: not at all 5. Poor appetite or overeating: not at all 6. Feeling bad about yourself - or that you are a failure or have let yourself or your family down: not at all 7. Trouble concentrating on things, such as reading the newspaper or watching television: not at all 8. Moving or speaking so slowly that other people could have noticed. Or the opposite - being so fidgety or restless that you have been moving around a lot more than usual: not at all 9. Thoughts that you would be better off or of hurting yourself in some way: not at all Total score: 0 Depression Screening Interpretation: Negative Depression Screening Done: Yes Source: Developed by Drs. Jayesh Mcginnis, Petra Campos, Miguel Zarate and colleagues, with an educational agustin from [employer]. Thrive Questionnaire Date Thrive assessed: 02/16/25 I am a: Patient What is your living situation today?: I have a steady place to live Within the past 12 months, did the food you bought not last and you didn't have the money to get more?: Never true Within the past 12 months, did you worry whether your food would run out before you got money to buy more?: Never true Do you have trouble paying for medicines?: No Do you have trouble getting transportation to medical appointments?: No Do you have trouble paying your heating and electricity bill?: No Do you have trouble taking care of your child, family member or friend?: No Do you have trouble with day-to-day activities such as bathing, preparing meals, shopping, managing finances, etc.?: No Are you currently unemployed and looking for a job?: No Are you interested in more education?: No Please select the resources that you would like help with: None Currently or been in a relationship where the following occur: I choose not to answer THRIVE Score: 0 AUDIT C Alcohol Use Questionnaire (AUDIT-C) 1. How often do you have a drink containing alcohol?: 2-4 times a month Total Score: 2 PATIENCE-7 AMB Questionnaire PATIENCE-7 Date PATIENCE - 7 assessed: 08/26/24 Feeling nervous, anxious, or on edge: 0 = Not at all Not being able to stop or control worryin = Not at all Worrying too much about different things: 0 = Not at all Trouble relaxin = Not at all Being so restless that it is hard to sit still: 0 = Not at all Becoming easily annoyed or irritable: 0 = Not at all Feeling afraid as if something awful might happen: 0 = Not at all Total PATIENCE-7 score (0-4 normal; 5-9 mild; 10-14 moderate; 15-21 severe): 0 Source: Developed by Drs. Jayesh Mcginnis, Petra Campos, Miguel Zarate and colleagues, with an educational agustin from [employer]. Physical exam (Primary Care) Vital Signs: Last Vital Signs Temp 97.3 F 02/23/25 09:35 Pulse 71 02/23/25 09:35 BP 120/68 02/23/25 09:35 Pulse Ox 98 02/23/25 09:35 Oxygen Delivery Method Room Air 02/23/25 09:35 BMI result Body Mass Index 25.2 Tobacco/Smoking Status: Tobacco use Status Tobacco use date assessed 02/23/25 02/23/25 09:38 Patient Tobacco Use Status Former Tobacco user 02/23/25 09:38 Tobacco use type Cigarette 02/23/25 09:38 e-Cigarette/Vaping Use Never Used 02/23/25 09:38 PHQ-9: PHQ-9 Score PHQ-9: Total score 0 02/23/25 09:48 Depression Screening Interpretation: Negative Thrive Assessment: Date of Thrive Assessment Date Thrive assessed 02/16/25 02/23/25 09:38 Currently or been in a relationship where the following occur: I choose not to answer Const General: alert; No acute distress Eyes Conjunctivae: conjunctivae normal Resp Auscultation: clear to auscultation bilaterally Cardio Rate: regular rate Rhythm: regular rhythm GI Inspection: Yes normal to inspection Extrem General: Yes normal to inspection and No edema Coding Level of Care Code Est Pt Level 4 (93918) Complex EM visit Add On G2211 Diagnoses Hypertension I10 PAF (paroxysmal atrial fibrillation) I48.0 Presence of Watchman left atrial appendage closure device Z95.818 GERD (gastroesophageal reflux disease) K21.9 History of prostate cancer Z85.46 Dysphagia R13.10 Peripheral neuropathy G62.9 Assessment & Plan Assessment & Plan (1) Hypertension: Code(s): I10 - Essential (primary) hypertension Category: Medical Plan: Continue with blood pressure medication. Decrease salt intake and exercise patient follows up with Nephrology continuing with clonidine and carvedilol (2) PAF (paroxysmal atrial fibrillation): Comment: May 2023 new onset, watchman's device September 2023 Code(s): I48.0 - Paroxysmal atrial fibrillation Category: Medical Plan: Patient has had a watchman's device and off of anticoagulation (3) Presence of Watchman left atrial appendage closure device: Comment: 10/10/2023 Dr. Mcnulty Code(s): Z95.818 - Presence of other cardiac implants and grafts Category: Medical Plan: Continue to follow-up with cardiology (4) GERD (gastroesophageal reflux disease): Code(s): K21.9 - Gastro-esophageal reflux disease without esophagitis Category: Medical Plan: Avoid the foods that causes that usually spicy foods, tomato products, juices, coffee, soda and foods that your sensitive to. After eating do not lie down, allow 3-4 hours before in lie down. And keep the head of bed above 30 degrees to avoid the acid from going up. (5) History of prostate cancer: Code(s): Z85.46 - Personal history of malignant neoplasm of prostate Category: Medical Plan: Patient follows up with urology ASA remains undetectable. (6) Dysphagia: Code(s): R13.10 - Dysphagia, unspecified Category: Medical (7) Peripheral neuropathy: Comment: lower extremity Code(s): G62.9 - Polyneuropathy, unspecified Category: Medical Plan History of Present Illness The patient is a 79-year-old male presenting for a follow-up visit and annual wellness examination. He has a history of gastroesophageal reflux disease (GERD), which has been managed with lifestyle modifications and medications. The patient has a history of prostate cancer and benign prostatic hyperplasia (BPH). He underwent prostatectomy seven years ago and has been stable with undetectable PSA levels since then. He continues to follow up with urology on a yearly basis. Hypertension is another chronic condition for which the patient is being treated with clonidine and carvedilol. A 24-hour ambulatory blood pressure monitor showed stage 1 hypertension with a white coat effect. He follows up with nephrology for blood pressure management. The patient has atrial fibrillation and has had a Watchman device implanted, allowing him to be off anticoagulation therapy. He continues to follow up with cardiology. The patient has a history of nephrolithiasis, with a recent ultrasound showing a 1.3 cm stone in the right kidney. He is advised to maintain good hydration to manage this condition. He recently visited an urgent care center for a sinus infection and was treated with a Z-Justin. The patient reports feeling bloated and experiencing intermittent lower back pain that radiates to the front. He also describes occasional pins and needles sensation, primarily on the right side, and intermittent swallowing difficulties, particularly in the evening. A test to evaluate swallowing difficulties was discussed, which involves drinking a solution followed by x- rays to assess for any strictures. Health Maintenance - Annual wellness visit conducted. - PSA levels remain undetectable post-prostatectomy, with yearly follow-up. - Blood pressure management includes clonidine and carvedilol, with nephrology follow-up. - Atrial fibrillation managed with Watchman device, cardiology follow-up ongoing. - Nephrolithiasis management includes maintaining hydration. Social History - The patient is advised to maintain hydration and engage in healthy lifestyle practices. Review of Systems - Gastrointestinal: Reports intermittent bloating and swallowing difficulties, particularly in the evening. - Musculoskeletal: Reports intermittent lower back pain radiating to the front. - Neurological: Reports occasional pins and needles sensation, primarily on the right side. Physical Exam - Cardiovascular: Peripheral pulses are good, circulation is fine. - Abdominal: No pain or tenderness noted upon palpation, no surgical findings. - Neurological: No significant findings noted. Results - Labs: November 2024 blood work shows normal blood count, electrolytes, renal function, sugar, iron, liver function, cholesterol with LDL of 61, triglycerides of 136, B12, folic acid, and thyroid within normal limits. - Imaging: Recent ultrasound showing 1.3 cm stone in the right kidney. - Monitorin-hour ambulatory blood pressure monitor showing stage 1 hypertension with white coat effect. Plan The patient will continue with current management for hypertension, including clonidine and carvedilol, with regular follow-up with nephrology to monitor blood pressure control. For atrial fibrillation, the patient will maintain follow-up with cardiology, and no anticoagulation is required due to the presence of a Watchman device. The nephrolithiasis will be managed with increased hydration to facilitate stone passage, and the patient will continue to monitor for any symptoms of obstruction or pain. For the reported swallowing difficulties, a diagnostic test involving a barium swallow study will be arranged to assess for any esophageal strictures or reflux issues. The patient is advised to maintain a healthy lifestyle, including adequate hydration and regular physical activity, to support overall health and manage chronic conditions. Patient was informed and verbally consented to the use of an ambient scribe for clinic note documentation during this visit. Discussion Notes During the visit, I discussed the management of hypertension with the patient, emphasizing the importance of medication adherence and regular follow-up with nephrology. We reviewed the patient's atrial fibrillation management, noting that the Watchman device allows him to avoid anticoagulation, and ongoing cardiology follow-up is essential. I explained the need for increased hydration to manage nephrolithiasis and ad vised monitoring for any symptoms of obstruction. For the swallowing difficulties, I recommended a barium swallow study to evaluate for any esophageal issues, and we discussed the procedure and its non-invasive nature. I encouraged the patient to maintain a healthy lifestyle, including hydration and physical activity, to support his overall health. Patient Instructions - Continue taking clonidine and carvedilol as prescribed. - Follow up with nephrology and cardiology as scheduled. - Maintain good hydration to help manage kidney stones. - Expect a call to schedule a barium swallow study for swallowing difficulties. - Engage in regular physical activity and maintain a healthy diet. Orders: Orders FL upper GI series Today R13.10 - Dysphagia, unspecified FL barium swallow Today R13.10 - Dysphagia, unspecified
[2025-02-23 09:35] VITALS: BP 120/68; PULSE 71; TEMP 36.3; O2SAT 98; BMI 25.2
--- OUTSIDE RECORDS SUMMARY | 2025-02-23 10:00 | XMS_ITS | Clinical Summary ---
Author Organization [facility] it Address [address] [place] [address] Care Team Providers Care Pharmacist Critical Care Name Role Phone Thomas Stiles MD Primary Care Provider [phone] Allergies Active Allergy Reactions Criticality Noted Date [...] Date Diagnosed Date Hyperglycemia 12/06/2018 Prostate CA ([facility] V24, [facility] V28) 6 Overview (07/07/2024): S/p prostectomy 07/2017, Follows with [...] Surgery Date Site/Laterality Comments COLONOSCOPY 04/18/2004 PROCEDURE: [place] COLONOSCOPY FLX DX W/COLLJ SPEC WHEN PFRMD; COMMENT: Normal ESOPHAGOGASTRODUODENOSCOPY 04/18/2004 PROCEDURE: NH ESOPHAGOGASTRODUODENOSCOPY TRANSORAL DIAGNOSTIC; COMMENT: Normal, not on PPI. COLONOSCOPY 06/03/2010 PROCEDURE: [place] COLONOSCOPY FLX DX W/COLLJ SPEC WHEN PFRMD; COMMENT: Normal ESOPHAGOGASTRODUODENOSCOPY 06/03/2010 PROCEDURE: [place] ESOPHAGOGASTRODUODENOSCOPY TRANSORAL DIAGNOSTIC; COMMENT: Normal, not on PPI rx. Medical History Medical History Date Comments Esophageal reflux DX:Esophageal reflux Calculus of kidney DX:Calculus o f kidney Historical Medical DX 09/15/2008 DX:BPH Constipation 07/29/2010 DX:Constipation Prostate CA (CMS/HCC V24, CMS/HCC V28) 10/05/2015 DX:Prostate CA (HCC); COMMENT: Follows with urologist, Dr. Main Hyperglycemia [...] 2021 Cholesterol Screening (Lipid Panel) 07/08/2024 08/23/2016 Falls Risk Assessment 07/08/2024 Social Influencers of Health Screening 07/08/2024 Depression Screening 07/16/2024 Hypertension/CHF/CAD Annual BMP Blood Test 08/28/2024 05/30/2019 Influenza Vaccine (#1) 2025 , 03/16/2020, 04/14/2019, Additional history exists Hepatitis C [...] age to complete this topic Meningococcal B Vaccine Aged Out No l onger eligible based on patient's age to complete [...] Test (05/30/2019) Annual BMP Blood Test Abstracted [facility] Provider HEALTH MAINTENANCE Final Result * Hepatitis C Screening (08/23/2016) Pathologist [facility] Hepatitis C Screening Abstracted [facility] Provider HEALTH MAINTENANCE Final Result * (ABNORMAL) Lipid panel (08/23/2016) [facility] LDL/HDL Ratio 3 0 - 4 Triglycerides 160(A) 0 - 150 mg/dL Cholesterol 136 0 - 200 mg/dL HDL 54 >=40 mg/dL LDL Cholesterol 50 0 - 100 mg/dL Blood Venous blood specimen / Unknown [facility] Provider LAB BLOOD ORDERABLES Zulema l Result from Last 3 Months or Most Recently Relevant to Health Maintenance Advance Directives Documents on File Type Date Recorded 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
--- OUTSIDE RECORDS SUMMARY | 2025-02-23 10:00 | XMS_ITS | Clinical Summary ---
Author Organization [facility] Address [address] [place] [address] [address] [place] [address] Phone Care Team Providers Care Flume Maker Name Role Phone Oscar Arias MD Primary Care Provider [phone] Allergies Active Allergy Reactions Criticality Noted Date Comments Digoxin 01/19/2023 Other reaction(s): unknown Iodinated Contrast Media 01/24/2023 Losartan 01/24/2023 Metoprolol 01/24/2023 Penicillins Other (see comments) 10/15/2022 Sulfa Antibiotics 06/06/2005 Medications fluticasone (FLONASE) 50 MCG/ACT nasal spray Administer 1 spray into each nostril 1 (one) time each day Active Aspirin 81 MG capsule Take 81 mg by mouth 1 (one) time each day 4 Active carvedilol (Coreg) 12.5 MG tablet Take 1 tablet (12.5 mg total) by mouth in the morning and 1 tablet (12.5 mg total) in the evening. Take with meals. 5 Active cloNIDine (Keldpetn-BGO-3) 0.2 MG/24HR patch weeklyIndications :Essential (primary) hypertension Place 1 patch on the skin 1 (one) time per week 13 patch 3 5 11/11/19 26 Active Active Problems Problem Noted Date Diagnosed [...] Date Resolved Date Diverticulosis of colon 01/19/2023 070 01/2023 Family history of malignant neoplasm of gastrointestinal tract 01/19/2023 01/19/2023 Hemorrhage of anus and rectum 01/19/2023 01/19/2023 History of adenomatous polyp of colon 01/19/2023 01/19/2023 Screening for malignant neoplasm of colon 01/19/2023 01/19/2023 Immunizations Immunization Administration Dates Next Due Influenza Split High [...] Sign Reading Time Taken Comments Blood Pressure 106/66 11/10/2024 2:59 PM EDT Pulse 59 11/10/2024 2:59 PM EDT Temperature - - Respiratory Rate - - Oxygen Saturation 98% 09/11/2024 7:59 AM EST Inhaled Oxygen Concentration - - Weight 80.6 kg (177 lb 9.6 oz) 11/10/2024 2:59 P M EDT Height 177.8 cm (5' 10 ) 08/14/2024 1:05 PM EST Body Mass Index 25.48 08/14/2024 1:05 PM EST Plan of Treatment Upcoming Encounters Date Type Department Care Team (Late st Contact Info) Description 05/13/2025 8:30 AM EDT Office Visit [facility] [address] [address] Celestina Quevedo ARNP [address] [address] Health Maintenance Due Date Last Done Comments Influenza Vaccine (#1) 2025 0, 04/14/2019, 03/07/2018, Additional history exists Pneumococcal Vaccine: 50+ Years Completed 01/17/2017, 04/06/2011 Hepatitis B Vaccine Aged Out No longe r eligible based on patient's age to complete this topic Insurance Medicare [facility] [place] [id number] Care Teams Flume Maker Relationship Specialty Start Date End Date Oscar Arias MD [facility] [place] [address] [place], [place] PCP - General Internal Medicine 01/04/23
--- OUTSIDE RECORDS SUMMARY | 2025-02-23 10:01 | XMS_ITS | Patient Health Record ---
Author Organization [facility] Address [address] [place] [address] Care Team Providers Care Sales Representative Trainee Name Role Phone Oscar Arias Primary Care Provider Rosalia Chaudhary Unavailable [phone] Allergies Allergen (clinical drug ingredient) Drug/Non Drug [...] MG/24HR 1 patch to skin Transdermal Active cloNIDine 0.2 MG/24HR 1 patch to skin Transdermal Active Ciclopirox 0.77 % 1 application Senior Analyst Programmer ally Once a day; Duration: 30 days Active MiraLax Active Aspirin 81 MG 1 tablet Orally Once a day Active Carvedilol 12.5 MG 1 tablet with food O rally Twice a day Active Immunizations Vaccine Route Administration Date Status Comme nts Influenza Unknown 03/16/2024 Administered Social History Tobacco Use: Social History Observation [...] Problem Status W/U Status Risk Notes Problem Onychomycosis (098845591) Onychomycosis (B35.1) Active confirmed Vital Signs Blood pressure diastolic 75 mm Hg 02/02/2025 Height 5 ft 9 in in 02/02/2025 Blood pressure systolic 125 mm Hg 02/02/2025 Weight 176 lbs 02/02/2025 BMI 25.99 kg/m2 02/02/2025 Procedures Procedure Date Ordered Date Performed Result Body Sit e [id number] Plate 09/18/2024 N/A 35821- Debride <25 sq cm 10/02/2024 N/A [id number] NAIL, 1-5 02/02/2025 N/A Encounters Encounter Location Date Provider Diagnosis [facility] [address] 09/18/2024 Rosalia Black Ingrown nail L60.0 ; Onychomycosis B35.1 ; Pain in right toe(s) M79.674 and Pain in left toe(s) M79.675 [facility] [address] 10/02/2024 Rosalia Black Skin ulcer of toe of right foot, limited to breakdown of skin L97.[address] [facility] [address] 02/02/2025 Rosalia Black Pain in right toe(s) M79.674 ; Onychomycosis B35.1 and Pain in left toe(s) M79.675 Assessments Encounter Date Diagnosis (ICD Code) Assessment Notes Treatment Notes Treatment Clinical Notes Section Notes 09/18/2024 Ingrown nail (ICD-10 - L60.0) 09/18/2024 Onychomycosis (ICD-10 - B35.1) 02/02/2025 Pain in right toe(s) (ICD-10 - M79.674) 02/02/2025 Onychomycosis (ICD-10 - B35.1) 09/18/2024 Pain in right toe(s) (ICD-10 - M79.674) 10/02/2024 Skin ulcer of toe of right foot, limited to breakdown of skin (ICD-10 - L97.511) Patient Educated with: WOUND CARE INSTRUCTIONS.p df (WOUND CARE INSTRUCTIONS.p df) 02/02/2025 Pain in left toe(s) (ICD-10 - M79.675) 09/18/2024 Pain in left toe(s) (ICD-10 - M79.675) 10/02/2024 Other Plan Of Treatment Pending Test Test Name Order Date [id number] NAIL, 1-5 02/02/2025 [id number] Plate 09/18/2024 82102- Debride <25 sq cm 10/02/2024 Next Appt Details Provider Name:Rosalia Leyva Delfino , 06/08/2025 10:15:00 AM, [address] [place], [address], Insurance Providers Payer Name Payer Address Payer Phone Subscriber Number Group Number Insured Name Patient Relationship to Insured Coverage Start Date Coverage End Date Medicare National [employer]t [employer] [address] [facility] [place] [address] [id number] Maximino Bellamy Self - patient is the insured 1 [employer]) [address] [place] [address] [phone] [id number] [facility] Maximino Bellamy Self - patient is the insured Medical (General) History Medical History History ICD Code Cancer Cataracts covid-19 High Blood Pressure Reflux ( GERD) Sciatica A fib Surgical History Surgery Date(Month/Year) prostate removed 2017 watch-man 2022 sling surgery 2021 hernia
--- OUTSIDE RECORDS SUMMARY | 2025-02-23 10:01 | XMS_ITS ---
[facility] Name [facility] Care Team Organization Name Specialty Phone Email Start Date End Da te [facility] Stiles Primary Care 05/23/2022 03/03/2024
--- OUTSIDE RECORDS SUMMARY | 2025-02-23 10:01 | XMS_ITS | Patient Health Record ---
Author Organization [facility] Address [address] [place] [address] Care Team Providers Care Wheel Borer Name Role Phone Oscar Arias MD Primary Care Provider Jayesh De Santiago Unavailable [phone] Allergies Allergen (clinical drug ingredient) Drug/Non Drug [...] Problem Status W/U Status Risk Notes Problem 176006905 Colon cancer screening (Z12.11) Active confirmed Problem 063704241 Generalized abdominal pain (R10.84) Active confirmed Problem History of polyp of colon (085485567) History of colon polyps (Z86.010) Active confirmed Problem 67727829 Rectal bleed (K62.5) Active confirmed Problem 236226678 Hx of adenomatou s colonic polyps (Z86.010) Active confirmed Problem 444743226 Family history o f GI malignancy (Z80.0) Active confirmed Problem Diverticulosis of colon (278825159) Diverticulosis of colon (K57.30) Active confirmed Problem 693738332 Gastroesophageal reflux disease, unspecified whether esophagitis present (K21.9) Active confirmed Plan Of Treatment Future Test Test Name Order Date COLONOSCOPY 04/12/2016 COLONOSCOPY 09/28/2022 Insurance Providers Payer Name Payer Address Payer Phone Subscriber Number Group Number Insured Name Patient Relationship to Insured Coverage Start Date Coverage End Date MEDICARE OF [place] [address] [place] [address] [id number] DASIA GROVER Self - patient is the insured [facility] [address] [place] [address] [id number] DASIA GROVER Self - patient is the insured Medical (General) History Medical History History ICD Code Prostate cancer as below Denies DC,DM,CVA,Lung disease,renal dise ase Has had 3 previous colonosco pies at [place]--last one was 05/2010--he reports that they've been negative Hypertension Colonoscopy 05/2016 with a small tubular adenoma removed Atril fibrillation 05/2023-[place]. Jacoby diaz [place] [facility] in 11/2022 Surgical History Surgery Date(Month/Year) Hernia repair--left inguinal Prostatectomy - Dr. Main [address] Buckner --h elped greatly 2021
== END 2025-02-23 10:09 | disposition home or self-care (01) ==
LOC: HO.HMCH 09:31
PROVIDERS: PCP Internal Medicine; Visit Provider Internal Medicine
DX: I10 Essential (primary) hypertension (principal); I48.0 Paroxysmal atrial fibrillation; Z95.818 Presence of other cardiac implants and grafts; K21.9 Gastro-esophageal reflux disease without esophagitis; Z85.46 Personal history of malignant neoplasm of prostate; R13.10 Dysphagia, unspecified; G62.9 Polyneuropathy, unspecified

== ENCOUNTER → 2025-02-23 09:30 | Outpatient (BNVA) | payer MEDICARE, OTHER, SELFPAY | PROVIDERS: PCP Internal Medicine; Visit Provider Internal Medicine | DX: I10 Essential (primary) hypertension (principal); I48.0 Paroxysmal atrial fibrillation; K21.9 Gastro-esophageal reflux disease without esophagitis; R13.10 Dysphagia, unspecified; G62.9 Polyneuropathy, unspecified; Z95.818 Presence of other cardiac implants and grafts; Z85.46 Personal history of malignant neoplasm of prostate | CPT/HCPCS: 99212 ==

== ENCOUNTER 2025-06-15 09:01 | Outpatient (REF) | payer MEDICARE, OTHER, SELFPAY ==
--- OUTSIDE RECORDS SUMMARY | 2024-10-16 03:30 | XMS_ITS ---
Author Organization [facility] [place] Address [address] [place] [address] Care Team Providers Care Scow Captain Name Role Phone Oscar Arias Primary Care Provider Rosalia Chaudhary Unavailable [phone] Allergies Allergen (clinical drug ingredient) Drug/Non Drug [...] Negative Encounters Encounter Location Date Provider Diagnosis [facility] [address] [place] [address] 10/16/2024 Rosalia Saleh Plan Of Treatment Next Appt Details Provider Name:Rosalia Saleh , 06/22/2025 02:30:00 PM, [address] [place], [address], Progress Notes * Maximino GROVER EDOB:1944 (80 yo M)Acc No.[id number]:10/16/2024 Progress Notes Patient: Maximino WOODRUFF Provider: María Saleh DPM :1945 A ge:79 Y S ex:Male Date:10/16/2024 Address:[address] [place], [place] [id number] Pcp:Oscar Arias Subjective: * Chief Complaints: * [...] enies. C ardiovascular: Pacemaker d enies. M CREDIT CHARGE AUTHORIZER d enies. W PW d enies. C [...] 1 cup. Marital status: . 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 D rug/Alcohol: A LEVI-C (Standard) D id [...] 0 10/16/2024 Generated for Brenden Camp/Zion on: 08/16/2024 10:27 AM EST
--- NOTE | ~2025-06-15 | FL_ITS ---
EXAMINATION: XR FLUOROSCOPY UPPER GI SERIES CLINICAL INFORMATION: 80-year-old male complaining of reflux type symptoms, and episodic dysphasia, with trouble swallowing pills. COMPARISON: None TECHNIQUE: Fluoroscopic air contrast upper GI examination was performed utilizing standard techniques with thin and thick barium and effervescent granules. Numerous spot images were obtained. Several fluoroscopic image hold cine sequences were also obtained. FINDINGS: UPPER GI SERIES: Lateral cine images of the oropharynx and hypopharynx demonstrate normal swallow mechanism with normal epiglottic inversion and soft palate elevation. No laryngeal penetration, glottic or subglottic aspiration identified. Hypopharyngeal structures appear normal without evidence of mass or diverticulum. There was no significant cricopharyngeal achalasia. A 13 mm barium tablet passed to the level of the GE junction, where there was significant delay in passage into the stomach. It took numerous swallows of water for the tablet to eventually pass. Dual and single contrast images of the esophagus demonstrate normal caliber, contour, and mucosal pattern. There was extremely disordered esophageal peristalsis. No mass identified. Moderate smooth narrowing of the GE junction was noted, which persisted and is highly suspicious for moderate achalasia. A small type I hiatus hernia was present. There was mild gastroesophageal reflux noted during the examination to the level of the aortic arch. Dual contrast and single contrast images of the stomach demonstrated normal contour and mucosal pattern without evidence of mass, ulceration, or other abnormality. Normal gastric rugal fold pattern. Contrast freely passed into the gastric antrum and duodenal bulb without delay. Single and air-contrast images of the duodenal bulb demonstrate no abnormality. The duodenal sweep has a normal appearance, course, and mucosal fold appearance. FLUOROSCOPY TIME: 4 minutes 1 second Number of Spot Images:10 Number of cines obtained: 13 DOSE AREA PRODUCT: 4342 uGy-m2 (microgray-meter squared) FL/FL upper GI w air w Ba Swallow IMPRESSION: 1. Moderate smooth short segment narrowing of the GE junction highly suggestive of achalasia. A benign stricture is also within the differential, although considered less likely given the appearance. A 13 mm barium tablet did eventually pass through GE junction into the stomach, although there was significant delay. 2. Moderate to extensively disordered esophageal motility. 3. Small type I hiatus hernia. 4. Mild gastroesophageal reflux was observed during the course of the exam, to the level of the aortic arch. 5. Normal-appearing stomach and proximal duodenum. Electronically signed by: López Rosas MD 06/15/2025 10:48 AM RADHA CHAN
--- OUTSIDE RECORDS SUMMARY | 2025-06-15 10:26 | XMS_ITS | Clinical Summary ---
Author Organization [facility] [address] it Address [address] [place] [address] Care Team Providers Care Elevator Tender Name Role Phone Thomas Stiles MD Primary Care Provider [phone] Allergies Active Allergy Reactions Criticality Noted Date [...] Date Diagnosed Date Hyperglycemia 12/06/2018 Prostate CA ([facility] V24, [facility] V28) 6 Overview (07/07/2024): S/p prostectomy 07/2017, Follows with urologist, Dr. Main Seasonal allergies 10/05/2015 Constipation 07/29/2010 Overview (07/07/2024): Negative colonoscopy 2009in Benign prostatic hyperplasia 09/15/2008 Rectal bleeding 08/07/2005 Overview (07/07/2024): S/P (-) colonoscopy 2003, 04/2010 Calculus of kidney 06/06/2005 Esophageal reflux 06/06/2005 Overview (07/07/2024): EGD (-) 04/18, feels well without acid control/PPI Immunizations Immunization Administration Dates Next Due Influenza trivalent, 0.5mL [...] Surgery Date Site/Laterality Comments COLONOSCOPY 04/18/2004 PROCEDURE: VT COLONOSCOPY FLX DX W/COLLJ SPEC WHEN PFRMD; COMMENT: Normal ESOPHAGOGASTRODUODENOSCOPY 04/18/2004 PROCEDURE: VT ESOPHAGOGASTRODUODENOSCOPY TRANSORAL DIAGNOSTIC; COMMENT: Normal, not on PPI. COLONOSCOPY 06/03/2010 PROCEDURE: VT COLONOSCOPY FLX DX W/COLLJ SPEC WHEN PFRMD; COMMENT: Normal ESOPHAGOGASTRODUODENOSCOPY 06/03/2010 PROCEDURE: VT ESOPHAGOGASTRODUODENOSCOPY TRANSORAL DIAGNOSTIC; COMMENT: Normal, not on [...] Test (05/30/2019) Annual BMP Blood Test Abstracted [facility] Provider HEALTH MAINTENANCE Final Result * Hepatitis C Screening (08/23/2016) Pathologist [facility] Hepatitis C Screening Abstracted [facility] Provider HEALTH MAINTENANCE Final Result * (ABNORMAL) Lipid panel (08/23/2016) [facility] LDL/HDL Ratio 3 0 - 4 Triglycerides 160(A) 0 - 150 mg/dL Cholesterol 136 0 - 200 mg/dL HDL 54 >=40 mg/dL LDL Cholesterol 50 0 - 100 mg/dL Blood Venous blood specimen / Unknown [facility] Provider LAB BLOOD ORDERABLES Zulema l Result from Last 3 Months or Most Recently Relevant to Health Maintenance Advance Directives Documents on File Type Date Recorded Patient Carpet Jack Expl anation Health Care Decision (hx) 02/20/2019 AD PORTER DIRECTIVE Health Care Decision (hx) 02/20/2019 AD PORTER DIRECTIVE Health Care Decision (hx) 08/07/2017 AD PORTER DIRECTIVE Health Care Decision (hx) 08/07/2017 AD PORTER DIRECTIVE Care Teams Elevator Tender Relationship Specialty Start Date End Date Thomas Stiles MD [address] [place] [address] PCP - General 05/30/04
--- OUTSIDE RECORDS SUMMARY | 2025-06-15 10:26 | XMS_ITS | Clinical Summary ---
Author Organization [facility] Address [address] [place] [address] Phone Care Team Providers Care Electronic Controls Repairer Supervisor Name Role Phone Oscar Arias MD Primary Care Provider [phone] Allergies Active Allergy Reactions Criticality Noted Date Comments Digoxin 01/19/2023 Other reaction(s): unknown Iodinated Contrast Media 01/24/2023 Losartan 01/24/2023 Metoprolol 01/24/2023 Penicillins Other (see comments) 10/15/2022 Sulfa Antibiotics 06/06/2005 Medications Aspirin 81 MG capsule Take 81 mg by mouth 1 (one) time each day 4 Active carvedilol (Coreg) 12.5 MG tablet Take 1 tablet (12.5 mg total) by mouth in the morning and 1 tablet (12.5 mg total) in the evening. Take with meals. 5 Active cloNIDine (Vizljfwf-ZVZ-0) 0.2 MG/24HR patch weeklyIndications :Essential (primary) hypertension Place 1 patch on the skin 1 (one) time per week 13 patch 3 5 05/13/20 26 Active Active Problems Problem Noted Date [...] Encounters Date Type Department Care Team Description 05/13/2025 8:30 AM EDT Office Visit [facility] [address] [address] Celestina Quevedo ARNP Essential (primary) hypertension from Last 3 Months Immunizations Immunization Administration Dates Next Due Influenza [...] Sign Reading Time Taken Comments Blood Pressure 140/82 05/13/2025 8:48 AM EDT Pulse 69 05/13/2025 8:22 AM EDT Temperature - - Respiratory Rate - - Oxygen Saturation 97% 05/13/2025 8:22 AM EDT Inhaled Oxygen Concentration - - Weight 82.5 kg (181 lb 12.8 oz) 05/13/2025 8:22 AM EDT Height 177.8 cm (5' 10 ) 08/14/2024 1:05 PM EST Body Mass Index 26.09 08/14/2024 1:05 PM EST Plan of Treatment Upcoming Encounters Date Type Department Care Team (Late st Contact Info) Description 08/10/2025 8:15 AM EST Office Visit [facility] [address] [address] Celestina Quevedo ARNP [address] [phone] Health Maintenance Due Date Last Done Comments Influenza Vaccine (#1) 2025 0, 04/14/2019, 03/07/2018, Additional history exists Pneumococcal Vaccine: 50+ Years Completed 01/17/2017, 04/06/2011 Hepatitis B Vaccine Aged Out No longe r eligible based on patient's age to complete this topic Insurance Medicare [facility] Medicare [facility] Care Teams Electronic Controls Repairer Supervisor Relationship Specialty Start Date End Date Oscar Arias MD [facility] [place] [address] [place] PCP - General Internal Medicine 01/04/23
== END 2025-06-15 09:02 | disposition home or self-care (01) ==
LOC: HO.XRAY 09:01
PROVIDERS: PCP Internal Medicine; Visit Provider Internal Medicine
DX: R13.10 Dysphagia, unspecified (principal)
CPT/HCPCS: 74246

== ENCOUNTER → 2025-06-15 09:03 | Outpatient (BNV) | payer MEDICARE, OTHER, SELFPAY | PROVIDERS: PCP Internal Medicine; Visit Provider Radiology Diagnostic Radiology | DX: K21.9 Gastro-esophageal reflux disease without esophagitis (principal); K44.9 Diaphragmatic hernia without obstruction or gangrene; R13.10 Dysphagia, unspecified | CPT/HCPCS: 74246 ==

== ENCOUNTER 2025-06-23 12:14 | Outpatient (AMB) | payer MEDICARE, OTHER, SELFPAY ==
--- NOTE | 2025-06-23 12:43 | AM.OFFWIN_ITS ---
Intake Vital Signs 06/23/25 12:45 Height 5 ft 10 in Weight 182 lb BMI 26.1 BP 140/64 H Blood Pressure Location Lt brachial Position Sitting Pulse 66 Pulse Source Pulse Oximeter Temp 98.1 F Temp Source Oral Pulse Oximetry (%) 96 Oxygen Delivery Method Room Air Intake Visit Reasons: Ep pressure in face yellow phlegm lightheaded Intake Note: pt presents with sinus pain and congestion with yellow mucus, nausea, head pressure causing lightheadedness ongoing for a couple months Patient Tobacco Use Status: Former Tobacco user Allergies Iodinated Contrast Media (IV DYE, IODINE CONTAINING) Allergy (Intermediate, Verified 06/23/25 12:48) NAUSEA & VOMITING Penicillins (PENICILLINS) Allergy (Unknown, Verified 06/23/25 12:48) cramping amlodipine Adverse Reaction (Intermediate, Verified 06/23/25 12:48) Nausea losartan Adverse Reaction (Intermediate, Verified 06/23/25 12:48) Nausea Metoprolol Adverse Reaction (Intermediate, Uncoded 06/23/25 12:48) Nausea and Vomiting Respiratory syncytial virus vaccine Adverse Reaction (Intermediate, Uncoded 06/23/25 12:48) Rash Do you need a note to return to daycare/school/sports/work: No HPI HPI Comments History of Present Illness Details History - The patient is a 80-year-old male who presents with symptoms he identifies as a sinus infection, an issue he experiences at least once a year. - His symptoms have been present for a c ouple of months but have recently worsened, and include sinus pressure, pressure in his teeth, lightheadedness, and yellow mucus from one side of his nose, the left. - He also reports a minor cough describe d as a tickle, and denies heavy congestion or shortness of breath. - He has a history of left ear passage i nflammation and has had good results with antibiotics for past sinus infections, specifically mentioning azithromycin. - The patient denies taking any medicati ons for the current symptoms prior to the visit. 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 - Has not tried any medications, has mik nase at home. [facility] Medical History (Updated 06/23/25 @ 13:37 by Suni Fitch PA-C) Acute sinusitis Dysphagia Acute respiratory disease COVID-19 virus infection PAF (paroxysmal atrial fibrillation) Bleeding grade II hemorrhoids Generalized anxiety disorder Atrial fibrillation with rapid ventricular response Atrial fibrillation, new onset Epigastric pain determined by examination Chest pain Bloating Postnasal drip Sinus congestion Arrhythmia Burping Blood pressure elevated without history of HTN Colon cancer screening History of renal calculi History of prostate cancer GERD (gastroesophageal reflux disease) BPH (benign prostatic hyperplasia) Surgical History Hx of surgical procedure (09/28/23) History of suburethral sling procedure History of colonoscopy History of adenoidectomy S/P left inguinal herniorrhaphy H/O prostatectomy Social History Household Members: None Caregiver staying overnight: No Housing: House Are you a primary infant caregiver 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 other at home: Yes Do you presently have visiting nurse or other home services: No 75 years or older and lives alone: Yes Alcohol intake: current Alcohol intake frequency: does not drink Comment: 1-2 beers on sunday Patient Tobacco Use Status: Former Tobacco user Tobacco use type: Cigarette Years Smoked: 13 stopped 30 years old e-Cigarette/Vaping Use: Never Used Second Hand Smoke Exposure: Yes Advance Directives Date on File: 06/02/22 service: Yes Current occupational status: unemployed and retired 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 - Ears: Reports tinnitus for the past 60 years and past inflammation of the ear passage. - Nose: Reports yellow mucus from one side of his nose. - Mouth/Throat: Reports pressure sensation in his teeth. - Respiratory: Reports a mild, tickle-type cough. Denies heavy congestion, shortness of breath, or trouble breathing. - Neurological: Reports feeling lightheaded. - Constitutional: Denies being around anyone who is sick. All systems reviewed and are unremarkable except as noted in HPI Physical Exam Exam Exam: General: Cooperative, healthy appearing, comfortable and no acute distress Orientation/consciousness: Patient oriented x3 Limitations: No limitations Head: Normal to inspection, sinus pressure noted Ears: Hearing grossly normal bilaterally, external ears normal, EAC's normal bilaterally, TM's normal bilaterally, left ear blocked with wax, fluid present in left ear Nose: Normal external nose present, Normal nares present, yellow nasal discharge present Face and sinus: Normal facial exam, sinuses tender Mouth: Normal oral and palatal mucosa present and moist mucous membranes Throat: tonsils normal, no exudates, uvula midline, posterior oropharynx erythema Eyes: Appearance normal, both eyes and all related structures Neck: Normal visual inspection, full ROM Respiratory: Clear to auscultation bilaterally. Normal respiratory effort, able to speak in complete sentences, mild coughing, no respiratory distress, not tachypneic, no tripod positioning and no use of accessory muscles Cardiovascular: Regular rate and rhythm. Normal S1 and S2 Skin: No rashes or lesions noted Neuro: Patient oriented x3, gait normal Extremities: Normal to inspection and Yes no clubbing, cyanosis or edema Vital Signs: Last Vital Signs Temp 98.1 F 06/23/25 12:45 Pulse 66 06/23/25 12:45 BP 140/64 H 06/23/25 12:45 Pulse Ox 96 06/23/25 12:45 Oxygen Delivery Method Room Air 06/23/25 12:45 BMI result Body Mass Index 26.1 Office Procedures Cerumen Removal From which ear canal was the cerumen removed: left Removal: cerumen loop/spoon Notes: patient tolerated procedure well, no complications and ear canal clear 95505-Oiy Wax Removal by Spoon/Curette Assessment & Plan Assessment & Plan (1) Acute sinusitis: Code(s): J01.90 - Acute sinusitis, unspecified Qualifiers: Sinusitis location: pansinusitis Recurrence: non-recurrent Qualified Code(s): J01.40 - Acute pansinusitis, unspecified (2) Impacted cerumen, left ear: Code(s): H61.22 - Impacted cerumen, left ear Plan Patient was informed and verbally consented to the use of an ambient scribe for clinic note documentation during this visit. - VSS, pt well appearing and PE unremarkable. - Given the symptom duration of a couple of months, a bacterial etiology is susp ected. - A nasopharyngeal swab was collected for Flu, COVID, and RSV to rule out a viral cause. - Azithromycin (Z-Justin) was prescribed, and the patient was advised to pick it up and start treatment given the high likelihood of a bacterial infection due to the prolonged course. - The patient was advised that he will be called with the viral panel results the next morning. - Fluid was found in the left ear after cerumen removal, which is likely contributing to the patient's lightheadedness. - Recommended use of gppy-ojb-brevdvs Flonase (fluticasone) nasal spray, which the patient may already have at home. Instructions were provided for proper administration. Recommended using Flonase twice daily for one week, then once daily. - The patient was counseled that it may take a couple of weeks for the fluid to resolve and to use caution with position changes due to potential dizziness. - The left ear canal was occluded by impacted cerumen. - Cerumen was successfully removed in-office during the visit. Orders: Orders SARS-CoV2/FLU/RSV Today R09.89 - Other specified symptoms and signs involving the circulatory and respiratory systems AMB Cerumen Removal Today H61.22 - Impacted cerumen, left ear Medications: New azithromycin For 250 mg dose pack: take 500 mg today (day 1), then 250 mg for 4 days (days 2-5) PO 6 tabs 0RF Coding Level of Care Code Est Pt Level 3 (45613) Diagnoses Acute non-recurrent pansinusitis J01.40 Sinusitis location: pansinusitis Recurrence: non-recurrent Impacted cerumen, left ear H61.22 CPT Codes Office Procedure - CPT: 09949-Icg Wax Removal by Spoon/Curette ([id number])
[2025-06-23 12:45] VITALS: BP 140/64; PULSE 66; TEMP 36.7; O2SAT 96; BMI 26.1
== END 2025-06-23 13:42 | disposition home or self-care (01) ==
PROVIDERS: PCP Internal Medicine; Visit Provider Physician Assistant
DX: J01.40 Acute pansinusitis, unspecified (principal); H61.22 Impacted cerumen, left ear

== ENCOUNTER 2025-06-23 12:14 | Outpatient (REF) | payer MEDICARE, OTHER, SELFPAY ==
--- OUTSIDE RECORDS SUMMARY | 2024-09-25 05:30 | XMS_ITS ---
Author Organization [facility] Address [address] [place] [phone] Care Team Providers Care Clinical Laboratory Service Teacher Name Role Phone Oscar Arias Primary Care Provider Rosalia Chaudhary [phone] REASON FOR VISIT Seen Sooner Encounters Encounter Location Date Provider Diagnosis [address] [phone] 09/25/2024 Rosalia Saleh Plan Of Treatment Next Appt Details Provider Name:Rosalia Saleh , 10/19/2025 10:45:00 AM, [address] [place], [phone], Progress Notes * Maximino GROVER EDOB:1944 (80 yo M)Acc No.[id number]:09/25/2024 Progress Notes Patient: Marcella Maximino PEREA Provider: María Saleh DPM :1945 A ge:79 Y S ex:Male Date:09/25/2024 Address:[address] [place] [address] Pcp:Oscar Arias Subjective: * Chief Complaints: * 1 . Seen Sooner. * Medical History: Objective: * Vitals: Assessment: Plan: * Treatment: * Images: * The named appointment provid er may or may not be the originator of this progress note, and it is not deemed complete until electronically signed by the appointment provider. Sign off status: Pending * Provider: María Saleh DPM Date: 0 09/25/2024 Generated for Brenden gonzales/Oscar/Zion on: 1 08/24/2024 06:49 PM EST
--- OUTSIDE RECORDS SUMMARY | 2024-10-16 03:30 | XMS_ITS ---
Author Organization [facility] [facility] [place] Address [address] [place] [address] Care Team Providers Care Poultry Processor Name Role Phone Oscar Arias Primary Care Provider Rosalia Chaudhary Unavailable [phone] Allergies Allergen (clinical drug ingredient) Drug/Non Drug Allergy documented on EMR Reaction Allergy Type Onset Date Status IVP DYE (uncoded) nausea and vomiting Allergy Active RSV injection (uncoded) rash Allergy Active Penicillin stomach cramps Drug Allergy A ctive REASON FOR VISIT Seen Sooner Medications Medication SIG (Take, Route, Fr equency, Duration) Notes Start Date End Date Status Carvedilol 12.5 MG 1 tablet with food O rally Twice a day Active Aspirin 81 MG 1 tablet Orally Once a day Active cloNIDine 0.1 MG/24HR 1 [...] specify (0 point) Points 0 Interpretation Negative Encounters Encounter Location Date Provider [facility] [address] [place] [address] 10/16/2024 Rosalia Saleh Plan Of Treatment Next Appt Details Provider Name:Rosalia Saleh , 10/19/2025 10:45:00 AM, [address] [place], [address], Progress Notes * Maximino GROVER EDOB:1944 (80 yo M)Acc No.[id number]:10/16/2024 Progress Notes Patient: Maximino WOODRUFF Provider: María Saleh DPM :1945 A ge:79 Y S ex:Male Date:10/16/2024 Address:[address] [place], [place] [phone] Pcp:Oscar Arias Subjective: * Chief Complaints: * 1 . Seen Sooner. * ROS: G eneral/Constitutional: Nausea d enies. V omiting d enies. H xenia Thirst d enies. L oss appetite d enies. C hills d enies. F atigue d enies.?Fever d enies. N ight Sweats d enies. U nexplained weight loss d enies. U nexplained weight gain d enies. H EENTM: Dentures d enies. D izziness d enies. G lasses/contacts a dmits. R etinopathy d enies. B lurred/double vision d enies. T MJ?denies. D ischarge/drainage d enies. I mplants d enies. S ore throat d enies. D ental implants d enies. H manny of hearing a dmits. D ifficulty chewing/swallowing/speaking d enies. N ose bleeds d enies. S ore mouth d enies. ? R espiratory: On Oxygen d enies. P neumonia/pleurisy d enies.?Bronchitis d enies. E mphysema d enies. C oughing d enies. C ough blood?denies. S hortness of breath d enies. W heezing d enies. C ardiovascular: Pacemaker d enies. M BOOKBINDER APPRENTICE d enies. W PW d enies. C HF d enies. H eart attack d enies. S eptal defect d enies. R apid beat d enies. C hest pain d enies. A trial Fib. a dmits. M urmur/Palpitations d enies. G astrointestinal: Hemorrhoids a dmits. S tomach/Abdominal pain d enies. D ark blood stool d enies. I rritable bowel d enies. C onstipation d enies. D iarrhea d enies. H ematology: Swelling d enies. C lots d enies. V aricose Veins d enies. B ruising d enies. B leeding problem d enies. G enitourinary: Blood urine d enies. F requent/Painfu/urination/bladder control d enies. K idney stones d enies. I nfection (UTI) d enies. N ephropathy d enies. s ex trans dis (STD) d enies. P rostate a dmits. M usculoskeletal: Hammertoes d enies. B unions d enies. B ack Pain d enies. M uscle Cramps/ Resting d enies. M uscle cramps / walking d enies.?Generalized aches and pains d enies. W eakness d enies. I nteg.: Dominguez d enies. S cars d enies. C orns/calluses?denies. I ngrown nails a dmits. P ainful nails d enies. O pen Sores d enies. R ashes d enies. N eurologic: Difficulty sleeping d enies. B rain disorder d enies. N umbness d enies. B alance trouble d enies. C onfusion d enies. F ainting/blackouts d enies. T ingling d enies. T remors d enies. * Medical History: C ancer, Cataracts, Covid-19, High Blood Pressure, Reflux ( GERD), Sciatica, A fib. * Surgical History: p rostate removed 2017, watch-man 2022, sling surgery 2021, hernia . * Family History: M other: , diagnosed with Unspecified essential hypertension, Unspecified heart disease. F ather: . S iblings: diagnosed with Other malignant neoplasm of unspecified site. * Social History: T obacco Use: T obacco use other than smoking A re you an other tobacco user? N o Tobacco Control (Standard) T obacco use: N onsmoker A dditional Findings: Tobacco non-user C urrent nonsmoker D rugs/Alcohol: D rugs H ave you used drugs other than those for medical reasons in the past 12 months? N o M iscellaneous: C affeine: yes, 1 cup. Marital status: . 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 D rug/Alcohol: A LEVI-C (Standard) D id you have a drink containing alcohol in the past year? Y es H ow often did you have a drink containing alcohol in the past year? D eclined to specify (0 point) H ow many drinks did you have on a typical day when you were drinking in the past year? D eclined to specify (0 point) H ow often did you have six or more drinks on one occasion in the past year? D eclined to specify (0 point) P oints 0 I nterpretation N egative * Medications: T aking cloNIDine 0.1 MG/24HR Patch Weekly 1 patch to skin Transdermal , Taking MiraLax , Taking Carvedilol 12.5 MG Tablet 1 tablet with food Orally Twice a day , Taking Aspirin 81 MG Tablet Chewable 1 tablet Orally Once a day * Allergies: P enicillin: stomach cramps, RSV injection: rash, IVP DYE: nausea and vomiting. Objective: * Vitals: Assessment: Plan: * Treatment: * Images: * The named appointment provid er may or may not be the originator of this progress note, and it is not deemed complete until electronically signed by the appointment provider. Sign off status: Pending * Provider: María Saleh DPM Date: 0 10/16/2024 Generated for Brenden Camp/Zion on: 08/24/2024 06:49 PM EST
--- OUTSIDE RECORDS SUMMARY | 2025-06-08 05:15 | XMS_ITS ---
Author Organization [facility] Address [address] [place] [address] Care Team Providers Care Design Maker Name Role Phone Oscar Arias Primary Care Provider Rosalia Chaudhary [phone] Adame Encounters Encounter Location Date Provider Diagnosis [address] [address] 06/08/2025 Rosalia Saleh Plan Of Treatment Next Appt Details Provider Name:Rosalia Saleh , 10/19/2025 10:45:00 AM, [address] [place], [address], Progress Notes * Maximino GROVER EDOB:1944 (80 yo M)Acc No.[id number]:06/08/2025 Progress Note Patient: Marcella Maximino PEREA Provider: María Saleh DPM :1945 A ge:80 Y S ex:Male Date:06/08/2025 Address:[address] [place] [address] Pcp:Oscar Arias Subjective: * Chief Complaints: * [address] Adame. * Medical History: Objective: * Vitals: Assessment: Plan: * Treatment: * Images: * The named appointment provid er may or may not be the originator of this progress note, and it is not deemed complete until electronically signed by the appointment provider. Sign off status: Pending * Provider: María Saleh DPM Date: 08/08/2024 Generated for Brenden gonzales/Oscar/Zion on: 08/24/2024 06:48 PM EST
--- OUTSIDE RECORDS SUMMARY | 2025-06-22 09:30 | XMS_ITS ---
Author Organization [facility] Address [address] [place] [address] Care Team Providers Care In Store Representative Name Role Phone Oscar Arias Primary Care Provider Rosalia Chaudhary Unavailable [phone] Allergies Allergen (clinical drug ingredient) Drug/Non Drug Allergy documented on EMR Reaction Allergy Type Onset Date Status IVP DYE (uncoded) nausea and vomiting Allergy Active RSV injection (uncoded) rash Allergy Active Penicillin stomach cramps Drug Allergy A ctive REASON FOR VISIT Painful nail(s) aggravated by shoes causing difficulty standing/walking, Ingrown Nail Medications Medication SIG (Take, Route, Fr equency, Duration) Notes Start Date End Date Status MiraLax Active Carvedilol 12.5 MG 1 tablet with food O rally Twice a day Active Aspirin 81 MG 1 tablet Orally Once a day Active Ciclopirox 0.77 % 1 application Audio Visual Manager ally Once a day; Duration: 30 days Active cloNIDine 0.1 MG/24HR 1 patch to skin Transdermal Active Carvedilol 12.5 MG 1 tablet with food O rally Twice a day Active Aspirin 81 MG 1 tablet Orally Once a day Active cloNIDine 0.2 MG/24HR 1 patch to [...] specify (0 point) Points 0 Interpretation Negative Vital Signs Height 5 ft 9 in in 06/22/2025 Weight 176 lbs 06/22/2025 BMI 25.99 kg/m2 06/22/2025 Blood pressure systolic 126 mm Hg 06/22/20 25 Blood pressure diastolic 65 mm Hg 025 Procedures Procedure Date Ordered Date Performed Result Body Sit e 46691-IIECRRU NAIL, 6 OR MORE 06/22/2025 N/A [id number] Plate 06/22/2025 N/A Encounters Encounter Location Date Provider Diagnosis [facility] [address] [place] [address] 06/22/2025 Rosalia Saleh Onychomycosis B35.1 ; Ingrown nail L60.0 ; Pain in right toe(s) M79.674 and Pain in left toe(s) M79.675 Assessments Encounter Date Diagnosis (ICD Code) Assessment Notes Treatment Notes Treatment Clinical Notes Section Notes 06/22/2025 Onychomycosis (ICD-10 - B35.1) 06/22/2025 Ingrown nail (ICD-10 - L60.0) 06/22/2025 Pain in right toe(s) (ICD-10 - M79.674) 06/22/2025 Pain in left toe(s) (ICD-10 - M79.675) Plan Of Treatment Pending Test Test Name Order Date [id number] NAIL, 6 OR MORE 06/22/2025 [id number] Plate 06/22/2025 Next Appt Details Follow Up: 2 Weeks,prn, Olaf on: Provider Name:Rosalia Saleh , 10/19/2025 10:45:00 AM, [address] [place], [address], Procedure Notes * Category Sub-Category Detail Notes Nail Avulsion Procedure A fine sterile e levator was placed between the eponychium, nail fold, and nail plate to separate the structures. A sterile nail splitter, and/or [...] the temporary use of either a digital tourniquet or the aforementioned local with epinephrine. A bacitracin sterile dressing was applied. Local wound aftercare instructions were discussed and dispensed. The patient was informed of both conservative and future surgical procedures to prevent recurrence. Tylenol or Motrin was recommended for pain or discomfort - 42188, Pt DEFERS matricectomy Anesthesia was accomplished TOP ICALLY with Lidocaine Hydrochloride Jelly 2 percent, Location Bilateral nail borde r,T1, Debride Nail 6-10 Nail debridement Due to the cl inical pathology outlined in the exam findings, performance of this nail treatment is medically necessary as its management by an unskilled/untrained nonprofessional would put this patients foot and overall health at risk. Therefore, debridement to affected nail(s), as described in exam ( TA, T2, T3, T4, T5, T6, T7, T8, T9, ), was performed exclusively by the physician of record to reduce/remove overall nail length, girth, thickness, subungual debris, and necrotic tissue, by manual and/or electrical means through the use of a nail nipper and/or dremel-type grinder operator surface tool, to a more viable healthy nail plate or bed tissue 6-10 nails in total. Silver nitrate was used for any petechial bleeding as necessary. Definitive antifungal treatment options, both pharmaceutical and surgical, have been reviewed and discussed with the patient. The patient solely prefers the use of intermittent/as needed professional debridement services for their nail condition and understands the need for additional periodic treatments to maintain effectiveness in symptomatic relief - 36028, Patient chooses to cont, topical AF treatment Progress Notes * Maximino GROVER EDOB:1944 (80 yo M)Acc No.[id number]:06/22/2025 Progress Note Patient: Maximino WOODRUFF E Provider: María Saleh DPM :1945 A ge:80 Y S ex:Male Date:06/22/2025 Address:[address] [place], [place] [id number] Pcp:Oscar Arias Subjective: * Chief Complaints: * P ainful nail(s) aggravated by shoes causing difficulty standing/walkingIngrown Nail * HPI: P ainful Nails: Pt States Last PCP Visit: D ate: 0 02/13/2025 Treatments: C iclopirox Rx topical gel/solution, relates adherence to recom tx , . * ROS: G eneral/Constitutional: Nausea d enies. [...] enies. C ardiovascular: Pacemaker d enies. M SAGGER FILLER d enies. W PW d enies. C [...] ngrown nails a dmits. P ainful nails , admits. O pen Sores d enies. R ashes d enies. N eurologic: Difficulty sleeping d enies. B rain disorder d enies. N umbness d enies. B alance trouble d enies. C onfusion d enies. F ainting/blackouts d enies. T ingling d enies. T remors d enies. * Medical History: * Surgical History: p rostate removed 2017watch-man 2022sling surgery 2021hernia * Hospitalization/Major Diagno stic Procedure: D enies Past Hospitalization * Family History: M other: , diagnosed [...] M iscellaneous: C affeine: yes, 1 cup. Children: yes. Exercise: no. Marital status: . 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 D rug/Alcohol: A LEVI-C (Standard) D id [...] I nterpretation N egative * Medications: T akingcloNIDine 0.2 MG/24HR Patch Weekly 1 patch to skin Transdermal MiraLax Carvedilol 12.5 MG Tablet 1 tablet with food Orally Twice a day Aspirin 81 MG Tablet Chewable 1 tablet Orally Once a day cloNIDine 0.1 MG/24HR Patch Weekly 1 patch to skin Transdermal MiraLax Carvedilol 12.5 MG Tablet 1 tablet with food Orally Twice a day Aspirin 81 MG Tablet Chewable 1 tablet Orally Once a day Ciclopirox 0.77 % Gel 1 application Externally Once a day Medication List reviewed and reconciled with the patientTaking cloNIDine 0.2 MG/24HR Patch Weekly 1 patch to skin Transdermal Taking MiraLax Taking Carvedilol 12.5 MG Tablet 1 tablet with food Orally Twice a day Taking Aspirin 81 MG Tablet Chewable 1 tablet Orally Once a day Taking cloNIDine 0.1 MG/24HR Patch Weekly 1 patch to skin Transdermal Taking MiraLax Taking Carvedilol 12.5 MG Tablet 1 tablet with food Orally Twice a day Taking Aspirin 81 MG Tablet Chewable 1 tablet Orally Once a day Taking Ciclopirox 0.77 % Gel 1 application Externally Once a day Medication List reviewed and reconciled with the patient * Allergies: P enicillin: stomach crampsRSV injection: rashIVP DYE: nausea and vomitingyes[Allergies Verified] Objective: * Vitals: H t: 5 ft 9 in, Wt:176, BMI: 25.99, Shoe size:9.5EEE, BP:126/65mm Hg, Ht-cm: 175.26 cm, Wt-k.83 kg. * Examination: N ails: NAILS are: E longated, overgrown, dystrophic, lytic, greater than 3mm thick, discolored and friable with crumbly malodorous subungual debris, with pain on palpation, , TA, T1, T2, T3, T4, T5, T6, T7, T8, T9, There is evidence of surrounding periungual tissue erythema, TA, T5. I ngrown Nail: INSPECTION: R eveals nail incurvation, pain on palpation, groove hypertrophy , groove ischemia, Bilateral nail borders, T1. Assessment: * Assessment: 1. I ngrown nail - L60.0 (Primary) S pecify :b./ borders T1 2 . O nychomycosis - B35.1 3 . P ain in right toe(s) - M79.674 4 . P ain in left toe(s) - M79.675 Plan: * Treatment: 2. O nychomycosis P rocedure: [id number] NAIL, 6 OR MORE * Procedures: D ebride Nail 6-10: Nail debridement D ue to the clinical pathology outlined in the exam findings, performance of this nail treatment is medically necessary as its management by an unskilled/untrained nonprofessional would put this patients foot and overall health at risk. Therefore, debridement to affected nail(s), as described in exam ( TA, T2, T3, T4, T5, T6, T7, T8, T9, ), was performed exclusively by the physician of record to reduce/remove overall nail length, girth, thickness, subungual debris, and necrotic tissue, by manual and/or electrical means through the use of a nail nipper and/or dremel- type grinder operator surface tool, to a more viable healthy nail plate or bed tissue 6-10 nails in total. Silver nitrate was used for any petechial bleeding as necessary. Definitive antifungal treatment options, both pharmaceutical and surgical, have been reviewed and discussed with the patient. The patient solely prefers the use of intermittent/as needed professional debridement services for their nail condition and understands the need for additional periodic treatments to maintain effectiveness in symptomatic relief - 89279, . Patient chooses t o cont, topical AF treatment. N ail Avulsion: Location B ilateral nail border,T1, . Anesthesia w as accomplished TOPICALLY with Lidocaine Hydrochloride Jelly 2 percent, . Procedure A fine sterile elevator was placed between the eponychium, nail fold, and nail plate to separate the structures. A sterile nail splitter, and/or [...] the temporary use of either a digital tourniquet or the aforementioned local with epinephrine. A bacitracin sterile dressing was applied. Local wound aftercare instructions were discussed and dispensed. The patient was informed of both conservative and future surgical procedures to prevent recurrence. Tylenol or Motrin was recommended for pain or discomfort - 56846, Pt DEFERS matricectomy. * Procedure Codes: 1 1730 Avulsion Plate, Modifiers: T1 02838 DEBRIDE NAIL, 6 OR MORE, Modifiers: XS * Follow Up: 2 Weeks,prn * Images: * Sign off status: Completed true * Provider: María Saleh DPM Date: 08/23/2024 Generated for Brenden gonzales/Oscar/Zion on: 08/24/2024 06:48 PM EST History and Physical Notes * HPI (History of Present Illness) Category Sub-Category Detail Notes Category Not es Painful Nails Treatments: Ciclopirox Rx to pical gel/solution, relates adherence to recom tx , Pt States Last PCP Visit: Date:: 02/13/2025 Examination Category Sub-Category Detail Notes Category Not es Ingrown Nail INSPECTION: Reveals nail inc urvation, pain on palpation, groove hypertrophy , groove ischemia, Bilateral nail borders, T1 Nails NAILS are: Elongated, overg rown, dystrophic, lytic, greater than 3mm thick, discolored and friable with crumbly malodorous subungual debris, with pain on palpation, , TA, T1, T2, T3, T4, T5, T6, T7, T8, T9, There is evidence of surrounding periungual tissue erythema, TA, T5
[2025-06-23 17:19] LABS: Resp Syncy Virus RNA Qual PCR NEGATIVE (Negative); SARS COV2 PCR INHOUSE NEGATIVE (Negative)
--- OUTSIDE RECORDS SUMMARY | 2025-06-23 18:49 | XMS_ITS | Clinical Summary ---
Author Organization [facility] it Address [address] [place] [address] Care Team Providers Care Corporate Human Resources Manager Name Role Phone Thomas Stiles MD Primary Care Provider [phone] Allergies Active Allergy Reactions Criticality Noted Date [...] Surgery Date Site/Laterality Comments COLONOSCOPY 04/18/2004 PROCEDURE: ID COLONOSCOPY FLX DX W/COLLJ SPEC WHEN PFRMD; COMMENT: Normal ESOPHAGOGASTRODUODENOSCOPY 04/18/2004 PROCEDURE: ID ESOPHAGOGASTRODUODENOSCOPY TRANSORAL DIAGNOSTIC; COMMENT: Normal, not on PPI. COLONOSCOPY 06/03/2010 PROCEDURE: ID COLONOSCOPY FLX DX W/COLLJ SPEC WHEN PFRMD; COMMENT: Normal ESOPHAGOGASTRODUODENOSCOPY 06/03/2010 PROCEDURE: ID ESOPHAGOGASTRODUODENOSCOPY TRANSORAL DIAGNOSTIC; COMMENT: Normal, not on PPI rx. Medical History Medical History Date Comments Esophageal reflux DX:Esophageal reflux Calculus of kidney DX:Calculus o f kidney Historical Medical DX 09/15/2008 DX:BPH Constipation 07/29/2010 DX:Constipation Prostate CA (CMS/HCC V24, CMS/HCC V28) 10/05/2015 DX:Prostate CA ([facility]); COMMENT: Follows with urologist, Dr. Main [facility] 12/06/2018 DX:Hyperglycemia Family History Medical History Relation [...] on file Sexual Orientation Not on file Plan of Treatment Health Maintenance Due Date [...] Results * Annual BMP Blood Test (05/30/2019) [facility] Annual BMP Blood Test Abstracted [facility] [place] [place] HEALTH MAINTENANCE Final Result * Hepatitis C Screening (08/23/2016) [facility] Hepatitis C Screening Abstracted [facility] [place] HEALTH MAINTENANCE Final Result * (ABNORMAL) Lipid panel (08/23/2016) [facility] LDL/HDL Ratio 3 0 - 4 Triglycerides 160(A) 0 - 150 mg/dL Cholesterol 136 0 - 200 mg/dL HDL 54 >=40 mg/dL LDL Cholesterol 50 0 - 100 mg/dL Blood Venous blood specimen / Unknown [facility] [place] LAB BLOOD ORDERABLES Zulema l Result from Last 3 Months or Most Recently Relevant to Health Maintenance Advance Directives Documents on File Type Date Recorded Patient Big Data [employer] Lead Expl anation Health Care Decision (hx) 02/20/2019 AD PORTER DIRECTIVE Health Care Decision (hx) 02/20/2019 AD PORTER DIRECTIVE Health Care Decision (hx) 08/07/2017 AD PORTER DIRECTIVE Health Care Decision (hx) 08/07/2017 AD PORTER DIRECTIVE Care Teams Corporate Human Resources Manager Relationship Specialty Start Date End Date Thomas Stiles MD [address] [place] [id number] PCP - General 05/30/04
--- OUTSIDE RECORDS SUMMARY | 2025-06-23 18:49 | XMS_ITS | Patient Health Record ---
[facility] Address [address] [place] [address] Care Team Providers Care Pediatrician Managing Partner Name Role Phone Oscar Arias Primary Care Provider Rosalia Chaudhary Unavailable [phone] Allergies Allergen (clinical drug ingredient) Drug/Non Drug [...] patch to skin Transdermal Active MiraLax Active MiraLax Active Carvedilol 12.5 MG 1 tablet with food O rally Twice a day Active Aspirin 81 MG 1 tablet Orally Once a day Active Ciclopirox 0.77 % 1 application Broom Worker ally Once a day; Duration: 30 days Active cloNIDine 0.1 MG/24HR 1 patch to skin Transdermal Active Immunizations Vaccine Route Administration Date Status Comme nts Influenza Unknown 03/16/2024 Administered Influenza Unknown 04/17/2025 Administered Social History Tobacco Use: Social History [...] Status W/U Status Risk Notes Problem Onychomycosis (587327838) Onychomycosis (B35.1) Active confirmed Vital Signs Blood pressure diastolic 65 mm Hg 06/22/2025 Height 5 ft 9 in in 06/22/2025 Blood pressure systolic 126 mm Hg 06/22/2025 Weight 176 lbs 06/22/2025 BMI 25.99 kg/m2 06/22/2025 Procedures Procedure Date Ordered Date Performed Result Body Sit e 54389-Vgqytnog Plate 09/18/2024 N/A 80619- Debride <25 sq cm 10/02/2024 N/A 67746-UEFIOLM NAIL, 1-5 02/02/2025 N/A 52795-KDXMVJI NAIL, 6 OR MORE 06/22/2025 N/A 80242-Wqkgczrw Plate 06/22/2025 N/A Encounters Encounter Location Date Provider Diagnosis [address] [address] 09/18/2024 Rosalia Black Ingrown nail L60.0 ; Onychomycosis B35.1 ; Pain in right toe(s) M79.674 and Pain in left toe(s) M79.[address] [address] 10/02/2024 Rosalia Black Skin ulcer of toe of right foot, limited to breakdown of skin L97.[address] [address] 02/02/2025 Rosalia Black Pain in right toe(s) M79.674 ; Onychomycosis B35.1 and Pain in left toe(s) M79.[address] [address] 06/22/2025 Rosalia Saleh Onychomycosis B35.1 ; Ingrown nail L60.0 ; Pain in right toe(s) M79.674 and Pain in left toe(s) M79.675 Assessments Encounter Date Diagnosis (ICD Code) Assessment Notes Treatment Notes Treatment Clinical Notes Section Notes 09/18/2024 Ingrown nail (ICD-10 - L60.0) 09/18/2024 Onychomycosis (ICD-10 - B35.1) 02/02/2025 Pain in right toe(s) (ICD-10 - M79.674) 06/22/2025 Ingrown nail (ICD-10 - L60.0) 06/22/2025 Onychomycosis (ICD-10 - B35.1) 06/22/2025 Pain in right toe(s) (ICD-10 - [...] Pain in left toe(s) (ICD-10 - M79.675) 06/22/2025 Pain in left toe(s) (ICD-10 - M79.675) 10/02/2024 Other Plan Of Treatment Pending Test Test Name Order Date [id number] NAIL, 6 OR MORE 06/22/2025 83971-JZPYPOG NAIL, 1-5 02/02/2025 47095-Ecrtqkfj Plate 06/22/2025 30437-Olvtvltx Plate 09/18/2024 26862- Debride <25 sq cm 10/02/2024 Next Appt Details Provider Name:Rosalia Saleh , 10/19/2025 10:45:00 AM, [address] [place] [address], [place], [address], Insurance Providers Payer Name Payer Address Payer Phone Subscriber Number Group Number Insured Name Patient Relationship to Insured Coverage Start Date Coverage End Date Medicare [employer] [address] [place] [address] [id number] Maximino Bellamy Self - patient is the insured 1 [employer] ([employer]) [address] [place] [address] [phone] [id number] Maximino Bellamy Self - patient is the insured Medical (General) History Medical History History ICD Code Cancer Cataracts covid-19 High Blood Pressure Reflux ( GERD) Sciatica A fib Surgical History Surgery Date(Month/Year) prostate removed 2017 watch-man 2022 sling surgery 2021 hernia
--- OUTSIDE RECORDS SUMMARY | 2025-06-23 18:49 | XMS_ITS | Clinical Summary ---
Author Organization [facility] Address [address] [place] [address] Phone Care Team Providers Care Parole Officer Name Role Phone Oscar Arias MD Primary Care Provider [phone] Allergies Active Allergy Reactions Criticality Noted Date [...] evening. Take with meals. 5 Active cloNIDine (Dbntsbre-MAN-2) 0.2 MG/24HR patch weeklyIndications :Essential (primary) hypertension [...] Office Visit [facility] [address] [address] Celestina Quevedo ARNP Essential (primary) hypertension from [...] Office Visit [facility] [address] [address] Celestina Quevedo ARNP [address] [phone] Health Maintenance Due Date Last Done Comments Influenza Vaccine (#1) 2025 0, 04/14/2019, 03/07/2018, Additional history exists Pneumococcal Vaccine: 50+ Years Completed 01/17/2017, 04/06/2011 Hepatitis B Vaccine Aged Out No longe r eligible based on patient's age to complete this topic Insurance Medicare [facility] Medicare [facility] Care Teams Parole Officer Relationship Specialty Start Date End Date Oscar Arias MD [facility] [address] [place] PCP - General Internal Medicine 01/04/23
--- OUTSIDE RECORDS SUMMARY | 2025-06-23 18:50 | XMS_ITS | Patient Health Record ---
Author Organization [facility] Address [address] [place] [id number] Care Team Providers Care Docent Coordinator Name Role Phone Oscar Arias MD Primary Care Provider Jayesh De Santiago [phone] Allergies Allergen (clinical drug ingredient) Drug/Non Drug Allergy documented on EMR Reaction Allergy Type Onset Date Status IVP dye (uncoded) Unknown Allergy Ac tive Penicillin Unknown Drug Allergy Active RSV Test Unknown Drug Allergy Active RSV Vaccine Recombinant, Adjuvanted Unknown Drug Allergy Active Reason For Referral No Information Medications Medication SIG (Take, Route, Frequency, Duration) Notes Start Date End Date Status Aspirin 81 Active Flonase Allergy Relief 50 MCG/ACT Suspension 1 spray in each nostril Nasally Once a day; Duration: 30 day(s) Active cloNIDine 0.1 MG/24HR Patch Weekly 1 patch to skin Transdermal; Duration: 30 day(s) Active Hydrocortisone 2.5 % Cream 1 application Externally Once a day Not-Taking/PRN MiraLax 17 GM/SCOOP Powder 1 scoop mixed with 8 ounces of fluid Orally Once a day; Duration: 30 day(s) Active Carvedilol 12.5 MG Tablet 1 tablet with food Orally Twice a day; Duration: 30 days Active Eliquis 5 MG Tablet 1 tablet Orally Twice a day; Duration: 30 day(s) Not-Taking/P RN Lisinopril 5 MG Tablet Oral; Duration: 30 Not-Taking/PRN Fluticasone Propionate 50 MCG/ACT Suspension SHAKE LIQUID AND USE 2 SPRAYS IN EACH NOSTRIL DAILY Diagnosis Unavailable Nasal; Duration: 90 Active Prilosec 20 MG Capsule Delayed Release 2 capsule Orally twice a day; Duration: 10 day(s) Not-Taking/P RN Immunizations Vaccine Route Administration Date Status Comme nts Flu vaccine no Preserv 3 and > Unknown 05/11/2015 Admin istered Influenza Unknown 03/16/2022 Administered Influenza Unknown 07/16/2023 Administered Social History Social History Drug/Alcohol: Social Info Question Answer Notes AUDIT-C (Standard) Did you have a drink containing alcohol in the past year? Yes How often did you have a drink containing alcohol in the past year? Monthly or less (1 point) How many drinks did you have on a typical day when you were drinking in the past year? 1 or 2 drinks (0 point) How often did you have six or more drinks on one occasion in the past year? Never (0 point) Points 1 Interpretation Negative Additional Details Category Social Info Options Details Miscellaneous: Marital status: Occupation: retired Section Notes: Nonsmoker; occ alcohol Nonsmoker; occ alcohol Nonsmoker; occ alcohol Nonsmoker; occ alcohol Problems Problem Type SNOMED Code ICD Code Onset Dates Problem Status W/U Status Risk Notes Problem Colon cancer screening (037009779) Colon cancer screening (Z12.11) Active confirmed Problem Generalized abdominal pain (984045880) Generalized abdominal pain (R10.84) Active confirmed Problem Dysphagia (94764735) Dysphagia (R13.10) Active confirmed Problem History of polyp of colon (situation) (694093459) History of colon polyps (Z86.010) Active confirmed Problem Hemorrhage of rectum and anus (142098309) Rectal bleed (K62.5) Active confirmed Problem Gastroesophageal reflux disease (400140639) GERD (gastroesophageal reflux disease) (K21.9) Active confirmed Problem History of adenomatous polyp of colon (291966752) Hx of adenomatous colonic polyps (Z86.010) Active confirmed Problem Barium swallow abnormal (392046620) Abnormal barium swallow (R93.3) Active confirmed Problem Family history of malignant neoplasm of gastrointestinal tract (885697625) Family history of GI malignancy (Z80.0) Active confirmed Problem Diverticulosis of colon (141416360) Diverticulosis of colon (K57.30) Active confirmed Problem Gastroesophageal reflux disease (703345141) Gastroesophageal reflux disease, unspecified whether esophagitis present (K21.9) Active confirmed Vital Signs Blood pressure diastolic 01 mm Hg 06/23/2025 Height 67.5 in 06/23/2025 Blood pressure systolic 001 mm Hg 06/23/2025 Weight 182.4 lbs 06/23/2025 BMI 28.14 kg/m2 06/23/2025 Encounters Encounter Location Date Provider Diagnosis [facility] [address] [place] [address] 06/23/2025 Jayesh Sweet GERD (gastroesophageal reflux disease) K21.9 ; Dysphagia R13.10 and Abnormal barium swallow R93.3 Assessments Encounter Date Diagnosis (ICD Code) Assessment Notes Treatment Notes Treatment Clinical Notes Section Notes 06/23/2025 Dysphagia (ICD-10 - R13.10) Overall, Dasia appears well. We did review his current symptoms and the results of his barium swallow. I did recommend an upper endoscopy for further evaluation to inspect the esophagus and possibly perform balloon dilation if indeed a stricture is noted at the gastroesophageal junction. Full consent has been obtained for that, including risks of bleeding and perforation. The procedure will be done with monitored anesthesia care. Depending upon the endoscopic findings and his clinical course we may want to start him on some acid suppression with a PPI as well. He was advised to stop aspirin about 2 days before the procedure. He was concerned about his weight gain of 10 pounds since I last saw him. He does not have any edema on exam and his abdominal exam is equally benign. I did reassure him but did advise him that he could try to watch his diet somewhat. Dasia was comfortable with this plan. Thank you again for allowing me to participate in Dasia's care. I shall continue to keep you advised of his progress. 06/23/2025 GERD (gastroesopha geal reflux disease) (ICD-10 - K21.9) Overall, Dasia appears well. We did review his current symptoms and the results of his barium swallow. I did recommend an upper endoscopy for further evaluation to inspect the esophagus and possibly perform balloon dilation if indeed a stricture is noted at the gastroesophageal junction. Full consent has been obtained for that, including risks of bleeding and perforation. The procedure will be done with monitored anesthesia care. Depending upon the endoscopic findings and his clinical course we may want to start him on some acid suppression with a PPI as well. He was advised to stop aspirin about 2 days before the procedure. He was concerned about his weight gain of 10 pounds since I last saw him. He does not have any edema on exam and his abdominal exam is equally benign. I did reassure him but did advise him that he could try to watch his diet somewhat. Dasia was comfortable with this plan. Thank you again for allowing me to participate in Dasia's care. I shall continue to keep you advised of his progress. 06/23/2025 Abnormal barium swallow (ICD-10 - R93.3) Overall, Dasia appears well. We did review his current symptoms and the results of his barium swallow. I did recommend an upper endoscopy for further evaluation to inspect the esophagus and possibly perform balloon dilation if indeed a stricture is noted at the gastroesophageal junction. Full consent has been obtained for that, including risks of bleeding and perforation. The procedure will be done with monitored anesthesia care. Depending upon the endoscopic findings and his clinical course we may want to start him on some acid suppression with a PPI as well. He was advised to stop aspirin about 2 days before the procedure. He was concerned about his weight gain of 10 pounds since I last saw him. He does not have any edema on exam and his abdominal exam is equally benign. I did reassure him but did advise him that he could try to watch his diet somewhat. Dasia was comfortable with this plan. Thank you again for allowing me to participate in Dasia's care. I shall continue to keep you advised of his progress. Plan Of Treatment Future Test Test Name Order Date COLONOSCOPY 04/12/2016 COLONOSCOPY 09/28/2022 UPPER GI ENDOSCOPY BALLOOON DILATION OF ESOPH 06/23/2025 Next Appt Details Provider Name:Jayesh Sweet , 06/29/2025 12:40:00 PM, [address] [place] [address] , [place], [place], [id number], Insurance Providers Payer Name Payer Address Payer Phone Subscriber Number Group Number Insured Name Patient Relationship to Insured Coverage Start Date Coverage End Date MEDICARE OF [place] [address] [place] [address] [id number] DASIA GROVER Self - patient is the insured 1 [email or web address] ([employer] [place]) [address] [place] [address] [id number] DASIA GROVER Self - patient is the insured Medical (General) History Medical History History ICD Code Prostate cancer as below Denies [place],DM,CVA,Lung disease,renal dise rick Has had 3 previous colonosco pies at [facility]- last one was 05/2010- he reports that they've been negative Hypertension Colonoscopy 05/2016 with a small tubular adenoma removed Atrial [place]23[place] [facility] [place]man procedure Negative screening colonoscopy in 11/2022 Kidney stones Surgical History Surgery Date(Month/Year) Hernia repair- left inguinal Prostatectomy - Dr. Main [address] Buckner - dipti [facility] greatly 2021
== END 2025-06-23 12:15 | disposition home or self-care (01) ==
LOC: HO.LAB 12:14
PROVIDERS: Physician Assistant; PCP Internal Medicine
DX: R09.89 Other specified symptoms and signs involving the circulatory and respiratory systems (principal); J01.40 Acute pansinusitis, unspecified; H61.22 Impacted cerumen, left ear
CPT/HCPCS: 87637

== ENCOUNTER 2025-06-29 11:26 | Day surgery (SDC) | payer MEDICARE, OTHER, SELFPAY ==
--- NOTE | 2025-06-25 10:48 | HO.ANESPROP2 ---
Documented by User: Elissa Dillon NP 06/25/25 10:51 HPI - Anesthesia Eval Consult details Narrative: 80yo M for Upper Endoscopy with Balloon Dilitation Follows [facility] Card[facility] for PAF s/p watchman 09/2023. Aspirin only now. Last office visit 03/2024 with 1 year f/u (appointment rescheduled twice by office and booked for 08/2025) [facility] Active Problems Active Problems: All Active Problems Impacted cerumen, left ear (Acute) Acute sinusitis (Acute) Peripheral neuropathy (Acute) Dysphagia (Acute) Sinusitis (Acute) Medicare annual wellness visit, subsequent (Acute) Acute respiratory disease (Acute) Right foot pain (Acute) Splinter in skin (Acute) Facial dermatitis (Acute) COVID-19 virus infection (Acute) Left leg swelling (Acute) Right renal stone (Acute) Presence of Watchman left atrial appendage closure device (Acute) Postop check (Acute) Impacted cerumen of both ears (Acute) Lipoma (Acute) PAF (paroxysmal atrial fibrillation) (Acute) Ascending aorta dilatation (Acute) Hypertension (Acute) Excessive tearing (Acute) Dermatosis of scalp (Acute) BPH (benign prostatic hyperplasia) (Acute) History of prostate cancer (Acute) Adult general medical exam (Acute) Visual changes (Acute) Constipation (Acute) GERD (gastroesophageal reflux disease) (Acute) Painful arc syndrome of right shoulder (Acute) Past Medical History Medical History Acute sinusitis Dysphagia Acute respiratory disease COVID-19 virus infection PAF (paroxysmal atrial fibrillation) Bleeding grade II hemorrhoids Generalized anxiety disorder Atrial fibrillation with rapid ventricular response Atrial fibrillation, new onset Epigastric pain determined by examination Chest pain Bloating Postnasal drip Sinus congestion Arrhythmia Burping Blood pressure elevated without history of HTN Colon cancer screening History of renal calculi History of prostate cancer GERD (gastroesophageal reflux disease) BPH (benign prostatic hyperplasia) Family History Family history of problems with anesthesia: No Surgical History Surgical History Hx of surgical procedure (09/28/23) History of suburethral sling procedure History of colonoscopy History of adenoidectomy S/P left inguinal herniorrhaphy H/O prostatectomy History of Problems with Anesthesia: No Social History Social History Household Members: None Housing: House Are you a 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 mall plant caretaker 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 other at home: Yes Do you presently have visiting nurse or other home services: No Alcohol intake: current Alcohol intake frequency: does not drink Comment: 1-2 beers on sunday Patient Tobacco Use Status: Former Tobacco user Tobacco use type: Cigarette Years Smoked: 13 stopped 30 years old e-Cigarette/Vaping Use: Never Used Second Hand Smoke Exposure: Yes Use of substances other than those prescribed or required for medical reasons: No Are you DNR?: No Advance Directives: Yes Advance Directives on File: Yes Advance Directives Date on File: 06/02/22 service: Yes Current occupational status: unemployed and retired Current occupation: left hand Cognitive needs: No Hearing needs: No Vision needs: Yes Meds Allergies Allergy/AdvReac Type Severity Reaction Status Date / Time Iodinated Contrast Media (IV Allergy Intermediate NAUSEA & Verified 06/23/25 12:48 DYE, IODINE CONTAINING) VOMITING Penicillins (PENICILLINS) Allergy Unknown cramping Verified 06/23/25 12:48 amlodipine AdvReac Intermediate Nausea Verified 06/23/25 12:48 losartan AdvReac Intermediate Nausea Verified 06/23/25 12:48 Metoprolol AdvReac Intermediate Nausea and Uncoded 06/23/25 12:48 Vomiting Respiratory syncytial virus AdvReac Intermediate Rash Uncoded 06/23/25 12:48 vaccine Home Medications ?Medication ?Instructions ?Recorded ?Confirmed ?Last Taken ?Type aspirin 81 mg tablet,delayed 81 mg PO DAILY 04/02/24 08/26/24 Unknown History release (Adult Low Dose Aspirin) omeprazole 20 mg capsule,delayed 20 mg PO BID PRN heartburn 08/26/24 08/26/24 Unknown History release polyethylene glycol 3350 17 gram 17 g PO DAILY 08/26/24 08/26/24 Unknown History oral powder packet (Miralax) clonidine 0.2 mg/24 hr weekly topical 06/23/25 Unknown History transdermal patch Flonase 06/29/25 06/29/25 History Exam Narrative Narrative: EKG 03/2024 EKG Details: Sinus rhythm 60 beats per minute, normal axis, QTC 410 milliseconds. ECHO 2022 Conclusions: - Normal left ventricular size and systolic function. There is mildly increased left ventricular wall thickness. The visually estimated ejection fraction is between 60-65%. - Normal right ventricular cavity size and systolic function. - There is trace (trivial) aortic valve regurgitation. - There is mild dilatation of the ascending aorta measuring 3.80 cm. Assessment and Plan Assessment Anesthesia Assessment: Chart Reviewed Final Anesthetic Review Family History of Problems with Anesthesia: No History of Problems with Anesthesia: No Documented by User: Mely Arthur MD 06/29/25 13:14 [facility] Past Medical History Medical History Acute sinusitis Dysphagia Acute respiratory disease COVID-19 virus infection PAF (paroxysmal atrial fibrillation) Bleeding grade II hemorrhoids Generalized anxiety disorder Atrial fibrillation with rapid ventricular response Atrial fibrillation, new onset Epigastric pain determined by examination Chest pain Bloating Postnasal drip Sinus congestion Arrhythmia Burping Blood pressure elevated without history of HTN Colon cancer screening History of renal calculi History of prostate cancer GERD (gastroesophageal reflux disease) BPH (benign prostatic hyperplasia) Surgical History Surgical History Hx of surgical procedure (09/28/23) History of suburethral sling procedure History of colonoscopy History of adenoidectomy S/P left inguinal herniorrhaphy H/O prostatectomy Social History Social History Household Members: None Housing: House Are you a primary mall plant caretaker 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 other at home: Yes Do you presently have visiting nurse or other home services: No Alcohol intake: current Alcohol intake frequency: does not drink Comment: 1-2 beers on sunday Patient Tobacco Use Status: Former Tobacco user Tobacco use type: Cigarette Years Smoked: 13 stopped 30 years old e-Cigarette/Vaping Use: Never Used Second Hand Smoke Exposure: Yes Use of substances other than those prescribed or required for medical reasons: No Are you DNR?: No Advance Directives: Yes Advance Directives on File: Yes Advance Directives Date on File: 06/02/22 service: Yes Current occupational status: unemployed and retired Current occupation: left hand Cognitive needs: No Hearing needs: No Vision needs: Yes Meds Allergies Allergy/AdvReac Type Severity Reaction Status Date / Time Iodinated Contrast Media (IV Allergy Intermediate NAUSEA & Verified 06/23/25 12:48 DYE, IODINE CONTAINING) VOMITING Penicillins (PENICILLINS) Allergy Unknown cramping Verified 06/23/25 12:48 amlodipine AdvReac Intermediate Nausea Verified 06/23/25 12:48 losartan AdvReac Intermediate Nausea Verified 06/23/25 12:48 Metoprolol AdvReac Intermediate Nausea and Uncoded 06/23/25 12:48 Vomiting Respiratory syncytial virus AdvReac Intermediate Rash Uncoded 06/23/25 12:48 vaccine Home Medications ?Medication ?Instructions ?Recorded ?Confirmed ?Last Taken ?Type aspirin 81 mg tablet,delayed 81 mg PO DAILY 04/02/24 08/26/24 Unknown History release (Adult Low Dose Aspirin) omeprazole 20 mg capsule,delayed 20 mg PO BID PRN heartburn 08/26/24 08/26/24 Unknown History release polyethylene glycol 3350 17 gram 17 g PO DAILY 08/26/24 08/26/24 Unknown History oral powder packet (Miralax) clonidine 0.2 mg/24 hr weekly topical 06/23/25 Unknown History transdermal patch Flonase 06/29/25 06/29/25 History Exam Airway Mallampati Class: III (globally poor dentition) TM Dist: >3cm Neck ROM: Limited Loose/Missing/Broken Teeth: Yes, Upper and Lower Heart: RRR Lungs: CTA Assessment and Plan Assessment Anesthesia Assessment: Anesthesia Plan Discussed Final Anesthetic Review NPO: Yes ASA Class: III Final Preanesthetic Review: Meds/Allgs Chart Reviewed, Consent Obtained/Reviewed and Anes Risks/Benef Reviewed Patient Risk: Intermediate Procedure Risk: Intermediate Anesthetic Plan Anesthetic Plan: MAC: Disposition: Standard PACU
[2025-06-29 12:31] VITALS: BMI 25.9
[2025-06-29 12:33] VITALS: BP 180/76; PULSE 61; RESP 16; TEMP 36.3; O2SAT 98
[2025-06-29 12:55] VITALS: PULSE 58
[2025-06-29] MEDS: Lactated Ringers 1,000 ML 100 ML IVCONT (12:55)
[2025-06-29 13:50] VITALS: BP 111/56; PULSE 59; RESP 18; TEMP 36.6; O2SAT 99
--- NOTE | 2025-06-29 14:02 | PM.OP ---
Brief Operative Note Date of Service: 06/29/25 Pre-op diagnosis: Dysphagia Post-op diagnosis: other (Esophageal stricture, Hiatal hernia) Procedure: EGD with Balloon dilation from 18mm to 19mm Surgeon: Jayesh Sweet MD Anesthesia: MAC Was an Correction Officer used for this Procedure?: No Estimated blood loss (mL): 2.0 Pathology: none sent Condition: stable Disposition: PACU
[2025-06-29 14:05] VITALS: BP 108/57; PULSE 59; RESP 16; O2SAT 96
--- NOTE | 2025-06-29 14:15 | OP_ITS ---
DATE OF SERVICE: 06/29/2025 SURGEON: Jayesh Sweet MD INDICATIONS: The patient presents for evaluation of dysphagia and abnormal barium swallow. Full consent has been obtained from him for this, including risks of bleeding and perforation. PREOPERATIVE DIAGNOSIS: Dysphagia and abnormal barium swallow. POSTOPERATIVE DIAGNOSIS: Dysphagia and abnormal barium swallow, mild distal esophageal stricture, hiatal hernia. PROCEDURE PERFORMED: Esophagogastroduodenoscopy with balloon dilation. ESTIMATED BLOOD LOSS: COMPLICATIONS: ANESTHESIA: Monitored anesthesia care. ASSISTANTS: SPECIMENS: DESCRIPTION OF PROCEDURE: The patient was placed in the left lateral decubitus position. The Olympus video gastroscope was passed in the posterior oropharynx and upper esophagus under direct vision. The scope was passed slowly to the distal esophagus. The gastroesophageal junction appeared at 36 cm. With insufflation of air, there was what appeared to be a mild nonobstructing fibrotic stricture. There was no associated esophagitis nor ulceration. There was no mass. The scope entered a small hiatal hernia and was advanced to the pylorus. The duodenum was cannulated to the descending portion. The duodenum including the bulb appeared normal without mass or ulceration. The scope was withdrawn back to the stomach. The gastric antrum and body appeared normal with good peristalsis. The scope was retroflexed visualizing the proximal stomach carefully which appeared normal, without any sign of mass or ulceration. The scope was straightened and withdrawn back to the esophagus. Given his symptomatology and the findings, I used a [employer] incremental balloon to dilate the area of the stricture from 18 mm to 19 mm at the recommended pressure for 30 to 60 seconds each. Post-dilation, there was clear disruption of the stricture and some heme. No further dilation was performed. The scope was withdrawn through the remainder of the esophagus which appeared normal. The scope was withdrawn from the patient. He tolerated the procedure well and was returned to recovery area in stable condition. IMPRESSION: 1. Distal esophageal stricture, status-post balloon dilation. 2. Hiatal hernia. PLAN: I shall start the patient on omeprazole 20 mg daily given today's findings. I think he should stay on that long-term for the time being in hopes of preventing further acid reflux and recurrence of the stricture. He was advised to resume his aspirin in 48 hours. He was advised not to use any NSAIDs for at least a week. He will be seen in followup. MD MENDEZ Mantilla/STEPHEN / [id number] ROBERTO CARLOS
[2025-06-29 14:18] VITALS: BP 139/60; PULSE 58; RESP 16; TEMP 36.4; O2SAT 96
== END 2025-06-29 14:49 | disposition home or self-care (01) ==
PROVIDERS: PCP Internal Medicine; Visit Provider Internal Medicine
PROC: (CPT 43249; principal; 2025-06-29 12:30)
DX: R13.10 Dysphagia, unspecified (principal); K21.9 Gastro-esophageal reflux disease without esophagitis; R93.3 Abnormal findings on diagnostic imaging of other parts of digestive tract; Z80.0 Family history of malignant neoplasm of digestive organs; K44.9 Diaphragmatic hernia without obstruction or gangrene; K22.2 Esophageal obstruction
CPT/HCPCS: 43249; C1726; J2003; J2704